=== PATIENT | female | born 1960 | race Caucasian/White ===

== ENCOUNTER 2017-03-14 08:46 | Emergency (ER) | payer MEDICAID ==
[2017-03-14 09:10] VITALS: BP 149/81
[2017-03-14] MEDS ORDERED: Acetaminophen/HYDROcodone 325-5 MG Tab PO ONE (09:24)
[2017-03-14] MEDS ORDERED: Acetaminophen/HYDROcodone 325-5 MG Tab ONE (09:27)
--- NOTE | 2017-03-14 09:34 | EDM.PDOC ---
ED HPI GENERAL MEDICAL PROBLEM - General Stated Complaint: Fell and hit left wrist and left knee Time Seen by Provider: 03/14/17 09:15 Source of Information: Reports: Patient History Limitations: Reports: No Limitations - History of Present Illness INITIAL COMMENTS - FREE TEXT/NARRATIVE: Patient is a 57 year old woman who tripped on one of the steps at her home last night and she hit her left wrist and left knee. Both hurt but she can walk, albeit with a limp. It hurts to walk or to use her wrist. No loss of neurological sensation or function and no other complaints. 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: Acetaminophen Left Knee Pain Score (Numeric/FACES): 12 - Related Data Allergies Allergy/AdvReac Type Severity Reaction Status Date / Time codeine Allergy Intermediate Nausea and Verified 05/30/14 18:22 Vomiting morphine Allergy Intermediate Nausea and Verified 05/30/14 18:22 Vomiting Penicillins Allergy Intermediate Nausea and Verified 05/30/14 18:22 Vomiting Home Meds: Home Meds RX: Aspirin [Ecotrin] 81 mg PO BEDTIME 04/27/13 [History] RX: Gabapentin [Neurontin] 300 mg PO BID 04/27/13 [History] RX: atorvaSTATin [Lipitor] 10 mg PO BEDTIME 04/27/13 [History] RX: Calcium Carbonate [Calcium Antacid] 500 mg PO BID 05/15/14 [History] RX: Ferrous Sulfate 325 mg PO DAILY 05/15/14 [History] RX: Magnesium Oxide 400 mg PO DAILY 05/15/14 [History] RX: Ondansetron [Ondansetron ODT] 4 mg PO ASDIRECTED PRN 05/15/14 [History] RX: Mirtazapine [Remeron] 45 mg PO BEDTIME 05/30/14 [History] RX: Lactose-Reduced Food [Ensure] 120 ml GTUBE TID #30 can 06/13/14 [Rx] Pediatric Multivit Comb No.42 [Children's Multivitamin] 1 each PO BID #90 tab.chew 06/15/14 [Rx] RX: Cyanocobalamin (Vitamin B12) [Vitamin B12] 1,000 mcg PO DAILY #90 tab [Rx] RX: Polyethylene Glycol 3350 [MiraLAX] 17 gm PO BID #90 packet 06/15/14 [Rx] RX: Vitamin B Complex 1 each PO DAILY #90 tablet 06/15/14 [Rx] Social & Family History - Tobacco Use Smoking Status *Q: Never Smoker Years of Tobacco use: 1 Used Tobacco, but Quit: Yes Month Tobacco Last Used: Sep Second Hand Smoke Exposure: Yes - Alcohol Use Days Per Week of Alcohol Use: 0 Number of Drinks Per Day: 0 Total Drinks Per Week: 0 - Recreational Drug Use Recreational Drug Use: No - Living Situation & Occupation Living situation: Reports: , with Family Occupation: Disabled Review of Systems - Review of Systems Review Of Systems: See Below Constitutional: Reports: No Symptoms Eyes: Reports: No Symptoms Ears: Reports: No Symptoms Nose: Reports: No Symptoms Mouth/Throat: Reports: No Symptoms Respiratory: Reports: No Symptoms Cardiovascular: Reports: No Symptoms GI/Abdominal: Reports: No Symptoms Genitourinary: Reports: No Symptoms Musculoskeletal: Reports: Other (As per HPI) Skin: Reports: No Symptoms Neurological: Reports: No Symptoms Psychiatric: Reports: No Symptoms ED EXAM, GENERAL - Physical Exam Exam: See Below General Appearance: Alert, WD/WN, No Apparent Distress Eye Exam: Bilateral Eye: Normal Fundi, Normal Inspection Ears: Normal External Exam, Normal Canal, Hearing Grossly Normal, Normal TMs Ear Exam: Bilateral Ear: Auricle Normal, Canal Normal, TM normal Nose: Normal Inspection, Normal Mucosa, No Blood Throat/Mouth: Normal Inspection, Normal Lips, Normal Teeth, Normal Gums, Normal Oropharynx, Normal Voice, No Airway Compromise Head: Atraumatic, Normocephalic Neck: Normal Inspection, Supple, Non-Tender, Full Range of Motion Respiratory/Chest: No Respiratory Distress, Lungs Clear, Normal Breath Sounds, No Accessory Muscle Use, Chest Non-Tender Cardiovascular: Normal Peripheral Pulses, Regular Rate, Rhythm, No Edema, No Gallop, No JVD, No Murmur, No Rub Peripheral Pulses: 2+: Posterior Tibial (L), Posterior Tibial (R), Dorsalis Pedis (L), Dorsalis Pedis (R) GI/Abdominal: Normal Bowel Sounds, Soft, Non-Tender, No Organomegaly, No Distention, No Abnormal Bruit, No Mass Extremities: Normal Inspection, No Pedal Edema, Limited Range of Motion (left wrist and left knee due to pain), Other (Both the left wrist and left knee grossly appear normal on inspection. They are both sore on ROM and on Palpation of each. Both are minimally tender at rest. She can walk with a limp. X-rays of the left wrist are negative for fracture on my initial reading and x-ray of the left knee is negative for fracture on my initial reading. She does have arthritis in both joints, though.) Neurological: Alert, Oriented, CN II-XII Intact, Normal Cognition, Normal Gait, Normal Reflexes, No Motor/Sensory Deficits Psychiatric: Normal Affect, Normal Mood Skin Exam: Warm, Dry, Intact, Normal Color, No Rash Course - Vital Signs Text/Narrative:: Patient had an uneventful ED course. She felt better after taking a 10/325 mg Hydrocodone/APAP and we put on a wrist splint and a knee brace and let her go home. She will follow up with her PCP next week. She will take the Vicodin she has at home one pill aq 4 hours prn for pain, she will rest the joints, ice them , elevate them and follow up next week as noted above. Last Recorded V/S: Last Vital Signs Temp 36.9 C 03/14/17 09:09 Pulse 80 03/14/17 09:09 Resp 16 03/14/17 09:09 BP 149/81 H 03/14/17 09:09 Pulse Ox 99 03/14/17 09:09 - Orders/Labs/Meds Orders: Active Orders 24 hr Category Date Time Status Knee 1V or 2V Lt [CR] Stat Exams 03/14/17 09:08 Ordered Wrist 2V Lt [CR] Stat Exams 03/14/17 09:07 Ordered Meds: Medications Discontinued Medications Generic Name Dose Route Start Last Admin Trade Name Freq PRN Reason Stop Dose Admin Hydrocodone Bitart/Acetaminophen 1 tab 03/14/17 09:24 [place] 325-5 Mg PO 03/14/17 09:25 ONETIME ONE Departure - Departure Time of Disposition: 09:49 Disposition: Home, Self-Care 01 Condition: Good Clinical Impression: Contusion of wrist, left, Contusion of knee, left - Discharge Information - My Orders Last 24 Hours: My Active Orders 03/14/17 09:07 Wrist 2V Lt [CR] Stat 03/14/17 09:08 Knee 1V or 2V Lt [CR] Stat - Assessment/Plan Last 24 Hours: My Active Orders 03/14/17 09:07 Wrist 2V Lt [CR] Stat 03/14/17 09:08 Knee 1V or 2V Lt [CR] Stat
--- NOTE | 2017-03-15 13:50 | CR ---
DATE OF SERVICE: 03/14/17 CLINICAL DATA: pain after falling LEFT KNEE There is diffuse osteopenia. There are osteoarthritic changes of the knee joint with narrowing of the lateral compartment joint space. No acute fracture or dislocation. No lytic or blastic bone lesions. No joint effusion. There are vascular calcifications in the soft tissues. [id number] MTDD
--- NOTE | 2017-03-15 14:00 | CR ---
DATE OF SERVICE: 03/14/17 CLINICAL DATA: pain and swelling LEFT WRIST There is diffuse osteopenia. There are mild osteoarthritic changes involving multiple joints. There is a faint lucency through the distal radius on the frontal view suspicious for a fracture. I do not see it on the lateral view. Clinical correlation and followup imaging may be helpful. There are vascular calcifications in the soft tissues. [id number] [facility]
== END 2017-03-14 10:12 | disposition home or self-care (01) ==
LOC: LB.ED 08:46
DX: S80.02XA Contusion of left knee, initial encounter (principal); S60.212A Contusion of left wrist, initial encounter; Z88.5 Allergy status to narcotic agent; Z88.0 Allergy status to penicillin; Z79.82 Long term (current) use of aspirin; Z79.899 Other long term (current) drug therapy; W10.9XXA Fall (on) (from) unspecified stairs and steps, initial encounter; Y93.89 Activity, other specified; Y92.009 Unspecified place in unspecified non-institutional (private) residence as the place of occurrence of the external cause
CPT/HCPCS: 29125; 73100-LT; 73560-LT; 99283-25

== ENCOUNTER 2019-05-23 10:47 | Emergency (ER) | payer MEDICAID ==
--- NOTE | 2019-05-23 11:18 | EDM.PDOC ---
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 Pt is in no acute distress. EKG with NSR noted. Labs ordered for CMP, troponin, U/A, TSH, T3, T4. Pt states she isn't taking the savella for fibromyalgia and this made her feel bad. Reports eating 1/2 sandwich for lunch yesterday and couple bites of breakfast today and yesterday. States she lives alone with her dog, is in a LTCF and brothers need assist with oversight of their diabetes and dialysis and she tries to help them as much as possible. States no increase in her depression and declines any change in antidepressant. States she is lactose intolerant and can't tolerate ensure or mild based products. Middle Chest Pain Score (Numeric/FACES): 10 - Related Data Allergies Allergy/AdvReac Type Severity Reaction Status Date / Time codeine Allergy Intermediate Nausea and Verified 05/23/19 11:45 Vomiting morphine Allergy Intermediate Nausea and Verified 05/23/19 11:45 Vomiting Penicillins Allergy Intermediate Nausea and Verified 05/23/19 11:45 Vomiting Home Meds: Home Meds Aspirin [Ecotrin] 81 mg PO BEDTIME 04/27/13 [History] Gabapentin [Neurontin] 600 mg PO BID 04/27/13 [History] atorvaSTATin [Lipitor] 10 mg PO BEDTIME 04/27/13 [History] Calcium Carbonate [Calcium Antacid] 500 mg PO BID 05/15/14 [History] Ferrous Sulfate 325 mg PO DAILY 05/15/14 [History] Ondansetron [Ondansetron ODT] 4 mg PO ASDIRECTED PRN 05/15/14 [History] Mirtazapine [Remeron] 45 mg PO BEDTIME 05/30/14 [History] Cyanocobalamin (Vitamin B12) [Vitamin B12] 1,000 mcg PO DAILY #90 tab 06/15/14 [ Rx] Pediatric Multivit Comb No.42 [Children's Multivitamin] 1 each PO BID #90 tab.chew 06/15/14 [Rx] Vitamin B Complex 1 each PO DAILY #90 tablet 06/15/14 [Rx] Metoprolol Tartrate 5 mg PO BID 05/23/19 [History] Nitroglycerin 0.4 mg SL ASDIRECTED PRN 05/23/19 [History] diphenhydrAMINE HCl [Benadryl] 50 mg PO ASDIRECTED PRN 05/23/19 [History] Social & Family History - Living Situation & Occupation Living situation: Reports: , with Family Occupation: Disabled ED ROS GENERAL - Review of Systems Review Of Systems: See Below Constitutional: Denies: Fever, Chills HEENT: Reports: Glasses. Denies: Throat Pain Respiratory: Reports: Pleuritic Chest Pain. Denies: Shortness of Breath, Wheezing, Cough Cardiovascular: Reports: Chest Pain. Denies: Edema Endocrine: Reports: Fatigue GI/Abdominal: Reports: Decreased Appetite, Nausea. Denies: Abdominal Pain, Difficulty Swallowing, Hematochezia, Melena, Vomiting : Reports: No Symptoms Musculoskeletal: Reports: Other (arthritis all over, states back pain) Skin: Reports: No Symptoms Psychiatric: Reports: Other (trouble sleeping) ED EXAM, GENERAL - Physical Exam Exam: See Below Exam Limited By: No Limitations General Appearance: Alert, No Apparent Distress Ears: Hearing Grossly Normal Nose: Normal Inspection, Normal Mucosa Throat/Mouth: Normal Voice, No Airway Compromise, Other (oral mucousa is dry) Head: Atraumatic, Normocephalic Neck: Supple, Non-Tender Respiratory/Chest: No Respiratory Distress, Lungs Clear, Normal Breath Sounds. No: Crackles, Rhonchi, Wheezing Cardiovascular: Normal Peripheral Pulses, Regular Rate, Rhythm, No Edema GI/Abdominal: Normal Bowel Sounds, Soft, Non-Tender Back Exam: Normal Inspection Extremities: Non-Tender, No Pedal Edema, Normal Capillary Refill Neurological: Alert, Oriented, Normal Cognition Psychiatric: Normal Affect, Normal Mood Skin Exam: Warm, Dry, Normal Color Lymphatic: No Adenopathy Course - Vital Signs Last Recorded V/S: Last Vital Signs Temp 97.1 F 05/23/19 11:03 Pulse 73 05/23/19 13:25 Resp BP 107/64 05/23/19 13:25 Pulse Ox 96 05/23/19 13:25 - Orders/Labs/Meds Orders: Active Orders 24 hr Category Date Time Status EKG Documentation Completion [RC] ASDIRECTED Care 05/23/19 10:50 Active T3 UPTAKE Routine Lab 05/23/19 11:20 Received THYROID PEROXIDASE (TPO) AB Routine Lab 05/23/19 11:20 Received THYROXINE (T4) FREE, DIRECT, S Routine Lab 05/23/19 11:20 Received Labs: Laboratory Tests 05/23/19 05/23/19 05/23/19 Range/Units 11:10 11:12 13:00 WBC 9.1 (4.0-11.0) K/uL RBC 4.28 (3.80-5.80) M/uL Hgb 13.6 (11.5-16.5) g/dL Hct 40.9 (37.0-47.0) % MCV 96 (76-96) fL MCH 31.8 (27.0-32.0) pg MCHC 33.3 (31.0-35.0) g/dL RDW 15.0 (11.0-16.0) % Plt Count 434 D (150-500) K/uL MPV 9.2 (6.0-10.0) fL Neut % (Auto) 47.7 (45.0-70.0) % Lymph % (Auto) 46.6 H (20.0-40.0) % [place] % (Auto) 5.3 (3.0-10.0) % Eos % (Auto) 0.1 L (1.0-5.0) % Baso % (Auto) 0.3 (0.0-0.5) % Neut # (Auto) 4.36 (2.00-7.50) K/uL Lymph # (Auto) 4.26 H (1.50-4.00) K/uL [place] # (Auto) 0.48 (0.20-0.80) K/uL Eos # (Auto) 0.01 L (0.04-0.40) K/uL Baso # (Auto) 0.03 (0.02-0.10) K/uL Sodium 140 (136-145) mmol/L Potassium 5.3 H (3.5-5.1) mmol/L Chloride 104 (98-107) mmol/L Carbon Dioxide 26.0 (21.0-32.0) mmol/L Anion Gap 15.3 H (5.0-15.0) mmol/L BUN 14 D (8-26) mg/dL Creatinine 1.28 H D (0.55-1.02) mg/dL Est Cr Clr Drug Dosing TNP Estimated GFR (MDRD) 42 L (>60) MLS/MIN BUN/Creatinine Ratio 10.9 (6-25) Glucose 100 D (74-100) mg/dL Calcium 8.3 L (8.5-10.1) mg/dL Total Bilirubin 0.3 D (0.0-1.0) mg/dL AST 39 H (15-37) U/L ALT 26 (12-78) U/L Alkaline Phosphatase 134 H (46-116) U/L Troponin I < 0.017 D (0.000-0.060) ng/mL Total Protein 5.5 L (6.4-8.2) g/dL Albumin 2.0 L (3.4-5.0) g/dL Globulin 3.5 (2.2-4.2) g/dL Albumin/Globulin Ratio 0.6 L (0.8-2.0) TSH, Ultra Sensitive 4.113 H D (0.358-3.740) uIU/mL Urine Color Yellow Urine Appearance Cloudy (CLEAR) Urine pH 5.5 (5.0-8.0) Ur Specific [place] 1.010 (1.003-1.030) Urine Protein Negative (NEGATIVE) mg/dL Urine Glucose (UA) Negative (NEGATIVE) mg/dL Urine Ketones Negative (NEGATIVE) mg/dL Urine Occult Blood Negative (NEGATIVE) Urine Nitrite Negative (NEGATIVE) Urine Bilirubin Negative (NEGATIVE) Urine Urobilinogen 0.2 (0.2-1.0) E.U./dL Ur Leukocyte Esterase Small H (NEGATIVE) Urine RBC 0-5 H /HPF Urine WBC 10-20 H /HPF Ur Squamous Epith Cells Many /HPF Urine Bacteria Moderate H /HPF Meds: Medications Discontinued Medications Generic Name Dose Route Start Last Admin Trade Name Freq PRN Reason Stop Dose Admin Ondansetron HCl 4 mg 05/23/19 13:15 05/23/19 13:17 Zofran Odt PO 05/23/19 13:16 4 mg ONETIME ONE Administration Ondansetron HCl Confirm 05/23/19 13:24 05/23/19 15:55 Zofran Odt Administered 05/23/19 13:25 Not Given Dose 4 mg .ROUTE .STK-MED ONE Tramadol HCl 50 mg 05/23/19 12:09 05/23/19 12:11 Ultram PO 05/23/19 12:10 50 mg ONETIME ONE Administration Tramadol HCl Confirm 05/23/19 12:17 05/23/19 13:17 Ultram Administered 05/23/19 12:18 Not Given Dose 50 mg .ROUTE .STK-MED ONE - Re-Assessments/Exams Free Text/Narrative Re-Assessment/Exam: 05/24/19 08:18 LE Counseled on lab results and EKG, NSR noted and troponins negative. TSH slightly elevated, T3, T4 ordered. Albumin and protein is low, recommend increase in nutrition, possibly lactose free milk, almond milk, eggs, lactose free ensure or boost. Recommend to monitor BS, states she has no glucometer. Consult with Dr Patel and recommends nutritional support as needed with lactose free products and f/u w PCP for depression and TSH follow-up. UTI noted and Cipro started. Pt states understanding. K+ is slightly elevated, recommend to recheck next week and F/U with PCP next week Tramadol 50 mg X1 given for back pain with some relief. Departure - Departure Time of Disposition: 15:20 Disposition: Home, Self-Care 01 Condition: Good Clinical Impression: UTI (urinary tract infection), Failure to thrive - Discharge Information *PRESCRIPTION DRUG MONITORING PROGRAM REVIEWED*: Not Applicable *COPY OF PRESCRIPTION DRUG MONITORING REPORT IN PATIENT NESSA: Not Applicable Instructions: Clear Liquid Diet, Adult, [id number], Ciprofloxacin tablets, [place] Diet Referrals: PCP,None [Primary Care Provider] - Forms: ED Department Discharge Additional Instructions: Please read the requested information about liquid and bland diets. Keep trying small amounts of different foods as tolerated every hr or two. Full sugar boost or dietary supplement is allowed if that is all you can tolerate for the day. Check your blood sugars as directed. Please follow up with your PCP in clinic in a week. You have been given Ciprofloxacin 500mg, to be taken 1 tab twice a day. Try to take with food if you can. - My Orders Last 24 Hours: My Active Orders 05/23/19 10:50 EKG Documentation Completion [RC] ASDIRECTED 05/23/19 11:20 T3 UPTAKE Routine THYROID PEROXIDASE (TPO) AB Routine THYROXINE (T4) FREE, DIRECT, S Routine - Assessment/Plan Last 24 Hours: My Active Orders 05/23/19 10:50 EKG Documentation Completion [RC] ASDIRECTED 05/23/19 11:20 T3 UPTAKE Routine THYROID PEROXIDASE (TPO) AB Routine THYROXINE (T4) FREE, DIRECT, S Routine Plan: Counseled on UTI, slightly elevated TSH, potassium and decrease in protein and albumin levels, recommend increase in nutrition, recheck labs next week, start Cipro. F/U w PCP next week. Monitor BS daily and bring results to next appointment.
[2019-05-23] MEDS ORDERED: Ciprofloxacin 500 MG Tab ONE (12:00)
[2019-05-23] MEDS ORDERED: traMADol 50 MG Tab PO ONE (12:09)
[2019-05-23] MEDS ORDERED: traMADol 50 MG Tab ONE (12:17)
[2019-05-23] MEDS ORDERED: Ondansetron 4 MG Tab.DIS PO ONE (13:15)
[2019-05-23] MEDS ORDERED: Ondansetron 4 MG Tab.DIS ONE (13:24)
[2019-05-23 15:55] VITALS: BP 107/64; PULSE 73
[2019-05-26 06:08] LABS: T3 UPTAKE 32 % (24-39)
== END 2019-05-23 15:20 | disposition home or self-care (01) ==
LOC: LB.ED 10:47
DX: N39.0 Urinary tract infection, site not specified (principal); R62.7 Adult failure to thrive; E11.9 Type 2 diabetes mellitus without complications; I10 Essential (primary) hypertension; K21.9 Gastro-esophageal reflux disease without esophagitis; F32.9 Major depressive disorder, single episode, unspecified; Z88.5 Allergy status to narcotic agent; Z88.0 Allergy status to penicillin; Z79.82 Long term (current) use of aspirin; Z79.899 Other long term (current) drug therapy
CPT/HCPCS: 36415; 80053; 81001; 84439; 84443; 84479; 84484; 85025; 86376; 93005; 99285-25; A9270-GY

== ENCOUNTER 2019-06-02 10:41 | Inpatient (IN) | payer MEDICAID ==
--- NOTE | 2019-06-02 11:23 | EDM.PDOC ---
ED HPI GENERAL MEDICAL PROBLEM - General Chief Complaint: General Stated Complaint: wekaness, unable to eat Time Seen by Provider: 06/02/19 11:20 Source of Information: Reports: Patient, RN - History of Present Illness INITIAL COMMENTS - FREE TEXT/NARRATIVE: 59 yr female presents with weakness and not feeling well. States she doesn't think she can go home she is feeling so bad. Pt states she has no appetite and hasn't been eating very well. States she did take the antibiotic from the previous ER visit and is noticing some symptoms of UTI today. States in the past she had to have a feeding tube in place to help her maintain her nutrition. She states she doesn't know if she has any medications at home and her new refills were coming today, but the weather has caused a delay in delivery until tomorrow. Her brother is with her today and did drive her hear today. Pt states he is a good cook, but does have some other difficulties and she reports assisting him with review of his diabetes and medical needs. Pt states her is in poor health and is in a LTCF in [place]. Lower Back Pain Score (Numeric/FACES): 0 - Related Data Allergies Allergy/AdvReac Type Severity Reaction Status Date / Time codeine Allergy Intermediate Nausea and Verified 06/02/19 11:27 Vomiting morphine Allergy Intermediate Nausea and Verified 06/02/19 11:27 Vomiting Penicillins Allergy Intermediate Nausea and Verified 06/02/19 11:27 Vomiting Home Meds: Home Meds Aspirin [Ecotrin] 81 mg PO BEDTIME 04/27/13 [History] Gabapentin [Neurontin] 600 mg PO BID 04/27/13 [History] atorvaSTATin [Lipitor] 10 mg PO BEDTIME 04/27/13 [History] Calcium Carbonate [Calcium Antacid] 500 mg PO BID 05/15/14 [History] Ferrous Sulfate 325 mg PO DAILY 05/15/14 [History] Ondansetron [Ondansetron ODT] 4 mg PO ASDIRECTED PRN 05/15/14 [History] Mirtazapine [Remeron] 45 mg PO BEDTIME 05/30/14 [History] Cyanocobalamin (Vitamin B12) [Vitamin B12] 1,000 mcg PO DAILY #90 tab 06/15/14 [ Rx] Pediatric Multivit Comb No.42 [Children's Multivitamin] 1 each PO BID #90 tab.chew 06/15/14 [Rx] Vitamin B Complex 1 each PO DAILY #90 tablet 06/15/14 [Rx] Metoprolol Tartrate 5 mg PO BID 05/23/19 [History] Nitroglycerin 0.4 mg SL ASDIRECTED PRN 05/23/19 [History] diphenhydrAMINE HCl [Benadryl] 50 mg PO ASDIRECTED PRN 05/23/19 [History] Past Medical History HEENT History: Reports: Allergic Rhinitis, Impaired Vision, Sinusitis Cardiovascular History: Reports: High Cholesterol, Stents Respiratory History: Reports: SOB, Other (See Below) Other Respiratory History: SOBOE; collapsed lung when in [facility] [place] 2006 Gastrointestinal History: Reports: GERD, Other (See Below) Other Gastrointestinal History: lactose intolerant Genitourinary History: Reports: Other (See Below) Other Genitourinary History: malignant tumor taken off left kidney [employer]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 MOLDER History: Reports: , Spontaneous Musculoskeletal History: Reports: Back Pain, Chronic, Osteoarthritis, Osteoporosis Neurological History: Reports: Migraines, Neuropathy, Diabetic, Other (See Below ) Other Neuro History: [facility] 2006 Psychiatric History: Reports: Eating Disorders Endocrine/Metabolic History: Reports: Diabetes, Type II, Obesity/BMI 30+ Hematologic History: Reports: Anemia, Blood Transfusion(s) Oncologic (Cancer) History: Reports: Renal - Infectious Disease History Infectious Disease History: Reports: Chicken Pox - Past Surgical History HEENT Surgical History: Reports: Tonsillectomy Cardiovascular Surgical History: Reports: Coronary Artery Stent GI Surgical History: Reports: Bariatric Procedure, Colonoscopy Female Surgical History: Reports: Other (See Below) Other Female Surgeries/Procedures: "Misshapen uterus, couldn't find my right ovary". Musculoskeletal Surgical History: Reports: Other (See Below) Other Musculoskeletal Surgeries/Procedures:: plate in right clavicle Oncologic Surgical History: Reports: Lumpectomy Social & Family History - Caffeine Use Caffeine Use: Reports: Soda, Tea Other Caffeine Use: pop 1/day, tea rare - Living Situation & Occupation Living situation: Reports: , with Family Occupation: Disabled ED ROS GENERAL - Review of Systems Review Of Systems: See Below Constitutional: Reports: Weakness, Decreased Appetite, Weight Loss. Denies: Fever HEENT: Reports: Glasses Respiratory: Reports: No Symptoms Cardiovascular: Reports: Edema (Mild ankle edema), Lightheadedness (reported pt patient). Denies: Chest Pain Endocrine: Reports: Other (diabetic) GI/Abdominal: Reports: Decreased Appetite, Nausea. Denies: Abdominal Pain, Vomiting : Reports: Dysuria Musculoskeletal: Reports: Back Pain. Denies: Neck Pain, Arm Pain Skin: Reports: Pallor, Rash (erythema under abdominal fold and under left breast ), Other (haven't had energy to bathe.) Neurological: Reports: Difficulty Walking, Weakness. Denies: Confusion, Headache, Trouble Speaking Psychiatric: Reports: Anxiety (shaking) Hematologic/Lymphatic: Reports: No Symptoms ED EXAM, GENERAL - Physical Exam Exam: See Below Exam Limited By: No Limitations General Appearance: Alert, No Apparent Distress, Anxious Eye Exam: Bilateral Eye: PERRL Ears: Normal External Exam, Hearing Grossly Normal Nose: Normal Inspection. No: Nasal Swelling, Nasal Drainage Throat/Mouth: Normal Lips, Normal Voice, No Airway Compromise, Other (dry mouth , poor dentition) Head: Atraumatic, Normocephalic Neck: Supple, Non-Tender, Full Range of Motion Respiratory/Chest: No Respiratory Distress, Lungs Clear, Normal Breath Sounds Cardiovascular: No Edema, No Murmur, Tachycardia Peripheral Pulses: 2+: Radial (L), Radial (R) GI/Abdominal: Normal Bowel Sounds, Soft, Non-Tender. No: Guarding, Rebound (Female) Exam: Other (erythema to labia) Rectal (Female) Exam: Deferred Back Exam: Other (chronic low back pain) Extremities: No Pedal Edema, Other (mild ankle edema) Neurological: Alert, Oriented, Normal Cognition Psychiatric: Normal Mood, Flat Affect Skin Exam: Cool, Pallor, Other (erythema to left abdominal fold and under left breast. Scabbed area to right great toe and erythema about 1 cm.). No: Jaundice Lymphatic: No Adenopathy Course - Vital Signs Last Recorded V/S: Last Vital Signs Temp 97.8 F 06/02/19 21:00 Pulse 70 06/03/19 05:00 Resp 16 06/03/19 05:00 BP 94/46 L 06/02/19 21:00 Pulse Ox 95 06/02/19 21:00 - Orders/Labs/Meds Orders: Active Orders 24 hr Category Date Time Status Cardiac Monitoring [RC] .As Directed Care 06/02/19 11:57 Active EKG Documentation Completion [RC] ASDIRECTED Care 06/02/19 12:11 Active Mello Catheter Insertion [Insert Urinary Catheter] [OM. Care 06/02/19 12:00 Ordered PC] Q24H Urinary Catheter Assessment [RC] DAILY Care 06/02/19 11:58 Active CULTURE BLOOD [BC] Stat Lab 06/02/19 13:20 Received CULTURE URINE [RM] Stat Lab 06/02/19 12:30 Received Acetaminophen/HYDROcodone [[place] 325-5 MG] Med 06/02/19 13:00 Active 1 tab PO Q6H PRN Dextrose 5%-0.9% NaCl [Dextrose 5%-Normal Saline] 1,000 Med 06/02/19 13:15 Active ml IV ASDIRECTED Sodium Chloride 0.9% [Normal Saline] 1,000 ml Med 06/02/19 11:30 Active IV ASDIRECTED Sodium Chloride 0.9% [Saline Flush] Med 06/02/19 11:29 Active 10 ml FLUSH ASDIRECTED PRN Sodium Chloride 0.9% [Saline Flush] Med 06/02/19 12:32 Active 10 ml FLUSH ASDIRECTED PRN Saline Lock Insert [OM.PC] Routine Oth 06/02/19 11:29 Ordered Saline Lock Insert [OM.PC] Stat Oth 06/02/19 12:33 Ordered Severe Sepsis Onset Time [OM.PC] Stat Oth 06/02/19 12:33 Ordered Medication Orders Hydrocodone Bitart/Acetaminophen ([place] 325-5 Mg) 1 tab PO Q6H PRN PRN Reason: Pain (moderate 4-6) Aspirin (Ecotrin) 81 mg PO BEDTIME [facility] Last Admin: 06/02/19 20:50 Dose: 81 mg Atorvastatin Calcium (Lipitor) 10 mg PO BEDTIME [facility] Last Admin: 06/02/19 20:50 Dose: 10 mg Calcium Carbonate/Glycine (Tums) 500 mg PO BID [facility] Last Admin: 06/02/19 20:51 Dose: 500 mg Cyanocobalamin (Vitamin B12) 1,000 mcg PO DAILY [facility] Last Admin: 06/02/19 17:53 Dose: Diphenhydramine HCl (Benadryl) 50 mg PO ASDIRECTED PRN PRN Reason: Allergies Ferrous Sulfate (Ferrous Sulfate) 325 mg PO DAILY [facility] Gabapentin (Neurontin) 600 mg PO TID [facility] Last Admin: 06/02/19 20:57 Dose: 600 mg Admin: 06/02/19 16:34 Dose: Sodium Chloride (Normal Saline) 1,000 mls @ 999 mls/hr IV ASDIRECTED IRENE Last Admin: 06/02/19 12:05 Dose: 999 mls/hr Dextrose/Sodium Chloride (Dextrose 5%-Normal Saline) 1,000 mls @ 125 mls/hr IV ASDIRECTED [facility] Last Infusion: 06/03/19 00:59 Dose: 75 mls/hr Admin: 06/03/19 00:48 Dose: 125 mls/hr Infusion: 06/02/19 23:07 Dose: 125 mls/hr Admin: 06/02/19 15:07 Dose: 125 mls/hr Ciprofloxacin/Dextrose 400 mg/ (Premix) 200 mls @ 200 mls/hr IV Q12HR [facility] Last Infusion: 06/02/19 23:07 Dose: 200 mls/hr Admin: 06/02/19 20:48 Dose: 200 mls/hr Metoprolol Tartrate (Lopressor) 5 mg PO BID [facility] Last Admin: 06/02/19 20:51 Dose: 5 mg Nitroglycerin (Nitrostat) 0.4 mg SL ASDIRECTED PRN PRN Reason: Chest Pain Non-Formulary Medication (Mirtazapine [Remeron]) 45 mg PO BEDTIME [facility] Last Admin: 06/02/19 20:58 Dose: 45 mg Non-Formulary Medication (Pediatric Multivit Comb No.42 [Children's Multivitamin ]) 1 each PO BID [facility] Last Admin: 06/02/19 20:58 Dose: 1 each Non-Formulary Medication (Vitamin B Complex [Vitamin B Complex]) 1 each PO DAILY [facility] Nystatin (Nystatin Crm) 0 gm TOP BID [facility] Last Admin: 06/02/19 20:58 Dose: 1 applic Sodium Chloride (Saline Flush) 10 ml FLUSH ASDIRECTED PRN PRN Reason: Keep Vein Open Sodium Chloride (Saline Flush) 10 ml FLUSH ASDIRECTED PRN PRN Reason: Keep Vein Open Labs: Laboratory Tests 06/02/19 06/02/19 06/02/19 Range/Units 10:42 12:00 12:00 WBC 10.4 (4.0-11.0) K/uL RBC 4.08 (3.80-5.80) M/uL Hgb 13.0 (11.5-16.5) g/dL Hct 38.2 (37.0-47.0) % MCV 94 (76-96) fL MCH 31.9 (27.0-32.0) pg MCHC 34.0 (31.0-35.0) g/dL RDW 14.9 (11.0-16.0) % Plt Count 331 D (150-500) K/uL MPV 9.8 (6.0-10.0) fL Neut % (Auto) 76.8 H (45.0-70.0) % Lymph % (Auto) 17.2 L (20.0-40.0) % Logan % (Auto) 5.8 (3.0-10.0) % Eos % (Auto) 0.1 L (1.0-5.0) % Baso % (Auto) 0.1 (0.0-0.5) % Neut # (Auto) 7.98 H (2.00-7.50) K/uL Lymph # (Auto) 1.79 (1.50-4.00) K/uL Logan # (Auto) 0.60 (0.20-0.80) K/uL Eos # (Auto) 0.01 L (0.04-0.40) K/uL Baso # (Auto) 0.01 L (0.02-0.10) K/uL VBG pH (7.31-7.41) Sodium 137 (136-145) mmol/L Potassium 4.0 D (3.5-5.1) mmol/L Chloride 103 (98-107) mmol/L Carbon Dioxide 22.0 (21.0-32.0) mmol/L Anion Gap 16.0 H (5.0-15.0) mmol/L BUN 15 (8-26) mg/dL Creatinine 1.18 H (0.55-1.02) mg/dL Est Cr Clr Drug Dosing TNP Estimated GFR (MDRD) 47 L (>60) MLS/MIN BUN/Creatinine Ratio 12.7 (6-25) Glucose 137 H D (74-100) mg/dL POC Glucose 146 H (74-110) mg/dL Lactic Acid (0.90-1.70) mmol/L Calcium 8.1 L (8.5-10.1) mg/dL Total Bilirubin (0.0-1.0) mg/dL Direct Bilirubin (0.0-0.3) mg/dL Indirect Bilirubin (<= 0.7) mg/dL AST (15-37) U/L ALT (12-78) U/L Alkaline Phosphatase (46-116) U/L Troponin I (0.000-0.060) ng/mL Total Protein (6.4-8.2) g/dL Albumin (3.4-5.0) g/dL Globulin (2.2-4.2) g/dL Albumin/Globulin Ratio (0.8-2.0) Urine Color Urine Appearance (CLEAR) Urine pH (5.0-8.0) Ur Specific [place] (1.003-1.030) Urine Protein (NEGATIVE) mg/dL Urine Glucose (UA) (NEGATIVE) mg/dL Urine Ketones (NEGATIVE) mg/dL Urine Occult Blood (NEGATIVE) Urine Nitrite (NEGATIVE) Urine Bilirubin (NEGATIVE) Urine Urobilinogen (0.2-1.0) E.U./dL Ur Leukocyte Esterase (NEGATIVE) Urine RBC /HPF Urine WBC /HPF Ur Squamous Epith Cells /HPF Urine Bacteria /HPF 06/02/19 06/02/19 06/02/19 Range/Units 12:00 12:00 12:15 WBC (4.0-11.0) K/uL RBC (3.80-5.80) M/uL Hgb (11.5-16.5) g/dL Hct (37.0-47.0) % MCV (76-96) fL MCH (27.0-32.0) pg MCHC (31.0-35.0) g/dL RDW (11.0-16.0) % Plt Count (150-500) K/uL MPV (6.0-10.0) fL Neut % (Auto) (45.0-70.0) % Lymph % (Auto) (20.0-40.0) % Logan % (Auto) (3.0-10.0) % Eos % (Auto) (1.0-5.0) % Baso % (Auto) (0.0-0.5) % Neut # (Auto) (2.00-7.50) K/uL Lymph # (Auto) (1.50-4.00) K/uL Logan # (Auto) (0.20-0.80) K/uL Eos # (Auto) (0.04-0.40) K/uL Baso # (Auto) (0.02-0.10) K/uL VBG pH 7.41 (7.31-7.41) Sodium (136-145) mmol/L Potassium (3.5-5.1) mmol/L Chloride (98-107) mmol/L Carbon Dioxide (21.0-32.0) mmol/L Anion Gap (5.0-15.0) mmol/L BUN (8-26) mg/dL Creatinine (0.55-1.02) mg/dL Est Cr Clr Drug Dosing Estimated GFR (MDRD) (>60) MLS/MIN BUN/Creatinine Ratio (6-25) Glucose (74-100) mg/dL POC Glucose (74-110) mg/dL Lactic Acid 2.26 H (0.90-1.70) mmol/L Calcium (8.5-10.1) mg/dL Total Bilirubin (0.0-1.0) mg/dL Direct Bilirubin (0.0-0.3) mg/dL Indirect Bilirubin (<= 0.7) mg/dL AST (15-37) U/L ALT (12-78) U/L Alkaline Phosphatase (46-116) U/L Troponin I 0.032 D (0.000-0.060) ng/mL Total Protein (6.4-8.2) g/dL Albumin (3.4-5.0) g/dL Globulin (2.2-4.2) g/dL Albumin/Globulin Ratio (0.8-2.0) Urine Color Urine Appearance (CLEAR) Urine pH (5.0-8.0) Ur Specific [place] (1.003-1.030) Urine Protein (NEGATIVE) mg/dL Urine Glucose (UA) (NEGATIVE) mg/dL Urine Ketones (NEGATIVE) mg/dL Urine Occult Blood (NEGATIVE) Urine Nitrite (NEGATIVE) Urine Bilirubin (NEGATIVE) Urine Urobilinogen (0.2-1.0) E.U./dL Ur Leukocyte Esterase (NEGATIVE) Urine RBC /HPF Urine WBC /HPF Ur Squamous Epith Cells /HPF Urine Bacteria /HPF 06/02/19 06/02/19 Range/Units 12:30 12:33 WBC (4.0-11.0) K/uL RBC (3.80-5.80) M/uL Hgb (11.5-16.5) g/dL Hct (37.0-47.0) % MCV (76-96) fL MCH (27.0-32.0) pg MCHC (31.0-35.0) g/dL RDW (11.0-16.0) % Plt Count (150-500) K/uL MPV (6.0-10.0) fL Neut % (Auto) (45.0-70.0) % Lymph % (Auto) (20.0-40.0) % Logan % (Auto) (3.0-10.0) % Eos % (Auto) (1.0-5.0) % Baso % (Auto) (0.0-0.5) % Neut # (Auto) (2.00-7.50) K/uL Lymph # (Auto) (1.50-4.00) K/uL Logan # (Auto) (0.20-0.80) K/uL Eos # (Auto) (0.04-0.40) K/uL Baso # (Auto) (0.02-0.10) K/uL VBG pH (7.31-7.41) Sodium (136-145) mmol/L Potassium (3.5-5.1) mmol/L Chloride (98-107) mmol/L Carbon Dioxide (21.0-32.0) mmol/L Anion Gap (5.0-15.0) mmol/L BUN (8-26) mg/dL Creatinine (0.55-1.02) mg/dL Est Cr Clr Drug Dosing Estimated GFR (MDRD) (>60) MLS/MIN BUN/Creatinine Ratio (6-25) Glucose (74-100) mg/dL POC Glucose (74-110) mg/dL Lactic Acid (0.90-1.70) mmol/L Calcium (8.5-10.1) mg/dL Total Bilirubin 0.8 D (0.0-1.0) mg/dL Direct Bilirubin 0.4 H (0.0-0.3) mg/dL Indirect Bilirubin 0.4 (<= 0.7) mg/dL AST 83 H (15-37) U/L ALT 41 (12-78) U/L Alkaline Phosphatase 168 H (46-116) U/L Troponin I (0.000-0.060) ng/mL Total Protein 5.3 L (6.4-8.2) g/dL Albumin 1.6 L (3.4-5.0) g/dL Globulin 3.7 (2.2-4.2) g/dL Albumin/Globulin Ratio 0.4 L (0.8-2.0) Urine Color Yellow Urine Appearance Slightly cloudy (CLEAR) Urine pH 5.5 (5.0-8.0) Ur Specific [place] 1.015 (1.003-1.030) Urine Protein Negative (NEGATIVE) mg/dL Urine Glucose (UA) Negative (NEGATIVE) mg/dL Urine Ketones Trace H (NEGATIVE) mg/dL Urine Occult Blood Negative (NEGATIVE) Urine Nitrite Positive H (NEGATIVE) Urine Bilirubin Negative (NEGATIVE) Urine Urobilinogen 0.2 (0.2-1.0) E.U./dL Ur Leukocyte Esterase Negative (NEGATIVE) Urine RBC Not seen /HPF Urine WBC 0-5 H /HPF Ur Squamous Epith Cells Rare /HPF Urine Bacteria Few /HPF Meds: Medications Generic Name Dose Route Start Last Admin Trade Name Freq PRN Reason Stop Dose Admin Hydrocodone Bitart/Acetaminophen 1 tab 06/02/19 13:00 [place] 325-5 Mg PO Q6H PRN Pain (moderate 4-6) Aspirin 81 mg 06/02/19 20:00 06/02/19 20:50 Ecotrin PO 81 mg BEDTIME IRENE Administration Atorvastatin Calcium 10 mg 06/02/19 20:00 06/02/19 20:50 Lipitor PO 10 mg BEDTIME IRENE Administration Calcium Carbonate/Glycine 500 mg 06/02/19 20:00 06/02/19 20:51 Tums PO 500 mg BID IRENE Administration Cyanocobalamin 1,000 mcg 06/02/19 16:00 06/02/19 17:53 Vitamin B12 PO Not Given DAILY IRENE Diphenhydramine HCl 50 mg 06/02/19 13:56 Benadryl PO ASDIRECTED PRN Allergies Ferrous Sulfate 325 mg 06/03/19 08:00 Ferrous Sulfate PO DAILY IRENE Gabapentin 600 mg 06/02/19 14:00 06/02/19 20:57 Neurontin PO 600 mg TID IRENE Administration Sodium Chloride 1,000 mls @ 999 mls/hr 06/02/19 11:30 06/02/19 12:05 Normal Saline IV 999 mls/hr ASDIRECTED IRENE Administration Dextrose/Sodium Chloride 1,000 mls @ 125 mls/hr 06/02/19 13:15 06/03/19 00:59 Dextrose 5%-Normal Saline IV 75 mls/hr ASDIRECTED IRENE Infusion Ciprofloxacin/Dextrose 400 mg/ 200 mls @ 200 mls/hr 06/02/19 20:00 06/02/19 23:07 Premix IV Infused Q12HR IRENE Infusion Metoprolol Tartrate 5 mg 06/02/19 20:00 06/02/19 20:51 Lopressor PO 5 mg BID IRENE Administration Nitroglycerin 0.4 mg 06/02/19 13:56 Nitrostat SL ASDIRECTED PRN Chest Pain Non-Formulary Medication 45 mg 06/02/19 20:00 06/02/19 20:58 Mirtazapine [Remeron] PO 45 mg BEDTIME IRENE Administration Non-Formulary Medication 1 each 06/02/19 20:00 06/02/19 20:58 Pediatric Multivit Comb No.42 [Children's Multivitamin] PO 1 each BID IRENE Administration Non-Formulary Medication 1 each 06/03/19 08:00 Vitamin B Complex [Vitamin B Complex] PO DAILY IRENE Nystatin 0 gm 06/02/19 20:00 06/02/19 20:58 Nystatin Crm TOP 1 applic BID IRENE Administration Sodium Chloride 10 ml 06/02/19 11:29 Saline Flush FLUSH ASDIRECTED PRN Keep Vein Open Sodium Chloride 10 ml 06/02/19 12:32 Saline Flush FLUSH ASDIRECTED PRN Keep Vein Open Discontinued Medications Generic Name Dose Route Start Last Admin Trade Name Freq PRN Reason Stop Dose Admin Hydrocodone Bitart/Acetaminophen Confirm 06/02/19 13:09 06/02/19 13:14 [place] 325-5 Mg Administered 06/02/19 13:10 Not Given Dose 1 tab .ROUTE .STK-MED ONE Ciprofloxacin/Dextrose 400 mg/ 200 mls @ 200 mls/hr 06/02/19 12:32 06/02/19 13:36 Premix IV 06/02/19 13:31 200 mls/hr STAT ONE Administration Sodium Chloride 1,000 mls @ 999 mls/hr 06/02/19 12:32 06/02/19 13:40 Normal Saline IV 06/02/19 13:32 Not Given BOLUS ONE Ciprofloxacin/Dextrose Confirm 06/02/19 12:51 06/02/19 13:16 Cipro In D5w 400 Mg/200 Ml Administered 06/02/19 12:52 Not Given Dose 200 mls @ as directed .ROUTE .STK-MED ONE Ciprofloxacin/Dextrose Confirm 06/02/19 20:33 06/02/19 20:59 Cipro In D5w 400 Mg/200 Ml Administered 06/02/19 20:34 Not Given Dose 200 mls @ as directed .ROUTE .STK-MED ONE Mirtazapine Confirm 06/02/19 20:37 06/03/19 00:51 Remeron Administered 06/02/19 20:38 Not Given Dose 45 mg .ROUTE .STK-MED ONE Multivitamins/Minerals/Vitamin C Confirm 06/02/19 20:38 06/02/19 21:00 Childrens Chewable Vitamin Administered 06/02/19 20:39 Not Given Dose 1 tab .ROUTE .STK-MED ONE Nystatin Confirm 06/02/19 17:56 06/02/19 18:01 Nystatin Crm Administered 06/02/19 17:57 1 applic Dose Administration 30 gm .ROUTE .STK-MED ONE - Re-Assessments/Exams Free Text/Narrative Re-Assessment/Exam: 06/02/19 13:03 Current BP 132/84, HR 119. Pt is alert and talkative. Pt states she doesn't have her medications at home. Difficulty on admit for IV access and difficulty obtaining labs, r/t dehydration. IV Nacl one liter bolus given. Labs obtained as ordered. Blood cultures and urine culture is pending. Tachycardia and hypotension noted on admit and pt shivering, pale, and cool. Pt hadn't been eating or drinking well at home. Cipro 400 mg IV started. VS improved. Reviewed pt status with Dr Patel and decision to admit to observation for dehydration, will monitor for increase in symptoms of possible sepsis. public housing interviewer continues. Pt is alert, oriented and no problems with cognition. States she lives alone and hasn't energy to bathe. 06/02/19 13:52 Will admit to observation for dehydration and UTI. Blood culture and urine culture is pending. Cipro 400 mg IV started after blood cultures. Continue IV fluids for hydration. Continue mello catheter for accurate I/O. Nystatin ordered for intertrigo. Diabetic diet and VS q 4 hour and prn. Monitor BS ac and hs. Departure - Departure Time of Disposition: 14:05 Disposition: Refer to Observation Condition: Good Clinical Impression: Dehydration, UTI (urinary tract infection), Intertrigo, Diabetes mellitus type 2 - Discharge Information - Problem List & Annotations (1) Dehydration SNOMED Code(s): 99241989 Code(s): E86.0 - DEHYDRATION Status: Acute Current Visit: Yes Onset Date: 06/02/19 (2) UTI (urinary tract infection) SNOMED Code(s): 07717029 Code(s): N39.0 - URINARY TRACT INFECTION, SITE NOT SPECIFIED Status: Acute Current Visit: Yes (3) Diabetes mellitus type 2 SNOMED Code(s): 59776290 Code(s): E11.9 - TYPE 2 DIABETES MELLITUS WITHOUT COMPLICATIONS Status: Chronic Current Visit: Yes Annotation/Comment:: (4) Intertrigo SNOMED Code(s): 63965297 Code(s): L30.4 - ERYTHEMA INTERTRIGO Status: Acute Current Visit: Yes - Problem List Review Problem List Initiated/Reviewed/Updated: Yes - My Orders Last 24 Hours: My Active Orders 06/02/19 11:29 Sodium Chloride 0.9% [Saline Flush] 10 ml FLUSH ASDIRECTED PRN Saline Lock Insert [OM.PC] Routine 06/02/19 11:30 Sodium Chloride 0.9% [Normal Saline] 1,000 ml IV ASDIRECTED 06/02/19 11:57 Cardiac Monitoring [RC] .As Directed 06/02/19 11:58 Urinary Catheter Assessment [RC] DAILY 06/02/19 12:00 Mello Catheter Insertion [Insert Urinary Catheter] [OM.PC] Q24H 06/02/19 12:11 EKG Documentation Completion [RC] ASDIRECTED 06/02/19 12:30 CULTURE URINE [RM] Stat 06/02/19 12:32 Sodium Chloride 0.9% [Saline Flush] 10 ml FLUSH ASDIRECTED PRN 06/02/19 12:33 Saline Lock Insert [OM.PC] Stat Severe Sepsis Onset Time [OM.PC] Stat 06/02/19 13:00 Acetaminophen/HYDROcodone [[place] 325-5 MG] 1 tab PO Q6H PRN 06/02/19 13:15 Dextrose 5%-0.9% NaCl [Dextrose 5%-Normal Saline] 1,000 ml IV ASDIRECTED 06/02/19 13:20 CULTURE BLOOD [BC] Stat - Assessment/Plan Last 24 Hours: My Active Orders 06/02/19 11:29 Sodium Chloride 0.9% [Saline Flush] 10 ml FLUSH ASDIRECTED PRN Saline Lock Insert [OM.PC] Routine 06/02/19 11:30 Sodium Chloride 0.9% [Normal Saline] 1,000 ml IV ASDIRECTED 06/02/19 11:57 Cardiac Monitoring [RC] .As Directed 06/02/19 11:58 Urinary Catheter Assessment [RC] DAILY 06/02/19 12:00 Mello Catheter Insertion [Insert Urinary Catheter] [OM.PC] Q24H 06/02/19 12:11 EKG Documentation Completion [RC] ASDIRECTED 06/02/19 12:30 CULTURE URINE [RM] Stat 06/02/19 12:32 Sodium Chloride 0.9% [Saline Flush] 10 ml FLUSH ASDIRECTED PRN 06/02/19 12:33 Saline Lock Insert [OM.PC] Stat Severe Sepsis Onset Time [OM.PC] Stat 06/02/19 13:00 Acetaminophen/HYDROcodone [[place] 325-5 MG] 1 tab PO Q6H PRN 06/02/19 13:15 Dextrose 5%-0.9% NaCl [Dextrose 5%-Normal Saline] 1,000 ml IV ASDIRECTED 06/02/19 13:20 CULTURE BLOOD [BC] Stat Plan: Admit to observation for dehydration, UTI, diabetes Type 2, and intertrigo: IV fluid hydration, Cipro IV, monitor BS, diabetic diet, monitor VS closely for any signs of sepsis, nystatin to abdominal fold and rash. Medications as at home. CBC and BMP tomorrow.
[2019-06-02] MEDS ORDERED: Sodium Chloride 0.9% 10 ML Syringe FLUSH PRN (11:29)
[2019-06-02] MEDS ORDERED: Sodium Chloride 0.9% 1,000 ML IV SCH (11:30)
[2019-06-02] MEDS ORDERED: Sodium Chloride 0.9% 1,000 ML IV ONE (12:32)
[2019-06-02] MEDS ORDERED: Ciprofloxacin in D5W 400 MG in Premix Bag 1 BAG IV ONE ×2 (12:32)
[2019-06-02] MEDS ORDERED: Ciprofloxacin in D5W 200 ML ONE ×2 (12:51→20:33)
[2019-06-02] MEDS ORDERED: Acetaminophen/HYDROcodone 325-5 MG Tab ONE ×2 (13:04→13:09)
[2019-06-02] MEDS ORDERED: Nitroglycerin 0.4 MG Tab.SL SL PRN (13:56)
[2019-06-02] MEDS ORDERED: diphenhydrAMINE 25 MG Cap PO PRN (13:56)
[2019-06-02] MEDS: Dextrose 5%-0.9% NaCl 1,000 ML IV SCH (15:07)
--- NOTE | 2019-06-02 15:22 | CR ---
DATE OF SERVICE: 06/02/19 CLINICAL DATA: weakness, nausea, unable to eat, back pain AP PORTABLE CHEST: Comparison is made to a prior exam dated 05/08/2015. The heart size is normal. There is calcification of the aortic arch. There are mild atelectatic changes of the left lung base. The lungs are other clear. No pneumothorax. No pleural effusions. The patient is status post internal fixation of the right clavicle. [id number] [facility]
[2019-06-02] MEDS: Gabapentin 300 MG Cap PO SCH ×2 (16:34→20:57)
[2019-06-02] MEDS: Cyanocobalamin (Vitamin B12) 1,000 MCG Tab PO SCH (17:53)
[2019-06-02] MEDS ORDERED: Nystatin Crm 30 GM Tube ONE (17:56)
[2019-06-02] MEDS: Ciprofloxacin in D5W 400 MG in Premix Bag 1 BAG IV SCH ×2 (20:48)
[2019-06-02] MEDS: Multivitamin, Childrens Tab.Chew ONE ×2 (20:49→21:00)
[2019-06-02] MEDS: atorvaSTATin 10 MG Tab PO SCH (20:50)
[2019-06-02] MEDS: Mirtazapine 15 MG Tab ONE (20:50)
[2019-06-02] MEDS: Aspirin 325 MG Tab.EC PO SCH (20:50)
[2019-06-02] MEDS: Calcium Carbonate 500 MG Tab.Chew PO SCH (20:51)
[2019-06-02] MEDS: Metoprolol Tartrate 25 MG Tab PO SCH (20:51)
[2019-06-02] MEDS: MIRTAZAPINE 45 MG PO SCH (20:58)
[2019-06-02] MEDS: [UNRECOGNIZED DRUG - OTHER] PO SCH (20:58)
[2019-06-02] MEDS: Nystatin Crm 30 GM Tube TOP SCH (20:58)
[2019-06-03] MEDS: Dextrose 5%-0.9% NaCl 1,000 ML IV SCH ×2 (00:48→14:57)
[2019-06-03] MEDS: Mirtazapine 15 MG Tab ONE (00:51)
[2019-06-03] MEDS ORDERED: Ciprofloxacin in D5W 200 ML ONE ×2 (07:28→20:07)
[2019-06-03] MEDS ORDERED: Multivitamin, Childrens Tab.Chew ONE ×2 (07:30→20:03)
[2019-06-03] MEDS: Ferrous Sulfate 325 MG Tab PO SCH (08:27)
[2019-06-03] MEDS: Gabapentin 300 MG Cap PO SCH ×3 (08:28→20:13)
[2019-06-03] MEDS: Nystatin Crm 30 GM Tube TOP SCH ×2 (08:28→20:49)
[2019-06-03] MEDS: Calcium Carbonate 500 MG Tab.Chew PO SCH ×2 (08:29→20:13)
[2019-06-03] MEDS: [UNRECOGNIZED DRUG - OTHER] PO SCH ×2 (08:29→20:13)
[2019-06-03] MEDS: Cyanocobalamin (Vitamin B12) 1,000 MCG Tab PO SCH (08:29)
[2019-06-03] MEDS: Non-Formulary Medication 1 Each (Vitamin B Complex [Vitamin B Complex] 1 EACH) PO SCH (08:30)
[2019-06-03] MEDS: Metoprolol Tartrate 25 MG Tab PO SCH ×4 (08:30→20:54)
--- NOTE | 2019-06-03 08:30 | PCM.PN ---
- General Info Date of Service: 06/03/19 Admission Dx/Problem (Free Text): dehydration, UTI, weakness Subjective Update: Pt states she is tired today. States her pain to her back is improved with the [place]. States she is doing well with the mello catheter. Functional Status: Reports: Pain Controlled, Incentive Spirometry - Review of Systems General: Reports: Weakness, Fatigue HEENT: Reports: Glasses. Denies: Visual Changes Pulmonary: Denies: Shortness of Breath, Cough, Wheezing Cardiovascular: Reports: Lightheadedness. Denies: Chest Pain Gastrointestinal: Reports: Constipation, Decreased Appetite. Denies: Nausea, Vomiting Genitourinary: Reports: Other (improved pain while voiding) Musculoskeletal: Reports: Back Pain Skin: Reports: Pallor, Dryness Neurological: Reports: Dizziness. Denies: Headache, Paresthesia, Trouble Speaking - Patient Data Vitals - Most Recent: Last Vital Signs Temp 97.8 F 06/03/19 05:00 Pulse 70 06/03/19 05:00 Resp 16 06/03/19 05:00 BP 99/44 L 06/03/19 05:00 Pulse Ox 98 06/03/19 05:00 Weight - Most Recent: 146 lb I&O - Last 24 Hours: Intake & Output 06/02/19 06/03/19 06/03/19 22:59 06:59 14:59 Intake Total 300 Output Total 300 1600 Balance -300 -1300 Lab Results Last 24 Hours: Laboratory Results - last 24 hr 06/02/19 06/02/19 06/02/19 Range/Units 10:42 12:00 12:00 WBC 10.4 (4.0-11.0) K/uL RBC 4.08 (3.80-5.80) M/uL Hgb 13.0 (11.5-16.5) g/dL Hct 38.2 (37.0-47.0) % MCV 94 (76-96) fL MCH 31.9 (27.0-32.0) pg MCHC 34.0 (31.0-35.0) g/dL RDW 14.9 (11.0-16.0) % Plt Count 331 D (150-500) K/uL MPV 9.8 (6.0-10.0) fL Neut % (Auto) 76.8 H (45.0-70.0) % Lymph % (Auto) 17.2 L (20.0-40.0) % [place] % (Auto) 5.8 (3.0-10.0) % Eos % (Auto) 0.1 L (1.0-5.0) % Baso % (Auto) 0.1 (0.0-0.5) % Neut # (Auto) 7.98 H (2.00-7.50) K/uL Lymph # (Auto) 1.79 (1.50-4.00) K/uL [place] # (Auto) 0.60 (0.20-0.80) K/uL Eos # (Auto) 0.01 L (0.04-0.40) K/uL Baso # (Auto) 0.01 L (0.02-0.10) K/uL VBG pH (7.31-7.41) Sodium 137 (136-145) mmol/L Potassium 4.0 D (3.5-5.1) mmol/L Chloride 103 (98-107) mmol/L Carbon Dioxide 22.0 (21.0-32.0) mmol/L Anion Gap 16.0 H (5.0-15.0) mmol/L BUN 15 (8-26) mg/dL Creatinine 1.18 H (0.55-1.02) mg/dL Est Cr Clr Drug Dosing TNP Estimated GFR (MDRD) 47 L (>60) MLS/MIN BUN/Creatinine Ratio 12.7 (6-25) Glucose 137 H D (74-100) mg/dL POC Glucose 146 H (74-110) mg/dL Lactic Acid (0.90-1.70) mmol/L Calcium 8.1 L (8.5-10.1) mg/dL Total Bilirubin (0.0-1.0) mg/dL Direct Bilirubin (0.0-0.3) mg/dL Indirect Bilirubin (<= 0.7) mg/dL AST (15-37) U/L ALT (12-78) U/L Alkaline Phosphatase (46-116) U/L Troponin I (0.000-0.060) ng/mL Total Protein (6.4-8.2) g/dL Albumin (3.4-5.0) g/dL Globulin (2.2-4.2) g/dL Albumin/Globulin Ratio (0.8-2.0) Urine Color Urine Appearance (CLEAR) Urine pH (5.0-8.0) Ur Specific [place] (1.003-1.030) Urine Protein (NEGATIVE) mg/dL Urine Glucose (UA) (NEGATIVE) mg/dL Urine Ketones (NEGATIVE) mg/dL Urine Occult Blood (NEGATIVE) Urine Nitrite (NEGATIVE) Urine Bilirubin (NEGATIVE) Urine Urobilinogen (0.2-1.0) E.U./dL Ur Leukocyte Esterase (NEGATIVE) Urine RBC /HPF Urine WBC /HPF Ur Squamous Epith Cells /HPF Urine Bacteria /HPF 06/02/19 06/02/19 06/02/19 Range/Units 12:00 12:00 12:15 WBC (4.0-11.0) K/uL RBC (3.80-5.80) M/uL Hgb (11.5-16.5) g/dL Hct (37.0-47.0) % MCV (76-96) fL MCH (27.0-32.0) pg MCHC (31.0-35.0) g/dL RDW (11.0-16.0) % Plt Count (150-500) K/uL MPV (6.0-10.0) fL Neut % (Auto) (45.0-70.0) % Lymph % (Auto) (20.0-40.0) % [place] % (Auto) (3.0-10.0) % Eos % (Auto) (1.0-5.0) % Baso % (Auto) (0.0-0.5) % Neut # (Auto) (2.00-7.50) K/uL Lymph # (Auto) (1.50-4.00) K/uL [place] # (Auto) (0.20-0.80) K/uL Eos # (Auto) (0.04-0.40) K/uL Baso # (Auto) (0.02-0.10) K/uL VBG pH 7.41 (7.31-7.41) Sodium (136-145) mmol/L Potassium (3.5-5.1) mmol/L Chloride (98-107) mmol/L Carbon Dioxide (21.0-32.0) mmol/L Anion Gap (5.0-15.0) mmol/L BUN (8-26) mg/dL Creatinine (0.55-1.02) mg/dL Est Cr Clr Drug Dosing Estimated GFR (MDRD) (>60) MLS/MIN BUN/Creatinine Ratio (6-25) Glucose (74-100) mg/dL POC Glucose (74-110) mg/dL Lactic Acid 2.26 H (0.90-1.70) mmol/L Calcium (8.5-10.1) mg/dL Total Bilirubin (0.0-1.0) mg/dL Direct Bilirubin (0.0-0.3) mg/dL Indirect Bilirubin (<= 0.7) mg/dL AST (15-37) U/L ALT (12-78) U/L Alkaline Phosphatase (46-116) U/L Troponin I 0.032 D (0.000-0.060) ng/mL Total Protein (6.4-8.2) g/dL Albumin (3.4-5.0) g/dL Globulin (2.2-4.2) g/dL Albumin/Globulin Ratio (0.8-2.0) Urine Color Urine Appearance (CLEAR) Urine pH (5.0-8.0) Ur Specific [place] (1.003-1.030) Urine Protein (NEGATIVE) mg/dL Urine Glucose (UA) (NEGATIVE) mg/dL Urine Ketones (NEGATIVE) mg/dL Urine Occult Blood (NEGATIVE) Urine Nitrite (NEGATIVE) Urine Bilirubin (NEGATIVE) Urine Urobilinogen (0.2-1.0) E.U./dL Ur Leukocyte Esterase (NEGATIVE) Urine RBC /HPF Urine WBC /HPF Ur Squamous Epith Cells /HPF Urine Bacteria /HPF 06/02/19 06/02/19 06/02/19 Range/Units 12:30 12:33 16:20 WBC (4.0-11.0) K/uL RBC (3.80-5.80) M/uL Hgb (11.5-16.5) g/dL Hct (37.0-47.0) % MCV (76-96) fL MCH (27.0-32.0) pg MCHC (31.0-35.0) g/dL RDW (11.0-16.0) % Plt Count (150-500) K/uL MPV (6.0-10.0) fL Neut % (Auto) (45.0-70.0) % Lymph % (Auto) (20.0-40.0) % [place] % (Auto) (3.0-10.0) % Eos % (Auto) (1.0-5.0) % Baso % (Auto) (0.0-0.5) % Neut # (Auto) (2.00-7.50) K/uL Lymph # (Auto) (1.50-4.00) K/uL [place] # (Auto) (0.20-0.80) K/uL Eos # (Auto) (0.04-0.40) K/uL Baso # (Auto) (0.02-0.10) K/uL VBG pH (7.31-7.41) Sodium (136-145) mmol/L Potassium (3.5-5.1) mmol/L Chloride (98-107) mmol/L Carbon Dioxide (21.0-32.0) mmol/L Anion Gap (5.0-15.0) mmol/L BUN (8-26) mg/dL Creatinine (0.55-1.02) mg/dL Est Cr Clr Drug Dosing Estimated GFR (MDRD) (>60) MLS/MIN BUN/Creatinine Ratio (6-25) Glucose (74-100) mg/dL POC Glucose 197 H (74-110) mg/dL Lactic Acid (0.90-1.70) mmol/L Calcium (8.5-10.1) mg/dL Total Bilirubin 0.8 D (0.0-1.0) mg/dL Direct Bilirubin 0.4 H (0.0-0.3) mg/dL Indirect Bilirubin 0.4 (<= 0.7) mg/dL AST 83 H (15-37) U/L ALT 41 (12-78) U/L Alkaline Phosphatase 168 H (46-116) U/L Troponin I (0.000-0.060) ng/mL Total Protein 5.3 L (6.4-8.2) g/dL Albumin 1.6 L (3.4-5.0) g/dL Globulin 3.7 (2.2-4.2) g/dL Albumin/Globulin Ratio 0.4 L (0.8-2.0) Urine Color Yellow Urine Appearance Slightly cloudy (CLEAR) Urine pH 5.5 (5.0-8.0) Ur Specific [place] 1.015 (1.003-1.030) Urine Protein Negative (NEGATIVE) mg/dL Urine Glucose (UA) Negative (NEGATIVE) mg/dL Urine Ketones Trace H (NEGATIVE) mg/dL Urine Occult Blood Negative (NEGATIVE) Urine Nitrite Positive H (NEGATIVE) Urine Bilirubin Negative (NEGATIVE) Urine Urobilinogen 0.2 (0.2-1.0) E.U./dL Ur Leukocyte Esterase Negative (NEGATIVE) Urine RBC Not seen /HPF Urine WBC 0-5 H /HPF Ur Squamous Epith Cells Rare /HPF Urine Bacteria Few /HPF Med Orders - Current: Current Medications Hydrocodone Bitart/Acetaminophen ([place] 325-5 Mg) 1 tab PO Q6H PRN PRN Reason: Pain (moderate 4-6) Aspirin (Ecotrin) 81 mg PO BEDTIME [facility] Last Admin: 06/02/19 20:50 Dose: 81 mg Atorvastatin Calcium (Lipitor) 10 mg PO BEDTIME [facility] Last Admin: 06/02/19 20:50 Dose: 10 mg Calcium Carbonate/Glycine (Tums) 500 mg PO BID [facility] Last Admin: 06/02/19 20:51 Dose: 500 mg Cyanocobalamin (Vitamin B12) 1,000 mcg PO DAILY [facility] Last Admin: 06/02/19 17:53 Dose: Not Given Diphenhydramine HCl (Benadryl) 50 mg PO ASDIRECTED PRN PRN Reason: Allergies Ferrous Sulfate (Ferrous Sulfate) 325 mg PO DAILY [facility] Gabapentin (Neurontin) 600 mg PO TID [facility] Last Admin: 06/02/19 20:57 Dose: 600 mg Sodium Chloride (Normal Saline) 1,000 mls @ 999 mls/hr IV ASDIRECTED [facility] Last Admin: 06/02/19 12:05 Dose: 999 mls/hr Dextrose/Sodium Chloride (Dextrose 5%-Normal Saline) 1,000 mls @ 125 mls/hr IV ASDIRECTED [facility] Last Infusion: 06/03/19 00:59 Dose: 75 mls/hr Ciprofloxacin/Dextrose 400 mg/ (Premix) 200 mls @ 200 mls/hr IV Q12HR [facility] Last Infusion: 06/02/19 23:07 Dose: Infused Metformin HCl (Glucophage Xr) 1,000 mg PO BIDMEALS [facility] Metoprolol Tartrate (Lopressor) 5 mg PO BID [facility] Last Admin: 06/02/19 20:51 Dose: 5 mg Nitroglycerin (Nitrostat) 0.4 mg SL ASDIRECTED PRN PRN Reason: Chest Pain Non-Formulary Medication (Mirtazapine [Remeron]) 45 mg PO BEDTIME [facility] Last Admin: 06/02/19 20:58 Dose: 45 mg Non-Formulary Medication (Pediatric Multivit Comb No.42 [Children's Multivitamin ]) 1 each PO BID [facility] Last Admin: 06/02/19 20:58 Dose: 1 each Non-Formulary Medication (Vitamin B Complex [Vitamin B Complex]) 1 each PO DAILY [facility] Nystatin (Nystatin Crm) 0 gm TOP BID [facility] Last Admin: 06/02/19 20:58 Dose: 1 applic Sodium Chloride (Saline Flush) 10 ml FLUSH ASDIRECTED PRN PRN Reason: Keep Vein Open Sodium Chloride (Saline Flush) 10 ml FLUSH ASDIRECTED PRN PRN Reason: Keep Vein Open Discontinued Medications Hydrocodone Bitart/Acetaminophen ([place] 325-5 Mg) Confirm Administered Dose 1 tab .ROUTE .STK-MED ONE Stop: 06/02/19 13:10 Last Admin: 06/02/19 13:14 Dose: Not Given Ciprofloxacin/Dextrose 400 mg/ (Premix) 200 mls @ 200 mls/hr IV STAT ONE Stop: 06/02/19 13:31 Last Admin: 06/02/19 13:36 Dose: 200 mls/hr Sodium Chloride (Normal Saline) 1,000 mls @ 999 mls/hr IV BOLUS ONE Stop: 06/02/19 13:32 Last Admin: 06/02/19 13:40 Dose: Not Given Ciprofloxacin/Dextrose (Cipro In D5w 400 Mg/200 Ml) Confirm Administered Dose 200 mls @ as directed .ROUTE .STK-MED ONE Stop: 06/02/19 12:52 Last Admin: 06/02/19 13:16 Dose: Not Given Ciprofloxacin/Dextrose (Cipro In D5w 400 Mg/200 Ml) Confirm Administered Dose 200 mls @ as directed .ROUTE .STK-MED ONE Stop: 06/02/19 20:34 Last Admin: 06/02/19 20:59 Dose: Not Given Ciprofloxacin/Dextrose (Cipro In D5w 400 Mg/200 Ml) Confirm Administered Dose 200 mls @ as directed .ROUTE .STK-MED ONE Stop: 06/03/19 07:29 Mirtazapine (Remeron) Confirm Administered Dose 45 mg .ROUTE .STK-MED ONE Stop: 06/02/19 20:38 Last Admin: 06/03/19 00:51 Dose: Not Given Multivitamins/Minerals/Vitamin C (Childrens Chewable Vitamin) Confirm Administered Dose 1 tab .ROUTE .STK-MED ONE Stop: 06/02/19 20:39 Last Admin: 06/02/19 21:00 Dose: Not Given Multivitamins/Minerals/Vitamin C (Childrens Chewable Vitamin) Confirm Administered Dose 1 tab .ROUTE .STK-MED ONE Stop: 06/03/19 07:31 Nystatin (Nystatin Crm) Confirm Administered Dose 30 gm .ROUTE .STK-MED ONE Stop: 06/02/19 17:57 Last Admin: 06/02/19 18:01 Dose: 1 applic - Exam Quality Assessment: Skin Breakdown General: Alert, Oriented, Cooperative, No Acute Distress HEENT: Pupils Equal, Mucous Membr. Moist/[place] Neck: Supple, Trachea Midline Lungs: Normal Respiratory Effort, Decreased Breath Sounds (to bases) Cardiovascular: Regular Rate, Regular Rhythm GI/Abdominal Exam: Normal Bowel Sounds, Soft, Tender (lower abdomen). No: Guarding, Rebound Extremities: Normal Range of Motion, Non-Tender, Other (mild ankle edema noted) Peripheral Pulses: 2+: Radial (L), Radial (R), Dorsalis Pedis (L), Dorsalis Pedis (R) Skin: Warm, Dry, Other (Rash to groin is improved and less erythema noted.) Wound/Incisions: Other (ulcer to buttocks, Stage 2) Neurological: No New Focal Deficit Psy/Mental Status: Alert, Depressed, Other (flat affect) - Problem List & Annotations (1) Dehydration SNOMED Code(s): 29864837 Code(s): E86.0 - DEHYDRATION Status: Acute Current Visit: Yes Onset Date: 06/02/19 (2) UTI (urinary tract infection) SNOMED Code(s): 79610293 Code(s): N39.0 - URINARY TRACT INFECTION, SITE NOT SPECIFIED Status: Acute Current Visit: Yes (3) Diabetes mellitus type 2 SNOMED Code(s): 45084672 Code(s): E11.9 - TYPE 2 DIABETES MELLITUS WITHOUT COMPLICATIONS Status: Chronic Current Visit: Yes Annotation/Comment:: (4) Intertrigo SNOMED Code(s): 29803908 Code(s): L30.4 - ERYTHEMA INTERTRIGO Status: Acute Current Visit: Yes (5) GERD (gastroesophageal reflux disease) SNOMED Code(s): 279049419 Code(s): K21.9 - GASTRO-ESOPHAGEAL REFLUX DISEASE WITHOUT ESOPHAGITIS Status: Acute Current Visit: Yes (6) CAD (coronary artery disease) SNOMED Code(s): 41201928 Code(s): I25.10 - ATHSCL HEART DISEASE OF [place] CORONARY ARTERY W/O ANG PCTRS Status: Acute Current Visit: Yes (7) Chronic pain SNOMED Code(s): 64946831 Code(s): G89.29 - OTHER CHRONIC PAIN Status: Acute Current Visit: Yes (8) Decubitus skin ulcer SNOMED Code(s): 882355434 Code(s): L89.90 - PRESSURE ULCER OF UNSPECIFIED SITE, UNSPECIFIED STAGE Status: Acute Current Visit: Yes - Problem List Review Problem List Initiated/Reviewed/Updated: Yes - My Orders Last 24 Hours: My Active Orders 06/02/19 11:29 Sodium Chloride 0.9% [Saline Flush] 10 ml FLUSH ASDIRECTED PRN Saline Lock Insert [OM.PC] Routine 06/02/19 11:30 Sodium Chloride 0.9% [Normal Saline] 1,000 ml IV ASDIRECTED 06/02/19 11:57 Cardiac Monitoring [RC] .As Directed 06/02/19 11:58 Urinary Catheter Assessment [RC] DAILY 06/02/19 12:00 Mello Catheter Insertion [Insert Urinary Catheter] [OM.PC] Q24H 06/02/19 12:11 EKG Documentation Completion [RC] ASDIRECTED 06/02/19 12:30 CULTURE URINE [RM] Stat 06/02/19 12:32 Sodium Chloride 0.9% [Saline Flush] 10 ml FLUSH ASDIRECTED PRN 06/02/19 12:33 Saline Lock Insert [OM.PC] Stat Severe Sepsis Onset Time [OM.PC] Stat 06/02/19 13:00 Acetaminophen/HYDROcodone [[place] 325-5 MG] 1 tab PO Q6H PRN 06/02/19 13:15 Dextrose 5%-0.9% NaCl [Dextrose 5%-Normal Saline] 1,000 ml IV ASDIRECTED 06/02/19 13:20 CULTURE BLOOD [BC] Stat 06/02/19 13:47 Patient Status [ADT] Routine 06/02/19 13:49 Vital Signs [RC] Q4H 06/02/19 13:56 Nitroglycerin [Nitrostat] 0.4 mg SL ASDIRECTED PRN diphenhydrAMINE [Benadryl] 50 mg PO ASDIRECTED PRN Code Status [Resuscitation Status] Stat 06/02/19 14:00 Gabapentin [Neurontin] 600 mg PO TID 06/02/19 15:43 CULTURE MRSA SURVEY [RM] Routine 06/02/19 16:00 Cyanocobalamin (Vitamin B12) [Vitamin B12] 1,000 mcg PO DAILY 06/02/19 20:00 Aspirin [Ecotrin] 81 mg PO BEDTIME Calcium Carbonate [Tums] 500 mg PO BID Ciprofloxacin in D5W [Cipro in D5W 400 MG/200 ML] 400 mg Premix Bag 1 bag IV Q12HR Metoprolol Tartrate [Lopressor] 5 mg PO BID Mirtazapine [Remeron] 45 mg PO BEDTIME Nystatin [Nystatin Crm] See Dose Instructions TOP BID Pediatric Multivit Comb No.42 [Children's Multivitamin] 1 each PO BID atorvaSTATin [Lipitor] 10 mg PO BEDTIME 06/02/19 Dinner Carbohydrate Counting [Consistent Carbohydrate Diet] [DIET] 06/03/19 08:00 Ferrous Sulfate 325 mg PO DAILY Vitamin B Complex [Vitamin B Complex] 1 each PO DAILY 06/03/19 12:00 BASIC METABOLIC PANEL,BMP [CHEM] Routine CBC WITH AUTO DIFF [HEME] Routine 06/03/19 17:00 metFORMIN [Glucophage XR] 1,000 mg PO BIDMEALS - Plan Plan:: Dehydration and UTI and weakness: Continue with IV fluids, pt isn't eating or drinking very well yet. Cirpo 400 mg IV bid. Ensure, lactose free as needed. Incentive spirometry q 2 hour while awake. CBC and BMP in am Diabetes: Monitor BS ac and hs Metformin 500 mg PO daily. Chronic pain: Assess pain and medicate as needed. Recommend position change q 2hour. GERD stable with current Rx. Decubitus: Daily wound care and position change q 2 hour and prn.
[2019-06-03] MEDS: Ciprofloxacin in D5W 400 MG in Premix Bag 1 BAG IV SCH ×4 (08:38→20:19)
[2019-06-03] MEDS: Acetaminophen/HYDROcodone 325-5 MG Tab PO PRN ×2 (12:03→20:31)
[2019-06-03] MEDS ORDERED: metFORMIN 500 MG Tab.ER PO SCH (17:00)
[2019-06-03] MEDS ORDERED: metFORMIN 500 MG Tab PO SCH (18:00)
[2019-06-03] MEDS ORDERED: Mirtazapine 15 MG Tab ONE (20:02)
[2019-06-03] MEDS ORDERED: Aspirin 81 MG Tab.EC ONE (20:06)
[2019-06-03] MEDS: MIRTAZAPINE 45 MG PO SCH (20:14)
[2019-06-03] MEDS: atorvaSTATin 10 MG Tab PO SCH (20:14)
[2019-06-03] MEDS: Aspirin 325 MG Tab.EC PO SCH (20:19)
[2019-06-04] MEDS: Dextrose 5%-0.9% NaCl 1,000 ML IV SCH (05:17)
[2019-06-04] MEDS ORDERED: Ciprofloxacin in D5W 200 ML ONE ×2 (07:09→19:43)
[2019-06-04] MEDS ORDERED: Bacitracin Oint 1 GM U/D Packet ONE (07:38)
[2019-06-04] MEDS: Non-Formulary Medication 1 Each (Vitamin B Complex [Vitamin B Complex] 1 EACH) PO SCH (07:47)
[2019-06-04] MEDS: Cyanocobalamin (Vitamin B12) 1,000 MCG Tab PO SCH (07:47)
[2019-06-04] MEDS: [UNRECOGNIZED DRUG - OTHER] PO SCH ×2 (07:48→20:11)
[2019-06-04] MEDS: Calcium Carbonate 500 MG Tab.Chew PO SCH ×2 (07:48→20:11)
[2019-06-04] MEDS: Nystatin Crm 30 GM Tube TOP SCH ×2 (07:49→20:26)
[2019-06-04] MEDS: Gabapentin 300 MG Cap PO SCH ×3 (07:49→20:10)
[2019-06-04] MEDS: Ferrous Sulfate 325 MG Tab PO SCH (07:50)
[2019-06-04] MEDS: Ciprofloxacin in D5W 400 MG in Premix Bag 1 BAG IV SCH ×4 (07:56→20:17)
[2019-06-04] MEDS: Metoprolol Tartrate 25 MG Tab PO SCH ×2 (08:40→20:14)
[2019-06-04] MEDS: Acetaminophen/HYDROcodone 325-5 MG Tab PO PRN ×3 (09:15→21:22)
--- NOTE | 2019-06-04 12:27 | PCM.DCSUM1 ---
Discharge Summary - Hospital Course Brief History: This 59yr female presented to ER with weakness, dehydration, and UTI. Hx CAD, GERD, HTN, Diabetes type 2, and yeast infection and excoriated skin to tailbone area. Cipro 400 mg IV given and symptoms improved. The blood culture is negative for initial reading. No culture results for the urine at this time. Weakness continues and excoriated skin integrity to tailbone area. She is unable to tolerate standing or sitting in chair for any length of time without feeling weak. Will discharge today and admit to acute care with Weakness, UTI, and Skin breakdown to tailbone. Diagnosis: Stroke: No - Discharge Data Discharge Date: 06/04/19 Discharge Disposition: DC/Tfer to Acute Hospital 02 Condition: Good - Referral to Home Health Primary Care Physician: PCP None - Discharge Diagnosis/Problem(s) (1) Dehydration SNOMED Code(s): 59726545 ICD Code: E86.0 - DEHYDRATION Status: Acute Current Visit: Yes Onset Date: 06/02/19 (2) UTI (urinary tract infection) SNOMED Code(s): 95840108 ICD Code: N39.0 - URINARY TRACT INFECTION, SITE NOT SPECIFIED Status: Acute Current Visit: Yes (3) Diabetes mellitus type 2 SNOMED Code(s): 12625370 ICD Code: E11.9 - TYPE 2 DIABETES MELLITUS WITHOUT COMPLICATIONS Status: Chronic Current Visit: Yes Problem Details: (4) Intertrigo SNOMED Code(s): 41533437 ICD Code: L30.4 - ERYTHEMA INTERTRIGO Status: Acute Current Visit: Yes (5) GERD (gastroesophageal reflux disease) SNOMED Code(s): 002855989 ICD Code: K21.9 - GASTRO-ESOPHAGEAL REFLUX DISEASE WITHOUT ESOPHAGITIS Status: Acute Current Visit: Yes (6) CAD (coronary artery disease) SNOMED Code(s): 07428202 ICD Code: I25.10 - ATHSCL HEART DISEASE OF [place] CORONARY ARTERY W/O ANG PCTRS Status: Acute Current Visit: Yes (7) Chronic pain SNOMED Code(s): 99716831 ICD Code: G89.29 - OTHER CHRONIC PAIN Status: Acute Current Visit: Yes (8) Decubitus skin ulcer SNOMED Code(s): 197274872 ICD Code: L89.90 - PRESSURE ULCER OF UNSPECIFIED SITE, UNSPECIFIED STAGE Status: Acute Current Visit: Yes - Patient Summary/Data Consults: Consultations 06/03/19 09:44 PT Evaluation and Treatment [CONS] Routine Please Evaluate and Treat. PT Reason for Consult: Wound Care Special Instructions: coccyx and left groin wounds This query below is only for informational purposes and is not editable. Admission Diagnosis/Problem: Dehydration - Patient Instructions Diet: Diabetic Diet Activity, Other: Up with assist Wound/Incision, Other: Change dressing to coccyx every 3 day and prn. Notify Provider of: Fever, Increased Pain, Nausea and/or Vomiting - Discharge Plan Home Medications: Home Meds Aspirin [Ecotrin] 81 mg PO BEDTIME 04/27/13 [History] Gabapentin [Neurontin] 600 mg PO BID 04/27/13 [History] atorvaSTATin [Lipitor] 10 mg PO BEDTIME 04/27/13 [History] Calcium Carbonate [Calcium Antacid] 500 mg PO BID 05/15/14 [History] Ferrous Sulfate 325 mg PO DAILY 05/15/14 [History] Ondansetron [Ondansetron ODT] 4 mg PO ASDIRECTED PRN 05/15/14 [History] Mirtazapine [Remeron] 45 mg PO BEDTIME 05/30/14 [History] Cyanocobalamin (Vitamin B12) [Vitamin B12] 1,000 mcg PO DAILY #90 tab 06/15/14 [ Rx] Pediatric Multivit Comb No.42 [Children's Multivitamin] 1 each PO BID #90 tab.chew 06/15/14 [Rx] Vitamin B Complex 1 each PO DAILY #90 tablet 06/15/14 [Rx] Metoprolol Tartrate 5 mg PO BID 05/23/19 [History] Nitroglycerin 0.4 mg SL ASDIRECTED PRN 05/23/19 [History] diphenhydrAMINE HCl [Benadryl] 50 mg PO ASDIRECTED PRN 05/23/19 [History] Forms: ED Department Discharge Referrals: PCP,None [Primary Care Provider] - - Discharge Summary/Plan Comment DC Time >30 min.: Yes (Discussion on discharge from observation and admit to acute hospital) Discharge Summary/Plan Comment: Admit to Acute hospital stay with weakness, UTI, Stage 2 ulcer to coccyx, complicated with history of Diabetes type 2, GERD, CAD, HTN. Pt in agreement with this plan. Pepe catheter is d'cd, Continue Cipro 400 mg IV. Will saline lock IV as pt is taking oral fluids well and have good output. Continue medications as at home. Will increase daily calcium. PT/OT consult for strengthening. - Patient Data Vitals - Most Recent: Last Vital Signs Temp 97.5 F 06/04/19 08:00 Pulse 89 06/04/19 08:00 Resp 16 06/04/19 08:00 BP 96/36 L 06/04/19 08:00 Pulse Ox 97 06/04/19 08:00 Weight - Most Recent: 146 lb I&O - Last 24 hours: Intake & Output 06/03/19 06/04/19 06/04/19 22:59 06:59 14:59 Intake Total 3347 1355 Output Total 1100 1275 Balance 2247 80 Lab Results - Last 24 hrs: Laboratory Results - last 24 hr 06/03/19 06/03/19 06/03/19 Range/Units 11:55 16:14 19:38 WBC (4.0-11.0) K/uL RBC (3.80-5.80) M/uL Hgb (11.5-16.5) g/dL Hct (37.0-47.0) % MCV (76-96) fL MCH (27.0-32.0) pg MCHC (31.0-35.0) g/dL RDW (11.0-16.0) % Plt Count (150-500) K/uL MPV (6.0-10.0) fL Neut % (Auto) (45.0-70.0) % Lymph % (Auto) (20.0-40.0) % [place] % (Auto) (3.0-10.0) % Eos % (Auto) (1.0-5.0) % Baso % (Auto) (0.0-0.5) % Neut # (Auto) (2.00-7.50) K/uL Lymph # (Auto) (1.50-4.00) K/uL [place] # (Auto) (0.20-0.80) K/uL Eos # (Auto) (0.04-0.40) K/uL Baso # (Auto) (0.02-0.10) K/uL Sodium 143 (136-145) mmol/L Potassium 3.7 (3.5-5.1) mmol/L Chloride 109 H (98-107) mmol/L Carbon Dioxide 25.2 (21.0-32.0) mmol/L Anion Gap 12.5 (5.0-15.0) mmol/L BUN 9 D (8-26) mg/dL Creatinine 0.97 (0.55-1.02) mg/dL Est Cr Clr Drug Dosing 45.96 mL/min Estimated GFR (MDRD) 58 L (>60) MLS/MIN BUN/Creatinine Ratio 9.3 (6-25) Glucose 162 H (74-100) mg/dL POC Glucose 185 H 181 H (74-110) mg/dL Calcium 7.5 L (8.5-10.1) mg/dL 06/04/19 06/04/19 06/04/19 Range/Units 08:01 08:55 08:55 WBC 9.0 (4.0-11.0) K/uL RBC 4.23 (3.80-5.80) M/uL Hgb 13.5 (11.5-16.5) g/dL Hct 41.1 (37.0-47.0) % MCV 97 H (76-96) fL MCH 31.9 (27.0-32.0) pg MCHC 32.8 (31.0-35.0) g/dL RDW 14.9 (11.0-16.0) % Plt Count 174 D (150-500) K/uL MPV 11.2 H (6.0-10.0) fL Neut % (Auto) 40.3 L (45.0-70.0) % Lymph % (Auto) 50.9 H (20.0-40.0) % [place] % (Auto) 4.4 (3.0-10.0) % Eos % (Auto) 4.0 (1.0-5.0) % Baso % (Auto) 0.4 (0.0-0.5) % Neut # (Auto) 3.60 (2.00-7.50) K/uL Lymph # (Auto) 4.56 H (1.50-4.00) K/uL [place] # (Auto) 0.39 (0.20-0.80) K/uL Eos # (Auto) 0.36 (0.04-0.40) K/uL Baso # (Auto) 0.04 (0.02-0.10) K/uL Sodium 142 (136-145) mmol/L Potassium 3.5 (3.5-5.1) mmol/L Chloride 108 H (98-107) mmol/L Carbon Dioxide 25.0 (21.0-32.0) mmol/L Anion Gap 12.5 (5.0-15.0) mmol/L BUN 8 (8-26) mg/dL Creatinine 0.86 (0.55-1.02) mg/dL Est Cr Clr Drug Dosing 51.84 mL/min Estimated GFR (MDRD) > 60 (>60) MLS/MIN BUN/Creatinine Ratio 9.3 (6-25) Glucose 152 H (74-100) mg/dL POC Glucose 137 H (74-110) mg/dL Calcium 7.3 L (8.5-10.1) mg/dL 06/04/19 Range/Units 11:14 WBC (4.0-11.0) K/uL RBC (3.80-5.80) M/uL Hgb (11.5-16.5) g/dL Hct (37.0-47.0) % MCV (76-96) fL MCH (27.0-32.0) pg MCHC (31.0-35.0) g/dL RDW (11.0-16.0) % Plt Count (150-500) K/uL MPV (6.0-10.0) fL Neut % (Auto) (45.0-70.0) % Lymph % (Auto) (20.0-40.0) % [place] % (Auto) (3.0-10.0) % Eos % (Auto) (1.0-5.0) % Baso % (Auto) (0.0-0.5) % Neut # (Auto) (2.00-7.50) K/uL Lymph # (Auto) (1.50-4.00) K/uL [place] # (Auto) (0.20-0.80) K/uL Eos # (Auto) (0.04-0.40) K/uL Baso # (Auto) (0.02-0.10) K/uL Sodium (136-145) mmol/L Potassium (3.5-5.1) mmol/L Chloride (98-107) mmol/L Carbon Dioxide (21.0-32.0) mmol/L Anion Gap (5.0-15.0) mmol/L BUN (8-26) mg/dL Creatinine (0.55-1.02) mg/dL Est Cr Clr Drug Dosing mL/min Estimated GFR (MDRD) (>60) MLS/MIN BUN/Creatinine Ratio (6-25) Glucose (74-100) mg/dL POC Glucose 182 H (74-110) mg/dL Calcium (8.5-10.1) mg/dL ARI Results - Last 24 hrs: Microbiology 06/02/19 13:20 Aerobic Blood Culture - Preliminary Blood NO GROWTH AFTER 1 DAY Anaerobic Blood Culture - Preliminary NO GROWTH AFTER 1 DAY 06/02/19 15:43 MRSA Surveillance Culture - Final Nares, Unspecified NO MRSA ISOLATED Med Orders - Current: Current Medications Hydrocodone Bitart/Acetaminophen ([place] 325-5 Mg) 1 tab PO Q6H PRN PRN Reason: Pain (moderate 4-6) Last Admin: 06/04/19 09:15 Dose: 1 tab Aspirin (Ecotrin) 81 mg PO BEDTIME [facility] Last Admin: 06/03/19 20:19 Dose: 81 mg Atorvastatin Calcium (Lipitor) 10 mg PO BEDTIME [facility] Last Admin: 06/03/19 20:14 Dose: 10 mg Calcium Carbonate/Glycine (Tums) 500 mg PO BID [facility] Last Admin: 06/04/19 07:48 Dose: 500 mg Cyanocobalamin (Vitamin B12) 1,000 mcg PO DAILY [facility] Last Admin: 06/04/19 07:47 Dose: 1,000 mcg Diphenhydramine HCl (Benadryl) 50 mg PO ASDIRECTED PRN PRN Reason: Allergies Ferrous Sulfate (Ferrous Sulfate) 325 mg PO DAILY [facility] Last Admin: 06/04/19 07:50 Dose: 325 mg Gabapentin (Neurontin) 600 mg PO TID [facility] Last Admin: 06/04/19 07:49 Dose: 600 mg Sodium Chloride (Normal Saline) 1,000 mls @ 999 mls/hr IV ASDIRECTED [facility] Last Admin: 06/02/19 12:05 Dose: 999 mls/hr Dextrose/Sodium Chloride (Dextrose 5%-Normal Saline) 1,000 mls @ 125 mls/hr IV ASDIRECTED [facility] Last Admin: 06/04/19 05:17 Dose: 75 mls/hr Ciprofloxacin/Dextrose 400 mg/ (Premix) 200 mls @ 200 mls/hr IV Q12HR [facility] Last Admin: 06/04/19 07:56 Dose: 200 mls/hr Metformin HCl (Glucophage) 500 mg PO WITHDINNER [facility] Last Admin: 06/03/19 17:36 Dose: 500 mg Metoprolol Tartrate (Lopressor) 6.25 mg PO BID [facility] Last Admin: 06/04/19 08:40 Dose: 6.25 mg Nitroglycerin (Nitrostat) 0.4 mg SL ASDIRECTED PRN PRN Reason: Chest Pain Non-Formulary Medication (Mirtazapine [Remeron]) 45 mg PO BEDTIME [facility] Last Admin: 06/03/19 20:14 Dose: 45 mg Non-Formulary Medication (Pediatric Multivit Comb No.42 [Children's Multivitamin ]) 1 each PO BID [facility] Last Admin: 06/04/19 07:48 Dose: Not Given Non-Formulary Medication (Vitamin B Complex [Vitamin B Complex]) 1 each PO DAILY [facility] Last Admin: 06/04/19 07:47 Dose: Not Given Nystatin (Nystatin Crm) 0 gm TOP BID [facility] Last Admin: 06/04/19 07:49 Dose: 1 applic Senna/Docusate Sodium (Senna Plus) 1 tab PO DAILY PRN PRN Reason: Constipation Last Admin: 06/03/19 09:05 Dose: 1 tab Sodium Chloride (Saline Flush) 10 ml FLUSH ASDIRECTED PRN PRN Reason: Keep Vein Open Last Admin: 06/03/19 20:41 Dose: 10 ml Sodium Chloride (Saline Flush) 10 ml FLUSH ASDIRECTED PRN PRN Reason: Keep Vein Open Discontinued Medications Hydrocodone Bitart/Acetaminophen ([place] 325-5 Mg) Confirm Administered Dose 1 tab .ROUTE .STK-MED ONE Stop: 06/02/19 13:10 Last Admin: 06/02/19 13:14 Dose: Not Given Aspirin (Halfprin) Confirm Administered Dose 81 mg .ROUTE .STK-MED ONE Stop: 06/03/19 20:07 Last Admin: 06/03/19 20:53 Dose: Not Given Bacitracin (Bacitracin Oint 1 Gm) Confirm Administered Dose 1 dose .ROUTE .[facility] ONE Stop: 06/04/19 07:39 Last Admin: 06/04/19 09:30 Dose: 1 dose Ciprofloxacin/Dextrose 400 mg/ (Premix) 200 mls @ 200 mls/hr IV STAT ONE Stop: 06/02/19 13:31 Last Admin: 06/02/19 13:36 Dose: 200 mls/hr Sodium Chloride (Normal Saline) 1,000 mls @ 999 mls/hr IV BOLUS ONE Stop: 06/02/19 13:32 Last Admin: 06/02/19 13:40 Dose: Not Given Ciprofloxacin/Dextrose (Cipro In D5w 400 Mg/200 Ml) Confirm Administered Dose 200 mls @ as directed .ROUTE .[facility] ONE Stop: 06/02/19 12:52 Last Admin: 06/02/19 13:16 Dose: Not Given Ciprofloxacin/Dextrose (Cipro In D5w 400 Mg/200 Ml) Confirm Administered Dose 200 mls @ as directed .ROUTE .[facility] ONE Stop: 06/02/19 20:34 Last Admin: 06/02/19 20:59 Dose: Not Given Ciprofloxacin/Dextrose (Cipro In D5w 400 Mg/200 Ml) Confirm Administered Dose 200 mls @ as directed .ROUTE .[facility] ONE Stop: 06/03/19 07:29 Last Admin: 06/03/19 08:27 Dose: Not Given Ciprofloxacin/Dextrose (Cipro In D5w 400 Mg/200 Ml) Confirm Administered Dose 200 mls @ as directed .ROUTE .[facility] ONE Stop: 06/03/19 20:08 Last Admin: 06/03/19 20:53 Dose: Not Given Ciprofloxacin/Dextrose (Cipro In D5w 400 Mg/200 Ml) Confirm Administered Dose 200 mls @ as directed .ROUTE .[facility] ONE Stop: 06/04/19 07:10 Last Admin: 06/04/19 07:56 Dose: Not Given Metformin HCl (Glucophage Xr) 1,000 mg PO BIDMEALS [facility] Metoprolol Tartrate (Lopressor) 5 mg PO BID [facility] Last Admin: 06/03/19 13:48 Dose: 5 mg Mirtazapine (Remeron) Confirm Administered Dose 45 mg .ROUTE .STK-MED ONE Stop: 06/02/19 20:38 Last Admin: 06/03/19 00:51 Dose: Not Given Mirtazapine (Remeron) Confirm Administered Dose 45 mg .ROUTE .STK-MED ONE Stop: 06/03/19 20:03 Last Admin: 06/03/19 20:13 Dose: Not Given Multivitamins/Minerals/Vitamin C (Childrens Chewable Vitamin) Confirm Administered Dose 1 tab .ROUTE .STK-MED ONE Stop: 06/02/19 20:39 Last Admin: 06/02/19 21:00 Dose: Not Given Multivitamins/Minerals/Vitamin C (Childrens Chewable Vitamin) Confirm Administered Dose 1 tab .ROUTE .STK-MED ONE Stop: 06/03/19 07:31 Last Admin: 06/03/19 08:27 Dose: Not Given Multivitamins/Minerals/Vitamin C (Childrens Chewable Vitamin) Confirm Administered Dose 1 tab .ROUTE .STK-MED ONE Stop: 06/03/19 20:04 Last Admin: 06/03/19 20:13 Dose: Not Given Nystatin (Nystatin Crm) Confirm Administered Dose 30 gm .ROUTE .STK-MED ONE Stop: 06/02/19 17:57 Last Admin: 06/02/19 18:01 Dose: 1 applic
[2019-06-04] MEDS ORDERED: Magnesium Hydroxide 400 MG/5 ML Susp 30 ML Cup PO PRN (14:10)
[2019-06-04] MEDS ORDERED: Ondansetron 4 MG Tab.DIS PO PRN (14:20)
--- NOTE | 2019-06-04 15:33 | PCM.HP.2 ---
H&P History of Present Illness - General Date of Service: 06/04/19 Admit Problem/Dx: UTI, weakness, Stage 2 ulcer and excoriation to sacral area, diabetes Type 2, Fungal infection to abdominal fold Source of Information: Patient, RN History Limitations: Reports: No Limitations - History of Present Illness Initial Comments - Free Text/Narative: 59 yr female is admitted to inpatient and discharged from observation with UTI, weakness, Stage 2 ulcer and excoriation to sacral area, diabetes Type 2, depression and history of Htn, CAD, cardiac stent, dehydration, low serum protein, low serum albumin, tachycardia, poor hygiene r/t weakness, weight loss , hx of gastric bypass, and lactose intolerant. She states she has lost both parents this year and it has been very difficult. She has been eating and drinking poorly at home and lives by herself. She does have siblings that assist with errands for her. She has been in bed at home with little activity and is weak to stand, sit or ambulate and becomes light headed with activity. She was using an antibiotic ointment on the fungal infection, she recently had a UTI and was treated outpatient with oral antibiotic and symptoms worsened with dysuria, chills, tachycardia and hypotension and was admitted to observation. Her appetite has been poor, but is drinking fluids better. She is constipated and is smearing BM and is wearing a depends. Lower Back Pain Score (Numeric/FACES): 0 - Related Data Allergies/Adverse Reactions: Allergies Allergy/AdvReac Type Severity Reaction Status Date / Time codeine Allergy Intermediate Nausea and Verified 06/02/19 11:27 Vomiting morphine Allergy Intermediate Nausea and Verified 06/02/19 11:27 Vomiting Penicillins Allergy Intermediate Nausea and Verified 06/02/19 11:27 Vomiting Home Medications: Home Meds Aspirin [Ecotrin] 81 mg PO BEDTIME 04/27/13 [History] Gabapentin [Neurontin] 600 mg PO BID 04/27/13 [History] atorvaSTATin [Lipitor] 10 mg PO BEDTIME 04/27/13 [History] Calcium Carbonate [Calcium Antacid] 500 mg PO BID 05/15/14 [History] Ferrous Sulfate 325 mg PO DAILY 05/15/14 [History] Ondansetron [Ondansetron ODT] 4 mg PO ASDIRECTED PRN 05/15/14 [History] Mirtazapine [Remeron] 45 mg PO BEDTIME 05/30/14 [History] Cyanocobalamin (Vitamin B12) [Vitamin B12] 1,000 mcg PO DAILY #90 tab 06/15/14 [ Rx] Pediatric Multivit Comb No.42 [Children's Multivitamin] 1 each PO BID #90 tab.chew 06/15/14 [Rx] Vitamin B Complex 1 each PO DAILY #90 tablet 06/15/14 [Rx] Metoprolol Tartrate 5 mg PO BID 05/23/19 [History] Nitroglycerin 0.4 mg SL ASDIRECTED PRN 05/23/19 [History] diphenhydrAMINE HCl [Benadryl] 50 mg PO ASDIRECTED PRN 05/23/19 [History] Past Medical History HEENT History: Reports: Allergic Rhinitis, Impaired Vision, Sinusitis Cardiovascular History: Reports: High Cholesterol, Stents Respiratory History: Reports: SOB, Other (See Below) Other Respiratory History: SOBOE; collapsed lung when in [facility] [place] 2006 Gastrointestinal History: Reports: GERD, Other (See Below) Other Gastrointestinal History: lactose intolerant Genitourinary History: Reports: Other (See Below) Other Genitourinary History: malignant tumor taken off left kidney [employer] History: Reports: , Spontaneous Musculoskeletal History: Reports: Back Pain, Chronic, Osteoarthritis, Osteoporosis Neurological History: Reports: Migraines, Neuropathy, Diabetic, Other (See Below ) Other Neuro History: [facility] [place] 2006 Psychiatric History: Reports: Eating Disorders Endocrine/Metabolic History: Reports: Diabetes, Type II, Obesity/BMI 30+ Hematologic History: Reports: Anemia, Blood Transfusion(s) Oncologic (Cancer) History: Reports: Renal - Infectious Disease History Infectious Disease History: Reports: Chicken Pox - Past Surgical History HEENT Surgical History: Reports: Tonsillectomy Cardiovascular Surgical History: Reports: Coronary Artery Stent GI Surgical History: Reports: Bariatric Procedure, Colonoscopy Female Surgical History: Reports: Other (See Below) Other Female Surgeries/Procedures: "Misshapen uterus, couldn't find my right ovary". Musculoskeletal Surgical History: Reports: Other (See Below) Other Musculoskeletal Surgeries/Procedures:: plate in right clavicle Oncologic Surgical History: Reports: Lumpectomy Social & Family History - Family History Family Medical History: Noncontributory - Tobacco Use Smoking Status *Q: Never Smoker - Caffeine Use Caffeine Use: Reports: Soda, Tea Other Caffeine Use: pop 1/day, tea rare - Recreational Drug Use Recreational Drug Use: No - Living Situation & Occupation Living situation: Reports: , with Family Occupation: Disabled H&P Review of Systems - Review of Systems: Review Of Systems: See Below General: Reports: Weakness, Decreased Appetite, Weight Loss HEENT: Reports: Glasses. Denies: Sinus Congestion, Sore Throat Pulmonary: Denies: Wheezing, Pleuritic Chest Pain, Cough Cardiovascular: Reports: Lightheadedness. Denies: Chest Pain, Palpitations Gastrointestinal: Reports: Constipation, Decreased Appetite. Denies: Hematochezia, Melena, Nausea, Vomiting Genitourinary: Reports: Dysuria Musculoskeletal: Reports: Other (chronic low back pain) Skin: Reports: Pallor, Rash Psychiatric: Reports: Depression. Denies: Anxiety, Suicidal Ideation Neurological: Reports: Difficulty Walking, Weakness. Denies: Confusion, Headache, Trouble Speaking Hematologic/Lymphatic: Denies: Anemia Exam - Exam Exam: See Below - Vital Signs Vital Signs: Last Vital Signs Temp 98.5 F 06/04/19 12:00 Pulse 91 06/04/19 12:00 Resp 18 06/04/19 12:00 BP 115/55 L 06/04/19 12:00 Pulse Ox 100 06/04/19 12:00 Weight: 146 lb - Exam Quality Assessment: Skin Breakdown General: Alert, Oriented, Cooperative HEENT: PERRLA, Conjunctiva Clear, Glasses Neck: Supple, Trachea Midline, Full Range of Motion Lungs: Normal Respiratory Effort, Decreased Breath Sounds. No: Crackles, Rhonchi Cardiovascular: Regular Rate, Regular Rhythm, Other (No murmur auscultated) GI/Abdominal Exam: Normal Bowel Sounds, Soft, Tender, Other (excessive skin to abdomen with the weight loss). No: Guarding, Rigid Rectal (Female) Exam: Tenderness, Other (excoriated skin and erythema to skin around anus) Back Exam: Other (chronic low back pain, intermittently) Extremities: Normal Range of Motion, Normal Capillary Refill, Other (dry skin) Peripheral Pulses: 2+: Radial (L), Radial (R), Dorsalis Pedis (L), Dorsalis Pedis (R) Skin: Warm, Dry, Wound (Stage 2 skin breakdown to sacral area, excoriation and erythema), Other (Rash to left abdominal fold, erythema and excoriated, improving with nystatin, also reddened areas to heels and side of heels.) Neuro Extensive - Mental Status: Alert, Oriented x3, Other (flat affect) Neuro Extensive - Motor, Sensory, Reflexes: CN II-XII Intact Psychiatric: Alert, Depressed - Patient Data Lab Results Last 24 hrs: Laboratory Results - last 24 hr 06/03/19 06/03/19 06/04/19 Range/Units 16:14 19:38 08:01 WBC (4.0-11.0) K/uL RBC (3.80-5.80) M/uL Hgb (11.5-16.5) g/dL Hct (37.0-47.0) % MCV (76-96) fL MCH (27.0-32.0) pg MCHC (31.0-35.0) g/dL RDW (11.0-16.0) % Plt Count (150-500) K/uL MPV (6.0-10.0) fL Neut % (Auto) (45.0-70.0) % Lymph % (Auto) (20.0-40.0) % [place] % (Auto) (3.0-10.0) % Eos % (Auto) (1.0-5.0) % Baso % (Auto) (0.0-0.5) % Neut # (Auto) (2.00-7.50) K/uL Lymph # (Auto) (1.50-4.00) K/uL [place] # (Auto) (0.20-0.80) K/uL Eos # (Auto) (0.04-0.40) K/uL Baso # (Auto) (0.02-0.10) K/uL Sodium (136-145) mmol/L Potassium (3.5-5.1) mmol/L Chloride (98-107) mmol/L Carbon Dioxide (21.0-32.0) mmol/L Anion Gap (5.0-15.0) mmol/L BUN (8-26) mg/dL Creatinine (0.55-1.02) mg/dL Est Cr Clr Drug Dosing mL/min Estimated GFR (MDRD) (>60) MLS/MIN BUN/Creatinine Ratio (6-25) Glucose (74-100) mg/dL POC Glucose 185 H 181 H 137 H (74-110) mg/dL Calcium (8.5-10.1) mg/dL 06/04/19 06/04/19 06/04/19 Range/Units 08:55 08:55 11:14 WBC 9.0 (4.0-11.0) K/uL RBC 4.23 (3.80-5.80) M/uL Hgb 13.5 (11.5-16.5) g/dL Hct 41.1 (37.0-47.0) % MCV 97 H (76-96) fL MCH 31.9 (27.0-32.0) pg MCHC 32.8 (31.0-35.0) g/dL RDW 14.9 (11.0-16.0) % Plt Count 174 D (150-500) K/uL MPV 11.2 H (6.0-10.0) fL Neut % (Auto) 40.3 L (45.0-70.0) % Lymph % (Auto) 50.9 H (20.0-40.0) % [place] % (Auto) 4.4 (3.0-10.0) % Eos % (Auto) 4.0 (1.0-5.0) % Baso % (Auto) 0.4 (0.0-0.5) % Neut # (Auto) 3.60 (2.00-7.50) K/uL Lymph # (Auto) 4.56 H (1.50-4.00) K/uL [place] # (Auto) 0.39 (0.20-0.80) K/uL Eos # (Auto) 0.36 (0.04-0.40) K/uL Baso # (Auto) 0.04 (0.02-0.10) K/uL Sodium 142 (136-145) mmol/L Potassium 3.5 (3.5-5.1) mmol/L Chloride 108 H (98-107) mmol/L Carbon Dioxide 25.0 (21.0-32.0) mmol/L Anion Gap 12.5 (5.0-15.0) mmol/L BUN 8 (8-26) mg/dL Creatinine 0.86 (0.55-1.02) mg/dL Est Cr Clr Drug Dosing 51.84 mL/min Estimated GFR (MDRD) > 60 (>60) MLS/MIN BUN/Creatinine Ratio 9.3 (6-25) Glucose 152 H (74-100) mg/dL POC Glucose 182 H (74-110) mg/dL Calcium 7.3 L (8.5-10.1) mg/dL Result Diagrams: 06/04/19 08:55 06/04/19 08:55 [place] Results Last 24 hrs: Microbiology 06/02/19 13:20 Aerobic Blood Culture - Preliminary Blood NO GROWTH AFTER 2 DAYS Anaerobic Blood Culture - Preliminary NO GROWTH AFTER 2 DAYS 06/02/19 15:43 MRSA Surveillance Culture - Final Nares, Unspecified NO MRSA ISOLATED - Problem List (1) UTI (urinary tract infection) SNOMED Code(s): 61387414 ICD Code: N39.0 - URINARY TRACT INFECTION, SITE NOT SPECIFIED Status: Acute Current Visit: Yes (2) Diabetes mellitus type 2 SNOMED Code(s): 19660517 ICD Code: E11.9 - TYPE 2 DIABETES MELLITUS WITHOUT COMPLICATIONS Status: Chronic Current Visit: Yes Problem Details: (3) Intertrigo SNOMED Code(s): 83657732 ICD Code: L30.4 - ERYTHEMA INTERTRIGO Status: Acute Current Visit: Yes (4) GERD (gastroesophageal reflux disease) SNOMED Code(s): 719455543 ICD Code: K21.9 - GASTRO-ESOPHAGEAL REFLUX DISEASE WITHOUT ESOPHAGITIS Status: Chronic Current Visit: Yes (5) CAD (coronary artery disease) SNOMED Code(s): 66656751 ICD Code: I25.10 - ATHSCL HEART DISEASE OF [place] CORONARY ARTERY W/O ANG PCTRS Status: Chronic Current Visit: Yes (6) Chronic pain SNOMED Code(s): 79563068 ICD Code: G89.29 - OTHER CHRONIC PAIN Status: Chronic Current Visit: Yes (7) Decubitus skin ulcer SNOMED Code(s): 837881884 ICD Code: L89.90 - PRESSURE ULCER OF UNSPECIFIED SITE, UNSPECIFIED STAGE Status: Acute Current Visit: Yes Qualifiers: Pressure injury location: sacral region Pressure injury stage: stage 2 Qualified Code(s): L89.152 - Pressure ulcer of sacral region, stage 2 (8) Dehydration SNOMED Code(s): 93851675 ICD Code: E86.0 - DEHYDRATION Status: Resolved Current Visit: Yes Onset Date: 06/02/19 Problem List Initiated/Reviewed/Updated: Yes Orders Last 24hrs: Active Orders 24 hr Category Date Time Status Patient Status [ADT] Routine ADT 06/04/19 14:10 Active Incentive Spirometry [RT Incentive Spirometry] [RC] Care 06/03/19 17:03 Active Q2HWA Intake and Output [RC] QSHIFT Care 06/04/19 14:18 Active Ready for Discharge [RC] PER UNIT ROUTINE Care 06/04/19 12:36 Active Up With Assistance [RC] ASDIRECTED Care 06/04/19 14:10 Active Vital Signs [RC] Q4H Care 06/04/19 14:10 Active Consult to Dietary [Consult to Normalizer] [CONS] Cons 06/04/19 14:28 Active Routine Consult to Physical Therapy [PT Evaluation and Cons 06/04/19 14:27 Active Treatment] [CONS] Routine OT Evaluation and Treatment [CONS] Routine Cons 06/04/19 14:27 Active Heart Healthy Diet [DIET] Diet 06/04/19 Dinner Ordered BASIC METABOLIC PANEL,BMP [CHEM] Routine Lab 06/05/19 10:00 Ordered LACTIC ACID [CHEM] Routine Lab 06/05/19 10:00 Ordered Calcium Carbonate [Tums] Med 06/04/19 20:00 Active 500 mg PO TID Magnesium Hydroxide [Milk of Magnesia] Med 06/04/19 14:10 Active 30 ml PO BID PRN Metoprolol Tartrate [Lopressor] Med 06/03/19 16:45 Active 6.25 mg PO BID Ondansetron [Zofran ODT] Med 06/04/19 14:20 Active 4 mg PO ASDIRECTED PRN metFORMIN [Glucophage] Med 06/04/19 18:00 Active 500 mg PO TIDMEALS Medication Orders Hydrocodone Bitart/Acetaminophen (Hemet 325-5 Mg) 1 tab PO Q6H PRN PRN Reason: Pain (moderate 4-6) Last Admin: 06/04/19 15:17 Dose: 1 tab Admin: 06/04/19 09:15 Dose: 1 tab Admin: 06/03/19 20:31 Dose: 1 tab Admin: 06/03/19 12:03 Dose: 1 tab Aspirin (Ecotrin) 81 mg PO BEDTIME [facility]ENE Last Admin: 06/03/19 20:19 Dose: 81 mg Admin: 06/02/19 20:50 Dose: 81 mg Atorvastatin Calcium (Lipitor) 10 mg PO BEDTIME [facility] Last Admin: 06/03/19 20:14 Dose: 10 mg Admin: 06/02/19 20:50 Dose: 10 mg Calcium Carbonate/Glycine (Tums) 500 mg PO TID [facility] Cyanocobalamin (Vitamin B12) 1,000 mcg PO DAILY [facility] Last Admin: 06/04/19 07:47 Dose: 1,000 mcg Admin: 06/03/19 08:29 Dose: 1,000 mcg Admin: 06/02/19 17:53 Dose: Diphenhydramine HCl (Benadryl) 50 mg PO ASDIRECTED PRN PRN Reason: Allergies Ferrous Sulfate (Ferrous Sulfate) 325 mg PO DAILY [facility] Last Admin: 06/04/19 07:50 Dose: 325 mg Admin: 06/03/19 08:27 Dose: 325 mg Gabapentin (Neurontin) 600 mg PO TID [facility] Last Admin: 06/04/19 14:47 Dose: 600 mg Admin: 06/04/19 07:49 Dose: 600 mg Admin: 06/03/19 20:13 Dose: 600 mg Admin: 06/03/19 13:47 Dose: 600 mg Admin: 06/03/19 08:28 Dose: 600 mg Admin: 06/02/19 20:57 Dose: 600 mg Admin: 06/02/19 16:34 Dose: Ciprofloxacin/Dextrose 400 mg/ (Premix) 200 mls @ 200 mls/hr IV Q12HR [facility] Last Admin: 06/04/19 07:56 Dose: 200 mls/hr Infusion: 06/03/19 21:19 Dose: 200 mls/hr Admin: 06/03/19 20:19 Dose: 200 mls/hr Infusion: 06/03/19 09:38 Dose: 200 mls/hr Admin: 06/03/19 08:38 Dose: 200 mls/hr Infusion: 06/02/19 23:07 Dose: 200 mls/hr Admin: 06/02/19 20:48 Dose: 200 mls/hr Magnesium Hydroxide (Milk Of Magnesia) 30 ml PO BID PRN PRN Reason: Constipation Metformin HCl (Glucophage) 500 mg PO TIDMEALS [facility] Metoprolol Tartrate (Lopressor) 6.25 mg PO BID [facility] Last Admin: 06/04/19 08:40 Dose: 6.25 mg Admin: 06/03/19 20:54 Dose: Not Given Nitroglycerin (Nitrostat) 0.4 mg SL ASDIRECTED PRN PRN Reason: Chest Pain Non-Formulary Medication (Mirtazapine [Remeron]) 45 mg PO BEDTIME [facility] Last Admin: 06/03/19 20:14 Dose: 45 mg Admin: 06/02/19 20:58 Dose: 45 mg Non-Formulary Medication (Pediatric Multivit Comb No.42 [Children's Multivitamin ]) 1 each PO BID [facility] Last Admin: 06/04/19 07:48 Dose: Admin: 06/03/19 20:13 Dose: 1 each Admin: 06/03/19 08:29 Dose: 1 each Admin: 06/02/19 20:58 Dose: 1 each Non-Formulary Medication (Vitamin B Complex [Vitamin B Complex]) 1 each PO DAILY [facility] Last Admin: 06/04/19 07:47 Dose: Admin: 06/03/19 08:30 Dose: Nystatin (Nystatin Crm) 0 gm TOP BID [facility] Last Admin: 06/04/19 07:49 Dose: 1 applic Admin: 06/03/19 20:49 Dose: 1 applic Admin: 06/03/19 08:28 Dose: 1 applic Admin: 06/02/19 20:58 Dose: 1 applic Ondansetron HCl (Zofran Odt) 4 mg PO ASDIRECTED PRN PRN Reason: Nausea Senna/Docusate Sodium (Senna Plus) 1 tab PO DAILY PRN PRN Reason: Constipation Last Admin: 06/03/19 09:05 Dose: 1 tab Sodium Chloride (Saline Flush) 10 ml FLUSH ASDIRECTED PRN PRN Reason: Keep Vein Open Assessment/Plan Comment:: 06/04/2019 Dehydration and UTI and weakness: Continue with IV fluids, pt isn't eating or drinking very well yet. Cirpo 400 mg IV bid. Ensure, lactose free as needed. Incentive spirometry q 2 hour while awake. CBC and BMP in am Diabetes: Monitor BS ac and hs Metformin 500 mg PO daily. Chronic pain: Assess pain and medicate as needed. Recommend position change q 2hour, while awake. GERD stable with current Rx. Decubitus: Daily wound care and position change q 2 hour while awake and prn. Increase activity as tolerated and up in the chair for meals as tolerated. 06-04-2019 update for inpatient admission: Will d/c IV fluids today and continue Cipro IV. Urine culture is pending, 48 hour blood culture is negative. Continue with I/O to monitor output and monitor for dehydration. VS q 4 hour. Ensure, lactose free as needed. Incentive spirometry q 2 hour while awake. Lactic acid and BMP in am Diabetes: Will increase Metformin to 500 mg tid. Monitor BS ac and hs With her cardiac history and stent will order cardiac diet with diabetic diet. Normalizer consult. Chronic pain: Assess pain and medicate as needed. Recommend position change q 2hour, while awake. GERD stable with current Rx. Decubitus: Daily wound care and position change q 2 hour while awake and prn. Increase activity as tolerated and up in the chair for meals as tolerated. Fungal infection/ intertrigo: Nystatin cream to skin bid and keep area clean and dry. Weakness: PT and OT consult to evaluate and treat for strengthening. - Mortality Measure Prognosis:: Good (Fair prognosis r/t weakness and co-morbidities and living conditions)
[2019-06-04] MEDS: metFORMIN 500 MG Tab PO SCH (17:24)
[2019-06-04] MEDS ORDERED: Aspirin 81 MG Tab.EC ONE (19:42)
[2019-06-04] MEDS ORDERED: Multivitamin, Childrens Tab.Chew ONE (19:43)
[2019-06-04] MEDS ORDERED: Mirtazapine 15 MG Tab ONE (19:57)
[2019-06-04] MEDS: MIRTAZAPINE 45 MG PO SCH (20:08)
[2019-06-04] MEDS: atorvaSTATin 10 MG Tab PO SCH (20:09)
[2019-06-04] MEDS: Aspirin 325 MG Tab.EC PO SCH (20:12)
[2019-06-04] MEDS: Sodium Chloride 0.9% 10 ML Syringe FLUSH PRN ×2 (20:20→21:27)
[2019-06-05] MEDS ORDERED: Ciprofloxacin in D5W 200 ML ONE (07:25)
[2019-06-05] MEDS ORDERED: Multivitamin, Childrens Tab.Chew ONE ×2 (07:37→19:17)
[2019-06-05] MEDS: Ferrous Sulfate 325 MG Tab PO SCH (07:54)
[2019-06-05] MEDS: Metoprolol Tartrate 25 MG Tab PO SCH ×2 (07:55→19:37)
[2019-06-05] MEDS: metFORMIN 500 MG Tab PO SCH ×3 (07:55→17:59)
[2019-06-05] MEDS: Gabapentin 300 MG Cap PO SCH ×3 (07:56→19:38)
[2019-06-05] MEDS: Nystatin Crm 30 GM Tube TOP SCH ×2 (07:57→19:38)
[2019-06-05] MEDS: Calcium Carbonate 500 MG Tab.Chew PO SCH ×3 (07:57→19:37)
[2019-06-05] MEDS: [UNRECOGNIZED DRUG - OTHER] PO SCH ×2 (07:57→19:39)
[2019-06-05] MEDS: Cyanocobalamin (Vitamin B12) 1,000 MCG Tab PO SCH (07:58)
[2019-06-05] MEDS: Non-Formulary Medication 1 Each (Vitamin B Complex [Vitamin B Complex] 1 EACH) PO SCH (07:58)
[2019-06-05] MEDS: Ciprofloxacin in D5W 400 MG in Premix Bag 1 BAG IV SCH ×2 (08:15)
[2019-06-05] MEDS: Acetaminophen/HYDROcodone 325-5 MG Tab PO PRN ×2 (09:20→17:08)
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
[2019-06-05] MEDS ORDERED: Bacitracin Oint 1 GM U/D Packet ONE (14:31)
[2019-06-05] MEDS: Ciprofloxacin 500 MG Tab PO SCH (17:59)
[2019-06-05] MEDS ORDERED: Mirtazapine 15 MG Tab ONE (19:17)
[2019-06-05] MEDS ORDERED: Aspirin 81 MG Tab.EC ONE (19:17)
[2019-06-05] MEDS: Sodium Chloride 0.9% 10 ML Syringe FLUSH PRN (19:33)
[2019-06-05] MEDS: atorvaSTATin 10 MG Tab PO SCH (19:37)
[2019-06-05] MEDS: Aspirin 325 MG Tab.EC PO SCH (19:38)
[2019-06-05] MEDS: MIRTAZAPINE 45 MG PO SCH (19:38)
[2019-06-06] MEDS: Ciprofloxacin 500 MG Tab PO SCH ×2 (05:57→17:49)
[2019-06-06] MEDS: Ferrous Sulfate 325 MG Tab PO SCH (07:38)
[2019-06-06] MEDS: Lactobacillus Acidophilus/Lactobacillus Sporogenes (Probiotic) Tab PO SCH (07:38)
[2019-06-06] MEDS: Cyanocobalamin (Vitamin B12) 1,000 MCG Tab PO SCH (07:38)
[2019-06-06] MEDS: Calcium Carbonate 500 MG Tab.Chew PO SCH ×3 (07:38→20:59)
[2019-06-06] MEDS: metFORMIN 500 MG Tab PO SCH ×3 (07:39→17:49)
[2019-06-06] MEDS: Acetaminophen/HYDROcodone 325-5 MG Tab PO PRN ×3 (07:43→21:05)
[2019-06-06] MEDS: Sodium Chloride 0.9% 10 ML Syringe FLUSH PRN (08:00)
[2019-06-06] MEDS: Nystatin Crm 30 GM Tube TOP SCH ×2 (08:30→21:00)
--- NOTE | 2019-06-06 08:37 | PCM.PN ---
- General Info Date of Service: 06/06/19 Subjective Update: This is a 59yo F here for UTI, weakness, deconditioning, depression, decubitus ulceration and failed outpatient oral antibiotics with developing sepsis symptoms. She continues to feel very weak and depressed. She hardly gets out of bed even with assistance. She denies any fever or chills, no chest pain or shortness of breath but continues with nausea on and off. She feels very weak all the time and doesn't want to get up or out of bed at all. She is currently under bladder training with a mello present. Functional Status: Reports: Tolerating Diet - Review of Systems General: Reports: Weakness, Fatigue HEENT: Reports: No Symptoms Pulmonary: Reports: No Symptoms Cardiovascular: Reports: No Symptoms Gastrointestinal: Reports: Decreased Appetite, Nausea Genitourinary: Reports: Incontinence Musculoskeletal: Reports: No Symptoms Skin: Reports: Other (decubitus ulceration) Neurological: Reports: Weakness Psychiatric: Reports: Depression - Patient Data Vitals - Most Recent: Last Vital Signs Temp 36.9 C 06/06/19 07:53 Pulse 92 06/06/19 07:53 Resp 16 06/06/19 07:53 BP 108/53 L 06/06/19 07:53 Pulse Ox 98 06/06/19 07:53 Weight - Most Recent: 68.492 kg I&O - Last 24 Hours: Intake & Output 06/05/19 06/06/19 06/06/19 22:59 06:59 14:59 Intake Total 1690 360 Output Total 2450 1150 Balance -760 -790 Lab Results Last 24 Hours: Laboratory Results - last 24 hr 06/05/19 06/05/19 06/05/19 Range/Units 10:50 16:06 19:31 Sodium (136-145) mmol/L Potassium (3.5-5.1) mmol/L Chloride (98-107) mmol/L Carbon Dioxide (21.0-32.0) mmol/L Anion Gap (5.0-15.0) mmol/L BUN (8-26) mg/dL Creatinine (0.55-1.02) mg/dL Est Cr Clr Drug Dosing mL/min Estimated GFR (MDRD) (>60) MLS/MIN BUN/Creatinine Ratio (6-25) Glucose (74-100) mg/dL POC Glucose 143 H 163 H 194 H (74-110) mg/dL Calcium (8.5-10.1) mg/dL 06/06/19 Range/Units 07:15 Sodium 143 (136-145) mmol/L Potassium 4.1 D (3.5-5.1) mmol/L Chloride 111 H (98-107) mmol/L Carbon Dioxide 28.9 (21.0-32.0) mmol/L Anion Gap 7.2 (5.0-15.0) mmol/L BUN 9 (8-26) mg/dL Creatinine 0.89 D (0.55-1.02) mg/dL Est Cr Clr Drug Dosing 50.09 mL/min Estimated GFR (MDRD) > 60 (>60) MLS/MIN BUN/Creatinine Ratio 10.1 (6-25) Glucose 96 (74-100) mg/dL POC Glucose (74-110) mg/dL Calcium 7.3 L (8.5-10.1) mg/dL [place] Results Last 24 Hours: Microbiology 06/02/19 13:20 Aerobic Blood Culture - Preliminary Blood NO GROWTH AFTER 3 DAYS Anaerobic Blood Culture - Preliminary NO GROWTH AFTER 3 DAYS 06/02/19 12:30 Urine Culture - Preliminary Urine, Catheterized Escherichia Coli Med Orders - Current: Current Medications Hydrocodone Bitart/Acetaminophen ([place] 325-5 Mg) 1 tab PO Q6H PRN PRN Reason: Pain (moderate 4-6) Last Admin: 06/06/19 07:43 Dose: 1 tab Aspirin (Ecotrin) 81 mg PO BEDTIME [facility] Last Admin: 06/05/19 19:38 Dose: 81 mg Atorvastatin Calcium (Lipitor) 10 mg PO BEDTIME [facility] Last Admin: 06/05/19 19:37 Dose: 10 mg Calcium Carbonate/Glycine (Tums) 500 mg PO TID [facility] Last Admin: 06/06/19 07:38 Dose: 500 mg Ciprofloxacin (Ciprofloxacin Hcl) 500 mg PO BID@0600,1800 [facility] Last Admin: 06/06/19 05:57 Dose: 500 mg Cyanocobalamin (Vitamin B12) 1,000 mcg PO DAILY [facility] Last Admin: 06/06/19 07:38 Dose: 1,000 mcg Diphenhydramine HCl (Benadryl) 50 mg PO ASDIRECTED PRN PRN Reason: Allergies Ferrous Sulfate (Ferrous Sulfate) 325 mg PO DAILY [facility] Last Admin: 06/06/19 07:38 Dose: 325 mg Gabapentin (Neurontin) 600 mg PO TID [facility] Last Admin: 06/05/19 19:38 Dose: 600 mg Lactobacillus Acidophilus (Acidolphilus Extra Strength) 1 tab PO DAILY [facility] Last Admin: 06/06/19 07:38 Dose: 1 tab Magnesium Hydroxide (Milk Of Magnesia) 30 ml PO BID PRN PRN Reason: Constipation Metformin HCl (Glucophage) 500 mg PO TIDMEALS [facility] Last Admin: 06/06/19 07:39 Dose: 500 mg Metoprolol Tartrate (Lopressor) 6.25 mg PO BID [facility] Last Admin: 06/05/19 19:37 Dose: 6.25 mg Nitroglycerin (Nitrostat) 0.4 mg SL ASDIRECTED PRN PRN Reason: Chest Pain Non-Formulary Medication (Mirtazapine [Remeron]) 45 mg PO BEDTIME [facility] Last Admin: 06/05/19 19:38 Dose: 45 mg Non-Formulary Medication (Pediatric Multivit Comb No.42 [Children's Multivitamin ]) 1 each PO BID [facility] Last Admin: 06/05/19 19:39 Dose: 1 each Non-Formulary Medication (Vitamin B Complex [Vitamin B Complex]) 1 each PO DAILY [facility] Last Admin: 06/05/19 07:58 Dose: Not Given Nystatin (Nystatin Crm) 0 gm TOP BID [facility] Last Admin: 06/05/19 19:38 Dose: 1 applic Ondansetron HCl (Zofran Odt) 4 mg PO ASDIRECTED PRN PRN Reason: Nausea Last Admin: 06/05/19 14:11 Dose: 4 mg Senna/Docusate Sodium (Senna Plus) 1 tab PO DAILY PRN PRN Reason: Constipation Last Admin: 06/03/19 09:05 Dose: 1 tab Sodium Chloride (Saline Flush) 10 ml FLUSH ASDIRECTED PRN PRN Reason: Keep Vein Open Last Admin: 06/05/19 19:33 Dose: 10 ml Discontinued Medications Hydrocodone Bitart/Acetaminophen ([place] 325-5 Mg) Confirm Administered Dose 1 tab .ROUTE .STK-MED ONE Stop: 06/02/19 13:10 Last Admin: 06/02/19 13:14 Dose: Not Given Aspirin (Halfprin) Confirm Administered Dose 81 mg .ROUTE .STK-MED ONE Stop: 06/03/19 20:07 Last Admin: 06/03/19 20:53 Dose: Not Given Aspirin (Halfprin) Confirm Administered Dose 81 mg .ROUTE .STK-MED ONE Stop: 06/04/19 19:43 Last Admin: 06/04/19 20:26 Dose: Not Given Aspirin (Halfprin) Confirm Administered Dose 81 mg .ROUTE .STK-MED ONE Stop: 06/05/19 19:18 Last Admin: 06/05/19 20:56 Dose: Not Given Bacitracin (Bacitracin Oint 1 Gm) Confirm Administered Dose 1 dose .ROUTE .STK- MED ONE Stop: 06/04/19 07:39 Last Admin: 06/04/19 09:30 Dose: 1 dose Bacitracin (Bacitracin Oint 1 Gm) Confirm Administered Dose 1 dose .ROUTE .STK- MED ONE Stop: 06/05/19 14:32 Last Admin: 06/05/19 18:00 Dose: Not Given Calcium Carbonate/Glycine (Tums) 500 mg PO BID [facility] Last Admin: 06/04/19 07:48 Dose: 500 mg Sodium Chloride (Normal Saline) 1,000 mls @ 999 mls/hr IV ASDIRECTED [facility] Last Admin: 06/02/19 12:05 Dose: 999 mls/hr Ciprofloxacin/Dextrose 400 mg/ (Premix) 200 mls @ 200 mls/hr IV STAT ONE Stop: 06/02/19 13:31 Last Admin: 06/02/19 13:36 Dose: 200 mls/hr Sodium Chloride (Normal Saline) 1,000 mls @ 999 mls/hr IV BOLUS ONE Stop: 06/02/19 13:32 Last Admin: 06/02/19 13:40 Dose: Not Given Ciprofloxacin/Dextrose (Cipro In D5w 400 Mg/200 Ml) Confirm Administered Dose 200 mls @ as directed .ROUTE .STK-MED ONE Stop: 06/02/19 12:52 Last Admin: 06/02/19 13:16 Dose: Not Given Dextrose/Sodium Chloride (Dextrose 5%-Normal Saline) 1,000 mls @ 125 mls/hr IV ASDIRECTED [facility] Last Admin: 06/04/19 05:17 Dose: 75 mls/hr Ciprofloxacin/Dextrose 400 mg/ (Premix) 200 mls @ 200 mls/hr IV Q12HR [facility] Last Admin: 06/05/19 08:15 Dose: 200 mls/hr Ciprofloxacin/Dextrose (Cipro In D5w 400 Mg/200 Ml) Confirm Administered Dose 200 mls @ as directed .ROUTE .[facility] ONE Stop: 06/02/19 20:34 Last Admin: 06/02/19 20:59 Dose: Not Given Ciprofloxacin/Dextrose (Cipro In D5w 400 Mg/200 Ml) Confirm Administered Dose 200 mls @ as directed .ROUTE .[facility] ONE Stop: 06/03/19 07:29 Last Admin: 06/03/19 08:27 Dose: Not Given Ciprofloxacin/Dextrose (Cipro In D5w 400 Mg/200 Ml) Confirm Administered Dose 200 mls @ as directed .ROUTE .[facility] ONE Stop: 06/03/19 20:08 Last Admin: 06/03/19 20:53 Dose: Not Given Ciprofloxacin/Dextrose (Cipro In D5w 400 Mg/200 Ml) Confirm Administered Dose 200 mls @ as directed .ROUTE .[facility] ONE Stop: 06/04/19 07:10 Last Admin: 06/04/19 07:56 Dose: Not Given Ciprofloxacin/Dextrose (Cipro In D5w 400 Mg/200 Ml) Confirm Administered Dose 200 mls @ as directed .ROUTE .[facility] ONE Stop: 06/04/19 19:44 Last Admin: 06/04/19 20:26 Dose: Not Given Ciprofloxacin/Dextrose (Cipro In D5w 400 Mg/200 Ml) Confirm Administered Dose 200 mls @ as directed .ROUTE .[facility] ONE Stop: 06/05/19 07:26 Last Admin: 06/05/19 08:01 Dose: Not Given Metformin HCl (Glucophage Xr) 1,000 mg PO BIDMEALS [facility] Metformin HCl (Glucophage) 500 mg PO WITHDINNER [facility] Last Admin: 06/03/19 17:36 Dose: 500 mg Metoprolol Tartrate (Lopressor) 5 mg PO BID [facility] Last Admin: 06/03/19 13:48 Dose: 5 mg Mirtazapine (Remeron) Confirm Administered Dose 45 mg .ROUTE .[facility] ONE Stop: 06/02/19 20:38 Last Admin: 06/03/19 00:51 Dose: Not Given Mirtazapine (Remeron) Confirm Administered Dose 45 mg .ROUTE .ST-MED ONE Stop: 06/03/19 20:03 Last Admin: 06/03/19 20:13 Dose: Not Given Mirtazapine (Remeron) Confirm Administered Dose 45 mg .ROUTE .STK-MED ONE Stop: 06/04/19 19:58 Last Admin: 06/04/19 20:08 Dose: Not Given Mirtazapine (Remeron) Confirm Administered Dose 45 mg .ROUTE .STK-MED ONE Stop: 06/05/19 19:18 Last Admin: 06/05/19 20:56 Dose: Not Given Multivitamins/Minerals/Vitamin C (Childrens Chewable Vitamin) Confirm Administered Dose 1 tab .ROUTE .STK-MED ONE Stop: 06/02/19 20:39 Last Admin: 06/02/19 21:00 Dose: Not Given Multivitamins/Minerals/Vitamin C (Childrens Chewable Vitamin) Confirm Administered Dose 1 tab .ROUTE .STK-MED ONE Stop: 06/03/19 07:31 Last Admin: 06/03/19 08:27 Dose: Not Given Multivitamins/Minerals/Vitamin C (Childrens Chewable Vitamin) Confirm Administered Dose 1 tab .ROUTE .STK-MED ONE Stop: 06/03/19 20:04 Last Admin: 06/03/19 20:13 Dose: Not Given Multivitamins/Minerals/Vitamin C (Childrens Chewable Vitamin) Confirm Administered Dose 1 tab .ROUTE .STK-MED ONE Stop: 06/04/19 19:44 Last Admin: 06/04/19 20:26 Dose: Not Given Multivitamins/Minerals/Vitamin C (Childrens Chewable Vitamin) Confirm Administered Dose 1 tab .ROUTE .STK-MED ONE Stop: 06/05/19 07:38 Last Admin: 06/05/19 08:01 Dose: Not Given Multivitamins/Minerals/Vitamin C (Childrens Chewable Vitamin) Confirm Administered Dose 1 tab .ROUTE .STK-MED ONE Stop: 06/05/19 19:18 Last Admin: 06/05/19 20:56 Dose: Not Given Nystatin (Nystatin Crm) Confirm Administered Dose 30 gm .ROUTE .STK-MED ONE Stop: 06/02/19 17:57 Last Admin: 06/02/19 18:01 Dose: 1 applic Sodium Chloride (Saline Flush) 10 ml FLUSH ASDIRECTED PRN PRN Reason: Keep Vein Open Last Admin: 06/03/19 20:41 Dose: 10 ml - Exam General: Alert, Oriented, Cooperative HEENT: Pupils Equal, Pupils Reactive, EOMI Neck: Supple Lungs: Clear to Auscultation, Normal Respiratory Effort Cardiovascular: Regular Rate, Regular Rhythm GI/Abdominal Exam: Normal Bowel Sounds, Soft, Non-Tender Back Exam: Normal Inspection Extremities: Normal Inspection Peripheral Pulses: 2+: Dorsalis Pedis (L), Dorsalis Pedis (R) Skin: Warm, Dry, Intact, Other (decubitus ulceration stage 2 ) Wound/Incisions: No Drainage Neurological: No New Focal Deficit Psy/Mental Status: Depressed - Problem List & Annotations (1) Decubitus skin ulcer SNOMED Code(s): 532471666 Code(s): L89.90 - PRESSURE ULCER OF UNSPECIFIED SITE, UNSPECIFIED STAGE Status: Acute Priority: High Current Visit: Yes Qualifiers: Pressure injury location: sacral region Pressure injury stage: stage 2 Qualified Code(s): L89.152 - Pressure ulcer of sacral region, stage 2 (2) Dehydration SNOMED Code(s): 81436647 Code(s): E86.0 - DEHYDRATION Status: Resolved Priority: High Current Visit: Yes (3) Intertrigo SNOMED Code(s): 51666729 Code(s): L30.4 - ERYTHEMA INTERTRIGO Status: Acute Current Visit: Yes (4) UTI (urinary tract infection) SNOMED Code(s): 25016677 Code(s): N39.0 - URINARY TRACT INFECTION, SITE NOT SPECIFIED Status: Acute Priority: High Current Visit: Yes Qualifiers: Urinary tract infection type: acute cystitis Hematuria presence: without hematuria Qualified Code(s): N30.00 - Acute cystitis without hematuria (5) CAD (coronary artery disease) SNOMED Code(s): 52758956 Code(s): I25.10 - ATHSCL HEART DISEASE OF [place] CORONARY ARTERY W/O ANG PCTRS Status: Chronic Priority: High Current Visit: Yes Qualifiers: Coronary Disease-Associated Artery/Lesion type: unspecified vessel or lesion type [place] vs. transplanted heart: unspecified whether [place] or transplanted heart Associated angina: without angina Qualified Code(s): I25.10 - Atherosclerotic heart disease of [place] coronary artery without angina pectoris (6) Chronic pain SNOMED Code(s): 78805269 Code(s): G89.29 - OTHER CHRONIC PAIN Status: Chronic Priority: Low Current Visit: Yes Qualifiers: Chronic pain type: other chronic pain Qualified Code(s): G89.29 - Other chronic pain (7) Diabetes mellitus type 2 SNOMED Code(s): 78448642 Code(s): E11.9 - TYPE 2 DIABETES MELLITUS WITHOUT COMPLICATIONS Status: Chronic Priority: High Current Visit: Yes Annotation/Comment:: (8) GERD (gastroesophageal reflux disease) SNOMED Code(s): 751876469 Code(s): K21.9 - GASTRO-ESOPHAGEAL REFLUX DISEASE WITHOUT ESOPHAGITIS Status: Chronic Priority: Medium Current Visit: Yes Qualifiers: Esophagitis presence: esophagitis presence not specified Qualified Code(s) : K21.9 - Gastro-esophageal reflux disease without esophagitis (9) Dehydration SNOMED Code(s): 08610349 Code(s): E86.0 - DEHYDRATION Status: Resolved Priority: High Current Visit: Yes Onset Date: 06/02/19 (10) Failure to thrive SNOMED Code(s): 82777372 Code(s): IFS1434 - Status: Suspected Priority: High Current Visit: Yes Onset Date: 05/15/14 Annotation/Comment:: 06/05/2014 Running bolus feedings and doing well. Chief Radiologic Technologist to adjust. (11) UTI, Urinary tract infectious disease SNOMED Code(s): 92906619 Code(s): N39.0 - URINARY TRACT INFECTION, SITE NOT SPECIFIED Status: Acute Priority: High Current Visit: Yes Annotation/Comment:: 05/24/2014 Culture is adequate for Cipro (12) Nutritional deficiency SNOMED Code(s): 28686655 Code(s): E63.9 - NUTRITIONAL DEFICIENCY, UNSPECIFIED Status: Chronic Priority: High Current Visit: Yes Annotation/Comment:: 03/27/2014 Tolerating feeding tube better. Did discuss a G tube but patient feels she will eat better. She has been eating better. She did inform me she had a caspule endoscopy in [place] and it showed she had a tear in her small intestine leaking blood and she was supposed to go to the [facility] last month but she was in the hospital. We will look into this later. (13) Hypotension, Low blood pressure SNOMED Code(s): 56830219 Code(s): I95.9 - HYPOTENSION, UNSPECIFIED Status: Suspected Priority: High Current Visit: Yes Annotation/Comment:: Patient had colonoscopy today. Was given a bolus of IV fluids with little response of her blood pressure. Will hold her BP meds and diabetic meds. Lab work shows elevated liver functions. Did have a Abd CT in [place] recently and the renal mass was noted. Dr. Young the urologist noted to follow this. Patient continues to fail. Will obtain a MRI of her back next week. Does have off and on diarrhea. Would like to check a C diff. Was tested before and negative. If continues to have diarrhea would order other stool samples. Will hydrate at this time and hold most of her meds at this time. Would consider gastro consult in the future for elevation of liver functions and general inablity to eat and maintain weight. - Problem List Review Problem List Initiated/Reviewed/Updated: Yes - Plan Plan:: 06/04/2019 Dehydration and UTI and weakness: Continue with IV fluids, pt isn't eating or drinking very well yet. Cirpo 400 mg IV bid. Ensure, lactose free as needed. Incentive spirometry q 2 hour while awake. CBC and BMP in am Diabetes: Monitor BS ac and hs Metformin 500 mg PO daily. Chronic pain: Assess pain and medicate as needed. Recommend position change q 2hour, while awake. GERD stable with current Rx. Decubitus: Daily wound care and position change q 2 hour while awake and prn. Increase activity as tolerated and up in the chair for meals as tolerated. 06-04-2019 update for inpatient admission: Will d/c IV fluids today and continue Cipro IV. Urine culture is pending, 48 hour blood culture is negative. Continue with I/O to monitor output and monitor for dehydration. VS q 4 hour. Ensure, lactose free as needed. Incentive spirometry q 2 hour while awake. Lactic acid and BMP in am Diabetes: Will increase Metformin to 500 mg tid. Monitor BS ac and hs With her cardiac history and stent will order cardiac diet with diabetic diet. Chief Radiologic Technologist consult. Chronic pain: Assess pain and medicate as needed. Recommend position change q 2hour, while awake. GERD stable with current Rx. Decubitus: Daily wound care and position change q 2 hour while awake and prn. Increase activity as tolerated and up in the chair for meals as tolerated. Fungal infection/ intertrigo: Nystatin cream to skin bid and keep area clean and dry. Weakness: PT and OT consult to evaluate and treat for strengthening. 06/05/2019 Pt is feeling some better and is increasing activity slowly with assist. She is fearful of falling. VSS: PUlse 71, resp 16 and BP 106/54 and SpO2=98% on room air. Blood sugar is 116 and 143 today. Continue with Metformin tid. Afternoon and evening blood sugar yesterday was elevated. UTI: Pt is improving with intake. IV fluids stopped and will change to Cipro PO this evening. Lactic acid is improved. Continue to monitor I/O. Weakness and edema: Increase in weight from 147 to 150 in one day. Slight Peripheral edema noted to feet and ankles. Recommend to limit the diet pop and broth. Lab for BNP in am. PT/OT consult tomorrow. Recommend pt to sit in chair for meals and prn to increase her strength with ambulation to bathroom to void. Encourage pt to complete personal cares. Potassium is slightly increase from yesterday. Recommend to limit the diet pop and limit potassium rich foods. Lab in am for BMP Skin wound and fungal infection are improving: Recommend to stay off of back and sit in chair or pillow alternating under hip to offset weight on sacral area. Recommend pillow under feet/ankle to prevent skin breakdown. Improvement noted today with no areas of redness noted to heels. Scab area is intact to right great toe. Dressing to sacral area is intact. Continue to change as needed and wound cares. 06/06/19 K returned to normal. Patient will continue on current antibiotics regiment. We will monitor vitals as scheduled. F/u PT/OT recommendations and management. Encouraged working with PT/OT and increased activity. Discussed skin breakdown and management. Continue bladder training and D/C mello tristin. Continue wound care. F/u labs in AM.
[2019-06-06] MEDS: Gabapentin 300 MG Cap PO SCH ×3 (09:31→20:59)
[2019-06-06] MEDS: Metoprolol Tartrate 25 MG Tab PO SCH ×2 (09:32→21:00)
[2019-06-06] MEDS: [UNRECOGNIZED DRUG - OTHER] PO SCH (09:50)
[2019-06-06] MEDS: Non-Formulary Medication 1 Each (Vitamin B Complex [Vitamin B Complex] 1 EACH) PO SCH (11:43)
[2019-06-06] MEDS: Mirtazapine 15 MG Tab PO SCH (20:56)
[2019-06-06] MEDS: Aspirin 325 MG Tab.EC PO SCH (20:57)
[2019-06-06] MEDS: atorvaSTATin 10 MG Tab PO SCH (20:58)
[2019-06-07] MEDS: Ciprofloxacin 500 MG Tab PO SCH ×2 (06:05→17:38)
[2019-06-07] MEDS: metFORMIN 500 MG Tab PO SCH ×3 (07:40→17:38)
[2019-06-07] MEDS: Nystatin Crm 30 GM Tube TOP SCH ×2 (07:41→20:30)
[2019-06-07] MEDS: Metoprolol Tartrate 25 MG Tab PO SCH ×2 (07:43→20:32)
[2019-06-07] MEDS: Gabapentin 300 MG Cap PO SCH ×3 (07:44→20:35)
[2019-06-07] MEDS: Cyanocobalamin (Vitamin B12) 1,000 MCG Tab PO SCH (07:44)
[2019-06-07] MEDS: Ferrous Sulfate 325 MG Tab PO SCH (07:45)
[2019-06-07] MEDS: Lactobacillus Acidophilus/Lactobacillus Sporogenes (Probiotic) Tab PO SCH (07:45)
[2019-06-07] MEDS: Calcium Carbonate 500 MG Tab.Chew PO SCH ×3 (07:46→20:29)
[2019-06-07] MEDS: Multivitamins with Iron/Calcium/Folic Acid/Minerals Tab PO SCH (07:48)
[2019-06-07] MEDS: Acetaminophen/HYDROcodone 325-5 MG Tab PO PRN ×3 (07:51→20:53)
[2019-06-07] MEDS ORDERED: Furosemide 20 MG Tab PO ONE (08:38)
[2019-06-07] MEDS: Sodium Chloride 0.9% 10 ML Syringe FLUSH PRN (10:27)
--- NOTE | 2019-06-07 13:11 | PCM.DCSUM1 ---
Discharge Summary - Hospital Course HPI Initial Comments: This 59yr female presented to ER with weakness, dehydration, and UTI. Hx CAD, GERD, HTN, Diabetes type 2, and yeast infection and excoriated skin to tailbone area. Cipro 400 mg IV given and symptoms improved. The blood culture is negative for initial reading. No culture results for the urine at this time. Weakness continues and excoriated skin integrity to tailbone area. She is unable to tolerate standing or sitting in chair for any length of time without feeling weak. Will discharge today and admit to Swing Bed with Weakness, UTI , and Skin breakdown; Stage 2 to tailbone, diabetes Type 2, hypertension, chronic back pain, Hx failure to thrive, cardiac stent and CAD, anemia, hx of gastric bypass, GERD and poor nutrition worsening for 3 months, reported per patient interview. Diagnosis: Stroke: No - Discharge Data Discharge Date: 06/07/19 Discharge Disposition: DC/Tfer W/I Hosp To Swing 61 Condition: Good - Referral to Home Health Primary Care Physician: PCP None - Discharge Diagnosis/Problem(s) (1) Generalized weakness SNOMED Code(s): 31014262 ICD Code: R53.1 - WEAKNESS Status: Acute Current Visit: Yes (2) UTI (urinary tract infection) SNOMED Code(s): 90001094 ICD Code: N39.0 - URINARY TRACT INFECTION, SITE NOT SPECIFIED Status: Acute Priority: High Current Visit: Yes Qualifiers: Urinary tract infection type: acute cystitis Hematuria presence: without hematuria Qualified Code(s): N30.00 - Acute cystitis without hematuria (3) Diabetes mellitus type 2 SNOMED Code(s): 85226402 ICD Code: E11.9 - TYPE 2 DIABETES MELLITUS WITHOUT COMPLICATIONS Status: Chronic Priority: High Current Visit: Yes Problem Details: (4) Intertrigo SNOMED Code(s): 90818405 ICD Code: L30.4 - ERYTHEMA INTERTRIGO Status: Acute Current Visit: Yes (5) GERD (gastroesophageal reflux disease) SNOMED Code(s): 948325951 ICD Code: K21.9 - GASTRO-ESOPHAGEAL REFLUX DISEASE WITHOUT ESOPHAGITIS Status: Chronic Priority: Medium Current Visit: Yes Qualifiers: Esophagitis presence: esophagitis presence not specified Qualified Code(s) : K21.9 - Gastro-esophageal reflux disease without esophagitis (6) CAD (coronary artery disease) SNOMED Code(s): 01081668 ICD Code: I25.10 - ATHSCL HEART DISEASE OF [place] CORONARY ARTERY W/O ANG PCTRS Status: Chronic Priority: High Current Visit: Yes Qualifiers: Coronary Disease-Associated Artery/Lesion type: unspecified vessel or lesion type [place] vs. transplanted heart: unspecified whether [place] or transplanted heart Associated angina: without angina Qualified Code(s): I25.10 - Atherosclerotic heart disease of [place] coronary artery without angina pectoris (7) Chronic pain SNOMED Code(s): 94739920 ICD Code: G89.29 - OTHER CHRONIC PAIN Status: Chronic Priority: Low Current Visit: Yes Qualifiers: Chronic pain type: other chronic pain Qualified Code(s): G89.29 - Other chronic pain (8) Decubitus skin ulcer SNOMED Code(s): 303494447 ICD Code: L89.90 - PRESSURE ULCER OF UNSPECIFIED SITE, UNSPECIFIED STAGE Status: Acute Priority: High Current Visit: Yes Qualifiers: Pressure injury location: sacral region Pressure injury stage: stage 2 Qualified Code(s): L89.152 - Pressure ulcer of sacral region, stage 2 (9) Dehydration SNOMED Code(s): 33712094 ICD Code: E86.0 - DEHYDRATION Status: Resolved Priority: High Current Visit: Yes Onset Date: 06/02/19 - Patient Summary/Data Consults: Consultations 06/03/19 09:44 PT Evaluation and Treatment [CONS] Routine Please Evaluate and Treat. PT Reason for Consult: Wound Care Special Instructions: coccyx and left groin wounds This query below is only for informational purposes and is not editable. Admission Diagnosis/Problem: Dehydration 06/04/19 14:27 Consult to Physical Therapy [PT Evaluation and Treatment] [CONS] Routine Please Evaluate and Treat. PT Reason for Consult: Strengthening This query below is only for informational purposes and is not editable. Admission Diagnosis/Problem: Dehydration OT Evaluation and Treatment [CONS] Routine Please Evaluate and Treat. OT Reason for Consult: Strengthening This query below is only for informational purposes and is not editable. Admission Diagnosis/Problem: Dehydration 06/04/19 14:28 Consult to Dietary [Consult to Senior Clinical Data Analyst] [CONS] Routine Comment: Physician Instructions: Quantity: Reason for Consult: diabetes Type 2, low protein, low albumin - Patient Instructions Diet: Diabetic Diet Activity: Cough & Deep Breathe, Full Weight Bearing Activity, Other: Up with assist Wound/Incision, Other: Change dressing to coccyx every 3 day and prn. Notify Provider of: Fever, Increased Pain, Nausea and/or Vomiting - Discharge Plan *PRESCRIPTION DRUG MONITORING PROGRAM REVIEWED*: Not Applicable *COPY OF PRESCRIPTION DRUG MONITORING REPORT IN PATIENT NESSA: Not Applicable Home Medications: Home Meds Aspirin [Ecotrin] 81 mg PO BEDTIME 04/27/13 [History] Gabapentin [Neurontin] 600 mg PO BID 04/27/13 [History] atorvaSTATin [Lipitor] 10 mg PO BEDTIME 04/27/13 [History] Calcium Carbonate [Calcium Antacid] 500 mg PO TID 05/15/14 [History] Ferrous Sulfate 325 mg PO DAILY 05/15/14 [History] Ondansetron [Ondansetron ODT] 4 mg PO ASDIRECTED PRN 05/15/14 [History] Mirtazapine [Remeron] 45 mg PO BEDTIME 05/30/14 [History] Cyanocobalamin (Vitamin B12) [Vitamin B12] 1,000 mcg PO DAILY #90 tab 06/15/14 [ Rx] Pediatric Multivit Comb No.42 [Children's Multivitamin] 1 each PO BID #90 tab.chew 06/15/14 [Rx] Vitamin B Complex 1 each PO DAILY #90 tablet 06/15/14 [Rx] Metoprolol Tartrate 6.25 mg PO BID 05/23/19 [History] Nitroglycerin 0.4 mg SL ASDIRECTED PRN 05/23/19 [History] diphenhydrAMINE HCl [Benadryl] 50 mg PO ASDIRECTED PRN 05/23/19 [History] Forms: ED Department Discharge Referrals: PCP,None [Primary Care Provider] - - Discharge Summary/Plan Comment DC Time >30 min.: No Discharge Summary/Plan Comment: Transfer to SWING bed with weakness, UTI, poor nutrition, poor appetite, Diabetes Type 2, GERD, depression. PT/OT for strengthening. Continue Cipro PO bid X 10 days. Urine culture returned with E-coli and sensitive to Cipro. - General Info Date of Service: 06/07/19 Admission Dx/Problem (Free Text: UTI, weakness, Stage 2 ulcer and excoriation to sacral area, diabetes Type 2, Fungal infection to abdominal fold Subjective Update: States she is still extremely weak and hasn't really been up for about 3 months. States she wants to get stronger and is agreeable to SWING bed program for strengthening. - Review of Systems General: Reports: Weakness, Malaise HEENT: Reports: Glasses. Denies: Headaches, Sinus Congestion, Sore Throat Pulmonary: Denies: Shortness of Breath, Pleuritic Chest Pain, Cough Cardiovascular: Reports: Edema, Lightheadedness Gastrointestinal: Reports: Decreased Appetite. Denies: Constipation, Nausea, Vomiting Genitourinary: Reports: Incontinence, Retention Musculoskeletal: Reports: Back Pain Skin: Reports: Rash Neurological: Reports: Dizziness, Difficulty Walking. Denies: Trouble Speaking Psychiatric: Reports: Depression - Patient Data Vitals - Most Recent: Last Vital Signs Temp 97.0 F 06/07/19 11:39 Pulse 133 H 06/07/19 11:39 Resp 18 06/07/19 11:39 BP 106/78 06/07/19 11:39 Pulse Ox 100 06/07/19 11:39 Weight - Most Recent: 151 lb 9.6 oz I&O - Last 24 hours: Intake & Output 06/06/19 06/07/19 06/07/19 22:59 06:59 14:59 Intake Total 500 650 Output Total 200 150 425 Balance 300 500 -425 Lab Results - Last 24 hrs: Laboratory Results - last 24 hr 06/06/19 06/06/19 06/06/19 Range/Units 06:27 10:35 20:34 POC Glucose 88 129 H 129 H (74-110) mg/dL B-Natriuretic Peptide (0-125) pg/mL 06/07/19 06/07/19 06/07/19 Range/Units 07:15 07:38 10:36 POC Glucose 91 119 H (74-110) mg/dL B-Natriuretic Peptide 552 H D (0-125) pg/mL ARI Results - Last 24 hrs: Microbiology 06/02/19 12:30 Urine Culture - Final Urine, Catheterized Escherichia Coli 06/02/19 13:20 Aerobic Blood Culture - Preliminary Blood NO GROWTH AFTER 4 DAYS Anaerobic Blood Culture - Preliminary NO GROWTH AFTER 4 DAYS Med Orders - Current: Current Medications Hydrocodone Bitart/Acetaminophen ([place] 325-5 Mg) 1 tab PO Q6H PRN PRN Reason: Pain (moderate 4-6) Last Admin: 06/07/19 07:51 Dose: 1 tab Aspirin (Halfprin) 81 mg PO BEDTIME [facility] Atorvastatin Calcium (Lipitor) 10 mg PO BEDTIME [facility] Last Admin: 06/06/19 20:58 Dose: 10 mg Calcium Carbonate/Glycine (Tums) 500 mg PO TID [facility] Last Admin: 06/07/19 07:46 Dose: 500 mg Ciprofloxacin (Ciprofloxacin Hcl) 500 mg PO BID@0600,1800 [facility] Last Admin: 06/07/19 06:05 Dose: 500 mg Cyanocobalamin (Vitamin B12) 1,000 mcg PO DAILY [facility] Last Admin: 06/07/19 07:44 Dose: 1,000 mcg Diphenhydramine HCl (Benadryl) 50 mg PO ASDIRECTED PRN PRN Reason: Allergies Ferrous Sulfate (Ferrous Sulfate) 325 mg PO DAILY [facility] Last Admin: 06/07/19 07:45 Dose: 325 mg Gabapentin (Neurontin) 600 mg PO TID [facility] Last Admin: 06/07/19 07:44 Dose: 600 mg Lactobacillus Acidophilus (Acidolphilus Extra Strength) 1 tab PO DAILY [facility] Last Admin: 06/07/19 07:45 Dose: 1 tab Magnesium Hydroxide (Milk Of Magnesia) 30 ml PO BID PRN PRN Reason: Constipation Metformin HCl (Glucophage) 500 mg PO TIDMEALS [facility] Last Admin: 06/07/19 11:53 Dose: 500 mg Metoprolol Tartrate (Lopressor) 6.25 mg PO BID [facility] Last Admin: 06/07/19 07:43 Dose: 6.25 mg Mirtazapine (Remeron) 45 mg PO BEDTIME [facility] Last Admin: 06/06/19 20:56 Dose: 45 mg Multivitamins/Minerals (Thera M Plus) 1 tab PO DAILY [facility] Last Admin: 06/07/19 07:48 Dose: 1 tab Nitroglycerin (Nitrostat) 0.4 mg SL ASDIRECTED PRN PRN Reason: Chest Pain Nystatin (Nystatin Crm) 0 gm TOP BID [facility] Last Admin: 06/07/19 07:41 Dose: 1 applic Ondansetron HCl (Zofran Odt) 4 mg PO ASDIRECTED PRN PRN Reason: Nausea Last Admin: 06/05/19 14:11 Dose: 4 mg Senna/Docusate Sodium (Senna Plus) 1 tab PO DAILY PRN PRN Reason: Constipation Last Admin: 06/03/19 09:05 Dose: 1 tab Sodium Chloride (Saline Flush) 10 ml FLUSH ASDIRECTED PRN PRN Reason: Keep Vein Open Last Admin: 06/07/19 10:27 Dose: 10 ml Discontinued Medications Hydrocodone Bitart/Acetaminophen ([place] 325-5 Mg) Confirm Administered Dose 1 tab .ROUTE .STK-MED ONE Stop: 06/02/19 13:10 Last Admin: 06/02/19 13:14 Dose: Not Given Hydrocodone Bitart/Acetaminophen ([place] 325-5 Mg) 1 tab .ROUTE .STK-MED ONE Stop: 06/02/19 13:05 Aspirin (Ecotrin) 81 mg PO BEDTIME [facility] Last Admin: 06/06/19 20:57 Dose: 81 mg Aspirin (Halfprin) Confirm Administered Dose 81 mg .ROUTE .STK-MED ONE Stop: 06/03/19 20:07 Last Admin: 06/03/19 20:53 Dose: Not Given Aspirin (Halfprin) Confirm Administered Dose 81 mg .ROUTE .STK-MED ONE Stop: 06/04/19 19:43 Last Admin: 06/04/19 20:26 Dose: Not Given Aspirin (Halfprin) Confirm Administered Dose 81 mg .ROUTE .STK-MED ONE Stop: 06/05/19 19:18 Last Admin: 06/05/19 20:56 Dose: Not Given Bacitracin (Bacitracin Oint 1 Gm) Confirm Administered Dose 1 dose .ROUTE .STK- MED ONE Stop: 06/04/19 07:39 Last Admin: 06/04/19 09:30 Dose: 1 dose Bacitracin (Bacitracin Oint 1 Gm) Confirm Administered Dose 1 dose .ROUTE .STK- MED ONE Stop: 06/05/19 14:32 Last Admin: 06/05/19 18:00 Dose: Not Given Calcium Carbonate/Glycine (Tums) 500 mg PO BID [facility] Last Admin: 06/04/19 07:48 Dose: 500 mg Furosemide (Lasix) 20 mg PO ONETIME ONE Stop: 06/07/19 08:39 Last Admin: 06/07/19 10:25 Dose: 20 mg Sodium Chloride (Normal Saline) 1,000 mls @ 999 mls/hr IV ASDIRECTED IRENE Last Admin: 06/02/19 12:05 Dose: 999 mls/hr Ciprofloxacin/Dextrose 400 mg/ (Premix) 200 mls @ 200 mls/hr IV STAT ONE Stop: 06/02/19 13:31 Last Admin: 06/02/19 13:36 Dose: 200 mls/hr Sodium Chloride (Normal Saline) 1,000 mls @ 999 mls/hr IV BOLUS ONE Stop: 06/02/19 13:32 Last Admin: 06/02/19 13:40 Dose: Not Given Ciprofloxacin/Dextrose (Cipro In D5w 400 Mg/200 Ml) Confirm Administered Dose 200 mls @ as directed .ROUTE .[facility]-MED ONE Stop: 06/02/19 12:52 Last Admin: 06/02/19 13:16 Dose: Not Given Dextrose/Sodium Chloride (Dextrose 5%-Normal Saline) 1,000 mls @ 125 mls/hr IV ASDIRECTED [facility] Last Admin: 06/04/19 05:17 Dose: 75 mls/hr Ciprofloxacin/Dextrose 400 mg/ (Premix) 200 mls @ 200 mls/hr IV Q12HR [facility] Last Admin: 06/05/19 08:15 Dose: 200 mls/hr Ciprofloxacin/Dextrose (Cipro In D5w 400 Mg/200 Ml) Confirm Administered Dose 200 mls @ as directed .ROUTE .[facility] ONE Stop: 06/02/19 20:34 Last Admin: 06/02/19 20:59 Dose: Not Given Ciprofloxacin/Dextrose (Cipro In D5w 400 Mg/200 Ml) Confirm Administered Dose 200 mls @ as directed .ROUTE .[facility] ONE Stop: 06/03/19 07:29 Last Admin: 06/03/19 08:27 Dose: Not Given Ciprofloxacin/Dextrose (Cipro In D5w 400 Mg/200 Ml) Confirm Administered Dose 200 mls @ as directed .ROUTE .[facility] ONE Stop: 06/03/19 20:08 Last Admin: 06/03/19 20:53 Dose: Not Given Ciprofloxacin/Dextrose (Cipro In D5w 400 Mg/200 Ml) Confirm Administered Dose 200 mls @ as directed .ROUTE .[facility] ONE Stop: 06/04/19 07:10 Last Admin: 06/04/19 07:56 Dose: Not Given Ciprofloxacin/Dextrose (Cipro In D5w 400 Mg/200 Ml) Confirm Administered Dose 200 mls @ as directed .ROUTE .[facility] ONE Stop: 06/04/19 19:44 Last Admin: 06/04/19 20:26 Dose: Not Given Ciprofloxacin/Dextrose (Cipro In D5w 400 Mg/200 Ml) Confirm Administered Dose 200 mls @ as directed .ROUTE .STK-MED ONE Stop: 06/05/19 07:26 Last Admin: 06/05/19 08:01 Dose: Not Given Metformin HCl (Glucophage Xr) 1,000 mg PO BIDMEALS [facility] Metformin HCl (Glucophage) 500 mg PO WITHDINNER [facility] Last Admin: 06/03/19 17:36 Dose: 500 mg Metoprolol Tartrate (Lopressor) 5 mg PO BID [facility] Last Admin: 06/03/19 13:48 Dose: 5 mg Mirtazapine (Remeron) Confirm Administered Dose 45 mg .ROUTE .STK-MED ONE Stop: 06/02/19 20:38 Last Admin: 06/03/19 00:51 Dose: Not Given Mirtazapine (Remeron) Confirm Administered Dose 45 mg .ROUTE .STK-MED ONE Stop: 06/03/19 20:03 Last Admin: 06/03/19 20:13 Dose: Not Given Mirtazapine (Remeron) Confirm Administered Dose 45 mg .ROUTE .STK-MED ONE Stop: 06/04/19 19:58 Last Admin: 06/04/19 20:08 Dose: Not Given Mirtazapine (Remeron) Confirm Administered Dose 45 mg .ROUTE .STK-MED ONE Stop: 06/05/19 19:18 Last Admin: 06/05/19 20:56 Dose: Not Given Multivitamins/Minerals/Vitamin C (Childrens Chewable Vitamin) Confirm Administered Dose 1 tab .ROUTE .STK-MED ONE Stop: 06/02/19 20:39 Last Admin: 06/02/19 21:00 Dose: Not Given Multivitamins/Minerals/Vitamin C (Childrens Chewable Vitamin) Confirm Administered Dose 1 tab .ROUTE .STK-MED ONE Stop: 06/03/19 07:31 Last Admin: 06/03/19 08:27 Dose: Not Given Multivitamins/Minerals/Vitamin C (Childrens Chewable Vitamin) Confirm Administered Dose 1 tab .ROUTE .STK-MED ONE Stop: 06/03/19 20:04 Last Admin: 06/03/19 20:13 Dose: Not Given Multivitamins/Minerals/Vitamin C (Childrens Chewable Vitamin) Confirm Administered Dose 1 tab .ROUTE .STK-MED ONE Stop: 06/04/19 19:44 Last Admin: 06/04/19 20:26 Dose: Not Given Multivitamins/Minerals/Vitamin C (Childrens Chewable Vitamin) Confirm Administered Dose 1 tab .ROUTE .STK-MED ONE Stop: 06/05/19 07:38 Last Admin: 06/05/19 08:01 Dose: Not Given Multivitamins/Minerals/Vitamin C (Childrens Chewable Vitamin) Confirm Administered Dose 1 tab .ROUTE .STK-MED ONE Stop: 06/05/19 19:18 Last Admin: 06/05/19 20:56 Dose: Not Given Non-Formulary Medication (Mirtazapine [Remeron]) 45 mg PO BEDTIME [facility] Last Admin: 06/05/19 19:38 Dose: 45 mg Non-Formulary Medication (Pediatric Multivit Comb No.42 [Children's Multivitamin ]) 1 each PO BID [facility] Last Admin: 06/06/19 09:50 Dose: Not Given Non-Formulary Medication (Vitamin B Complex [Vitamin B Complex]) 1 each PO DAILY [facility] Last Admin: 06/06/19 11:43 Dose: Not Given Nystatin (Nystatin Crm) Confirm Administered Dose 30 gm .ROUTE .STK-MED ONE Stop: 06/02/19 17:57 Last Admin: 06/02/19 18:01 Dose: 1 applic Sodium Chloride (Saline Flush) 10 ml FLUSH ASDIRECTED PRN PRN Reason: Keep Vein Open Last Admin: 06/03/19 20:41 Dose: 10 ml - Exam Quality Assessment: Reports: Urine Catheter, Skin Breakdown General: Reports: Alert, Oriented, Cooperative, No Acute Distress HEENT: Reports: Pupils Equal, Pupils Reactive, Mucous Membr. Moist/[place] Neck: Reports: Supple, Trachea Midline Lungs: Reports: Clear to Auscultation, Normal Respiratory Effort Cardiovascular: Reports: Regular Rate, Regular Rhythm, No Murmurs GI/Abdominal Exam: Normal Bowel Sounds, Soft, Non-Tender Back Exam: Reports: Normal Inspection Extremities: Pedal Edema, Other (tender with palpation) Skin: Reports: Warm, Dry Wound/Incisions: Reports: Dressing Dry and Intact Neurological: Reports: Normal Speech Psy/Mental Status: Reports: Alert, Normal Affect
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
--- NOTE | 2019-06-07 15:52 | PCM.PN ---
- General Info Date of Service: 06/07/19 Admission Dx/Problem (Free Text): UTI, dehydration, weakness, diabetes Type 2, incontinence and stage 2 wound to sacral area. Functional Status: Reports: Pain Controlled, Incentive Spirometry - Review of Systems General: Reports: Weakness, Malaise HEENT: Reports: Glasses Pulmonary: Denies: Cough, Sputum, Wheezing Cardiovascular: Reports: Edema. Denies: Chest Pain, Palpitations Gastrointestinal: Reports: Decreased Appetite. Denies: Diarrhea, Nausea Genitourinary: Reports: Incontinence, Retention, Other (mello catheter) Musculoskeletal: Reports: Back Pain. Denies: Neck Pain, Leg Pain Skin: Reports: Rash Neurological: Reports: Weakness Psychiatric: Reports: Depression - Patient Data Vitals - Most Recent: Last Vital Signs Temp 97.0 F 06/07/19 11:39 Pulse 133 H 06/07/19 11:39 Resp 18 06/07/19 11:39 BP 106/78 06/07/19 11:39 Pulse Ox 100 06/07/19 11:39 Weight - Most Recent: 151 lb 9.6 oz I&O - Last 24 Hours: Intake & Output 06/07/19 06/07/19 06/07/19 06:59 14:59 22:59 Intake Total 650 1100 Output Total 150 425 Balance 500 675 Lab Results Last 24 Hours: Laboratory Results - last 24 hr 06/06/19 06/06/19 06/06/19 Range/Units 06:27 10:35 20:34 POC Glucose 88 129 H 129 H (74-110) mg/dL B-Natriuretic Peptide (0-125) pg/mL 06/07/19 06/07/19 06/07/19 Range/Units 07:15 07:38 10:36 POC Glucose 91 119 H (74-110) mg/dL B-Natriuretic Peptide 552 H D (0-125) pg/mL [place] Results Last 24 Hours: Microbiology 06/02/19 13:20 Aerobic Blood Culture - Final Blood NO GROWTH AFTER 5 DAYS Anaerobic Blood Culture - Final NO GROWTH AFTER 5 DAYS 06/02/19 12:30 Urine Culture - Final Urine, Catheterized Escherichia Coli Med Orders - Current: Current Medications Hydrocodone Bitart/Acetaminophen ([place] 325-5 Mg) 1 tab PO Q6H PRN PRN Reason: Pain (moderate 4-6) Last Admin: 06/07/19 13:28 Dose: 1 tab Aspirin (Halfprin) 81 mg PO BEDTIME [facility] Atorvastatin Calcium (Lipitor) 10 mg PO BEDTIME [facility] Last Admin: 06/06/19 20:58 Dose: 10 mg Calcium Carbonate/Glycine (Tums) 500 mg PO TID [facility] Last Admin: 06/07/19 13:28 Dose: 500 mg Ciprofloxacin (Ciprofloxacin Hcl) 500 mg PO BID@0600,1800 [facility] Last Admin: 06/07/19 06:05 Dose: 500 mg Cyanocobalamin (Vitamin B12) 1,000 mcg PO DAILY [facility] Last Admin: 06/07/19 07:44 Dose: 1,000 mcg Diphenhydramine HCl (Benadryl) 50 mg PO ASDIRECTED PRN PRN Reason: Allergies Ferrous Sulfate (Ferrous Sulfate) 325 mg PO DAILY [facility] Last Admin: 06/07/19 07:45 Dose: 325 mg Gabapentin (Neurontin) 600 mg PO TID [facility] Last Admin: 06/07/19 13:28 Dose: 600 mg Lactobacillus Acidophilus (Acidolphilus Extra Strength) 1 tab PO DAILY [facility] Last Admin: 06/07/19 07:45 Dose: 1 tab Magnesium Hydroxide (Milk Of Magnesia) 30 ml PO BID PRN PRN Reason: Constipation Metformin HCl (Glucophage) 500 mg PO TIDMEALS [facility] Last Admin: 06/07/19 11:53 Dose: 500 mg Metoprolol Tartrate (Lopressor) 6.25 mg PO BID [facility] Last Admin: 06/07/19 07:43 Dose: 6.25 mg Mirtazapine (Remeron) 45 mg PO BEDTIME [facility] Last Admin: 06/06/19 20:56 Dose: 45 mg Multivitamins/Minerals (Thera M Plus) 1 tab PO DAILY [facility] Last Admin: 06/07/19 07:48 Dose: 1 tab Nitroglycerin (Nitrostat) 0.4 mg SL ASDIRECTED PRN PRN Reason: Chest Pain Nystatin (Nystatin Crm) 0 gm TOP BID [facility] Last Admin: 06/07/19 07:41 Dose: 1 applic Ondansetron HCl (Zofran Odt) 4 mg PO ASDIRECTED PRN PRN Reason: Nausea Last Admin: 06/05/19 14:11 Dose: 4 mg Senna/Docusate Sodium (Senna Plus) 1 tab PO DAILY PRN PRN Reason: Constipation Last Admin: 06/03/19 09:05 Dose: 1 tab Sodium Chloride (Saline Flush) 10 ml FLUSH ASDIRECTED PRN PRN Reason: Keep Vein Open Last Admin: 06/07/19 10:27 Dose: 10 ml Discontinued Medications Hydrocodone Bitart/Acetaminophen ([place] 325-5 Mg) Confirm Administered Dose 1 tab .ROUTE .STK-MED ONE Stop: 06/02/19 13:10 Last Admin: 06/02/19 13:14 Dose: Not Given Hydrocodone Bitart/Acetaminophen ([place] 325-5 Mg) 1 tab .ROUTE .STK-MED ONE Stop: 06/02/19 13:05 Aspirin (Ecotrin) 81 mg PO BEDTIME [facility] Last Admin: 06/06/19 20:57 Dose: 81 mg Aspirin (Halfprin) Confirm Administered Dose 81 mg .ROUTE .STK-MED ONE Stop: 06/03/19 20:07 Last Admin: 06/03/19 20:53 Dose: Not Given Aspirin (Halfprin) Confirm Administered Dose 81 mg .ROUTE .STK-MED ONE Stop: 06/04/19 19:43 Last Admin: 06/04/19 20:26 Dose: Not Given Aspirin (Halfprin) Confirm Administered Dose 81 mg .ROUTE .STK-MED ONE Stop: 06/05/19 19:18 Last Admin: 06/05/19 20:56 Dose: Not Given Bacitracin (Bacitracin Oint 1 Gm) Confirm Administered Dose 1 dose .ROUTE .STK- MED ONE Stop: 06/04/19 07:39 Last Admin: 06/04/19 09:30 Dose: 1 dose Bacitracin (Bacitracin Oint 1 Gm) Confirm Administered Dose 1 dose .ROUTE .STK- MED ONE Stop: 06/05/19 14:32 Last Admin: 06/05/19 18:00 Dose: Not Given Calcium Carbonate/Glycine (Tums) 500 mg PO BID [facility] Last Admin: 06/04/19 07:48 Dose: 500 mg Furosemide (Lasix) 20 mg PO ONETIME ONE Stop: 06/07/19 08:39 Last Admin: 06/07/19 10:25 Dose: 20 mg Sodium Chloride (Normal Saline) 1,000 mls @ 999 mls/hr IV ASDIRECTED [facility] Last Admin: 06/02/19 12:05 Dose: 999 mls/hr Ciprofloxacin/Dextrose 400 mg/ (Premix) 200 mls @ 200 mls/hr IV STAT ONE Stop: 06/02/19 13:31 Last Admin: 06/02/19 13:36 Dose: 200 mls/hr Sodium Chloride (Normal Saline) 1,000 mls @ 999 mls/hr IV BOLUS ONE Stop: 06/02/19 13:32 Last Admin: 06/02/19 13:40 Dose: Not Given Ciprofloxacin/Dextrose (Cipro In D5w 400 Mg/200 Ml) Confirm Administered Dose 200 mls @ as directed .ROUTE .[facility] ONE Stop: 06/02/19 12:52 Last Admin: 06/02/19 13:16 Dose: Not Given Dextrose/Sodium Chloride (Dextrose 5%-Normal Saline) 1,000 mls @ 125 mls/hr IV ASDIRECTED [facility] Last Admin: 06/04/19 05:17 Dose: 75 mls/hr Ciprofloxacin/Dextrose 400 mg/ (Premix) 200 mls @ 200 mls/hr IV Q12HR [facility] Last Admin: 06/05/19 08:15 Dose: 200 mls/hr Ciprofloxacin/Dextrose (Cipro In D5w 400 Mg/200 Ml) Confirm Administered Dose 200 mls @ as directed .ROUTE .[facility] ONE Stop: 06/02/19 20:34 Last Admin: 06/02/19 20:59 Dose: Not Given Ciprofloxacin/Dextrose (Cipro In D5w 400 Mg/200 Ml) Confirm Administered Dose 200 mls @ as directed .ROUTE .[facility] ONE Stop: 06/03/19 07:29 Last Admin: 06/03/19 08:27 Dose: Not Given Ciprofloxacin/Dextrose (Cipro In D5w 400 Mg/200 Ml) Confirm Administered Dose 200 mls @ as directed .ROUTE .[facility] ONE Stop: 06/03/19 20:08 Last Admin: 06/03/19 20:53 Dose: Not Given Ciprofloxacin/Dextrose (Cipro In D5w 400 Mg/200 Ml) Confirm Administered Dose 200 mls @ as directed .ROUTE .[facility] ONE Stop: 06/04/19 07:10 Last Admin: 06/04/19 07:56 Dose: Not Given Ciprofloxacin/Dextrose (Cipro In D5w 400 Mg/200 Ml) Confirm Administered Dose 200 mls @ as directed .ROUTE .[facility] ONE Stop: 06/04/19 19:44 Last Admin: 06/04/19 20:26 Dose: Not Given Ciprofloxacin/Dextrose (Cipro In D5w 400 Mg/200 Ml) Confirm Administered Dose 200 mls @ as directed .ROUTE .STK-MED ONE Stop: 06/05/19 07:26 Last Admin: 06/05/19 08:01 Dose: Not Given Metformin HCl (Glucophage Xr) [facility] Metformin HCl (Glucophage) 500 mg PO WITHDINNER [facility] Last Admin: 06/03/19 17:36 Dose: 500 mg Metoprolol Tartrate (Lopressor) 5 mg PO BID [facility] Last Admin: 06/03/19 13:48 Dose: 5 mg Mirtazapine (Remeron) Confirm Administered Dose 45 mg .ROUTE .STK-MED ONE Stop: 06/02/19 20:38 Last Admin: 06/03/19 00:51 Dose: Not Given Mirtazapine (Remeron) Confirm Administered Dose 45 mg .ROUTE .STK-MED ONE Stop: 06/03/19 20:03 Last Admin: 06/03/19 20:13 Dose: Not Given Mirtazapine (Remeron) Confirm Administered Dose 45 mg .ROUTE .STK-MED ONE Stop: 06/04/19 19:58 Last Admin: 06/04/19 20:08 Dose: Not Given Mirtazapine (Remeron) Confirm Administered Dose 45 mg .ROUTE .STK-MED ONE Stop: 06/05/19 19:18 Last Admin: 06/05/19 20:56 Dose: Not Given Multivitamins/Minerals/Vitamin C (Childrens Chewable Vitamin) Confirm Administered Dose 1 tab .ROUTE .STK-MED ONE Stop: 06/02/19 20:39 Last Admin: 06/02/19 21:00 Dose: Not Given Multivitamins/Minerals/Vitamin C (Childrens Chewable Vitamin) Confirm Administered Dose 1 tab .ROUTE .STK-MED ONE Stop: 06/03/19 07:31 Last Admin: 06/03/19 08:27 Dose: Not Given Multivitamins/Minerals/Vitamin C (Childrens Chewable Vitamin) Confirm Administered Dose 1 tab .ROUTE .STK-MED ONE Stop: 06/03/19 20:04 Last Admin: 10/11/19 20:13 Dose: Not Given Multivitamins/Minerals/Vitamin C (Childrens Chewable Vitamin) Confirm Administered Dose 1 tab .ROUTE .STK-MED ONE Stop: 06/04/19 19:44 Last Admin: 06/04/19 20:26 Dose: Not Given Multivitamins/Minerals/Vitamin C (Childrens Chewable Vitamin) Confirm Administered Dose 1 tab .ROUTE .STK-MED ONE Stop: 06/05/19 07:38 Last Admin: 06/05/19 08:01 Dose: Not Given Multivitamins/Minerals/Vitamin C (Childrens Chewable Vitamin) Confirm Administered Dose 1 tab .ROUTE .STK-MED ONE Stop: 06/05/19 19:18 Last Admin: 06/05/19 20:56 Dose: Not Given Non-Formulary Medication (Mirtazapine [Remeron]) 45 mg PO BEDTIME [facility] Last Admin: 06/05/19 19:38 Dose: 45 mg Non-Formulary Medication (Pediatric Multivit Comb No.42 [Children's Multivitamin ]) 1 each PO BID [facility] Last Admin: 06/06/19 09:50 Dose: Not Given Non-Formulary Medication (Vitamin B Complex [Vitamin B Complex]) 1 each PO DAILY [facility] Last Admin: 06/06/19 11:43 Dose: Not Given Nystatin (Nystatin Crm) Confirm Administered Dose 30 gm .ROUTE .STK-MED ONE Stop: 06/02/19 17:57 Last Admin: 06/02/19 18:01 Dose: 1 applic Sodium Chloride (Saline Flush) 10 ml FLUSH ASDIRECTED PRN PRN Reason: Keep Vein Open Last Admin: 06/03/19 20:41 Dose: 10 ml - Exam Quality Assessment: Urine Catheter, Skin Breakdown General: Alert, Oriented, No Acute Distress HEENT: Pupils Equal, Mucous Membr. Moist/[place] Neck: Supple, Trachea Midline. No: Lymphadenopathy Lungs: Clear to Auscultation, Normal Respiratory Effort Cardiovascular: Regular Rate, Regular Rhythm, No Murmurs GI/Abdominal Exam: Normal Bowel Sounds, Soft, Non-Tender (Female) Exam: Deferred Extremities: Non-Tender, Normal Capillary Refill, Pedal Edema Peripheral Pulses: 2+: Dorsalis Pedis (L), Dorsalis Pedis (R) Skin: Warm, Dry Wound/Incisions: Dressing Dry and Intact Neurological: Normal Speech Psy/Mental Status: Alert, Normal Affect, Normal Mood - Problem List & Annotations (1) UTI (urinary tract infection) SNOMED Code(s): 64196510 Code(s): N39.0 - URINARY TRACT INFECTION, SITE NOT SPECIFIED Status: Acute Priority: High Current Visit: Yes Qualifiers: Urinary tract infection type: acute cystitis Hematuria presence: without hematuria Qualified Code(s): N30.00 - Acute cystitis without hematuria (2) Generalized weakness SNOMED Code(s): 23660080 Code(s): R53.1 - WEAKNESS Status: Acute Current Visit: Yes (3) Diabetes mellitus type 2 SNOMED Code(s): 82517589 Code(s): E11.9 - TYPE 2 DIABETES MELLITUS WITHOUT COMPLICATIONS Status: Chronic Priority: High Current Visit: Yes Annotation/Comment:: (4) Intertrigo SNOMED Code(s): 29200528 Code(s): L30.4 - ERYTHEMA INTERTRIGO Status: Acute Current Visit: Yes (5) GERD (gastroesophageal reflux disease) SNOMED Code(s): 079590778 Code(s): K21.9 - GASTRO-ESOPHAGEAL REFLUX DISEASE WITHOUT ESOPHAGITIS Status: Chronic Priority: Medium Current Visit: Yes Qualifiers: Esophagitis presence: esophagitis presence not specified Qualified Code(s) : K21.9 - Gastro-esophageal reflux disease without esophagitis (6) CAD (coronary artery disease) SNOMED Code(s): 13803360 Code(s): I25.10 - ATHSCL HEART DISEASE OF [place] CORONARY ARTERY W/O ANG PCTRS Status: Chronic Priority: High Current Visit: Yes Qualifiers: Coronary Disease-Associated Artery/Lesion type: unspecified vessel or lesion type [place] vs. transplanted heart: unspecified whether [place] or transplanted heart Associated angina: without angina Qualified Code(s): I25.10 - Atherosclerotic heart disease of [place] coronary artery without angina pectoris (7) Chronic pain SNOMED Code(s): 11433104 Code(s): G89.29 - OTHER CHRONIC PAIN Status: Chronic Priority: Low Current Visit: Yes Qualifiers: Chronic pain type: other chronic pain Qualified Code(s): G89.29 - Other chronic pain (8) Decubitus skin ulcer SNOMED Code(s): 169873743 Code(s): L89.90 - PRESSURE ULCER OF UNSPECIFIED SITE, UNSPECIFIED STAGE Status: Acute Priority: High Current Visit: Yes Qualifiers: Pressure injury location: sacral region Pressure injury stage: stage 2 Qualified Code(s): L89.152 - Pressure ulcer of sacral region, stage 2 (9) Dehydration SNOMED Code(s): 28854958 Code(s): E86.0 - DEHYDRATION Status: Resolved Priority: High Current Visit: Yes Onset Date: 06/02/19 - Problem List Review Problem List Initiated/Reviewed/Updated: Yes - My Orders Last 24 Hours: My Active Orders 06/06/19 20:00 Mirtazapine [Remeron] 45 mg PO BEDTIME 06/07/19 08:00 Multivitamins w-Iron/Ca/FA/Min [Thera M Plus] 1 tab PO DAILY 06/07/19 20:00 Aspirin [Halfprin] 81 mg PO BEDTIME - Plan Plan:: with UTI, e-coli to urine and sensitive to Cipro. Continue Cipro for 10 days. Pt has had urinary retention and incontinence and indwelling mello catheter was reinserted last night. BNP is elevated. Edema to lower extremities. Will start Furosemide 20 mg PO today and monitor VS with this. Continue with metoprolol for hypertension and rate control. Pt is sitting in the recliner chair and eating her breakfast. PT/OT have started and she is happy with this. Discussed options of Swing bed admission or LTCF or home with outpatient PT/OT. Pt agreeable to Swing bed admission or home with PT/OT, but is refusing LTCF placement. Authorization in progress for possible Swing admission, continue with acute inpatient stay
[2019-06-07] MEDS ORDERED: Aspirin 81 MG Tab.EC PO SCH (20:00)
[2019-06-07] MEDS: atorvaSTATin 10 MG Tab PO SCH (20:29)
[2019-06-07] MEDS: Mirtazapine 15 MG Tab PO SCH (20:32)
[2019-06-08] MEDS: Non-Formulary Medication 1 Each (Vitamin B Complex [Vitamin B Complex] 1 EACH) PO SCH (02:39)
[2019-06-08] MEDS: Ciprofloxacin 500 MG Tab PO SCH (05:46)
[2019-06-08] MEDS: Acetaminophen/HYDROcodone 325-5 MG Tab PO PRN ×2 (06:12→11:56)
[2019-06-08] MEDS: Metoprolol Tartrate 25 MG Tab PO SCH (07:36)
[2019-06-08] MEDS: Lactobacillus Acidophilus/Lactobacillus Sporogenes (Probiotic) Tab PO SCH (07:37)
[2019-06-08] MEDS: Calcium Carbonate 500 MG Tab.Chew PO SCH (07:37)
[2019-06-08] MEDS: Ferrous Sulfate 325 MG Tab PO SCH (07:37)
[2019-06-08] MEDS: Multivitamins with Iron/Calcium/Folic Acid/Minerals Tab PO SCH (07:37)
[2019-06-08] MEDS: Gabapentin 300 MG Cap PO SCH (07:37)
[2019-06-08] MEDS: metFORMIN 500 MG Tab PO SCH ×2 (07:38→11:55)
[2019-06-08] MEDS: Cyanocobalamin (Vitamin B12) 1,000 MCG Tab PO SCH (07:38)
[2019-06-08] MEDS: Nystatin Crm 30 GM Tube TOP SCH (07:39)
[2019-06-08 07:40] VITALS: BP 105/55; PULSE 92
[2019-06-08] MEDS ORDERED: Furosemide 20 MG Tab PO ONE (09:08)
[2019-06-08] MEDS ORDERED: Cholecalciferol (Vitamin D3) 2,000 Unit Cap PO SCH (10:00)
== END 2019-06-08 12:20 | disposition swing bed (61) | DRG 690 ==
LOC: LB.ED 10:41 → LB.MS 13:47 → UNDOADMOB 13:47 → LB.MS 06-04 07:32 → INTOOBSV 06-04 13:13 → OBSVTOIN 06-04 13:13 → LB.MS 06-04 14:10
PROVIDERS: ADMIT Nurse Practitioner Family; ATTEND Nurse Practitioner Family
DX: N30.00 Acute cystitis without hematuria (principal); B48.8 Other specified mycoses; F32.9 Major depressive disorder, single episode, unspecified; I10 Essential (primary) hypertension; I25.10 Atherosclerotic heart disease of native coronary artery without angina pectoris; E86.0 Dehydration; E78.00 Pure hypercholesterolemia, unspecified; M19.91 Primary osteoarthritis, unspecified site; M81.0 Age-related osteoporosis without current pathological fracture; E11.40 Type 2 diabetes mellitus with diabetic neuropathy, unspecified; E66.9 Obesity, unspecified; K21.9 Gastro-esophageal reflux disease without esophagitis; L30.4 Erythema intertrigo; L89.152 Pressure ulcer of sacral region, stage 2; B96.20 Unspecified Escherichia coli [E. coli] as the cause of diseases classified elsewhere; R33.9 Retention of urine, unspecified; Z95.5 Presence of coronary angioplasty implant and graft; Z88.5 Allergy status to narcotic agent; Z98.84 Bariatric surgery status; Z79.82 Long term (current) use of aspirin; Z79.899 Other long term (current) drug therapy
CPT/HCPCS: 36415; 51701; 51702; 71045; 80048; 80076; 81001; 82800; 82962; 83605; 83880; 84484; 85025; 87040; 87086; 87088; 87186; 93005; 96361; 96365; 96366; 97110-GP; 97161-GP; 97165-GO; 97530-GO; 97530-GP; 97535-GO; 99285-25; A9270-GY; G0378; J0744; J7030

== ENCOUNTER 2019-06-08 08:48 | Inpatient (IN) | payer MEDICAID ==
[2019-06-08] MEDS ORDERED: Tuberculin, PPD 5 Units/0.1 ML 1 ML MDV IDERM ONE (11:55)
[2019-06-08] MEDS ORDERED: diphenhydrAMINE 25 MG Cap PO PRN (12:00)
[2019-06-08] MEDS ORDERED: Nitroglycerin 0.4 MG Tab.SL SL PRN (12:00)
[2019-06-08] MEDS ORDERED: diphenhydrAMINE 50 MG Cap PO PRN (13:12)
[2019-06-08] MEDS: Calcium Carbonate 500 MG Tab.Chew PO SCH ×2 (15:18→20:53)
[2019-06-08] MEDS: Gabapentin 300 MG Cap PO SCH ×2 (15:18→20:52)
[2019-06-08] MEDS ORDERED: FLU Vacc QS2019-20(6MOS+)/PF 60 MCG/0.5 ML SYRINGE IM ONE (16:00)
[2019-06-08] MEDS: Acetaminophen/HYDROcodone 325-5 MG Tab PO PRN ×2 (17:59→21:03)
[2019-06-08] MEDS: metFORMIN 500 MG Tab PO SCH (18:00)
[2019-06-08] MEDS ORDERED: Aspirin 325 MG Tab.EC PO SCH (20:00)
[2019-06-08] MEDS ORDERED: [UNRECOGNIZED DRUG - OTHER] PO SCH (20:00)
[2019-06-08] MEDS ORDERED: Gabapentin 300 MG Cap PO SCH (20:00)
[2019-06-08] MEDS ORDERED: MIRTAZAPINE 45 MG PO SCH (20:00)
[2019-06-08] MEDS: Mirtazapine 15 MG Tab PO SCH (20:51)
[2019-06-08] MEDS: atorvaSTATin 10 MG Tab PO SCH (20:52)
[2019-06-08] MEDS: Ciprofloxacin 500 MG Tab PO SCH (20:52)
[2019-06-08] MEDS: Metoprolol Tartrate 25 MG Tab PO SCH (20:53)
[2019-06-08] MEDS: Nystatin Crm 30 GM Tube TOP SCH (21:02)
[2019-06-09] MEDS: Nystatin Crm 30 GM Tube TOP SCH ×2 (08:00→19:43)
[2019-06-09] MEDS ORDERED: Non-Formulary Medication 1 Each (Vitamin B Complex [Vitamin B Complex] 1 EACH) PO SCH (08:00)
[2019-06-09] MEDS: Calcium Carbonate 500 MG Tab.Chew PO SCH ×3 (08:30→19:33)
[2019-06-09] MEDS: metFORMIN 500 MG Tab PO SCH ×3 (08:30→18:59)
[2019-06-09] MEDS: Ciprofloxacin 500 MG Tab PO SCH ×2 (08:30→19:31)
[2019-06-09] MEDS: Aspirin 81 MG Tab.EC PO SCH (08:30)
[2019-06-09] MEDS: Ferrous Sulfate 325 MG Tab PO SCH (08:31)
[2019-06-09] MEDS: Gabapentin 300 MG Cap PO SCH ×3 (08:31→19:32)
[2019-06-09] MEDS: Metoprolol Tartrate 25 MG Tab PO SCH ×2 (08:31→19:33)
[2019-06-09] MEDS: Multivitamins with Iron/Calcium/Folic Acid/Minerals Tab PO SCH (08:31)
[2019-06-09] MEDS: Cholecalciferol (Vitamin D3) 2,000 Unit Cap PO SCH (08:31)
[2019-06-09] MEDS: Cyanocobalamin (Vitamin B12) 1,000 MCG Tab PO SCH (08:31)
[2019-06-09] MEDS: Lactobacillus Acidophilus/Lactobacillus Sporogenes (Probiotic) Tab PO SCH (08:31)
[2019-06-09] MEDS: Acetaminophen/HYDROcodone 325-5 MG Tab PO PRN ×3 (08:32→19:35)
--- NOTE | 2019-06-09 08:54 | PCM.HP.2 ---
H&P History of Present Illness - General Date of Service: 06/08/19 Admit Problem/Dx: Admission Diagnosis/Problem Admission Diagnosis/Problem Weakness Source of Information: Patient, RN History Limitations: Reports: No Limitations - History of Present Illness Initial Comments - Free Text/Narative: This 59 yr female presented to ER with weakness, dehydration, and UTI, yeast infection and excoriated skin, Stage 2 to coccyx area, Hx of CAD, GERD, HTN, Diabetes Type 2, chronic back pain, failure to thrive, cardiac stent and CAD, anemia, hx of gastric bypass. Cipro 400 mg IV given and symptoms improved, continue with Cipro PO. Blood cultures negative, urine culture with E-coli and sensitive to Cipro. She is unable to tolerate standing or sitting in the chair for any length of time without feeling weak and feeling like she is going to pass out. She states gradual loss of appetite and weakness for 3 months. She does receive county assistance for financial concerns, but declines any assist for homemaking, meals or nurse visits. Declines LTCF. She is agreeable to Swing bed program and PT/OT visits for strengthening. Prior auth established and forms signed for Swing Bed program. Will admit to Swing bed for weakness and continue with PT/OT for stregthening. Lower Back Pain Score (Numeric/FACES): 0 - Related Data Allergies/Adverse Reactions: Allergies Allergy/AdvReac Type Severity Reaction Status Date / Time codeine Allergy Intermediate Nausea and Verified 06/02/19 11:27 Vomiting morphine Allergy Intermediate Nausea and Verified 06/02/19 11:27 Vomiting Penicillins Allergy Intermediate Nausea and Verified 06/02/19 11:27 Vomiting Home Medications: Home Meds Aspirin [Ecotrin] 81 mg PO BEDTIME 04/27/13 [History] Gabapentin [Neurontin] 600 mg PO TID 04/27/13 [History] Calcium Carbonate [Calcium Antacid] 500 mg PO TID 05/15/14 [History] Ferrous Sulfate 325 mg PO DAILY 05/15/14 [History] Mirtazapine [Remeron] 45 mg PO BEDTIME 05/30/14 [History] Cyanocobalamin (Vitamin B12) [Vitamin B12] 1,000 mcg PO DAILY #90 tab 06/15/14 [ Rx] Metoprolol Tartrate 6.25 mg PO BID 05/23/19 [History] diphenhydrAMINE HCl [Benadryl] 50 mg PO ASDIRECTED PRN 05/23/19 [History] Acetaminophen/HYDROcodone [[place] 325-5 MG] 1 tab PO Q6H PRN 06/08/19 [History] Cholecalciferol (Vitamin D3) [Vitamin D3] 2,000 unit PO DAILY 06/08/19 [History] Ciprofloxacin HCl [Cipro] 500 mg PO BID 06/08/19 [History] Lactobacillus Acidophilus [Acidophilus] 1 each PO DAILY 06/08/19 [History] Multivits,Ca,Minerals/Iron/FA [Thera-M] 1 each PO DAILY 06/08/19 [History] Nystatin [Nystatin Crm] 15 gm TOP BID 06/08/19 [History] atorvaSTATin [Lipitor] 10 mg PO DAILY 06/08/19 [History] metFORMIN [Glucophage] 500 mg PO TIDMEALS 06/08/19 [History] Past Medical History HEENT History: Reports: Allergic Rhinitis, Impaired Vision, Sinusitis Cardiovascular History: Reports: High Cholesterol, Stents Respiratory History: Reports: SOB, Other (See Below) Other Respiratory History: SOBOE; collapsed lung when in [facility] 2006 Gastrointestinal History: Reports: GERD, Other (See Below) Other Gastrointestinal History: lactose intolerant Genitourinary History: Reports: Other (See Below) Other Genitourinary History: malignant tumor taken off left kidney [employer]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: , 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 Musculoskeletal History: Reports: Back Pain, Chronic, Osteoarthritis, Osteoporosis Neurological History: Reports: Migraines, Neuropathy, Diabetic, Other (See Below ) Other Neuro History: [facility] 2006 Psychiatric History: Reports: Eating Disorders Endocrine/Metabolic History: Reports: Diabetes, Type II, Obesity/BMI 30+ Hematologic History: Reports: Anemia, Blood Transfusion(s) Oncologic (Cancer) History: Reports: Renal - Infectious Disease History Infectious Disease History: Reports: Chicken Pox - Past Surgical History HEENT Surgical History: Reports: Tonsillectomy Cardiovascular Surgical History: Reports: Coronary Artery Stent GI Surgical History: Reports: Bariatric Procedure, Colonoscopy Female Surgical History: Reports: Other (See Below) Other Female Surgeries/Procedures: "Misshapen uterus, couldn't find my right ovary". Musculoskeletal Surgical History: Reports: Other (See Below) Other Musculoskeletal Surgeries/Procedures:: plate in right clavicle Oncologic Surgical History: Reports: Lumpectomy Social & Family History - Family History Family Medical History: Noncontributory - Tobacco Use Smoking Status *Q: Never Smoker Second Hand Smoke Exposure: No - Caffeine Use Caffeine Use: Reports: Soda Other Caffeine Use: pop 1/day, tea rare Caffeine Use Comment: 1 soda daily - Recreational Drug Use Recreational Drug Use: No - Living Situation & Occupation Living situation: Reports: , with Family Occupation: Disabled H&P Review of Systems - Review of Systems: Review Of Systems: See Below General: Reports: Malaise, Weakness, Decreased Appetite HEENT: Reports: Glasses. Denies: Headaches, Sinus Congestion, Sore Throat Pulmonary: Denies: Wheezing, Pleuritic Chest Pain, Cough Cardiovascular: Reports: Edema, Lightheadedness Gastrointestinal: Reports: Decreased Appetite. Denies: Abdominal Pain, Constipation, Diarrhea, Nausea, Vomiting Genitourinary: Reports: Incontinence, Retention Musculoskeletal: Reports: Back Pain Skin: Reports: Rash Psychiatric: Reports: Depression Neurological: Reports: Dizziness, Difficulty Walking. Denies: Trouble Speaking Exam - Exam Exam: See Below - Vital Signs Vital Signs: Last Vital Signs Temp 98 F 06/08/19 20:00 Pulse 99 06/09/19 08:31 Resp 16 06/08/19 20:00 BP 103/54 L 06/09/19 08:31 Pulse Ox 100 06/08/19 20:00 Weight: 151 lb - Exam Quality Assessment: Skin Breakdown. No: Urinary Catheter General: Alert, Oriented, Other (declines activities at times, but improving) HEENT: PERRLA, Mucosa Moist & [place] Neck: Supple, Trachea Midline Lungs: Clear to Auscultation, Normal Respiratory Effort, Other (using incentive spirometer) Cardiovascular: Regular Rate, Regular Rhythm GI/Abdominal Exam: Normal Bowel Sounds, Soft, Non-Tender Back Exam: Normal Inspection Extremities: Pedal Edema, Other (some tender with palpation) Peripheral Pulses: 2+: Dorsalis Pedis (L), Dorsalis Pedis (R) Skin: Warm, Dry, Rash, Ecchymosis, Wound Neurological: Strength Equal Bilateral, Normal Speech Neuro Extensive - Mental Status: Alert, Oriented x3, Other (flat affect) Neuro Extensive - Motor, Sensory, Reflexes: CN II-XII Intact Psychiatric: Alert, Depressed - Patient Data Lab Results Last 24 hrs: Laboratory Results - last 24 hr 06/08/19 06/09/19 Range/Units 16:55 07:14 POC Glucose 196 H 93 (74-110) mg/dL - Problem List (1) Generalized weakness SNOMED Code(s): 89511967 ICD Code: R53.1 - WEAKNESS Status: Acute Current Visit: No (2) Intertrigo SNOMED Code(s): 96406201 ICD Code: L30.4 - ERYTHEMA INTERTRIGO Status: Acute Current Visit: No (3) UTI (urinary tract infection) SNOMED Code(s): 12172711 ICD Code: N39.0 - URINARY TRACT INFECTION, SITE NOT SPECIFIED Status: Acute Priority: High Current Visit: No Qualifiers: Urinary tract infection type: acute cystitis Hematuria presence: without hematuria Qualified Code(s): N30.00 - Acute cystitis without hematuria (4) Chronic pain SNOMED Code(s): 82101354 ICD Code: G89.29 - OTHER CHRONIC PAIN Status: Chronic Priority: Low Current Visit: No Qualifiers: Chronic pain type: other chronic pain Qualified Code(s): G89.29 - Other chronic pain (5) Diabetes mellitus type 2 SNOMED Code(s): 66910641 ICD Code: E11.9 - TYPE 2 DIABETES MELLITUS WITHOUT COMPLICATIONS Status: Chronic Priority: High Current Visit: No Problem Details: (6) GERD (gastroesophageal reflux disease) SNOMED Code(s): 700626043 ICD Code: K21.9 - GASTRO-ESOPHAGEAL REFLUX DISEASE WITHOUT ESOPHAGITIS Status: Chronic Priority: Medium Current Visit: No Qualifiers: Esophagitis presence: esophagitis presence not specified Qualified Code(s) : K21.9 - Gastro-esophageal reflux disease without esophagitis Problem List Initiated/Reviewed/Updated: Yes Orders Last 24hrs: Active Orders 24 hr Category Date Time Status Patient Status [ADT] Routine ADT 06/08/19 11:55 Active Blood Glucose Check, Bedside [RC] BIDMEALS Care 06/08/19 11:55 Active Fecal Occult Blood Collection [RC] ASDIRECTED Care 06/08/19 14:51 Active Influenza Vaccine Charge [RC] .DISCHARGE Care 06/08/19 15:25 Active Up With Assistance [RC] ASDIRECTED Care 06/08/19 11:55 Active VTE/DVT Education [RC] Per Unit Routine Care 06/08/19 11:55 Active Vital Signs [RC] 08,20 Care 06/08/19 11:55 Active Consistent Carbohydrate Diet [DIET] Diet 06/08/19 Dinner Ordered CLOSTRIDIUM DIFFICILE BY PCR [RM] Routine Lab 06/08/19 14:51 Ordered Acetaminophen/HYDROcodone [[place] 325-5 MG] Med 06/08/19 15:06 Active 1 tab PO Q6H PRN Acidophilus/Lactobac Spor [Acidolphilus Extra Strength] Med 06/09/19 08:00 Active 1 tab PO DAILY Aspirin [Halfprin] Med 06/09/19 08:00 Active 81 mg PO DAILY Calcium Carbonate [Tums] Med 06/08/19 14:00 Active 500 mg PO TID Cholecalciferol (Vitamin D3) [Vitamin D3] Med 06/09/19 08:00 Active 2,000 unit PO DAILY Ciprofloxacin [Ciprofloxacin HCl] Med 06/08/19 20:00 Active 500 mg PO BID Cyanocobalamin (Vitamin B12) [Vitamin B12] Med 06/09/19 08:00 Active 1,000 mcg PO DAILY Ferrous Sulfate Med 06/09/19 08:00 Active 325 mg PO DAILY Gabapentin [Neurontin] Med 06/08/19 15:00 Active 600 mg PO TID Metoprolol Tartrate [Lopressor] Med 06/08/19 20:00 Active 6.25 mg PO BID Mirtazapine [Remeron] Med 06/08/19 20:00 Active 45 mg PO BEDTIME Multivitamins w-Iron/Ca/FA/Min [Thera M Plus] Med 06/09/19 08:00 Active 1 tab PO DAILY Nitroglycerin [Nitrostat] Med 06/08/19 12:00 Active 0.4 mg SL ASDIRECTED PRN Nystatin [Nystatin Crm] Med 06/08/19 20:00 Active 1 gm TOP BID Vitamin B Complex [Vitamin B Complex] Med 06/09/19 08:00 Pending 1 each PO DAILY atorvaSTATin [Lipitor] Med 06/08/19 20:00 Active 10 mg PO BEDTIME diphenhydrAMINE [Benadryl] Med 06/08/19 14:00 Active 50 mg PO ASDIRECTED PRN metFORMIN [Glucophage] Med 06/08/19 18:00 Active 500 mg PO TIDMEALS Isolation [COMM] Stat Oth 06/08/19 14:55 Ordered Resuscitation Status Routine Resus Stat 06/08/19 11:55 Ordered Medication Orders Hydrocodone Bitart/Acetaminophen ([place] 325-5 Mg) 1 tab PO Q6H PRN PRN Reason: Pain Last Admin: 06/09/19 08:32 Dose: 1 tab Admin: 06/08/19 21:03 Dose: 1 tab Admin: 06/08/19 17:59 Dose: 1 tab Aspirin (Halfprin) 81 mg PO DAILY [facility] Last Admin: 06/09/19 08:30 Dose: 81 mg Atorvastatin Calcium (Lipitor) 10 mg PO BEDTIME [facility] Last Admin: 06/08/19 20:52 Dose: 10 mg Calcium Carbonate/Glycine (Tums) 500 mg PO TID [facility] Last Admin: 06/09/19 08:30 Dose: 500 mg Admin: 06/08/19 20:53 Dose: 500 mg Admin: 06/08/19 15:18 Dose: 500 mg Cholecalciferol (Vitamin D3) 2,000 unit PO DAILY [facility] Last Admin: 06/09/19 08:31 Dose: 2,000 unit Ciprofloxacin (Ciprofloxacin Hcl) 500 mg PO BID [facility] Stop: 06/15/19 11:00 Last Admin: 06/09/19 08:30 Dose: 500 mg Admin: 06/08/19 20:52 Dose: 500 mg Cyanocobalamin (Vitamin B12) 1,000 mcg PO DAILY [facility] Last Admin: 06/09/19 08:31 Dose: 1,000 mcg Diphenhydramine HCl (Benadryl) 50 mg PO ASDIRECTED PRN PRN Reason: ALLERGIES Ferrous Sulfate (Ferrous Sulfate) 325 mg PO DAILY [facility] Last Admin: 06/09/19 08:31 Dose: 325 mg Gabapentin (Neurontin) 600 mg PO TID [facility] Last Admin: 06/09/19 08:31 Dose: 600 mg Admin: 06/08/19 20:52 Dose: 600 mg Admin: 06/08/19 15:18 Dose: 600 mg Lactobacillus Acidophilus (Acidolphilus Extra Strength) 1 tab PO DAILY [facility] Last Admin: 06/09/19 08:31 Dose: 1 tab Metformin HCl (Glucophage) 500 mg PO TIDMEALS [facility] Last Admin: 06/09/19 08:30 Dose: 500 mg Admin: 06/08/19 18:00 Dose: 500 mg Metoprolol Tartrate (Lopressor) 6.25 mg PO BID [facility] Last Admin: 06/09/19 08:31 Dose: 6.25 mg Admin: 06/08/19 20:53 Dose: 6.25 mg Mirtazapine (Remeron) 45 mg PO BEDTIME [facility] Last Admin: 06/08/19 20:51 Dose: 45 mg Multivitamins/Minerals (Thera M Plus) 1 tab PO DAILY [facility] Last Admin: 06/09/19 08:31 Dose: 1 tab Nitroglycerin (Nitrostat) 0.4 mg SL ASDIRECTED PRN PRN Reason: Chest Pain Non-Formulary Medication (Vitamin B Complex [Vitamin B Complex]) 1 each PO DAILY [facility] Nystatin (Nystatin Crm) 1 gm TOP BID [facility] Last Admin: 06/08/19 21:02 Dose: 1 applic Assessment/Plan Comment:: PT/OT for strengthening, continue with Cipro PO for UTI, Lasix today with elevated BNP and 1+ pedal and ankle edema, Monitor BS, wound care, supportive care. - Mortality Measure Prognosis:: Good (Fair to good with PT/OT)
[2019-06-09] MEDS: Acetaminophen 325 MG Tab PO PRN (10:00)
[2019-06-09] MEDS: Mirtazapine 15 MG Tab PO SCH (19:31)
[2019-06-09] MEDS: atorvaSTATin 10 MG Tab PO SCH (19:37)
[2019-06-10] MEDS: Acetaminophen/HYDROcodone 325-5 MG Tab PO PRN ×4 (04:16→20:34)
[2019-06-10] MEDS: Lactobacillus Acidophilus/Lactobacillus Sporogenes (Probiotic) Tab PO SCH (07:44)
[2019-06-10] MEDS: Ferrous Sulfate 325 MG Tab PO SCH (07:45)
[2019-06-10] MEDS: Cholecalciferol (Vitamin D3) 2,000 Unit Cap PO SCH (07:45)
[2019-06-10] MEDS: Gabapentin 300 MG Cap PO SCH ×3 (07:45→20:34)
[2019-06-10] MEDS: Ciprofloxacin 500 MG Tab PO SCH ×2 (07:45→20:34)
[2019-06-10] MEDS: Multivitamins with Iron/Calcium/Folic Acid/Minerals Tab PO SCH (07:45)
[2019-06-10] MEDS: Aspirin 81 MG Tab.EC PO SCH (07:45)
[2019-06-10] MEDS: metFORMIN 500 MG Tab PO SCH ×3 (07:45→17:08)
[2019-06-10] MEDS: Calcium Carbonate 500 MG Tab.Chew PO SCH ×3 (07:45→20:33)
[2019-06-10] MEDS: Cyanocobalamin (Vitamin B12) 1,000 MCG Tab PO SCH (07:46)
[2019-06-10] MEDS: Metoprolol Tartrate 25 MG Tab PO SCH ×2 (07:46→20:32)
[2019-06-10] MEDS: Acetaminophen 325 MG Tab PO PRN ×2 (08:48→14:11)
[2019-06-10] MEDS: Nystatin Crm 30 GM Tube TOP SCH ×2 (10:22→20:36)
[2019-06-10] MEDS ORDERED: GI Cocktail Oral Solution 30 ML PO ONE (14:19)
[2019-06-10] MEDS ORDERED: Lidocaine 2% Viscous Solution 15 ML Cup ONE (14:23)
[2019-06-10] MEDS: Pantoprazole 40 MG Tab.CR PO SCH (20:34)
[2019-06-10] MEDS: atorvaSTATin 10 MG Tab PO SCH (20:34)
[2019-06-10] MEDS: Mirtazapine 15 MG Tab PO SCH (20:34)
[2019-06-11] MEDS: Cholecalciferol (Vitamin D3) 2,000 Unit Cap PO SCH (07:56)
[2019-06-11] MEDS: Lactobacillus Acidophilus/Lactobacillus Sporogenes (Probiotic) Tab PO SCH (07:56)
[2019-06-11] MEDS: Polyethylene Glycol 3350 Powder 17 GM Packet PO SCH (07:56)
[2019-06-11] MEDS: Acetaminophen/HYDROcodone 325-5 MG Tab PO PRN ×3 (07:56→20:01)
[2019-06-11] MEDS: Cyanocobalamin (Vitamin B12) 1,000 MCG Tab PO SCH (07:56)
[2019-06-11] MEDS: Ferrous Sulfate 325 MG Tab PO SCH (07:56)
[2019-06-11] MEDS: metFORMIN 500 MG Tab PO SCH ×3 (07:57→20:05)
[2019-06-11] MEDS: Ciprofloxacin 500 MG Tab PO SCH ×2 (07:57→20:04)
[2019-06-11] MEDS: Gabapentin 300 MG Cap PO SCH ×3 (07:57→20:04)
[2019-06-11] MEDS: Multivitamins with Iron/Calcium/Folic Acid/Minerals Tab PO SCH (07:57)
[2019-06-11] MEDS: Aspirin 81 MG Tab.EC PO SCH (07:57)
[2019-06-11] MEDS: Calcium Carbonate 500 MG Tab.Chew PO SCH ×3 (07:57→20:04)
[2019-06-11] MEDS: Metoprolol Tartrate 25 MG Tab PO SCH ×2 (07:58→20:05)
[2019-06-11] MEDS: Nystatin Crm 30 GM Tube TOP SCH ×2 (10:32→20:00)
[2019-06-11] MEDS: atorvaSTATin 10 MG Tab PO SCH (20:02)
[2019-06-11] MEDS: Pantoprazole 40 MG Tab.CR PO SCH (20:02)
[2019-06-11] MEDS: Mirtazapine 15 MG Tab PO SCH (20:05)
[2019-06-12] MEDS: Gabapentin 300 MG Cap PO SCH ×3 (07:49→20:25)
[2019-06-12] MEDS: Lactobacillus Acidophilus/Lactobacillus Sporogenes (Probiotic) Tab PO SCH (07:49)
[2019-06-12] MEDS: Ciprofloxacin 500 MG Tab PO SCH ×2 (07:49→20:26)
[2019-06-12] MEDS: Cholecalciferol (Vitamin D3) 2,000 Unit Cap PO SCH (07:49)
[2019-06-12] MEDS: Calcium Carbonate 500 MG Tab.Chew PO SCH ×3 (07:49→20:26)
[2019-06-12] MEDS: Cyanocobalamin (Vitamin B12) 1,000 MCG Tab PO SCH (07:49)
[2019-06-12] MEDS: metFORMIN 500 MG Tab PO SCH ×3 (07:50→20:33)
[2019-06-12] MEDS: Aspirin 81 MG Tab.EC PO SCH (07:50)
[2019-06-12] MEDS: Multivitamins with Iron/Calcium/Folic Acid/Minerals Tab PO SCH (07:50)
[2019-06-12] MEDS: Ferrous Sulfate 325 MG Tab PO SCH (07:50)
[2019-06-12] MEDS: Polyethylene Glycol 3350 Powder 17 GM Packet PO SCH (07:50)
[2019-06-12] MEDS: Acetaminophen/HYDROcodone 325-5 MG Tab PO PRN ×3 (07:59→20:27)
[2019-06-12] MEDS: Nystatin Crm 30 GM Tube TOP SCH ×2 (08:00→20:28)
[2019-06-12] MEDS: Metoprolol Tartrate 25 MG Tab PO SCH ×2 (08:00→20:27)
[2019-06-12] MEDS: atorvaSTATin 10 MG Tab PO SCH (20:26)
[2019-06-12] MEDS: Pantoprazole 40 MG Tab.CR PO SCH (20:26)
[2019-06-12] MEDS: Mirtazapine 15 MG Tab PO SCH (20:27)
[2019-06-13] MEDS: Acetaminophen/HYDROcodone 325-5 MG Tab PO PRN ×3 (07:53→20:33)
[2019-06-13] MEDS: Lactobacillus Acidophilus/Lactobacillus Sporogenes (Probiotic) Tab PO SCH (07:53)
[2019-06-13] MEDS: Cholecalciferol (Vitamin D3) 2,000 Unit Cap PO SCH (07:53)
[2019-06-13] MEDS: Ciprofloxacin 500 MG Tab PO SCH ×2 (07:53→20:32)
[2019-06-13] MEDS: Cyanocobalamin (Vitamin B12) 1,000 MCG Tab PO SCH (07:53)
[2019-06-13] MEDS: metFORMIN 500 MG Tab PO SCH ×2 (07:53→17:48)
[2019-06-13] MEDS: Ferrous Sulfate 325 MG Tab PO SCH (07:54)
[2019-06-13] MEDS: Aspirin 81 MG Tab.EC PO SCH (07:54)
[2019-06-13] MEDS: Calcium Carbonate 500 MG Tab.Chew PO SCH ×3 (07:54→20:32)
[2019-06-13] MEDS: Multivitamins with Iron/Calcium/Folic Acid/Minerals Tab PO SCH (07:54)
[2019-06-13] MEDS: Gabapentin 300 MG Cap PO SCH ×3 (07:54→20:32)
[2019-06-13] MEDS: Metoprolol Tartrate 25 MG Tab PO SCH ×2 (07:55→20:33)
[2019-06-13] MEDS: Nystatin Crm 30 GM Tube TOP SCH ×2 (07:55→20:34)
[2019-06-13] MEDS: Polyethylene Glycol 3350 Powder 17 GM Packet PO SCH (07:55)
--- NOTE | 2019-06-13 08:29 | PCM.PN ---
- General Info Date of Service: 06/13/19 Admission Dx/Problem (Free Text): Admission Diagnosis/Problem Admission Diagnosis/Problem Weakness Functional Status: Reports: Tolerating Diet, Ambulating, Urinating, Incentive Spirometry - Review of Systems General: Reports: Weakness HEENT: Reports: Glasses Pulmonary: Reports: No Symptoms Cardiovascular: Reports: Edema, Lightheadedness Gastrointestinal: Reports: No Symptoms Genitourinary: Reports: No Symptoms Musculoskeletal: Reports: Back Pain Skin: Reports: Other (itchy skin) Psychiatric: Reports: No Symptoms - Patient Data Vitals - Most Recent: Last Vital Signs Temp 97.9 F 06/12/19 20:00 Pulse 105 H 06/13/19 07:55 Resp 18 06/12/19 20:00 BP 103/55 L 06/13/19 07:55 Pulse Ox 97 06/12/19 20:00 Weight - Most Recent: 152 lb Lab Results Last 24 Hours: Laboratory Results - last 24 hr 06/12/19 06/13/19 Range/Units 15:52 06:36 POC Glucose 149 H 90 (74-110) mg/dL Med Orders - Current: Current Medications Acetaminophen (Tylenol) 650 mg PO Q4H PRN PRN Reason: Pain/Fever Last Admin: 06/10/19 14:11 Dose: 650 mg Hydrocodone Bitart/Acetaminophen ([place] 325-5 Mg) 1 tab PO Q6H PRN PRN Reason: Pain Last Admin: 06/13/19 07:53 Dose: 1 tab Aspirin (Halfprin) 81 mg PO DAILY [facility] Last Admin: 06/13/19 07:54 Dose: 81 mg Atorvastatin Calcium (Lipitor) 10 mg PO BEDTIME [facility] Last Admin: 06/12/19 20:26 Dose: 10 mg Calcium Carbonate/Glycine (Tums) 500 mg PO TID [facility] Last Admin: 06/13/19 07:54 Dose: 500 mg Cholecalciferol (Vitamin D3) 2,000 unit PO DAILY [facility] Last Admin: 06/13/19 07:53 Dose: 2,000 unit Ciprofloxacin (Ciprofloxacin Hcl) 500 mg PO BID [facility] Stop: 06/15/19 11:00 Last Admin: 06/13/19 07:53 Dose: 500 mg Cyanocobalamin (Vitamin B12) 1,000 mcg PO DAILY [facility] Last Admin: 06/13/19 07:53 Dose: 1,000 mcg Diphenhydramine HCl (Benadryl) 50 mg PO ASDIRECTED PRN PRN Reason: ALLERGIES Ferrous Sulfate (Ferrous Sulfate) 325 mg PO DAILY [facility] Last Admin: 06/13/19 07:54 Dose: 325 mg Gabapentin (Neurontin) 600 mg PO TID [facility] Last Admin: 06/13/19 07:54 Dose: 600 mg Lactobacillus Acidophilus (Acidolphilus Extra Strength) 1 tab PO DAILY [facility] Last Admin: 06/13/19 07:53 Dose: 1 tab Metformin HCl (Glucophage) 500 mg PO TIDMEALS [facility] Last Admin: 06/13/19 07:53 Dose: 500 mg Metoprolol Tartrate (Lopressor) 6.25 mg PO BID [facility] Last Admin: 06/13/19 07:55 Dose: 6.25 mg Mirtazapine (Remeron) 45 mg PO BEDTIME [facility] Last Admin: 06/12/19 20:27 Dose: 45 mg Multivitamins/Minerals (Thera M Plus) 1 tab PO DAILY [facility] Last Admin: 06/13/19 07:54 Dose: 1 tab Nitroglycerin (Nitrostat) 0.4 mg SL ASDIRECTED PRN PRN Reason: Chest Pain Non-Formulary Medication (Vitamin B Complex [Vitamin B Complex]) 1 each PO DAILY [facility] Nystatin (Nystatin Crm) 1 gm TOP BID [facility] Last Admin: 06/13/19 07:55 Dose: Not Given Pantoprazole Sodium (Protonix) 40 mg PO BEDTIME [facility] Last Admin: 06/12/19 20:26 Dose: 40 mg Polyethylene Glycol (Miralax) 17 gm PO DAILY [facility] Last Admin: 06/13/19 07:55 Dose: 17 gm Discontinued Medications Al Hydroxide/Mg Hydroxide (Gi Cocktail) 30 ml PO ONETIME ONE Stop: 06/10/19 14:20 Last Admin: 06/10/19 14:30 Dose: 30 ml Diphenhydramine HCl (Benadryl) 50 mg PO BEDTIME PRN PRN Reason: SLEEP Gabapentin (Neurontin) 600 mg PO BID [facility] Influenza Virus Vaccine (Fluzone Quad Syringe) 60 mcg IM .ONCE ONE Stop: 06/08/19 16:01 Last Admin: 06/08/19 16:05 Dose: 60 mcg Lidocaine HCl (Xylocaine 2% Viscous) Confirm Administered Dose 15 ml .ROUTE .STK -MED ONE Stop: 06/10/19 14:24 Last Admin: 06/10/19 14:30 Dose: Not Given Tuberculin PPD (Aplisol) 5 unit IDERM ONETIME ONE Stop: 06/08/19 11:56 Last Admin: 06/08/19 20:50 Dose: 5 unit - Exam General: Alert, Oriented, Cooperative HEENT: Pupils Reactive, Mucous Membr. Moist/[place] Neck: Supple, Trachea Midline Lungs: Normal Respiratory Effort Cardiovascular: Regular Rate, Regular Rhythm GI/Abdominal Exam: Normal Bowel Sounds, Soft, No Distention Extremities: Pedal Edema Skin: Warm, Dry, Other (scratch/rub smallwood to lower legs) Wound/Incisions: Dressing Dry and Intact Neurological: No New Focal Deficit Psy/Mental Status: Alert, Normal Affect, Normal Mood - Problem List & Annotations (1) Generalized weakness SNOMED Code(s): 70673406 Code(s): R53.1 - WEAKNESS Status: Acute Current Visit: No (2) Intertrigo SNOMED Code(s): 98897068 Code(s): L30.4 - ERYTHEMA INTERTRIGO Status: Resolved Current Visit: No (3) UTI (urinary tract infection) SNOMED Code(s): 05916219 Code(s): N39.0 - URINARY TRACT INFECTION, SITE NOT SPECIFIED Status: Acute Priority: High Current Visit: No Qualifiers: Urinary tract infection type: acute cystitis Hematuria presence: without hematuria Qualified Code(s): N30.00 - Acute cystitis without hematuria (4) Chronic pain SNOMED Code(s): 56620192 Code(s): G89.29 - OTHER CHRONIC PAIN Status: Chronic Priority: Low Current Visit: No Qualifiers: Chronic pain type: other chronic pain Qualified Code(s): G89.29 - Other chronic pain (5) Diabetes mellitus type 2 SNOMED Code(s): 95188145 Code(s): E11.9 - TYPE 2 DIABETES MELLITUS WITHOUT COMPLICATIONS Status: Chronic Priority: High Current Visit: No Annotation/Comment:: (6) GERD (gastroesophageal reflux disease) SNOMED Code(s): 479185689 Code(s): K21.9 - GASTRO-ESOPHAGEAL REFLUX DISEASE WITHOUT ESOPHAGITIS Status: Chronic Priority: Medium Current Visit: No Qualifiers: Esophagitis presence: esophagitis presence not specified Qualified Code(s) : K21.9 - Gastro-esophageal reflux disease without esophagitis - Problem List Review Problem List Initiated/Reviewed/Updated: Yes - Plan Plan:: PT/OT for strengthening, continue with Cipro PO for UTI, Lasix today with elevated BNP and 1+ pedal and ankle edema, Monitor BS, wound care, supportive care. 06-13-19 Weakness, improving and starting to ambulate in the halls. Weakness and lightheaded continues. She is in bed eating her breakfast. Recommend up in chair for meals. Continue with PT/OT Dry skin: Recommend no itching or rubbing of skin, making breaks in skin. Apply lotion as needed and may use Benadryl for itchiness if needed. Edema: Slight crackle to right base of lung. Increase in pedal and ankle edema. Should improve with activity and BHUPENDRA hose during am hours. Will add Lasix 20 mg PO daily for 3 days and monitor vital signs. Continue with incentive spirometry.
[2019-06-13] MEDS: Furosemide 20 MG Tab PO SCH (08:57)
[2019-06-13] MEDS: atorvaSTATin 10 MG Tab PO SCH (20:32)
[2019-06-13] MEDS: Pantoprazole 40 MG Tab.CR PO SCH (20:32)
[2019-06-13] MEDS: Mirtazapine 15 MG Tab PO SCH (20:33)
[2019-06-13] MEDS: diphenhydrAMINE 50 MG Cap PO PRN (20:51)
[2019-06-14] MEDS: Acetaminophen/HYDROcodone 325-5 MG Tab PO PRN ×4 (02:30→20:09)
[2019-06-14] MEDS: Nystatin Crm 30 GM Tube TOP SCH ×2 (08:00→22:17)
[2019-06-14] MEDS: Metoprolol Tartrate 25 MG Tab PO SCH ×2 (08:00→20:10)
[2019-06-14] MEDS: Ferrous Sulfate 325 MG Tab PO SCH (08:02)
[2019-06-14] MEDS: Gabapentin 300 MG Cap PO SCH ×3 (08:02→20:10)
[2019-06-14] MEDS: metFORMIN 500 MG Tab PO SCH ×3 (08:03→17:20)
[2019-06-14] MEDS: Cholecalciferol (Vitamin D3) 2,000 Unit Cap PO SCH (08:03)
[2019-06-14] MEDS: Calcium Carbonate 500 MG Tab.Chew PO SCH ×3 (08:03→20:09)
[2019-06-14] MEDS: Polyethylene Glycol 3350 Powder 17 GM Packet PO SCH (08:03)
[2019-06-14] MEDS: Lactobacillus Acidophilus/Lactobacillus Sporogenes (Probiotic) Tab PO SCH (08:03)
[2019-06-14] MEDS: Cyanocobalamin (Vitamin B12) 1,000 MCG Tab PO SCH (08:03)
[2019-06-14] MEDS: Aspirin 81 MG Tab.EC PO SCH (08:03)
[2019-06-14] MEDS: Multivitamins with Iron/Calcium/Folic Acid/Minerals Tab PO SCH (08:04)
[2019-06-14] MEDS: Ciprofloxacin 500 MG Tab PO SCH ×2 (08:04→20:08)
[2019-06-14] MEDS: Furosemide 20 MG Tab PO SCH (08:04)
[2019-06-14] MEDS: diphenhydrAMINE 50 MG Cap PO PRN ×2 (08:26→17:20)
[2019-06-14] MEDS: Pantoprazole 40 MG Tab.CR PO SCH (20:09)
[2019-06-14] MEDS: Mirtazapine 15 MG Tab PO SCH (20:10)
[2019-06-14] MEDS: atorvaSTATin 10 MG Tab PO SCH (20:10)
[2019-06-15] MEDS: metFORMIN 500 MG Tab PO SCH ×4 (08:29→17:10)
[2019-06-15] MEDS: Lactobacillus Acidophilus/Lactobacillus Sporogenes (Probiotic) Tab PO SCH (08:30)
[2019-06-15] MEDS: Ciprofloxacin 500 MG Tab PO SCH (08:30)
[2019-06-15] MEDS: Ferrous Sulfate 325 MG Tab PO SCH (08:31)
[2019-06-15] MEDS: Aspirin 81 MG Tab.EC PO SCH (08:31)
[2019-06-15] MEDS: Furosemide 20 MG Tab PO SCH (08:32)
[2019-06-15] MEDS: Metoprolol Tartrate 25 MG Tab PO SCH ×2 (08:33→19:31)
[2019-06-15] MEDS: Polyethylene Glycol 3350 Powder 17 GM Packet PO SCH (08:34)
[2019-06-15] MEDS: Multivitamins with Iron/Calcium/Folic Acid/Minerals Tab PO SCH (08:35)
[2019-06-15] MEDS: Gabapentin 300 MG Cap PO SCH ×3 (08:35→19:25)
[2019-06-15] MEDS: Cholecalciferol (Vitamin D3) 2,000 Unit Cap PO SCH (08:36)
[2019-06-15] MEDS: Cyanocobalamin (Vitamin B12) 1,000 MCG Tab PO SCH (08:36)
[2019-06-15] MEDS: Calcium Carbonate 500 MG Tab.Chew PO SCH ×3 (08:36→19:25)
[2019-06-15] MEDS: Acetaminophen/HYDROcodone 325-5 MG Tab PO PRN ×3 (08:37→21:37)
[2019-06-15] MEDS: Nystatin Crm 30 GM Tube TOP SCH ×2 (10:01→19:32)
[2019-06-15] MEDS: Acetaminophen 325 MG Tab PO PRN ×3 (10:53→19:26)
[2019-06-15] MEDS: Mirtazapine 15 MG Tab PO SCH (19:25)
[2019-06-15] MEDS: atorvaSTATin 10 MG Tab PO SCH (19:25)
[2019-06-15] MEDS: Pantoprazole 40 MG Tab.CR PO SCH (19:25)
[2019-06-15] MEDS: diphenhydrAMINE 50 MG Cap PO PRN (19:25)
[2019-06-15] MEDS ORDERED: Nystatin Crm 30 GM Tube TOP PRN (19:43)
[2019-06-16] MEDS: Lactobacillus Acidophilus/Lactobacillus Sporogenes (Probiotic) Tab PO SCH (07:24)
[2019-06-16] MEDS: Multivitamins with Iron/Calcium/Folic Acid/Minerals Tab PO SCH (07:24)
[2019-06-16] MEDS: Ferrous Sulfate 325 MG Tab PO SCH (07:24)
[2019-06-16] MEDS: Aspirin 81 MG Tab.EC PO SCH (07:24)
[2019-06-16] MEDS: Furosemide 20 MG Tab PO SCH (07:24)
[2019-06-16] MEDS: metFORMIN 500 MG Tab PO SCH ×3 (07:25→17:30)
[2019-06-16] MEDS: Metoprolol Tartrate 25 MG Tab PO SCH ×2 (07:25→20:26)
[2019-06-16] MEDS: Cyanocobalamin (Vitamin B12) 1,000 MCG Tab PO SCH (07:25)
[2019-06-16] MEDS: Gabapentin 300 MG Cap PO SCH ×3 (07:25→20:27)
[2019-06-16] MEDS: Cholecalciferol (Vitamin D3) 2,000 Unit Cap PO SCH (07:25)
[2019-06-16] MEDS: Polyethylene Glycol 3350 Powder 17 GM Packet PO SCH (07:25)
[2019-06-16] MEDS: Acetaminophen/HYDROcodone 325-5 MG Tab PO PRN ×3 (07:35→20:29)
[2019-06-16] MEDS: Calcium Carbonate 500 MG Tab.Chew PO SCH ×3 (08:00→20:28)
[2019-06-16] MEDS: Mirtazapine 15 MG Tab PO SCH (20:27)
[2019-06-16] MEDS: Pantoprazole 40 MG Tab.CR PO SCH (20:28)
[2019-06-16] MEDS: diphenhydrAMINE 50 MG Cap PO PRN (20:28)
[2019-06-16] MEDS: atorvaSTATin 10 MG Tab PO SCH (20:29)
[2019-06-17] MEDS: Acetaminophen/HYDROcodone 325-5 MG Tab PO PRN ×3 (04:10→16:09)
[2019-06-17] MEDS: Ferrous Sulfate 325 MG Tab PO SCH (08:41)
[2019-06-17] MEDS: Gabapentin 300 MG Cap PO SCH ×3 (08:41→19:14)
[2019-06-17] MEDS: Cholecalciferol (Vitamin D3) 2,000 Unit Cap PO SCH (08:41)
[2019-06-17] MEDS: Furosemide 20 MG Tab PO SCH (08:42)
[2019-06-17] MEDS: Cyanocobalamin (Vitamin B12) 1,000 MCG Tab PO SCH (08:42)
[2019-06-17] MEDS: Calcium Carbonate 500 MG Tab.Chew PO SCH ×3 (08:42→19:14)
[2019-06-17] MEDS: Lactobacillus Acidophilus/Lactobacillus Sporogenes (Probiotic) Tab PO SCH (08:42)
[2019-06-17] MEDS: metFORMIN 500 MG Tab PO SCH ×3 (08:42→17:21)
[2019-06-17] MEDS: Aspirin 81 MG Tab.EC PO SCH (08:42)
[2019-06-17] MEDS: Metoprolol Tartrate 25 MG Tab PO SCH ×2 (08:43→19:15)
[2019-06-17] MEDS: Multivitamins with Iron/Calcium/Folic Acid/Minerals Tab PO SCH (08:45)
[2019-06-17] MEDS: Polyethylene Glycol 3350 Powder 17 GM Packet PO SCH (08:45)
[2019-06-17] MEDS: Pantoprazole 40 MG Tab.CR PO SCH (19:14)
[2019-06-17] MEDS: atorvaSTATin 10 MG Tab PO SCH (19:14)
[2019-06-17] MEDS: Mirtazapine 15 MG Tab PO SCH (19:14)
[2019-06-18] MEDS: Acetaminophen/HYDROcodone 325-5 MG Tab PO PRN ×4 (01:20→19:51)
[2019-06-18] MEDS: Gabapentin 300 MG Cap PO SCH ×3 (07:51→19:51)
[2019-06-18] MEDS: Calcium Carbonate 500 MG Tab.Chew PO SCH ×3 (07:51→19:51)
[2019-06-18] MEDS: Ferrous Sulfate 325 MG Tab PO SCH (07:51)
[2019-06-18] MEDS: Cyanocobalamin (Vitamin B12) 1,000 MCG Tab PO SCH (07:52)
[2019-06-18] MEDS: Polyethylene Glycol 3350 Powder 17 GM Packet PO SCH (07:52)
[2019-06-18] MEDS: Lactobacillus Acidophilus/Lactobacillus Sporogenes (Probiotic) Tab PO SCH (07:52)
[2019-06-18] MEDS: Furosemide 20 MG Tab PO SCH (07:52)
[2019-06-18] MEDS: metFORMIN 500 MG Tab PO SCH ×3 (07:52→17:46)
[2019-06-18] MEDS: Cholecalciferol (Vitamin D3) 2,000 Unit Cap PO SCH (07:52)
[2019-06-18] MEDS: Multivitamins with Iron/Calcium/Folic Acid/Minerals Tab PO SCH (07:52)
[2019-06-18] MEDS: Aspirin 81 MG Tab.EC PO SCH (07:52)
[2019-06-18] MEDS: diphenhydrAMINE 50 MG Cap PO PRN ×2 (09:04→19:51)
[2019-06-18] MEDS: Metoprolol Tartrate 25 MG Tab PO SCH ×2 (09:07→19:52)
[2019-06-18] MEDS: Pantoprazole 40 MG Tab.CR PO SCH (19:51)
[2019-06-18] MEDS: Mirtazapine 15 MG Tab PO SCH (19:51)
[2019-06-18] MEDS: atorvaSTATin 10 MG Tab PO SCH (19:51)
[2019-06-19] MEDS ORDERED: Sodium Chloride 0.9% 250 ML IV SCH (03:30)
[2019-06-19] MEDS: Calcium Carbonate 500 MG Tab.Chew PO SCH ×3 (07:48→19:47)
[2019-06-19] MEDS: metFORMIN 500 MG Tab PO SCH ×3 (07:49→17:20)
[2019-06-19] MEDS: Furosemide 20 MG Tab PO SCH (07:49)
[2019-06-19] MEDS: Gabapentin 300 MG Cap PO SCH ×3 (07:49→19:48)
[2019-06-19] MEDS: Acetaminophen/HYDROcodone 325-5 MG Tab PO PRN ×3 (07:49→19:55)
[2019-06-19] MEDS: Aspirin 81 MG Tab.EC PO SCH (07:49)
[2019-06-19] MEDS: Cyanocobalamin (Vitamin B12) 1,000 MCG Tab PO SCH (07:49)
[2019-06-19] MEDS: Lactobacillus Acidophilus/Lactobacillus Sporogenes (Probiotic) Tab PO SCH (07:49)
[2019-06-19] MEDS: Cholecalciferol (Vitamin D3) 2,000 Unit Cap PO SCH (07:49)
[2019-06-19] MEDS: Multivitamins with Iron/Calcium/Folic Acid/Minerals Tab PO SCH (07:49)
[2019-06-19] MEDS: Ferrous Sulfate 325 MG Tab PO SCH (07:49)
[2019-06-19] MEDS: Polyethylene Glycol 3350 Powder 17 GM Packet PO SCH (07:52)
[2019-06-19] MEDS: Metoprolol Tartrate 25 MG Tab PO SCH ×2 (11:30→19:48)
[2019-06-19] MEDS: Mirtazapine 15 MG Tab PO SCH (19:47)
[2019-06-19] MEDS: Pantoprazole 40 MG Tab.CR PO SCH (19:47)
[2019-06-19] MEDS: atorvaSTATin 10 MG Tab PO SCH (19:48)
[2019-06-19] MEDS: diphenhydrAMINE 50 MG Cap PO PRN (19:56)
[2019-06-20] MEDS: Acetaminophen/HYDROcodone 325-5 MG Tab PO PRN ×4 (02:53→21:34)
[2019-06-20] MEDS: Ferrous Sulfate 325 MG Tab PO SCH (08:02)
[2019-06-20] MEDS: Aspirin 81 MG Tab.EC PO SCH (08:02)
[2019-06-20] MEDS: Cyanocobalamin (Vitamin B12) 1,000 MCG Tab PO SCH (08:02)
[2019-06-20] MEDS: Metoprolol Tartrate 25 MG Tab PO SCH ×2 (08:03→20:45)
[2019-06-20] MEDS: Furosemide 20 MG Tab PO SCH (08:03)
[2019-06-20] MEDS: metFORMIN 500 MG Tab PO SCH ×3 (08:03→17:36)
[2019-06-20] MEDS: Lactobacillus Acidophilus/Lactobacillus Sporogenes (Probiotic) Tab PO SCH (08:03)
[2019-06-20] MEDS: Calcium Carbonate 500 MG Tab.Chew PO SCH ×3 (08:03→21:32)
[2019-06-20] MEDS: Cholecalciferol (Vitamin D3) 2,000 Unit Cap PO SCH (08:03)
[2019-06-20] MEDS: Multivitamins with Iron/Calcium/Folic Acid/Minerals Tab PO SCH (08:03)
[2019-06-20] MEDS: Polyethylene Glycol 3350 Powder 17 GM Packet PO SCH (08:07)
[2019-06-20] MEDS ORDERED: Gabapentin 600 MG Tab ONE (08:19)
[2019-06-20] MEDS: Gabapentin 300 MG Cap PO SCH (08:20)
[2019-06-20] MEDS: Gabapentin 600 MG Tab PO SCH ×2 (14:41→20:45)
[2019-06-20] MEDS: Mirtazapine 15 MG Tab PO SCH (20:45)
[2019-06-20] MEDS: Pantoprazole 40 MG Tab.CR PO SCH (20:45)
[2019-06-20] MEDS: diphenhydrAMINE 50 MG Cap PO PRN (21:37)
[2019-06-21] MEDS: Calcium Carbonate 500 MG Tab.Chew PO SCH ×2 (07:44→12:50)
[2019-06-21] MEDS: Cyanocobalamin (Vitamin B12) 1,000 MCG Tab PO SCH (07:44)
[2019-06-21] MEDS: Ferrous Sulfate 325 MG Tab PO SCH (07:44)
[2019-06-21] MEDS: Cholecalciferol (Vitamin D3) 2,000 Unit Cap PO SCH (07:44)
[2019-06-21] MEDS: Lactobacillus Acidophilus/Lactobacillus Sporogenes (Probiotic) Tab PO SCH (07:45)
[2019-06-21] MEDS: Gabapentin 600 MG Tab PO SCH ×2 (07:45→12:50)
[2019-06-21] MEDS: Multivitamins with Iron/Calcium/Folic Acid/Minerals Tab PO SCH (07:45)
[2019-06-21] MEDS: metFORMIN 500 MG Tab PO SCH ×2 (07:45→12:50)
[2019-06-21] MEDS: Aspirin 81 MG Tab.EC PO SCH (07:45)
[2019-06-21] MEDS: Furosemide 20 MG Tab PO SCH (07:45)
[2019-06-21] MEDS: Metoprolol Tartrate 25 MG Tab PO SCH ×2 (07:46→07:47)
[2019-06-21 07:49] VITALS: BP 92/53; PULSE 80
[2019-06-21] MEDS: Polyethylene Glycol 3350 Powder 17 GM Packet PO SCH (07:49)
[2019-06-21] MEDS: atorvaSTATin 10 MG Tab PO SCH (07:52)
[2019-06-21] MEDS: Acetaminophen/HYDROcodone 325-5 MG Tab PO PRN (08:16)
--- NOTE | 2019-06-21 17:44 | PCM.DCSUM1 ---
Discharge Summary - Hospital Course HPI Initial Comments: 59 yo female admit to Swing bed program with weakness and unable to provide cares for self at home. She lives alone and her is in the [facility] in another town. Pt has been working with PT/OT and has accomplished goals and will be discharged today. Her blood sugars have been stable and her appetite has improved. She is working with [employer] for assist and may have some homemaking services or home delivered/frozen meals. She is happy to be going home. GERD and chronic pain have been stable for this admit and will have Rx for Hydrocodone/APAP on discharge. F/U in clinic in 1-2 weeks after discharge. Diagnosis: Stroke: No - Discharge Data Discharge Date: 06/21/19 Discharge Disposition: Home, Self-Care 01 Condition: Good - Referral to Home Health Primary Care Physician: PCP None - Discharge Diagnosis/Problem(s) (1) Generalized weakness SNOMED Code(s): 98031553 ICD Code: R53.1 - WEAKNESS Status: Resolved (2) Chronic pain SNOMED Code(s): 10288464 ICD Code: G89.29 - OTHER CHRONIC PAIN Status: Chronic Priority: Low Qualifiers: Chronic pain type: other chronic pain Qualified Code(s): G89.29 - Other chronic pain (3) Diabetes mellitus type 2 SNOMED Code(s): 43637137 ICD Code: E11.9 - TYPE 2 DIABETES MELLITUS WITHOUT COMPLICATIONS Status: Chronic Priority: High Problem Details: (4) GERD (gastroesophageal reflux disease) SNOMED Code(s): 552074531 ICD Code: K21.9 - GASTRO-ESOPHAGEAL REFLUX DISEASE WITHOUT ESOPHAGITIS Status: Chronic Priority: Medium Qualifiers: Esophagitis presence: esophagitis presence not specified Qualified Code(s) : K21.9 - Gastro-esophageal reflux disease without esophagitis - Patient Instructions Diet: Heart Healthy Diet, Diabetic Diet Activity: As Tolerated, Full Weight Bearing Showering/Bathing: May Shower - Discharge Plan *PRESCRIPTION DRUG MONITORING PROGRAM REVIEWED*: Not Applicable *COPY OF PRESCRIPTION DRUG MONITORING REPORT IN PATIENT NESSA: Not Applicable Prescriptions/Med Rec: Furosemide [Lasix] 20 mg PO DAILY #30 tablet Pantoprazole [ProTONIX] 40 mg PO BEDTIME #30 tab.cr Polyethylene Glycol 3350 [Powderlax] 238 gm PO DAILY #1 powder Home Medications: Home Meds Aspirin [Ecotrin] 81 mg PO BEDTIME 04/27/13 [History] Gabapentin [Neurontin] 600 mg PO TID 04/27/13 [History] Calcium Carbonate [Calcium Antacid] 500 mg PO TID 05/15/14 [History] Ferrous Sulfate 325 mg PO DAILY 05/15/14 [History] Mirtazapine [Remeron] 45 mg PO BEDTIME 05/30/14 [History] Cyanocobalamin (Vitamin B12) [Vitamin B12] 1,000 mcg PO DAILY #90 tab 06/15/14 [ Rx] Metoprolol Tartrate 6.25 mg PO BID 05/23/19 [History] diphenhydrAMINE HCl [Benadryl] 50 mg PO ASDIRECTED PRN 05/23/19 [History] Acetaminophen/HYDROcodone [Comfort 325-5 MG] 1 tab PO Q6H PRN 06/08/19 [History] Cholecalciferol (Vitamin D3) [Vitamin D3] 2,000 unit PO DAILY 06/08/19 [History] Lactobacillus Acidophilus [Acidophilus] 1 each PO DAILY 06/08/19 [History] Multivits,Ca,Minerals/Iron/FA [Thera-M] 1 each PO DAILY 06/08/19 [History] Nystatin [Nystatin Crm] 15 gm TOP BID 06/08/19 [History] atorvaSTATin [Lipitor] 10 mg PO DAILY 06/08/19 [History] metFORMIN [Glucophage] 500 mg PO TIDMEALS 06/08/19 [History] Acetaminophen [Tylenol] 650 mg PO Q4H PRN tablet 06/20/19 [Rx] Furosemide [Lasix] 20 mg PO DAILY #30 tablet 06/20/19 [Rx] Pantoprazole [ProTONIX] 40 mg PO BEDTIME #30 tab.cr 06/20/19 [Rx] Polyethylene Glycol 3350 [Powderlax] 238 gm PO DAILY #1 powder 06/20/19 [Rx] Patient Handouts: VIS, Influenza (Flu) Vaccine (Inactivated or Recombinant) - CDC (03/30/2015) - Discharge Summary/Plan Comment DC Time >30 min.: No Discharge Summary/Plan Comment: Counseled on discharge medications, services after discharge, monitor blood sugars at home and continue with exercises to improve strength. RTC in 1-2 weeks for follow-up after discharge. - General Info Date of Service: 06/21/19 Admission Dx/Problem (Free Text: Admission Diagnosis/Problem Admission Diagnosis/Problem Weakness Functional Status: Reports: Pain Controlled, Tolerating Diet, Ambulating, Urinating, Incentive Spirometry - Review of Systems General: Reports: No Symptoms HEENT: Reports: No Symptoms Pulmonary: Reports: No Symptoms, Other (using incentive spirometer) Cardiovascular: Reports: No Symptoms Gastrointestinal: Reports: No Symptoms Genitourinary: Reports: No Symptoms Musculoskeletal: Reports: Other (chronic back pain, strength improved, ambulatory in halls) Skin: Reports: No Symptoms, Other (rash healed ) Neurological: Reports: No Symptoms Psychiatric: Reports: No Symptoms - Patient Data Vitals - Most Recent: Last Vital Signs Temp 97.5 F 06/20/19 07:37 Pulse 80 06/21/19 07:47 Resp 16 06/20/19 07:37 BP 92/53 L 06/21/19 07:47 Pulse Ox 95 06/20/19 07:37 Weight - Most Recent: 151 lb 9.6 oz Lab Results - Last 24 hrs: Laboratory Results - last 24 hr 06/21/19 06/21/19 Range/Units 06:40 10:58 POC Glucose 85 116 H (74-110) mg/dL Med Orders - Current: Current Medications Discontinued Medications Acetaminophen (Tylenol) 650 mg PO Q4H PRN PRN Reason: Pain/Fever Last Admin: 06/15/19 19:25 Dose: 650 mg Hydrocodone Bitart/Acetaminophen (Comfort 325-5 Mg) 1 tab PO Q6H PRN PRN Reason: Pain Last Admin: 06/21/19 08:16 Dose: 1 tab Al Hydroxide/Mg Hydroxide (Gi Cocktail) 30 ml PO ONETIME ONE Stop: 06/10/19 14:20 Last Admin: 06/10/19 14:30 Dose: 30 ml Aspirin (Halfprin) 81 mg PO DAILY [facility] Last Admin: 06/21/19 07:45 Dose: 81 mg Atorvastatin Calcium (Lipitor) 10 mg PO BEDTIME [facility] Last Admin: 06/21/19 07:52 Dose: Not Given Calcium Carbonate/Glycine (Tums) 500 mg PO TID [facility] Last Admin: 06/21/19 12:50 Dose: 500 mg Cholecalciferol (Vitamin D3) 2,000 unit PO DAILY [facility] Last Admin: 06/21/19 07:44 Dose: 2,000 unit Ciprofloxacin (Ciprofloxacin Hcl) 500 mg PO BID [facility] Stop: 06/15/19 11:00 Last Admin: 06/15/19 08:30 Dose: 500 mg Cyanocobalamin (Vitamin B12) 1,000 mcg PO DAILY [facility] Last Admin: 06/21/19 07:44 Dose: 1,000 mcg Diphenhydramine HCl (Benadryl) 50 mg PO BEDTIME PRN PRN Reason: SLEEP Diphenhydramine HCl (Benadryl) 50 mg PO ASDIRECTED PRN PRN Reason: ALLERGIES Last Admin: 06/20/19 21:37 Dose: 50 mg Ferrous Sulfate (Ferrous Sulfate) 325 mg PO DAILY [facility] Last Admin: 06/21/19 07:44 Dose: 325 mg Furosemide (Lasix) 20 mg PO DAILY [facility] Last Admin: 06/21/19 07:45 Dose: 20 mg Gabapentin (Neurontin) 600 mg PO BID [facility] Gabapentin (Neurontin) 600 mg PO TID [facility] Last Admin: 06/20/19 08:20 Dose: 600 mg Gabapentin (Neurontin) 600 mg PO TID [facility] Last Admin: 06/21/19 12:50 Dose: 600 mg Gabapentin (Neurontin) Confirm Administered Dose 600 mg .ROUTE .STK-MED ONE Stop: 06/20/19 08:20 Last Admin: 06/20/19 08:21 Dose: Not Given Sodium Chloride (Normal Saline) 250 mls @ 10 mls/hr IV ASDIRECTED [facility] Influenza Virus Vaccine (Fluzone Quad [id number] Syringe) 60 mcg IM .ONCE ONE Stop: 06/08/19 16:01 Last Admin: 06/08/19 16:05 Dose: 60 mcg Lactobacillus Acidophilus (Acidolphilus Extra Strength) 1 tab PO DAILY [facility] Last Admin: 06/21/19 07:45 Dose: 1 tab Lidocaine HCl (Xylocaine 2% Viscous) Confirm Administered Dose 15 ml .ROUTE .STK -MED ONE Stop: 06/10/19 14:24 Last Admin: 06/10/19 14:30 Dose: Not Given Metformin HCl (Glucophage) 500 mg PO TIDMEALS [facility] Last Admin: 06/21/19 12:50 Dose: 500 mg Metoprolol Tartrate (Lopressor) 6.25 mg PO BID [facility] Last Admin: 06/21/19 07:47 Dose: 6.25 mg Mirtazapine (Remeron) 45 mg PO BEDTIME [facility] Last Admin: 06/20/19 20:45 Dose: 45 mg Multivitamins/Minerals (Thera M Plus) 1 tab PO DAILY [facility] Last Admin: 06/21/19 07:45 Dose: 1 tab Nitroglycerin (Nitrostat) 0.4 mg SL ASDIRECTED PRN PRN Reason: Chest Pain Non-Formulary Medication (Vitamin B Complex [Vitamin B Complex]) 1 each PO DAILY [facility] Nystatin (Nystatin Crm) 1 gm TOP BID [facility] Last Admin: 06/15/19 19:32 Dose: Not Given Nystatin (Nystatin Crm) 0 gm TOP BID PRN PRN Reason: Skin breakdown/excoriations Pantoprazole Sodium (Protonix) 40 mg PO BEDTIME [facility] Last Admin: 06/20/19 20:45 Dose: 40 mg Polyethylene Glycol (Miralax) 17 gm PO DAILY [facility] Last Admin: 06/21/19 07:49 Dose: Not Given Tuberculin PPD (Aplisol) 5 unit IDERM ONETIME ONE Stop: 06/08/19 11:56 Last Admin: 06/08/19 20:50 Dose: 5 unit - Exam Quality Assessment: Denies: Supplemental Oxygen, Skin Breakdown General: Reports: Alert, Oriented, Cooperative, No Acute Distress HEENT: Reports: Pupils Equal, Mucous Membr. Moist/[place] Neck: Reports: Supple, Trachea Midline, No JVD Lungs: Reports: Clear to Auscultation, Normal Respiratory Effort Cardiovascular: Reports: Regular Rate, Regular Rhythm GI/Abdominal Exam: Normal Bowel Sounds, Soft, Non-Tender Back Exam: Reports: Normal Inspection. Denies: Paraspinal Tenderness Extremities: Normal Inspection, Normal Capillary Refill. No: Pedal Edema Skin: Reports: Warm, Dry, Intact Neurological: Reports: No New Focal Deficit Psy/Mental Status: Reports: Alert, Normal Affect, Normal Mood
== END 2019-06-21 13:15 | disposition home or self-care (01) | DRG 948 ==
LOC: LB.MS 11:55
PROVIDERS: ADMIT Nurse Practitioner Family; ATTEND Nurse Practitioner Family
DX: R53.1 Weakness (principal); N30.00 Acute cystitis without hematuria; K21.9 Gastro-esophageal reflux disease without esophagitis; G89.29 Other chronic pain; E11.42 Type 2 diabetes mellitus with diabetic polyneuropathy; L30.4 Erythema intertrigo; B96.20 Unspecified Escherichia coli [E. coli] as the cause of diseases classified elsewhere; I10 Essential (primary) hypertension; M54.5 Low back pain; D64.9 Anemia, unspecified; R62.7 Adult failure to thrive; E78.00 Pure hypercholesterolemia, unspecified; M81.0 Age-related osteoporosis without current pathological fracture; M19.90 Unspecified osteoarthritis, unspecified site; I25.10 Atherosclerotic heart disease of native coronary artery without angina pectoris; E66.9 Obesity, unspecified; Z79.82 Long term (current) use of aspirin; Z23 Encounter for immunization; Z79.84 Long term (current) use of oral hypoglycemic drugs; Z79.899 Other long term (current) drug therapy; Z88.5 Allergy status to narcotic agent; Z68.28 Body mass index [BMI] 28.0-28.9, adult; Z88.0 Allergy status to penicillin; Z95.5 Presence of coronary angioplasty implant and graft; Z90.89 Acquired absence of other organs
CPT/HCPCS: 82962; 86580; 90686; 97110-GO; 97110-GP; 97116-GP; 97530-GO; 97530-GP; 97535-GO; A9270-GY; G0008

== ENCOUNTER 2019-06-30 12:56 | Emergency (ER) | payer MEDICAID ==
--- NOTE | 2019-06-30 13:14 | EDM.PDOC ---
ED HPI GENERAL MEDICAL PROBLEM - General Chief Complaint: General Stated Complaint: UNKNOWN Time Seen by Provider: 06/30/19 13:10 Source of Information: Reports: Patient, RN History Limitations: Reports: No Limitations - History of Present Illness INITIAL COMMENTS - FREE TEXT/NARRATIVE: 59 yo female presents with nausea and unable to eat very well. States she has been trying to have sips of water and small bites of food and unable to eat. States she is unable to vomit. - Related Data Allergies Allergy/AdvReac Type Severity Reaction Status Date / Time codeine Allergy Intermediate Nausea and Verified 06/02/19 11:27 Vomiting morphine Allergy Intermediate Nausea and Verified 06/02/19 11:27 Vomiting Penicillins Allergy Intermediate Nausea and Verified 06/02/19 11:27 Vomiting Home Meds: Home Meds Aspirin [Ecotrin] 81 mg PO BEDTIME 04/27/13 [History] Gabapentin [Neurontin] 600 mg PO TID 04/27/13 [History] Calcium Carbonate [Calcium Antacid] 500 mg PO TID 05/15/14 [History] Ferrous Sulfate 325 mg PO DAILY 05/15/14 [History] Mirtazapine [Remeron] 45 mg PO BEDTIME 05/30/14 [History] Cyanocobalamin (Vitamin B12) [Vitamin B12] 1,000 mcg PO DAILY #90 tab 06/15/14 [ Rx] Metoprolol Tartrate 6.25 mg PO BID 05/23/19 [History] diphenhydrAMINE HCl [Benadryl] 50 mg PO ASDIRECTED PRN 05/23/19 [History] Acetaminophen/HYDROcodone [[place] 325-5 MG] 1 tab PO Q6H PRN 06/08/19 [History] Cholecalciferol (Vitamin D3) [Vitamin D3] 2,000 unit PO DAILY 06/08/19 [History] Lactobacillus Acidophilus [Acidophilus] 1 each PO DAILY 06/08/19 [History] Multivits,Ca,Minerals/Iron/FA [Thera-M] 1 each PO DAILY 06/08/19 [History] Nystatin [Nystatin Crm] 15 gm TOP BID 06/08/19 [History] atorvaSTATin [Lipitor] 10 mg PO DAILY 06/08/19 [History] metFORMIN [Glucophage] 500 mg PO TIDMEALS 06/08/19 [History] Acetaminophen [Tylenol] 650 mg PO Q4H PRN tablet 06/20/19 [Rx] Furosemide [Lasix] 20 mg PO DAILY #30 tablet 06/20/19 [Rx] Pantoprazole [ProTONIX] 40 mg PO BEDTIME #30 tab.cr 06/20/19 [Rx] Polyethylene Glycol 3350 [Powderlax] 238 gm PO DAILY #1 powder 06/20/19 [Rx] Past Medical History HEENT History: Reports: Allergic Rhinitis, Impaired Vision, Sinusitis Cardiovascular History: Reports: High Cholesterol, Stents Respiratory History: Reports: SOB, Other (See Below) Other Respiratory History: SOBOE; collapsed lung when in [facility] [place] 2006 Gastrointestinal History: Reports: GERD, Other (See Below) Other Gastrointestinal History: lactose intolerant Genitourinary History: Reports: Other (See Below) Other Genitourinary History: malignant tumor taken off left kidney [employer] History: Reports: , Spontaneous Musculoskeletal History: Reports: Back Pain, Chronic, Osteoarthritis, Osteoporosis Neurological History: Reports: Migraines, Neuropathy, Diabetic, Other (See Below ) Other Neuro History: [facility] [place] 2006 Psychiatric History: Reports: Eating Disorders Endocrine/Metabolic History: Reports: Diabetes, Type II, Obesity/BMI 30+ Hematologic History: Reports: Anemia, Blood Transfusion(s) Oncologic (Cancer) History: Reports: Renal - Infectious Disease History Infectious Disease History: Reports: Chicken Pox - Past Surgical History HEENT Surgical History: Reports: Tonsillectomy Cardiovascular Surgical History: Reports: Coronary Artery Stent GI Surgical History: Reports: Bariatric Procedure, Colonoscopy Female Surgical History: Reports: Other (See Below) Other Female Surgeries/Procedures: "Misshapen uterus, couldn't find my right ovary". Musculoskeletal Surgical History: Reports: Other (See Below) Other Musculoskeletal Surgeries/Procedures:: plate in right clavicle Oncologic Surgical History: Reports: Lumpectomy Social & Family History - Family History Family Medical History: Noncontributory - Caffeine Use Caffeine Use: Reports: Soda, Tea Other Caffeine Use: pop 1/day, tea rare - Living Situation & Occupation Living situation: Reports: , with Family Occupation: Disabled ED ROS GENERAL - Review of Systems Review Of Systems: See Below Constitutional: Reports: No Symptoms Respiratory: Reports: No Symptoms Cardiovascular: Reports: No Symptoms GI/Abdominal: Reports: Diarrhea, Decreased Appetite, Nausea, Other (hx of gastric bypass [place]. ). Denies: Constipation : Reports: Dysuria Musculoskeletal: Reports: Other (chronic back pain) Skin: Reports: No Symptoms Neurological: Reports: No Symptoms Psychiatric: Reports: Anxiety, Depression ED EXAM, GENERAL - Physical Exam Exam: See Below Exam Limited By: No Limitations General Appearance: Alert, No Apparent Distress Ears: Hearing Grossly Normal Nose: Normal Inspection Throat/Mouth: Normal Voice, No Airway Compromise, Other (dry mucosa) Head: Atraumatic, Normocephalic Neck: Normal Inspection, Supple, Non-Tender Respiratory/Chest: No Respiratory Distress Cardiovascular: Regular Rate, Rhythm, No Edema GI/Abdominal: Normal Bowel Sounds, Soft, Non-Tender Back Exam: Normal Inspection Extremities: Non-Tender, No Pedal Edema, Normal Capillary Refill Neurological: Alert, Oriented, Normal Cognition Psychiatric: Normal Affect, Normal Mood Skin Exam: Warm, Dry, Pallor Course - Vital Signs Last Recorded V/S: Last Vital Signs Temp 99.2 F 06/30/19 16:08 Pulse 100 06/30/19 16:08 Resp 16 06/30/19 16:08 BP 112/74 06/30/19 16:08 Pulse Ox 96 06/30/19 16:08 - Orders/Labs/Meds Orders: Active Orders 24 hr Category Date Time Status Sodium Chloride 0.9% [Normal Saline] 1,000 ml Med 06/30/19 13:30 Active IV ASDIRECTED Medication Orders Sodium Chloride (Normal Saline) 1,000 mls @ 999 mls/hr IV ASDIRECTED IRENE Last Admin: 06/30/19 14:37 Dose: 999 mls/hr Labs: Laboratory Tests 06/30/19 06/30/19 06/30/19 Range/Units 12:08 13:15 13:15 WBC 7.6 (4.0-11.0) K/uL RBC 4.16 (3.80-5.80) M/uL Hgb 13.7 (11.5-16.5) g/dL Hct 40.1 (37.0-47.0) % MCV 96 (76-96) fL MCH 32.9 H (27.0-32.0) pg MCHC 34.2 (31.0-35.0) g/dL RDW 14.4 (11.0-16.0) % Plt Count 391 D (150-500) K/uL MPV 10.9 H (6.0-10.0) fL Neut % (Auto) 66.6 (45.0-70.0) % Lymph % (Auto) 28.4 (20.0-40.0) % Mills % (Auto) 4.6 (3.0-10.0) % Eos % (Auto) 0.1 L (1.0-5.0) % Baso % (Auto) 0.3 (0.0-0.5) % Neut # (Auto) 5.05 (2.00-7.50) K/uL Lymph # (Auto) 2.15 (1.50-4.00) K/uL [place] # (Auto) 0.35 (0.20-0.80) K/uL Eos # (Auto) 0.01 L (0.04-0.40) K/uL Baso # (Auto) 0.02 (0.02-0.10) K/uL Sodium 141 (136-145) mmol/L Potassium 3.9 (3.5-5.1) mmol/L Chloride 99 (98-107) mmol/L Carbon Dioxide 20.6 L D (21.0-32.0) mmol/L Anion Gap 25.3 H (5.0-15.0) mmol/L BUN 9 (8-26) mg/dL Creatinine 1.33 H D (0.55-1.02) mg/dL Est Cr Clr Drug Dosing 33.52 mL/min Estimated GFR (MDRD) 41 L (>60) MLS/MIN BUN/Creatinine Ratio 6.8 (6-25) Glucose 130 H D (74-100) mg/dL POC Glucose 115 H (74-110) mg/dL Calcium 7.8 L (8.5-10.1) mg/dL Total Bilirubin 1.1 H D (0.0-1.0) mg/dL AST 66 H (15-37) U/L ALT 41 (12-78) U/L Alkaline Phosphatase 127 H (46-116) U/L Total Protein 5.7 L (6.4-8.2) g/dL Albumin 1.8 L (3.4-5.0) g/dL Globulin 3.9 (2.2-4.2) g/dL Albumin/Globulin Ratio 0.5 L (0.8-2.0) Urine Color Urine Appearance (CLEAR) Urine pH (5.0-8.0) Ur Specific [place] (1.003-1.030) Urine Protein (NEGATIVE) mg/dL Urine Glucose (UA) (NEGATIVE) mg/dL Urine Ketones (NEGATIVE) mg/dL Urine Occult Blood (NEGATIVE) Urine Nitrite (NEGATIVE) Urine Bilirubin (NEGATIVE) Urine Urobilinogen (0.2-1.0) E.U./dL Ur Leukocyte Esterase (NEGATIVE) Urine RBC /HPF Urine WBC /HPF Ur Squamous Epith Cells /HPF Urine Bacteria /HPF 06/30/19 Range/Units 16:24 WBC (4.0-11.0) K/uL RBC (3.80-5.80) M/uL Hgb (11.5-16.5) g/dL Hct (37.0-47.0) % MCV (76-96) fL MCH (27.0-32.0) pg MCHC (31.0-35.0) g/dL RDW (11.0-16.0) % Plt Count (150-500) K/uL MPV (6.0-10.0) fL Neut % (Auto) (45.0-70.0) % Lymph % (Auto) (20.0-40.0) % Mills % (Auto) (3.0-10.0) % Eos % (Auto) (1.0-5.0) % Baso % (Auto) (0.0-0.5) % Neut # (Auto) (2.00-7.50) K/uL Lymph # (Auto) (1.50-4.00) K/uL [place] # (Auto) (0.20-0.80) K/uL Eos # (Auto) (0.04-0.40) K/uL Baso # (Auto) (0.02-0.10) K/uL Sodium (136-145) mmol/L Potassium (3.5-5.1) mmol/L Chloride (98-107) mmol/L Carbon Dioxide (21.0-32.0) mmol/L Anion Gap (5.0-15.0) mmol/L BUN (8-26) mg/dL Creatinine (0.55-1.02) mg/dL Est Cr Clr Drug Dosing mL/min Estimated GFR (MDRD) (>60) MLS/MIN BUN/Creatinine Ratio (6-25) Glucose (74-100) mg/dL POC Glucose (74-110) mg/dL Calcium (8.5-10.1) mg/dL Total Bilirubin (0.0-1.0) mg/dL AST (15-37) U/L ALT (12-78) U/L Alkaline Phosphatase (46-116) U/L Total Protein (6.4-8.2) g/dL Albumin (3.4-5.0) g/dL Globulin (2.2-4.2) g/dL Albumin/Globulin Ratio (0.8-2.0) Urine Color Yellow Urine Appearance Clear (CLEAR) Urine pH 5.5 (5.0-8.0) Ur Specific [place] 1.020 (1.003-1.030) Urine Protein Negative (NEGATIVE) mg/dL Urine Glucose (UA) Negative (NEGATIVE) mg/dL Urine Ketones >=160 H (NEGATIVE) mg/dL Urine Occult Blood Trace-intact H (NEGATIVE) Urine Nitrite Negative (NEGATIVE) Urine Bilirubin Small H (NEGATIVE) Urine Urobilinogen 0.2 (0.2-1.0) E.U./dL Ur Leukocyte Esterase Negative (NEGATIVE) Urine RBC 0-5 H /HPF Urine WBC 0-5 H /HPF Ur Squamous Epith Cells Moderate /HPF Urine Bacteria Few /HPF Meds: Medications Generic Name Dose Route Start Last Admin Trade Name Freq PRN Reason Stop Dose Admin Sodium Chloride 1,000 mls @ 999 mls/hr 06/30/19 13:30 06/30/19 14:37 Normal Saline IV 999 mls/hr ASDIRECTED IRENE Administration Discontinued Medications Generic Name Dose Route Start Last Admin Trade Name Freq PRN Reason Stop Dose Admin Ondansetron HCl 4 mg 06/30/19 13:20 06/30/19 16:07 Zofran Odt PO 06/30/19 13:21 Not Given ONETIME ONE Ondansetron HCl Confirm 06/30/19 14:33 Zofran Administered 06/30/19 14:34 Dose 4 mg .ROUTE .STK-MED ONE Ondansetron HCl 4 mg 06/30/19 16:07 06/30/19 14:30 Zofran IVPUSH 06/30/19 16:08 4 mg ONETIME ONE Administration - Re-Assessments/Exams Free Text/Narrative Re-Assessment/Exam: 06/30/19 16:42 Labs reviewed and U/A reviewed. Dehydration started and reviewed adequate intake of food and fluids. Some loose Stool, pt is taking Miralax daily. Recommend to take every other day or as needed. IV fluid 1 liter administered and pt taking ensure clear well. Rx refilled for the hydrocodone/APAP 5/325, 1 tablet q 6 hour prn pain, Disp #30 tablet. Recommend f/u in clinic next week. Pt and brother state understanding. Departure - Departure Time of Disposition: 16:45 Disposition: Home, Self-Care 01 Condition: Good Clinical Impression: Dehydration, Loss of appetite, Chronic back pain - Discharge Information *PRESCRIPTION DRUG MONITORING PROGRAM REVIEWED*: Not Applicable *COPY OF PRESCRIPTION DRUG MONITORING REPORT IN PATIENT NESSA: Not Applicable Instructions: Dehydration, Adult, [id number] Referrals: PCP,None [Primary Care Provider] - Forms: ED Department Discharge Care Plan Goals: Follow up with Jessika next week in the clinic. Drink ensure at least 1 per day. Don't take miralax if not needed. Take pain medications as needed. - My Orders Last 24 Hours: My Active Orders 06/30/19 13:30 Sodium Chloride 0.9% [Normal Saline] 1,000 ml IV ASDIRECTED - Assessment/Plan Last 24 Hours: My Active Orders 06/30/19 13:30 Sodium Chloride 0.9% [Normal Saline] 1,000 ml IV ASDIRECTED Plan: Dehydration and loss of appetite, chronic back pain, Rx refilled for the hydrocodone/APAP 5/325, 1 tablet q 6 hour prn pain, Disp #30 tablet. Recommend f/u in clinic next week. Recommend increase food and fluids and use of Ensure clear as needed. Pt and brother state understanding.
[2019-06-30] MEDS ORDERED: Ondansetron 4 MG Tab.DIS PO ONE (13:20)
[2019-06-30 13:25] VITALS: BP 112/74
[2019-06-30] MEDS ORDERED: Sodium Chloride 0.9% 1,000 ML IV SCH (13:30)
[2019-06-30] MEDS ORDERED: Ondansetron 4 MG/2 ML SDV ONE (14:33)
[2019-06-30] MEDS ORDERED: Ondansetron 4 MG/2 ML SDV IVPUSH ONE (16:07)
[2019-06-30 16:09] VITALS: PULSE 100
== END 2019-06-30 16:55 | disposition home or self-care (01) ==
LOC: LB.ED 12:56
DX: E86.0 Dehydration (principal); R63.8 Other symptoms and signs concerning food and fluid intake; G89.29 Other chronic pain; M54.9 Dorsalgia, unspecified; I10 Essential (primary) hypertension; K21.9 Gastro-esophageal reflux disease without esophagitis; E78.5 Hyperlipidemia, unspecified; E11.40 Type 2 diabetes mellitus with diabetic neuropathy, unspecified; E66.9 Obesity, unspecified; Z79.84 Long term (current) use of oral hypoglycemic drugs; Z79.899 Other long term (current) drug therapy; Z88.5 Allergy status to narcotic agent; Z88.0 Allergy status to penicillin; Z79.82 Long term (current) use of aspirin; Z68.28 Body mass index [BMI] 28.0-28.9, adult
CPT/HCPCS: 36415; 80053; 81001; 82962; 85025; 96361; 96374; 99283; J2405; J7030

== ENCOUNTER 2019-07-11 14:51 | Emergency (ER) | payer MEDICAID ==
[2019-07-11 16:10] VITALS: BP 99/69; PULSE 144
[2019-07-11] MEDS: Acetaminophen/HYDROcodone 325-5 MG Tab PO ONE (17:08)
[2019-07-11] MEDS: Acetaminophen/HYDROcodone 325-5 MG Tab ONE (17:16)
--- NOTE | 2019-07-11 17:44 | EDM.PDOC ---
ED HPI GENERAL MEDICAL PROBLEM - General Chief Complaint: General Stated Complaint: FAINTING Time Seen by Provider: 07/11/19 15:06 Source of Information: Reports: Patient, RN History Limitations: Reports: No Limitations - History of Present Illness INITIAL COMMENTS - FREE TEXT/NARRATIVE: 59 yo female presents to ER after routine clinic appointment. States she slipped with getting into the car today and hurt her ribs and back. History of chronic low back pain. Pt has been weak for about the last 3 months and struggling to eat. She had been in the hospital with the Swing bed program and her strength had improved with PT/OT. She went home and now she has been unable to eat, she is taking ensure clear and liquids, but unable to eat. She did have gastric bypass hx and hx of feeding tube in the past for failure to thrive. She does have a hx of anemia and diabetes Type 2, controlled with oral medication. States the last time she had solid food was about 1 week ago and had a poached egg and half a piece of buckner. Since then she has been drinking water and taking the ensure clear. Last BM was today. Back Pain Score (Numeric/FACES): 2 - Related Data Allergies Allergy/AdvReac Type Severity Reaction Status Date / Time codeine Allergy Intermediate Nausea and Verified 07/11/19 15:11 Vomiting morphine Allergy Intermediate Nausea and Verified 07/11/19 15:11 Vomiting Penicillins Allergy Intermediate Nausea and Verified 07/11/19 15:11 Vomiting Home Meds: Home Meds Aspirin [Ecotrin] 81 mg PO BEDTIME 04/27/13 [History] Gabapentin [Neurontin] 600 mg PO TID 04/27/13 [History] Calcium Carbonate [Calcium Antacid] 500 mg PO TID 05/15/14 [History] Ferrous Sulfate 325 mg PO DAILY 05/15/14 [History] Mirtazapine [Remeron] 45 mg PO BEDTIME 05/30/14 [History] Cyanocobalamin (Vitamin B12) [Vitamin B12] 1,000 mcg PO DAILY #90 tab 06/15/14 [ Rx] diphenhydrAMINE HCl [Benadryl] 50 mg PO ASDIRECTED PRN 05/23/19 [History] Acetaminophen/HYDROcodone [[place] 325-5 MG] 1 tab PO Q6H PRN 06/08/19 [History] Cholecalciferol (Vitamin D3) [Vitamin D3] 2,000 unit PO DAILY 06/08/19 [History] Lactobacillus Acidophilus [Acidophilus] 1 each PO DAILY 06/08/19 [History] Multivit,Calc,Mins/Iron/Folic [Thera-M] 1 each PO DAILY 06/08/19 [History] Nystatin [Nystatin Crm] 15 gm TOP BID 06/08/19 [History] atorvaSTATin [Lipitor] 10 mg PO DAILY 06/08/19 [History] metFORMIN [Glucophage] 500 mg PO TIDMEALS 06/08/19 [History] Acetaminophen [Tylenol] 650 mg PO Q4H PRN tablet 06/20/19 [Rx] Furosemide [Lasix] 20 mg PO DAILY #30 tablet 06/20/19 [Rx] Pantoprazole [ProTONIX] 40 mg PO BEDTIME #30 tab.cr 06/20/19 [Rx] Polyethylene Glycol 3350 [Powderlax] 238 gm PO DAILY #1 powder 06/20/19 [Rx] Metoprolol Succinate [Toprol XL] 12.5 mg PO BEDTIME #15 tab.er 07/11/19 [Rx] Ondansetron [Ondansetron ODT] 4 mg PO Q6H PRN #30 tab.rapdis 07/11/19 [Rx] Past Medical History HEENT History: Reports: Allergic Rhinitis, Impaired Vision, Sinusitis Cardiovascular History: Reports: High Cholesterol, Stents Respiratory History: Reports: SOB, Other (See Below) Other Respiratory History: SOBOE; [place] [facility] [place] Gastrointestinal History: Reports: GERD, Other (See Below) Other Gastrointestinal History: lactose intolerant Genitourinary History: Reports: Other (See Below) Other Genitourinary History: malignant tumor taken off left kidney [employer] WORK[employer] History: Reports: , Spontaneous Musculoskeletal History: Reports: Back Pain, Chronic, Osteoarthritis, Osteoporosis Neurological History: Reports: Migraines, Neuropathy, Diabetic, Other (See Below ) Other Neuro History: [facility] [place] Psychiatric History: Reports: Eating Disorders Endocrine/Metabolic History: Reports: Diabetes, Type II, Obesity/BMI 30+ Hematologic History: Reports: Anemia, Blood Transfusion(s) Oncologic (Cancer) History: Reports: Renal - Infectious Disease History Infectious Disease History: Reports: Chicken Pox - Past Surgical History HEENT Surgical History: Reports: Tonsillectomy Cardiovascular Surgical History: Reports: Coronary Artery Stent GI Surgical History: Reports: Bariatric Procedure, Colonoscopy Female Surgical History: Reports: Other (See Below) Other Female Surgeries/Procedures: "Misshapen uterus, couldn't find my right ovary". Musculoskeletal Surgical History: Reports: Other (See Below) Other Musculoskeletal Surgeries/Procedures:: plate in right clavicle Oncologic Surgical History: Reports: Lumpectomy Social & Family History - Family History Family Medical History: Noncontributory - Tobacco Use Smoking Status *Q: Never Smoker Second Hand Smoke Exposure: Yes - Caffeine Use Caffeine Use: Reports: Coffee, Soda Other Caffeine Use: 2 cups daily Caffeine Use Comment: 1 soda daily - Living Situation & Occupation Living situation: Reports: , with Family Occupation: Disabled ED ROS GENERAL - Review of Systems Review Of Systems: See Below Constitutional: Reports: Weakness, Decreased Appetite HEENT: Reports: No Symptoms Respiratory: Reports: No Symptoms Cardiovascular: Reports: No Symptoms GI/Abdominal: Reports: Diarrhea, Decreased Appetite, Nausea, Other (vomitting yesterday). Denies: Hematemesis, Hematochezia : Reports: No Symptoms, Other (states she is voiding about 6 times daily.) Musculoskeletal: Reports: Other (chronic low back pain) Skin: Reports: No Symptoms Neurological: Reports: No Symptoms Psychiatric: Reports: No Symptoms ED EXAM, GENERAL - Physical Exam Exam: See Below Exam Limited By: No Limitations General Appearance: Alert, No Apparent Distress Eye Exam: Bilateral Eye: Other (wears glasses) Ears: Hearing Grossly Normal Nose: Normal Inspection Throat/Mouth: Normal Inspection, Normal Voice, No Airway Compromise Head: Atraumatic, Normocephalic Neck: Supple, Non-Tender Respiratory/Chest: No Respiratory Distress, Lungs Clear, Normal Breath Sounds Cardiovascular: Regular Rate, Rhythm, No Edema, Other (tachycardia on/off) Peripheral Pulses: 2+: Radial (L), Radial (R) GI/Abdominal: Normal Bowel Sounds, Soft, Non-Tender Back Exam: Other (low back pain with palpation) Extremities: Normal Inspection, No Pedal Edema Neurological: Alert, Oriented, Normal Cognition Psychiatric: Normal Mood, Flat Affect Skin Exam: Warm, Dry, Normal Color Course - Vital Signs Last Recorded V/S: Last Vital Signs Temp 97.1 F 07/11/19 15:22 Pulse 144 H 07/11/19 16:05 Resp 18 07/11/19 16:05 BP 99/69 07/11/19 16:05 Pulse Ox 100 07/11/19 16:05 - Orders/Labs/Meds Labs: Laboratory Tests 07/11/19 Range/Units 16:57 Troponin I < 0.017 D (0.000-0.060) ng/mL Meds: Medications Discontinued Medications Generic Name Dose Route Start Last Admin Trade Name Freq PRN Reason Stop Dose Admin Hydrocodone Bitart/Acetaminophen 1 tab 07/11/19 17:02 07/11/19 17:08 [place] 325-5 Mg PO 07/11/19 17:03 1 tab ONETIME ONE Administration Hydrocodone Bitart/Acetaminophen Confirm 07/11/19 17:15 07/11/19 17:16 Clearfield 325-5 Mg Administered 07/11/19 17:16 Not Given Dose 1 tab .ROUTE .STK-MED ONE - Re-Assessments/Exams Free Text/Narrative Re-Assessment/Exam: 07/11/19 17:53 Labs today for CBC and BMP, EKG with sinus tachycardia, x-ray of lumbar spine and to chest x-ray. Reviewed results with pt, no leukocytosis noted. No anemia noted. Normal electrolytes. with history of failure to thrive and unable to eat, will refer to Gastroenterology. She will continue with fluids and ensure clear at this time. Departure - Departure Time of Disposition: 18:20 Disposition: Home, Self-Care 01 Condition: Fair Clinical Impression: Failure to thrive, Loss of appetite, Diabetes mellitus type 2, Chronic back pain, Nausea - Discharge Information Prescriptions: Metoprolol Succinate [Toprol XL] 12.5 mg PO BEDTIME #15 tab.er Ondansetron [Ondansetron ODT] 4 mg PO Q6H PRN #30 tab.rapdis PRN Reason: Nausea Instructions: Metoprolol extended-release tablets Referrals: PCP,None [Primary Care Provider] - Forms: ED Department Discharge Additional Instructions: - Continue with home medication. - Change into long acting Metoprolol Succinate 12.5 mg daily. Once the medicine is available, you can stop taking the short acting Metoprolol. - A referral for gastroenterology will be sent to [facility]. You will be called when they can accommodate you for that consult/procedure. - Assessment/Plan Plan: Counseled on rib pain and lumbar back pain. X-ray read per radiology is pending. No acute finding noted per overview of x-ray. Refill of [place] for use of pain relief prn. Labs today for BMP and CBC, no leukocytosis and no anemia. Pt is taking ensure clear and is monitoring her BS at home. States hasn't ate any solid food for about 1 week. Zofran 4mg PO q 6 hour prn. Tachycardia noted per EKG today. Will change the Metoprolol tartrate to Metoprolol succinate. Pt was cutting a tablet in half and stated difficulty with this. Metoprolol succinate is scored and will be easier for pt to break or cut. Recommend to continue to stay hydrated and use the ensure clear. History of gastric bypass and history of feeding tube for failure to thrive. Referral to gastroenterology for consult.
--- NOTE | 2019-07-11 19:57 | CR ---
DATE OF SERVICE: 07/11/19 CLINICAL DATA: fell getting into car today LUMBAR SPINE: There is diffuse osteopenia. There is minimal left convexity scoliosis mid lumbar spine. There is a partial compression fracture of the L1 vertebra with approximately 25 to 30% loss of height anteriorly, age indeterminate. There is degenerative disc disease throughout the lower thoracic and lumbar spine. There is facet joint hypertrophy throughout the lumbar spine. No focal lytic or blastic bone lesions. There is calcification of the abdominal aorta. There are vascular calcifications in the pelvis bilaterally. There are degenerative changes involving the SI joints. [id number]
--- NOTE | 2019-07-11 20:00 | CR ---
DATE OF SERVICE: 07/11/19 CLINICAL DATA: fell getting into car at home PA CHEST AND RIGHT RIBS: Comparison is made to a prior exam dated 06/02/19. The heart size is normal. The lungs are clear. No pneumothorax. No pleural effusions. There is degenerative disc disease throughout the thoracic spine. No rib abnormalities. No displaced fractures. No lytic or blastic bone lesions. The patient is status post internal fixation of the right clavicle. [id number] [facility]
== END 2019-07-11 18:20 | disposition home or self-care (01) ==
LOC: LB.ED 14:51
DX: R63.0 Anorexia (principal); R62.7 Adult failure to thrive; Z68.28 Body mass index [BMI] 28.0-28.9, adult; M54.5 Low back pain; R07.81 Pleurodynia; G89.29 Other chronic pain; R11.0 Nausea; E11.40 Type 2 diabetes mellitus with diabetic neuropathy, unspecified; Z79.82 Long term (current) use of aspirin; Z79.899 Other long term (current) drug therapy; Z79.84 Long term (current) use of oral hypoglycemic drugs; Z88.5 Allergy status to narcotic agent; Z88.0 Allergy status to penicillin
CPT/HCPCS: 71101; 72100; 84484; 93005; 99285; A9270; 36415

== ENCOUNTER → 2019-07-11 | Outpatient (CLI) | payer MEDICAID | LOC: LB.CLINIC 14:34 | PROVIDERS: ATTEND Nurse Practitioner Family | DX: I10 Essential (primary) hypertension (principal); D50.9 Iron deficiency anemia, unspecified; R53.1 Weakness | CPT/HCPCS: 36415; 80048; 85025 ==

== ENCOUNTER 2019-07-17 13:00 | Inpatient (IN) | payer MEDICAID ==
[2019-07-17] MEDS ORDERED: Sodium Chloride 0.9% 500 ML IV ONE (13:41)
[2019-07-17] MEDS ORDERED: Acetaminophen 325 MG Tab PO PRN (14:55)
[2019-07-17] MEDS ORDERED: diphenhydrAMINE 25 MG Cap PO PRN (14:55)
[2019-07-17] MEDS ORDERED: Ondansetron 4 MG Tab.DIS PO PRN (14:55)
[2019-07-17] MEDS ORDERED: Potassium Chloride 20 MEQ Tab.ER PO ONE (15:08)
[2019-07-17] MEDS: Sodium Chloride 0.9% with KCl 1,000 ML IV SCH ×2 (15:38→22:09)
[2019-07-17] MEDS: Acetaminophen/HYDROcodone 325-5 MG Tab PO PRN ×2 (15:48→22:06)
--- NOTE | 2019-07-17 16:19 | ER ---
HISTORY OF PRESENT ILLNESS: A 59-year-old female who comes in by ambulance with complaints of weakness. She states she has not been able to get up and walk lately. She thinks she is dehydrated. The patient lives alone at home and she has the help of some of her siblings with some of her daily needs. The patient has extensive medical history that includes coronary artery disease with stents, history of type 2 diabetes, nutritional deficiency, failure to thrive, history of dehydration, GERD, and decubitus ulcers as well as chronic back pain. The patient denies any pain. She denies any falls or injuries at this time. She states she is just very weak and she is wondering if she can go to [place] for further evaluation and get fixed. OBJECTIVE: GENERAL APPEARANCE: The patient is awake and alert. She appears much older than her 59 years. VITAL SIGNS: Reviewed. She is afebrile. Pulse is 123, blood pressure 114/66, O2 sats 96%, respirations 14. HEENT: Oral mucous membranes are dry. Tonsils are not enlarged or injected. NECK: Supple. LUNGS: Reveals mildly reduced air exchange. Lungs are basically clear. CARDIAC: Heart sounds distinct. S1, S2 present. No murmurs. SKIN: Warm and dry. ABDOMEN: Soft and nontender to palpation. LABORATORY DATA: Labs include a CBC showing a normal white count. Comprehensive metabolic panel shows a low potassium level of 2.7. Kidney function reveals a BUN of 5, creatinine 1.13, GFR is 49. BNP is slightly elevated at 491. DIAGNOSES: 1. Hypokalemia. 2. Weakness, secondary to #1. TREATMENT PLAN: We will admit the patient for IV fluid with potassium and monitoring. She has been seen recently on numerous occasions. She does have a specialist appointment coming up with GI in about 3 weeks. The family is concerned about the patient having further evaluation in [place], and I advised them to discuss this further with the patient's primary care provider tomorrow. CRS/MODL /[id number]
[2019-07-17] MEDS: metFORMIN 500 MG Tab PO SCH (17:22)
--- NOTE | 2019-07-17 18:49 | ADMIT ---
59-year-old lady who was admitted through the emergency room for weakness and hypokalemia. Lab results show her CBC was normal. Potassium level was 2.7. She is also mildly dehydrated. The patient had not been eating, hardly anything, for several days. She states she became so weak she could not get up or out of bed. Lab work also showed mild dehydration. The patient will be admitted. She will be put on normal saline with potassium at 150 an hour with 40 mEq of potassium and she will be also given 20 mEq p.o. of potassium. She will be on a soft diet and monitored overnight. Family members have concerns about her being seen in [place]. They would like further evaluation. I advised them that this can be done with the patient's primary care provider. There is no urgent need to transfer the patient to [place]. CRS/MODL /[id number]
--- NOTE | 2019-07-17 19:41 | CR ---
DATE OF SERVICE: 07/17/2019 CLINICAL DATA: Weakness. AP PORTABLE CHEST: Comparison is made to a prior exam dated 07/11/2019. The heart and lungs are stable. No evidence of acute intrathoracic disease. [id number] [facility]
[2019-07-17] MEDS ORDERED: Mirtazapine 15 MG Tab ONE (19:55)
[2019-07-17] MEDS: MIRTAZAPINE 45 MG PO SCH (20:00)
[2019-07-17] MEDS: Metoprolol Succinate 25 MG Tab.ER PO SCH (20:00)
[2019-07-17] MEDS: Calcium Carbonate 500 MG Tab.Chew PO SCH (20:01)
[2019-07-17] MEDS: Pantoprazole 40 MG Tab.CR PO SCH (20:01)
[2019-07-17] MEDS: Gabapentin 300 MG Cap PO SCH (20:01)
--- NOTE | 2019-07-17 23:11 | PN ---
DATE OF VISIT: SUBJECTIVE: A 59-year-old lady admitted with hypokalemia and weakness. She has been getting IV fluids since admission. The patient states when I walked into the room that she is doing okay. She does not feel that she is much stronger than yesterday. Nursing staff has had no concerns today with this patient. She has been receiving normal saline with potassium as well as she received 1 dose of oral potassium yesterday. Lab results that have returned since her admission show she has a UTI and hypomagnesemia. The patient will be started on Cipro 500 mg b.i.d. p.o. and magnesium sulfate IV every 6 hours x4 doses. OBJECTIVE: VITAL SIGNS: Today show she is afebrile, pulse is 99, blood pressure 104/62, respirations 16. LUNGS: Clear with slightly reduced air exchange. CARDIAC: Heart sounds distinct without murmurs. SKIN: Warm and dry. The patient does look more hydrated today. HEENT: Mucous membranes are slightly moist. She does not want to eat much today, but has been taking her pills. The patient will continue to be monitored overnight. CRS/MODL /[id number]
[2019-07-17] MEDS: Ciprofloxacin 500 MG Tab PO SCH (23:51)
[2019-07-17] MEDS: Magnesium Sulfate/D5W 1 GM/100 ML BAG IV SCH (23:54)
[2019-07-18] MEDS: Sodium Chloride 0.9% with KCl 1,000 ML IV SCH ×2 (05:41→14:24)
[2019-07-18] MEDS: Magnesium Sulfate/D5W 1 GM/100 ML BAG IV SCH ×3 (07:46→15:49)
[2019-07-18] MEDS: metFORMIN 500 MG Tab PO SCH ×3 (07:49→19:53)
[2019-07-18] MEDS: Calcium Carbonate 500 MG Tab.Chew PO SCH ×3 (07:49→19:54)
[2019-07-18] MEDS: atorvaSTATin 10 MG Tab PO SCH (07:49)
[2019-07-18] MEDS: Cyanocobalamin (Vitamin B12) 1,000 MCG Tab PO SCH (07:49)
[2019-07-18] MEDS: Cholecalciferol (Vitamin D3) 2,000 Unit Cap PO SCH (07:49)
[2019-07-18] MEDS: Ciprofloxacin 500 MG Tab PO SCH ×2 (07:49→19:54)
[2019-07-18] MEDS: Gabapentin 300 MG Cap PO SCH ×3 (07:50→19:55)
[2019-07-18] MEDS: Ferrous Sulfate 325 MG Tab PO SCH (07:50)
[2019-07-18] MEDS: Acetaminophen/HYDROcodone 325-5 MG Tab PO PRN ×3 (07:57→20:25)
[2019-07-18] MEDS ORDERED: Magnesium Sulfate/D5W 1 GM/100 ML Premix Bag IV SCH (08:00)
[2019-07-18] MEDS: Furosemide 20 MG Tab PO SCH (08:00)
[2019-07-18] MEDS ORDERED: Loperamide 2 MG Cap PO PRN (10:57)
[2019-07-18] MEDS: Polyethylene Glycol 3350 Powder 510 GM Bot PO SCH (11:13)
[2019-07-18] MEDS: IRON PO SCH (11:14)
[2019-07-18] MEDS: FOLIC PO SCH (11:14)
[2019-07-18] MEDS: MULTIVIT CALC MINS PO SCH (11:14)
[2019-07-18] MEDS: LACTOBACILLUS ACIDOPHILUS PO SCH (11:15)
--- NOTE | 2019-07-18 19:38 | PCM.PN ---
- General Info Date of Service: 07/18/19 Subjective Update: Patient feels weak and tired and having difficulty standing still. She appears very tired and weak. Denies any pain at this time. Has a normal appetite. Functional Status: Reports: Pain Controlled, Tolerating Diet - Review of Systems General: Reports: Weakness, Fatigue HEENT: Reports: No Symptoms Pulmonary: Reports: No Symptoms Cardiovascular: Reports: No Symptoms Gastrointestinal: Reports: No Symptoms Genitourinary: Reports: No Symptoms Musculoskeletal: Reports: No Symptoms - Patient Data Vitals - Most Recent: Last Vital Signs Temp 36.2 C 07/18/19 15:59 Pulse 77 07/18/19 15:59 Resp 18 07/18/19 15:59 BP 82/47 L 07/18/19 15:59 Pulse Ox 100 07/18/19 15:59 Weight - Most Recent: 60.509 kg I&O - Last 24 Hours: Intake & Output 07/18/19 07/18/19 07/18/19 06:59 14:59 22:59 Intake Total 2049 1954 Output Total 0 4 Balance 2049 1950 Lab Results Last 24 Hours: Laboratory Results - last 24 hr 07/17/19 07/17/19 07/17/19 Range/Units 14:00 14:50 15:17 Sodium (136-145) mmol/L Potassium (3.5-5.1) mmol/L Chloride (98-107) mmol/L Carbon Dioxide (21.0-32.0) mmol/L Anion Gap (5.0-15.0) mmol/L BUN (8-26) mg/dL Creatinine (0.55-1.02) mg/dL Est Cr Clr Drug Dosing mL/min Estimated GFR (MDRD) (>60) MLS/MIN BUN/Creatinine Ratio (6-25) Glucose (74-100) mg/dL POC Glucose (74-110) mg/dL Calcium (8.5-10.1) mg/dL Magnesium 1.3 L D (1.8-2.4) mg/dL Total Bilirubin 0.6 D (0.0-1.0) mg/dL TSH, Ultra Sensitive (0.358-3.740) uIU/mL Urine Color Yellow Urine Appearance Cloudy (CLEAR) Urine pH 5.5 (5.0-8.0) Ur Specific [place] 1.025 (1.003-1.030) Urine Protein Negative (NEGATIVE) mg/dL Urine Glucose (UA) Negative (NEGATIVE) mg/dL Urine Ketones 80 H (NEGATIVE) mg/dL Urine Occult Blood Negative (NEGATIVE) Urine Nitrite Positive H (NEGATIVE) Urine Bilirubin Negative (NEGATIVE) Urine Urobilinogen 0.2 (0.2-1.0) E.U./dL Ur Leukocyte Esterase Negative (NEGATIVE) Urine RBC 0-5 H /HPF Urine WBC 5-10 H /HPF Ur Squamous Epith Cells Few /HPF Amorphous Sediment Many /HPF Urine Bacteria Moderate H /HPF 07/18/19 07/18/19 07/18/19 Range/Units 07:15 07:20 07:34 Sodium 147 H (136-145) mmol/L Potassium 4.2 D (3.5-5.1) mmol/L Chloride 113 H (98-107) mmol/L Carbon Dioxide 15.5 L (21.0-32.0) mmol/L Anion Gap 22.7 H (5.0-15.0) mmol/L BUN 4 L (8-26) mg/dL Creatinine 0.90 D (0.55-1.02) mg/dL Est Cr Clr Drug Dosing 54.30 mL/min Estimated GFR (MDRD) > 60 (>60) MLS/MIN BUN/Creatinine Ratio 4.4 L (6-25) Glucose 48 L* D (74-100) mg/dL POC Glucose 76 (74-110) mg/dL Calcium 7.1 L (8.5-10.1) mg/dL Magnesium (1.8-2.4) mg/dL Total Bilirubin (0.0-1.0) mg/dL TSH, Ultra Sensitive 1.739 D (0.358-3.740) uIU/mL Urine Color Urine Appearance (CLEAR) Urine pH (5.0-8.0) Ur Specific [place] (1.003-1.030) Urine Protein (NEGATIVE) mg/dL Urine Glucose (UA) (NEGATIVE) mg/dL Urine Ketones (NEGATIVE) mg/dL Urine Occult Blood (NEGATIVE) Urine Nitrite (NEGATIVE) Urine Bilirubin (NEGATIVE) Urine Urobilinogen (0.2-1.0) E.U./dL Ur Leukocyte Esterase (NEGATIVE) Urine RBC /HPF Urine WBC /HPF Ur Squamous Epith Cells /HPF Amorphous Sediment /HPF Urine Bacteria /HPF 07/18/19 07/18/19 Range/Units : 16:26 Sodium (136-145) mmol/L Potassium (3.5-5.1) mmol/L Chloride (98-107) mmol/L Carbon Dioxide (21.0-32.0) mmol/L Anion Gap (5.0-15.0) mmol/L BUN (8-26) mg/dL Creatinine (0.55-1.02) mg/dL Est Cr Clr Drug Dosing mL/min Estimated GFR (MDRD) (>60) MLS/MIN BUN/Creatinine Ratio (6-25) Glucose (74-100) mg/dL POC Glucose 118 H 151 H (74-110) mg/dL Calcium (8.5-10.1) mg/dL Magnesium (1.8-2.4) mg/dL Total Bilirubin (0.0-1.0) mg/dL TSH, Ultra Sensitive (0.358-3.740) uIU/mL Urine Color Urine Appearance (CLEAR) Urine pH (5.0-8.0) Ur Specific [place] (1.003-1.030) Urine Protein (NEGATIVE) mg/dL Urine Glucose (UA) (NEGATIVE) mg/dL Urine Ketones (NEGATIVE) mg/dL Urine Occult Blood (NEGATIVE) Urine Nitrite (NEGATIVE) Urine Bilirubin (NEGATIVE) Urine Urobilinogen (0.2-1.0) E.U./dL Ur Leukocyte Esterase (NEGATIVE) Urine RBC /HPF Urine WBC /HPF Ur Squamous Epith Cells /HPF Amorphous Sediment /HPF Urine Bacteria /HPF [place] Results Last 24 Hours: Microbiology 07/17/19 Unknown Urine Culture - Preliminary Urine, Clean Catch NO GROWTH AFTER 1 DAY Med Orders - Current: Current Medications Acetaminophen (Tylenol) 650 mg PO Q4H PRN PRN Reason: Pain/Fever Last Admin: 07/17/19 20:01 Dose: 650 mg Hydrocodone Bitart/Acetaminophen ([place] 325-5 Mg) 1 tab PO Q6H PRN PRN Reason: Pain Last Admin: 07/18/19 14:45 Dose: 1 tab Atorvastatin Calcium (Lipitor) 10 mg PO DAILY [facility] Last Admin: 07/18/19 07:49 Dose: 10 mg Calcium Carbonate/Glycine (Tums) 500 mg PO TID [facility] Last Admin: 07/18/19 14:13 Dose: 500 mg Cholecalciferol (Vitamin D3) 2,000 unit PO DAILY [facility] Last Admin: 07/18/19 07:49 Dose: 2,000 unit Ciprofloxacin (Ciprofloxacin Hcl) 500 mg PO BID [facility] Last Admin: 07/18/19 07:49 Dose: 500 mg Cyanocobalamin (Vitamin B12) 1,000 mcg PO DAILY [facility] Last Admin: 07/18/19 07:49 Dose: 1,000 mcg Diphenhydramine HCl (Benadryl) 50 mg PO ASDIRECTED PRN PRN Reason: Allergies Last Admin: 07/17/19 20:00 Dose: 50 mg Ferrous Sulfate (Ferrous Sulfate) 325 mg PO DAILY [facility] Last Admin: 07/18/19 07:50 Dose: 325 mg Furosemide (Lasix) 20 mg PO DAILY [facility] Last Admin: 07/18/19 08:00 Dose: Not Given Gabapentin (Neurontin) 600 mg PO TID [facility] Last Admin: 07/18/19 14:13 Dose: 600 mg Sodium Chloride (Sodium Chloride 0.45%) 1,000 mls @ 100 mls/hr IV ASDIRECTED [facility] Loperamide HCl (Imodium) 2 mg PO ASDIRECTED PRN PRN Reason: Diarrhea Metformin HCl (Glucophage) 500 mg PO TIDMEALS [facility] Last Admin: 07/18/19 11:11 Dose: 500 mg Metoprolol Succinate (Toprol Xl) 12.5 mg PO BEDTIME [facility] Last Admin: 07/17/19 20:00 Dose: 12.5 mg Non-Formulary Medication (Lactobacillus Acidophilus [Acidophilus]) 1 each PO DAILY [facility] Last Admin: 07/18/19 11:15 Dose: Not Given Non-Formulary Medication (Mirtazapine [Remeron]) 45 mg PO BEDTIME [facility] Last Admin: 07/17/19 20:00 Dose: 45 mg Non-Formulary Medication (Multivit,Calc,Mins/Iron/Folic [Thera-M]) 1 each PO DAILY [facility] Last Admin: 07/18/19 11:14 Dose: Not Given Ondansetron HCl (Zofran Odt) 4 mg PO Q6H PRN PRN Reason: Nausea Last Admin: 07/17/19 20:01 Dose: 4 mg Pantoprazole Sodium (Protonix) 40 mg PO BEDTIME [facility] Last Admin: 07/17/19 20:01 Dose: 40 mg Polyethylene Glycol (Miralax) 238 gm PO DAILY [facility] Last Admin: 07/18/19 11:13 Dose: Not Given Discontinued Medications Sodium Chloride (Normal Saline) 500 mls @ 500 mls/hr IV .BOLUS ONE Stop: 07/17/19 14:40 Last Admin: 07/17/19 13:41 Dose: 500 mls/hr Potassium Chloride/Sodium Chloride (Normal Saline With 40 Meq Kcl) 1,000 mls @ 150 mls/hr IV ASDIRECTED [facility] Last Admin: 07/18/19 14:24 Dose: 150 mls/hr Magnesium Sulfate/Dextrose (Magnesium Sulfate In D5w 100 Premix) 1 gm in 100 mls @ 100 mls/hr IV QID [facility] Stop: 07/18/19 16:59 Last Admin: 07/18/19 15:49 Dose: 100 mls/hr Mirtazapine (Remeron) Confirm Administered Dose 45 mg .ROUTE .STK-MED ONE Stop: 07/17/19 19:56 Last Admin: 07/17/19 20:12 Dose: Not Given Potassium Chloride (Klor-Con M20) 20 meq PO ONETIME ONE Stop: 07/17/19 15:09 Last Admin: 07/17/19 15:34 Dose: 20 meq - Exam General: Alert, Oriented, Cooperative HEENT: Pupils Equal, Pupils Reactive, EOMI Neck: Supple Lungs: Clear to Auscultation, Normal Respiratory Effort Cardiovascular: Regular Rate, Regular Rhythm GI/Abdominal Exam: Normal Bowel Sounds Back Exam: Normal Inspection Extremities: Normal Inspection - Problem List & Annotations (1) Failure to thrive SNOMED Code(s): 58372396 Code(s): SBD8176 - Status: Suspected Priority: High Current Visit: Yes Onset Date: 05/15/14 Annotation/Comment:: 06/05/2014 Running bolus feedings and doing well. 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 (2) Hypotension, Low blood pressure SNOMED Code(s): 91532928 Code(s): I95.9 - HYPOTENSION, UNSPECIFIED Status: Suspected Priority: High Current Visit: Yes Annotation/Comment:: Patient had colonoscopy today. Was given a bolus of IV fluids with little response of her blood pressure. Will hold her BP meds and diabetic meds. Lab work shows elevated liver functions. Did have a Abd CT in [place] recently and the renal mass was noted. Dr. Young the urologist noted to follow this. Patient continues to fail. Will obtain a MRI of her back next week. Does have off and on diarrhea. Would like to check a C diff. Was tested before and negative. If continues to have diarrhea would order other stool samples. Will hydrate at this time and hold most of her meds at this time. Would consider gastro consult in the future for elevation of liver functions and general inablity to eat and maintain weight. (3) Dehydration SNOMED Code(s): 19036521 Code(s): E86.0 - DEHYDRATION Status: Resolved Priority: High Current Visit: Yes (4) Generalized weakness SNOMED Code(s): 40934856 Code(s): R53.1 - WEAKNESS Status: Resolved Priority: High Current Visit : Yes (5) UTI (urinary tract infection) SNOMED Code(s): 25617123 Code(s): N39.0 - URINARY TRACT INFECTION, SITE NOT SPECIFIED Status: Resolved Priority: High Current Visit: Yes Qualifiers: Urinary tract infection type: acute cystitis Hematuria presence: without hematuria Qualified Code(s): N30.00 - Acute cystitis without hematuria - Problem List Review Problem List Initiated/Reviewed/Updated: Yes - My Orders Last 24 Hours: My Active Orders 07/18/19 VITAMIN D, 25-HYDROXY Routine 07/18/19 10:00 VITAMIN B12 Routine 07/18/19 10:57 Loperamide [Imodium] 2 mg PO ASDIRECTED PRN 07/18/19 17:22 POC Glucose [Blood Glucose Check, Bedside] [RC] WITHMEALSANDBED 07/18/19 19:45 Sodium Chloride 0.45% @ 100 MLS/HR(1,000ml) Sodium Chloride 0.45% 1,000 ml IV ASDIRECTED 07/18/19 Lunch Consistent Carbohydrate Diet [DIET] - Plan Plan:: Counseled on repeat labs in the AM. Discussed weakness, fatigue and continued diet with PT/OT.
[2019-07-18] MEDS: Pantoprazole 40 MG Tab.CR PO SCH (19:54)
[2019-07-18] MEDS ORDERED: Mirtazapine 15 MG Tab ONE (20:05)
[2019-07-18] MEDS: Metoprolol Succinate 25 MG Tab.ER PO SCH (20:14)
[2019-07-18] MEDS: MIRTAZAPINE 45 MG PO SCH (20:14)
[2019-07-18] MEDS: Sodium Chloride 0.45% 1,000 ML IV SCH (20:22)
[2019-07-19] MEDS: Sodium Chloride 0.45% 1,000 ML IV SCH ×2 (06:28→15:52)
[2019-07-19] MEDS ORDERED: Lactobacillus Acidophilus/Lactobacillus Sporogenes (Probiotic) Tab ONE (07:20)
[2019-07-19] MEDS ORDERED: Multivitamins with Iron/Calcium/Folic Acid/Minerals Tab ONE (07:21)
[2019-07-19] MEDS: Calcium Carbonate 500 MG Tab.Chew PO SCH ×3 (07:31→20:21)
[2019-07-19] MEDS: atorvaSTATin 10 MG Tab PO SCH (07:31)
[2019-07-19] MEDS: Cholecalciferol (Vitamin D3) 2,000 Unit Cap PO SCH (07:31)
[2019-07-19] MEDS: Gabapentin 300 MG Cap PO SCH ×3 (07:32→20:20)
[2019-07-19] MEDS: IRON PO SCH (07:32)
[2019-07-19] MEDS: Cyanocobalamin (Vitamin B12) 1,000 MCG Tab PO SCH (07:32)
[2019-07-19] MEDS: MULTIVIT CALC MINS PO SCH (07:32)
[2019-07-19] MEDS: FOLIC PO SCH (07:32)
[2019-07-19] MEDS: metFORMIN 500 MG Tab PO SCH ×3 (07:32→17:23)
[2019-07-19] MEDS: LACTOBACILLUS ACIDOPHILUS PO SCH (07:32)
[2019-07-19] MEDS: Ciprofloxacin 500 MG Tab PO SCH ×2 (07:33→20:18)
[2019-07-19] MEDS: Ferrous Sulfate 325 MG Tab PO SCH (07:33)
[2019-07-19] MEDS: Polyethylene Glycol 3350 Powder 510 GM Bot PO SCH (07:33)
[2019-07-19] MEDS: Furosemide 20 MG Tab PO SCH (07:36)
[2019-07-19] MEDS: Acetaminophen/HYDROcodone 325-5 MG Tab PO PRN ×3 (07:43→20:31)
--- NOTE | 2019-07-19 15:22 | PCM.PN ---
- General Info Date of Service: 07/19/19 Subjective Update: This patient continues to be extremely weak. She has a history of a prior GI tube for feeding due to failure to thrive. She has no appetite and just unable to eat. She also has a history of depression and does feel depressed today. Functional Status: Denies: Tolerating Diet - Review of Systems General: Reports: Weakness, Fatigue. Denies: Appetite HEENT: Reports: No Symptoms Pulmonary: Reports: No Symptoms Cardiovascular: Reports: No Symptoms, Edema Gastrointestinal: Reports: Decreased Appetite Genitourinary: Reports: Frequency Musculoskeletal: Reports: No Symptoms Skin: Reports: Pallor Neurological: Reports: Weakness Psychiatric: Reports: Depression - Patient Data Vitals - Most Recent: Last Vital Signs Temp 36.3 C 07/19/19 12:00 Pulse 86 07/19/19 12:00 Resp 16 07/19/19 12:00 BP 86/45 L 07/19/19 12:00 Pulse Ox 100 07/19/19 12:00 Weight - Most Recent: 140.2 kg I&O - Last 24 Hours: Intake & Output 07/19/19 07/19/19 07/19/19 06:59 14:59 22:59 Intake Total 1326 Balance 1326 Lab Results Last 24 Hours: Laboratory Results - last 24 hr 07/17/19 07/18/19 07/18/19 Range/Units 14:00 16:26 19:52 Sodium (136-145) mmol/L Potassium (3.5-5.1) mmol/L Chloride (98-107) mmol/L Carbon Dioxide (21.0-32.0) mmol/L Anion Gap (5.0-15.0) mmol/L BUN (8-26) mg/dL Creatinine (0.55-1.02) mg/dL Est Cr Clr Drug Dosing mL/min Estimated GFR (MDRD) (>60) MLS/MIN BUN/Creatinine Ratio (6-25) Glucose (74-100) mg/dL POC Glucose 151 H 150 H (74-110) mg/dL Calcium (8.5-10.1) mg/dL Total Bilirubin 0.6 D (0.0-1.0) mg/dL 07/19/19 07/19/19 Range/Units 07:30 10:45 Sodium 140 (136-145) mmol/L Potassium 5.5 H D (3.5-5.1) mmol/L Chloride 111 H (98-107) mmol/L Carbon Dioxide 21.0 D (21.0-32.0) mmol/L Anion Gap 13.5 (5.0-15.0) mmol/L BUN 2 L D (8-26) mg/dL Creatinine 0.85 (0.55-1.02) mg/dL Est Cr Clr Drug Dosing 57.49 mL/min Estimated GFR (MDRD) > 60 (>60) MLS/MIN BUN/Creatinine Ratio 2.4 L (6-25) Glucose 83 D (74-100) mg/dL POC Glucose 109 (74-110) mg/dL Calcium 7.3 L (8.5-10.1) mg/dL Total Bilirubin (0.0-1.0) mg/dL [place] Results Last 24 Hours: Microbiology 07/17/19 Unknown Urine Culture - Preliminary Urine, Clean Catch NO GROWTH AFTER 1 DAY Med Orders - Current: Current Medications Acetaminophen (Tylenol) 650 mg PO Q4H PRN PRN Reason: Pain/Fever Last Admin: 07/17/19 20:01 Dose: 650 mg Hydrocodone Bitart/Acetaminophen ([place] 325-5 Mg) 1 tab PO Q6H PRN PRN Reason: Pain Last Admin: 07/19/19 13:35 Dose: 1 tab Atorvastatin Calcium (Lipitor) 10 mg PO DAILY [facility] Last Admin: 07/19/19 07:31 Dose: 10 mg Calcium Carbonate/Glycine (Tums) 500 mg PO TID [facility] Last Admin: 07/19/19 13:21 Dose: 500 mg Cholecalciferol (Vitamin D3) 2,000 unit PO DAILY [facility] Last Admin: 07/19/19 07:31 Dose: 2,000 unit Ciprofloxacin (Ciprofloxacin Hcl) 500 mg PO BID [facility] Last Admin: 07/19/19 07:33 Dose: 500 mg Cyanocobalamin (Vitamin B12) 1,000 mcg PO DAILY [facility] Last Admin: 07/19/19 07:32 Dose: 1,000 mcg Diphenhydramine HCl (Benadryl) 50 mg PO ASDIRECTED PRN PRN Reason: Allergies Last Admin: 07/17/19 20:00 Dose: 50 mg Ferrous Sulfate (Ferrous Sulfate) 325 mg PO DAILY [facility] Last Admin: 07/19/19 07:33 Dose: 325 mg Furosemide (Lasix) 20 mg PO DAILY [facility] Last Admin: 07/19/19 07:36 Dose: 20 mg Gabapentin (Neurontin) 600 mg PO TID [facility] Last Admin: 07/19/19 13:21 Dose: 600 mg Sodium Chloride (Sodium Chloride 0.45%) 1,000 mls @ 100 mls/hr IV ASDIRECTED [facility] Last Admin: 07/19/19 06:28 Dose: 100 mls/hr Loperamide HCl (Imodium) 2 mg PO ASDIRECTED PRN PRN Reason: Diarrhea Metformin HCl (Glucophage) 500 mg PO TIDMEALS [facility] Last Admin: 07/19/19 12:04 Dose: 500 mg Metoprolol Succinate (Toprol Xl) 12.5 mg PO BEDTIME [facility] Last Admin: 07/18/19 20:14 Dose: Not Given Non-Formulary Medication (Lactobacillus Acidophilus [Acidophilus]) 1 each PO DAILY [facility] Last Admin: 07/19/19 07:32 Dose: 1 each Non-Formulary Medication (Mirtazapine [Remeron]) 45 mg PO BEDTIME [facility] Last Admin: 07/18/19 20:14 Dose: 45 mg Non-Formulary Medication (Multivit,Calc,Mins/Iron/Folic [Thera-M]) 1 each PO DAILY [facility] Last Admin: 07/19/19 07:32 Dose: 1 each Ondansetron HCl (Zofran Odt) 4 mg PO Q6H PRN PRN Reason: Nausea Last Admin: 07/17/19 20:01 Dose: 4 mg Pantoprazole Sodium (Protonix) 40 mg PO BEDTIME [facility] Last Admin: 07/18/19 19:54 Dose: 40 mg Polyethylene Glycol (Miralax) 238 gm PO DAILY [facility] Last Admin: 07/19/19 07:33 Dose: Not Given Discontinued Medications Sodium Chloride (Normal Saline) 500 mls @ 500 mls/hr IV .BOLUS ONE Stop: 07/17/19 14:40 Last Admin: 07/17/19 13:41 Dose: 500 mls/hr Potassium Chloride/Sodium Chloride (Normal Saline With 40 Meq Kcl) 1,000 mls @ 150 mls/hr IV ASDIRECTED [facility] Last Admin: 07/18/19 14:24 Dose: 150 mls/hr Magnesium Sulfate/Dextrose (Magnesium Sulfate In D5w 100 Premix) 1 gm in 100 mls @ 100 mls/hr IV QID [facility] Stop: 07/18/19 16:59 Last Admin: 07/18/19 15:49 Dose: 100 mls/hr Lactobacillus Acidophilus (Acidolphilus Extra Strength) Confirm Administered Dose 1 tab .ROUTE .STK-MED ONE Stop: 07/19/19 07:21 Last Admin: 07/19/19 10:56 Dose: Not Given Mirtazapine (Remeron) Confirm Administered Dose 45 mg .ROUTE .STK-MED ONE Stop: 07/17/19 19:56 Last Admin: 07/17/19 20:12 Dose: Not Given Mirtazapine (Remeron) Confirm Administered Dose 45 mg .ROUTE .STK-MED ONE Stop: 07/18/19 20:06 Last Admin: 07/18/19 20:13 Dose: Not Given Multivitamins/Minerals (Thera M Plus) Confirm Administered Dose 1 tab .ROUTE .STK-MED ONE Stop: 07/19/19 07:22 Last Admin: 07/19/19 10:56 Dose: Not Given Potassium Chloride (Klor-Con M20) 20 meq PO ONETIME ONE Stop: 07/17/19 15:09 Last Admin: 07/17/19 15:34 Dose: 20 meq - Exam General: Alert, Oriented, Cooperative HEENT: Pupils Equal, Pupils Reactive Neck: Supple Lungs: Clear to Auscultation, Normal Respiratory Effort Cardiovascular: Regular Rate, Regular Rhythm GI/Abdominal Exam: Abnormal Bowel Sounds (decreased bowel sounds) Extremities: Normal Inspection Peripheral Pulses: 2+: Dorsalis Pedis (L), Dorsalis Pedis (R) Skin: Warm, Dry, Intact Neurological: No New Focal Deficit Psy/Mental Status: Alert, Depressed - Problem List & Annotations (1) Failure to thrive SNOMED Code(s): 27844539 Code(s): BHK1348 - Status: Suspected Priority: High Current Visit: Yes Onset Date: 05/15/14 Annotation/Comment:: 06/05/2014 Running bolus feedings and doing well. 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 (2) Hypotension, Low blood pressure SNOMED Code(s): 10735552 Code(s): I95.9 - HYPOTENSION, UNSPECIFIED Status: Suspected Priority: High Current Visit: Yes Annotation/Comment:: Patient had colonoscopy today. Was given a bolus of IV fluids with little response of her blood pressure. Will hold her BP meds and diabetic meds. Lab work shows elevated liver functions. Did have a Abd CT in [place] recently and the renal mass was noted. Dr. Young the urologist noted to follow this. Patient continues to fail. Will obtain a MRI of her back next week. Does have off and on diarrhea. Would like to check a C diff. Was tested before and negative. If continues to have diarrhea would order other stool samples. Will hydrate at this time and hold most of her meds at this time. Would consider gastro consult in the future for elevation of liver functions and general inablity to eat and maintain weight. (3) Dehydration SNOMED Code(s): 86531966 Code(s): E86.0 - DEHYDRATION Status: Resolved Priority: High Current Visit: Yes (4) Generalized weakness SNOMED Code(s): 48423937 Code(s): R53.1 - WEAKNESS Status: Resolved Priority: High Current Visit : Yes (5) UTI (urinary tract infection) SNOMED Code(s): 28747019 Code(s): N39.0 - URINARY TRACT INFECTION, SITE NOT SPECIFIED Status: Resolved Priority: High Current Visit: Yes Qualifiers: Urinary tract infection type: acute cystitis Hematuria presence: without hematuria Qualified Code(s): N30.00 - Acute cystitis without hematuria (6) Major depressive disorder SNOMED Code(s): 652946639 Code(s): F32.9 - MAJOR DEPRESSIVE DISORDER, SINGLE EPISODE, UNSPECIFIED Status: Acute Current Visit: Yes Qualifiers: Major depression recurrence: unspecified whether recurrent Active/ Remission status: currently active Major depression episode severity: moderate Qualified Code(s): F32.1 - Major depressive disorder, single episode , moderate (7) CHF (congestive heart failure) SNOMED Code(s): 42286766 Code(s): I50.9 - HEART FAILURE, UNSPECIFIED Status: Acute Current Visit: Yes Qualifiers: Heart failure type: unspecified Heart failure chronicity: acute Qualified Code(s): I50.9 - Heart failure, unspecified (8) Hypocalcemia SNOMED Code(s): 7282775 Code(s): E83.51 - HYPOCALCEMIA Status: Acute Priority: Medium Current Visit: Yes (9) Vitamin D deficiency SNOMED Code(s): 56038162 Code(s): E55.9 - VITAMIN D DEFICIENCY, UNSPECIFIED Status: Acute Priority : Medium Current Visit: Yes (10) Hypomagnesemia SNOMED Code(s): 954079137 Code(s): E83.42 - HYPOMAGNESEMIA Status: Acute Priority: Medium Current Visit: Yes (11) CAD (coronary artery disease) SNOMED Code(s): 44341827 Code(s): I25.10 - ATHSCL HEART DISEASE OF [place] CORONARY ARTERY W/O ANG PCTRS Status: Chronic Priority: High Current Visit: Yes Qualifiers: Coronary Disease-Associated Artery/Lesion type: unspecified vessel or lesion type [place] vs. transplanted heart: unspecified whether platinum or transplanted heart Associated angina: without angina Qualified Code(s): I25.10 - Atherosclerotic heart disease of [place] coronary artery without angina pectoris - Problem List Review Problem List Initiated/Reviewed/Updated: Yes - My Orders Last 24 Hours: My Active Orders 07/18/19 17:22 POC Glucose [Blood Glucose Check, Bedside] [RC] WITHMEALSANDBED 07/18/19 19:45 Sodium Chloride 0.45% 1,000 ml IV ASDIRECTED 07/19/19 09:26 Discontinue Telemetry Monitoring [Cardiac Monitoring Discontinue] [RC] Click to Edit - Plan Plan:: Counseled on repeat labs in the AM. Discussed weakness, fatigue and continued diet with PT/OT. 07/19/19 Discussed changes in electrolytes and further fluids as discussed and f/u labs in am. Discussed PT/OT and the need for continued rehabilitation for weakness. Discussed low magnesium and supplementation. Discussed deficiency in vitamin D, Calcium and supplementation. Discussed CHF and need for f/u with Cardiology and Echo and management. We will adjust medications and f/u CHF. Discussed Major depressive disorder and medication management - likely that mirtazapine is not working as well or enough at this time. Discussed possibility for need of feeding tube for her failure to thrive. She has been on a feeding tube in the past which did work well. Patient requires further management and treatment and follow up labs in am.
[2019-07-19] MEDS ORDERED: Mirtazapine 15 MG Tab ONE (19:12)
[2019-07-19] MEDS: Metoprolol Succinate 25 MG Tab.ER PO SCH (20:19)
[2019-07-19] MEDS: Pantoprazole 40 MG Tab.CR PO SCH (20:20)
[2019-07-19] MEDS: MIRTAZAPINE 45 MG PO SCH (20:23)
[2019-07-20] MEDS: Sodium Chloride 0.45% 1,000 ML IV SCH ×3 (02:57→23:14)
[2019-07-20] MEDS: Acetaminophen/HYDROcodone 325-5 MG Tab PO PRN ×4 (03:59→23:13)
[2019-07-20] MEDS: Ciprofloxacin 500 MG Tab PO SCH ×2 (08:12→20:49)
[2019-07-20] MEDS: Furosemide 20 MG Tab PO SCH (08:12)
[2019-07-20] MEDS: Cyanocobalamin (Vitamin B12) 1,000 MCG Tab PO SCH (08:13)
[2019-07-20] MEDS: Calcium Carbonate 500 MG Tab.Chew PO SCH ×3 (08:13→20:48)
[2019-07-20] MEDS: metFORMIN 500 MG Tab PO SCH ×3 (08:13→17:17)
[2019-07-20] MEDS: Gabapentin 300 MG Cap PO SCH ×3 (08:13→20:48)
[2019-07-20] MEDS: Ferrous Sulfate 325 MG Tab PO SCH (08:13)
[2019-07-20] MEDS: Cholecalciferol (Vitamin D3) 2,000 Unit Cap PO SCH (08:13)
[2019-07-20] MEDS: atorvaSTATin 10 MG Tab PO SCH (08:14)
[2019-07-20] MEDS ORDERED: Lactobacillus Acidophilus/Lactobacillus Sporogenes (Probiotic) Tab ONE (08:16)
[2019-07-20] MEDS ORDERED: Multivitamins with Iron/Calcium/Folic Acid/Minerals Tab ONE (08:16)
[2019-07-20] MEDS ORDERED: Polyethylene Glycol 3350 Powder 17 GM Packet ONE (08:17)
[2019-07-20] MEDS: Polyethylene Glycol 3350 Powder 510 GM Bot PO SCH (08:17)
[2019-07-20] MEDS: LACTOBACILLUS ACIDOPHILUS PO SCH (08:18)
[2019-07-20] MEDS: FOLIC PO SCH (08:18)
[2019-07-20] MEDS: MULTIVIT CALC MINS PO SCH (08:18)
[2019-07-20] MEDS: IRON PO SCH (08:18)
[2019-07-20] MEDS: Magnesium Oxide 400 MG Tab PO SCH (09:07)
--- NOTE | 2019-07-20 17:09 | PCM.PN ---
- General Info Date of Service: 07/20/19 Subjective Update: This is a 59yo F with a recent acute CHF exacerbation. She has concurrent failure to thrive with hypokalemia, hypomagnesemia, vitamin D deficiency, and hypocalcemia. She was diagnosed with a UTI and dehydration. She has a history of DM and prior gastric bypass with a feeding tube due to the failure to thrive. She has improved to date but remains very frail and weak with difficulty standing up and is a fall risk. She may also require another feeding tube placement due to malnourishment. - Review of Systems General: Reports: Weakness, Fatigue, Malaise HEENT: Reports: No Symptoms Pulmonary: Reports: No Symptoms Cardiovascular: Reports: Dyspnea on Exertion Gastrointestinal: Reports: Decreased Appetite Genitourinary: Reports: Frequency Musculoskeletal: Reports: No Symptoms Skin: Reports: Pallor Neurological: Reports: Difficulty Walking, Weakness Psychiatric: Reports: Depression - Patient Data Vitals - Most Recent: Last Vital Signs Temp 36.9 C 07/20/19 12:00 Pulse 86 07/20/19 12:00 Resp 16 07/20/19 12:00 BP 82/51 L 07/20/19 12:00 Pulse Ox 100 07/20/19 12:00 Weight - Most Recent: 67.404 kg I&O - Last 24 Hours: Intake & Output 07/20/19 07/20/19 07/20/19 06:59 14:59 22:59 Intake Total 1380 Output Total 340 Balance 1040 Lab Results Last 24 Hours: Laboratory Results - last 24 hr 07/18/19 07/18/19 07/19/19 Range/Units 10:00 Unknown 16:19 WBC (4.0-11.0) K/uL RBC (3.80-5.80) M/uL Hgb (11.5-16.5) g/dL Hct (37.0-47.0) % MCV (76-96) fL MCH (27.0-32.0) pg MCHC (31.0-35.0) g/dL RDW (11.0-16.0) % Plt Count (150-500) K/uL MPV (6.0-10.0) fL Neut % (Auto) (45.0-70.0) % Lymph % (Auto) (20.0-40.0) % [place] % (Auto) (3.0-10.0) % Eos % (Auto) (1.0-5.0) % Baso % (Auto) (0.0-0.5) % Neut # (Auto) (2.00-7.50) K/uL Lymph # (Auto) (1.50-4.00) K/uL [place] # (Auto) (0.20-0.80) K/uL Eos # (Auto) (0.04-0.40) K/uL Baso # (Auto) (0.02-0.10) K/uL Sodium (136-145) mmol/L Potassium (3.5-5.1) mmol/L Chloride (98-107) mmol/L Carbon Dioxide (21.0-32.0) mmol/L Anion Gap (5.0-15.0) mmol/L BUN (8-26) mg/dL Creatinine (0.55-1.02) mg/dL Est Cr Clr Drug Dosing mL/min Estimated GFR (MDRD) (>60) MLS/MIN BUN/Creatinine Ratio (6-25) Glucose (74-100) mg/dL POC Glucose 123 H (74-110) mg/dL Calcium (8.5-10.1) mg/dL Magnesium (1.8-2.4) mg/dL Total Bilirubin (0.0-1.0) mg/dL AST (15-37) U/L ALT (12-78) U/L Alkaline Phosphatase (46-116) U/L Total Protein (6.4-8.2) g/dL Albumin (3.4-5.0) g/dL Globulin (2.2-4.2) g/dL Albumin/Globulin Ratio (0.8-2.0) Vitamin B12 1731 H (232-1245) pg/mL Vitamin D 25-Hydroxy 7.6 L (30.0-100.0) ng/mL 07/19/19 07/20/19 07/20/19 Range/Units 20:51 07:09 09:33 WBC 8.5 D (4.0-11.0) K/uL RBC 4.07 (3.80-5.80) M/uL Hgb 13.5 (11.5-16.5) g/dL Hct 40.0 (37.0-47.0) % MCV 98 H (76-96) fL MCH 33.2 H (27.0-32.0) pg MCHC 33.8 (31.0-35.0) g/dL RDW 15.5 (11.0-16.0) % Plt Count 277 D (150-500) K/uL MPV 11.0 H (6.0-10.0) fL Neut % (Auto) 47.9 (45.0-70.0) % Lymph % (Auto) 46.2 H (20.0-40.0) % [place] % (Auto) 4.7 (3.0-10.0) % Eos % (Auto) 0.7 L (1.0-5.0) % Baso % (Auto) 0.5 (0.0-0.5) % Neut # (Auto) 4.08 (2.00-7.50) K/uL Lymph # (Auto) 3.94 (1.50-4.00) K/uL [place] # (Auto) 0.40 (0.20-0.80) K/uL Eos # (Auto) 0.06 (0.04-0.40) K/uL Baso # (Auto) 0.04 (0.02-0.10) K/uL Sodium (136-145) mmol/L Potassium (3.5-5.1) mmol/L Chloride (98-107) mmol/L Carbon Dioxide (21.0-32.0) mmol/L Anion Gap (5.0-15.0) mmol/L BUN (8-26) mg/dL Creatinine (0.55-1.02) mg/dL Est Cr Clr Drug Dosing mL/min Estimated GFR (MDRD) (>60) MLS/MIN BUN/Creatinine Ratio (6-25) Glucose (74-100) mg/dL POC Glucose 183 H 104 (74-110) mg/dL Calcium (8.5-10.1) mg/dL Magnesium (1.8-2.4) mg/dL Total Bilirubin (0.0-1.0) mg/dL AST (15-37) U/L ALT (12-78) U/L Alkaline Phosphatase (46-116) U/L Total Protein (6.4-8.2) g/dL Albumin (3.4-5.0) g/dL Globulin (2.2-4.2) g/dL Albumin/Globulin Ratio (0.8-2.0) Vitamin B12 (232-1245) pg/mL Vitamin D 25-Hydroxy (30.0-100.0) ng/mL 07/20/19 07/20/19 07/20/19 Range/Units 09:33 09:33 11:06 WBC (4.0-11.0) K/uL RBC (3.80-5.80) M/uL Hgb (11.5-16.5) g/dL Hct (37.0-47.0) % MCV (76-96) fL MCH (27.0-32.0) pg MCHC (31.0-35.0) g/dL RDW (11.0-16.0) % Plt Count (150-500) K/uL MPV (6.0-10.0) fL Neut % (Auto) (45.0-70.0) % Lymph % (Auto) (20.0-40.0) % [place] % (Auto) (3.0-10.0) % Eos % (Auto) (1.0-5.0) % Baso % (Auto) (0.0-0.5) % Neut # (Auto) (2.00-7.50) K/uL Lymph # (Auto) (1.50-4.00) K/uL [place] # (Auto) (0.20-0.80) K/uL Eos # (Auto) (0.04-0.40) K/uL Baso # (Auto) (0.02-0.10) K/uL Sodium 141 (136-145) mmol/L Potassium 5.1 (3.5-5.1) mmol/L Chloride 108 H (98-107) mmol/L Carbon Dioxide 21.6 (21.0-32.0) mmol/L Anion Gap 16.5 H (5.0-15.0) mmol/L BUN 2 L (8-26) mg/dL Creatinine 0.77 (0.55-1.02) mg/dL Est Cr Clr Drug Dosing 63.47 mL/min Estimated GFR (MDRD) > 60 (>60) MLS/MIN BUN/Creatinine Ratio 2.6 L (6-25) Glucose 138 H D (74-100) mg/dL POC Glucose 140 H (74-110) mg/dL Calcium 7.6 L (8.5-10.1) mg/dL Magnesium 1.6 L (1.8-2.4) mg/dL Total Bilirubin 0.4 D (0.0-1.0) mg/dL AST 36 (15-37) U/L ALT 19 (12-78) U/L Alkaline Phosphatase 138 H (46-116) U/L Total Protein 5.3 L (6.4-8.2) g/dL Albumin 1.5 L (3.4-5.0) g/dL Globulin 3.8 (2.2-4.2) g/dL Albumin/Globulin Ratio 0.4 L (0.8-2.0) Vitamin B12 (232-1245) pg/mL Vitamin D 25-Hydroxy (30.0-100.0) ng/mL 07/20/19 Range/Units 15:49 WBC (4.0-11.0) K/uL RBC (3.80-5.80) M/uL Hgb (11.5-16.5) g/dL Hct (37.0-47.0) % MCV (76-96) fL MCH (27.0-32.0) pg MCHC (31.0-35.0) g/dL RDW (11.0-16.0) % Plt Count (150-500) K/uL MPV (6.0-10.0) fL Neut % (Auto) (45.0-70.0) % Lymph % (Auto) (20.0-40.0) % [place] % (Auto) (3.0-10.0) % Eos % (Auto) (1.0-5.0) % Baso % (Auto) (0.0-0.5) % Neut # (Auto) (2.00-7.50) K/uL Lymph # (Auto) (1.50-4.00) K/uL [place] # (Auto) (0.20-0.80) K/uL Eos # (Auto) (0.04-0.40) K/uL Baso # (Auto) (0.02-0.10) K/uL Sodium (136-145) mmol/L Potassium (3.5-5.1) mmol/L Chloride (98-107) mmol/L Carbon Dioxide (21.0-32.0) mmol/L Anion Gap (5.0-15.0) mmol/L BUN (8-26) mg/dL Creatinine (0.55-1.02) mg/dL Est Cr Clr Drug Dosing mL/min Estimated GFR (MDRD) (>60) MLS/MIN BUN/Creatinine Ratio (6-25) Glucose (74-100) mg/dL POC Glucose 185 H (74-110) mg/dL Calcium (8.5-10.1) mg/dL Magnesium (1.8-2.4) mg/dL Total Bilirubin (0.0-1.0) mg/dL AST (15-37) U/L ALT (12-78) U/L Alkaline Phosphatase (46-116) U/L Total Protein (6.4-8.2) g/dL Albumin (3.4-5.0) g/dL Globulin (2.2-4.2) g/dL Albumin/Globulin Ratio (0.8-2.0) Vitamin B12 (232-1245) pg/mL Vitamin D 25-Hydroxy (30.0-100.0) ng/mL [place] Results Last 24 Hours: Microbiology 07/17/19 Unknown Urine Culture - Final Urine, Clean Catch NO GROWTH AFTER 2 DAYS 07/18/19 13:30 MRSA Surveillance Culture - Final Nares, Unspecified NO MRSA ISOLATED Med Orders - Current: Current Medications Acetaminophen (Tylenol) 650 mg PO Q4H PRN PRN Reason: Pain/Fever Last Admin: 07/17/19 20:01 Dose: 650 mg Hydrocodone Bitart/Acetaminophen ([place] 325-5 Mg) 1 tab PO Q6H PRN PRN Reason: Pain Last Admin: 07/20/19 16:44 Dose: 1 tab Atorvastatin Calcium (Lipitor) 10 mg PO DAILY [facility], [facility] Last Admin: 07/20/19 08:14 Dose: 10 mg Calcium Carbonate/Glycine (Tums) 500 mg PO TID [facility], [facility]1983 Last Admin: 07/20/19 14:56 Dose: 500 mg Cholecalciferol (Vitamin D3) 2,000 unit PO DAILY [facility], [facility] Last Admin: 07/20/19 08:13 Dose: 2,000 unit Ciprofloxacin (Ciprofloxacin Hcl) 500 mg PO BID [facility], [facility]1983 Stop: 07/22/19 21:00 Last Admin: 07/20/19 08:12 Dose: 500 mg Cyanocobalamin (Vitamin B12) 1,000 mcg PO DAILY [facility], [facility] Last Admin: 07/20/19 08:13 Dose: 1,000 mcg Diphenhydramine HCl (Benadryl) 50 mg PO ASDIRECTED PRN PRN Reason: Allergies Last Admin: 07/17/19 20:00 Dose: 50 mg Ferrous Sulfate (Ferrous Sulfate) 325 mg PO DAILY [facility] Last Admin: 07/20/19 08:13 Dose: 325 mg Furosemide (Lasix) 20 mg PO DAILY [facility] Last Admin: 07/20/19 08:12 Dose: 20 mg Gabapentin (Neurontin) 600 mg PO TID [facility] Last Admin: 07/20/19 14:56 Dose: 600 mg Sodium Chloride (Sodium Chloride 0.45%) 1,000 mls @ 100 mls/hr IV ASDIRECTED [facility], [facility] Last Admin: 07/20/19 12:43 Dose: 100 mls/hr Lactobacillus Acidophilus (Acidolphilus Extra Strength) 1 tab PO DAILY [facility] Loperamide HCl (Imodium) 2 mg PO ASDIRECTED PRN PRN Reason: Diarrhea Last Admin: 07/20/19 02:56 Dose: 2 mg Magnesium Oxide (Magnesium Oxide) 400 mg PO DAILY [facility] Last Admin: 07/20/19 09:07 Dose: 400 mg Metformin HCl (Glucophage) 500 mg PO TIDMEALS [facility] Last Admin: 07/20/19 12:08 Dose: 500 mg Metoprolol Succinate (Toprol Xl) 12.5 mg PO BEDTIME [facility] Last Admin: 07/19/19 20:19 Dose: 12.5 mg Multivitamins/Minerals (Thera M Plus) 1 tab PO DAILY [facility] Non-Formulary Medication (Mirtazapine [Remeron]) 45 mg PO BEDTIME [facility] Last Admin: 07/19/19 20:23 Dose: 45 mg Ondansetron HCl (Zofran Odt) 4 mg PO Q6H PRN PRN Reason: Nausea Last Admin: 07/17/19 20:01 Dose: 4 mg Pantoprazole Sodium (Protonix) 40 mg PO BEDTIME [facility] Last Admin: 07/19/19 20:20 Dose: 40 mg Polyethylene Glycol (Miralax) 238 gm PO DAILY [facility] Last Admin: 07/20/19 08:17 Dose: Not Given Discontinued Medications Sodium Chloride (Normal Saline) 500 mls @ 500 mls/hr IV .BOLUS ONE Stop: 07/17/19 14:40 Last Admin: 07/17/19 13:41 Dose: 500 mls/hr Potassium Chloride/Sodium Chloride (Normal Saline With 40 Meq Kcl) 1,000 mls @ 150 mls/hr IV ASDIRECTED [facility], [facility] Last Admin: 07/18/19 14:24 Dose: 150 mls/hr Magnesium Sulfate/Dextrose (Magnesium Sulfate In D5w 100 Premix) 1 gm in 100 mls @ 100 mls/hr IV QID [facility]1983 Stop: 07/18/19 16:59 Last Admin: 07/18/19 15:49 Dose: 100 mls/hr Lactobacillus Acidophilus (Acidolphilus Extra Strength) Confirm Administered Dose 1 tab .ROUTE .STK-MED ONE Stop: 07/19/19 07:21 Last Admin: 07/19/19 10:56 Dose: Not Given Lactobacillus Acidophilus (Acidolphilus Extra Strength) Confirm Administered Dose 1 tab .ROUTE .STK-MED ONE Stop: 07/20/19 08:17 Last Admin: 07/20/19 09:05 Dose: Not Given Mirtazapine (Remeron) Confirm Administered Dose 45 mg .ROUTE .STK-MED ONE Stop: 07/17/19 19:56 Last Admin: 07/17/19 20:12 Dose: Not Given Mirtazapine (Remeron) Confirm Administered Dose 45 mg .ROUTE .STK-MED ONE Stop: 07/18/19 20:06 Last Admin: 07/18/19 20:13 Dose: Not Given Mirtazapine (Remeron) Confirm Administered Dose 45 mg .ROUTE .STK-MED ONE Stop: 07/19/19 19:13 Last Admin: 07/19/19 20:18 Dose: Not Given Multivitamins/Minerals (Thera M Plus) Confirm Administered Dose 1 tab .ROUTE .STK-MED ONE Stop: 07/19/19 07:22 Last Admin: 07/19/19 10:56 Dose: Not Given Multivitamins/Minerals (Thera M Plus) Confirm Administered Dose 1 tab .ROUTE .STK-MED ONE Stop: 07/20/19 08:17 Last Admin: 07/20/19 09:05 Dose: Not Given Non-Formulary Medication (Lactobacillus Acidophilus [Acidophilus]) 1 each PO DAILY [facility] Last Admin: 07/20/19 08:18 Dose: 1 each Non-Formulary Medication (Multivit,Calc,Mins/Iron/Folic [Thera-M]) 1 each PO DAILY IRENE Last Admin: 07/20/19 08:18 Dose: 1 each Polyethylene Glycol (Miralax) Confirm Administered Dose 17 gm .ROUTE .STK-MED ONE Stop: 07/20/19 08:18 Last Admin: 07/20/19 09:06 Dose: Not Given Potassium Chloride (Klor-Con M20) 20 meq PO ONETIME ONE Stop: 07/17/19 15:09 Last Admin: 07/17/19 15:34 Dose: 20 meq - Exam General: Alert, Oriented, Cooperative HEENT: Pupils Equal, Pupils Reactive, EOMI Neck: Supple Lungs: Normal Respiratory Effort, Decreased Breath Sounds Cardiovascular: Regular Rate, Regular Rhythm GI/Abdominal Exam: Normal Bowel Sounds, Soft, Non-Tender Back Exam: Normal Inspection Extremities: Pedal Edema Peripheral Pulses: 2+: Dorsalis Pedis (L), Dorsalis Pedis (R) Skin: Warm, Dry, Intact Neurological: No New Focal Deficit Psy/Mental Status: Alert, Depressed - Problem List & Annotations (1) Failure to thrive SNOMED Code(s): 86183729 Code(s): CKC1379 - Status: Suspected Priority: High Current Visit: Yes Onset Date: 05/15/14 Annotation/Comment:: 06/05/2014 Running bolus feedings and doing well. Activities Assistant to adjust. (2) Hypotension, Low blood pressure SNOMED Code(s): 02641667 Code(s): I95.9 - HYPOTENSION, UNSPECIFIED Status: Suspected Priority: High Current Visit: Yes Annotation/Comment:: Patient had colonoscopy today. Was given a bolus of IV fluids with little response of her blood pressure. Will hold her BP meds and diabetic meds. Lab work shows elevated liver functions. Did have a Abd CT in [place] recently and the renal mass was noted. Dr. Young the urologist noted to follow this. Patient continues to fail. Will obtain a MRI of her back next week. Does have off and on diarrhea. Would like to check a C diff. Was tested before and negative. If continues to have diarrhea would order other stool samples. Will hydrate at this time and hold most of her meds at this time. Would consider gastro consult in the future for elevation of liver functions and general inablity to eat and maintain weight. (3) Dehydration SNOMED Code(s): 62307921 Code(s): E86.0 - DEHYDRATION Status: Resolved Priority: High Current Visit: Yes (4) Generalized weakness SNOMED Code(s): 69207172 Code(s): R53.1 - WEAKNESS Status: Resolved Priority: High Current Visit : Yes (5) UTI (urinary tract infection) SNOMED Code(s): 96320024 Code(s): N39.0 - URINARY TRACT INFECTION, SITE NOT SPECIFIED Status: Resolved Priority: High Current Visit: Yes Qualifiers: Urinary tract infection type: acute cystitis Hematuria presence: without hematuria Qualified Code(s): N30.00 - Acute cystitis without hematuria (6) Major depressive disorder SNOMED Code(s): 063398253 Code(s): F32.9 - MAJOR DEPRESSIVE DISORDER, SINGLE EPISODE, UNSPECIFIED Status: Acute Current Visit: Yes Qualifiers: Major depression recurrence: unspecified whether recurrent Active/ Remission status: currently active Major depression episode severity: moderate Qualified Code(s): F32.1 - Major depressive disorder, single episode , moderate (7) CHF (congestive heart failure) SNOMED Code(s): 54412619 Code(s): I50.9 - HEART FAILURE, UNSPECIFIED Status: Acute Priority: High Current Visit: Yes Qualifiers: Heart failure type: unspecified Heart failure chronicity: acute Qualified Code(s): I50.9 - Heart failure, unspecified (8) Hypocalcemia SNOMED Code(s): 8144800 Code(s): E83.51 - HYPOCALCEMIA Status: Acute Priority: Medium Current Visit: Yes (9) Vitamin D deficiency SNOMED Code(s): 04205171 Code(s): E55.9 - VITAMIN D DEFICIENCY, UNSPECIFIED Status: Acute Priority : Medium Current Visit: Yes (10) Hypomagnesemia SNOMED Code(s): 156756911 Code(s): E83.42 - HYPOMAGNESEMIA Status: Acute Priority: Medium Current Visit: Yes (11) CAD (coronary artery disease) SNOMED Code(s): 02506906 Code(s): I25.10 - ATHSCL HEART DISEASE OF [place] CORONARY ARTERY W/O ANG PCTRS Status: Chronic Priority: High Current Visit: Yes Qualifiers: Coronary Disease-Associated Artery/Lesion type: unspecified vessel or lesion type [place] vs. transplanted heart: unspecified whether [place] or transplanted heart Associated angina: without angina Qualified Code(s): I25.10 - Atherosclerotic heart disease of [place] coronary artery without angina pectoris - Problem List Review Problem List Initiated/Reviewed/Updated: Yes - My Orders Last 24 Hours: My Active Orders 07/20/19 08:45 Magnesium Oxide 400 mg PO DAILY 07/20/19 09:33 PTH, INTACT Routine - Plan Plan:: Counseled on repeat labs in the AM. Discussed weakness, fatigue and continued diet with PT/OT. 07/19/19 Discussed changes in electrolytes and further fluids as discussed and f/u labs in am. Discussed PT/OT and the need for continued rehabilitation for weakness. Discussed low magnesium and supplementation. Discussed deficiency in vitamin D, Calcium and supplementation. Discussed CHF and need for f/u with Cardiology and Echo and management. We will adjust medications and f/u CHF. Discussed Major depressive disorder and medication management - likely that mirtazapine is not working as well or enough at this time. Discussed possibility for need of feeding tube for her failure to thrive. She has been on a feeding tube in the past which did work well. Patient requires further management and treatment and follow up labs in am. 07/20/19 Patient will require physical therapy and occupational therapy rehabilitation. Her symptoms of dyspnea and CHF do appear improved. Her electrolytes have stabilized. UTI has been treated and patient to finish course of antibiotics. Patient willing to start further medications for depression. Will start trial of fluoxetine. Patient counseled on low Vit D, Ca and magnesium. Counseled on failure to thrive and feeding and possibility of starting a feeding tube.
[2019-07-20] MEDS ORDERED: Mirtazapine 15 MG Tab ONE (19:21)
[2019-07-20] MEDS: MIRTAZAPINE 45 MG PO SCH (20:48)
[2019-07-20] MEDS: Pantoprazole 40 MG Tab.CR PO SCH (20:49)
[2019-07-20] MEDS: Metoprolol Succinate 25 MG Tab.ER PO SCH (20:49)
[2019-07-21] MEDS: atorvaSTATin 10 MG Tab PO SCH (08:15)
[2019-07-21] MEDS: Cyanocobalamin (Vitamin B12) 1,000 MCG Tab PO SCH (08:15)
[2019-07-21] MEDS: Ferrous Sulfate 325 MG Tab PO SCH (08:15)
[2019-07-21] MEDS: Ciprofloxacin 500 MG Tab PO SCH ×2 (08:15→19:36)
[2019-07-21] MEDS: Calcium Carbonate 500 MG Tab.Chew PO SCH ×3 (08:15→19:36)
[2019-07-21] MEDS: metFORMIN 500 MG Tab PO SCH ×3 (08:15→17:21)
[2019-07-21] MEDS: Cholecalciferol (Vitamin D3) 2,000 Unit Cap PO SCH (08:15)
[2019-07-21] MEDS: Gabapentin 300 MG Cap PO SCH ×3 (08:15→19:33)
[2019-07-21] MEDS: Lactobacillus Acidophilus/Lactobacillus Sporogenes (Probiotic) Tab PO SCH (08:16)
[2019-07-21] MEDS: Polyethylene Glycol 3350 Powder 510 GM Bot PO SCH (08:16)
[2019-07-21] MEDS: Multivitamins with Iron/Calcium/Folic Acid/Minerals Tab PO SCH (08:16)
[2019-07-21] MEDS: Acetaminophen/HYDROcodone 325-5 MG Tab PO PRN ×3 (08:16→19:42)
[2019-07-21] MEDS: Magnesium Oxide 400 MG Tab PO SCH (08:16)
[2019-07-21] MEDS: Furosemide 20 MG Tab PO SCH (08:16)
--- NOTE | 2019-07-21 12:33 | PCM.PN ---
- General Info Date of Service: 07/21/19 Admission Dx/Problem (Free Text): Patient continues to complain of back pain but states that it is not different than it usually is. Weight gain of 14# in past 4 days. IV fluids stopped and patient encouraged to increase oral fluid intake. Subjective Update: This is a 59yo F with a recent acute CHF exacerbation. She has concurrent failure to thrive with hypokalemia, hypomagnesemia, vitamin D deficiency, and hypocalcemia. She was diagnosed with a UTI and dehydration. She has a history of DM and prior gastric bypass with a feeding tube due to the failure to thrive. She has improved to date but remains very frail and weak with difficulty standing up and is a fall risk. She may also require another feeding tube placement due to malnourishment. Functional Status: Reports: Pain Controlled - Review of Systems General: Reports: Appetite, Other (appetite improved). Denies: Fever HEENT: Reports: No Symptoms Pulmonary: Denies: Shortness of Breath, Cough, Wheezing Cardiovascular: Denies: Chest Pain Gastrointestinal: Reports: Nausea, Other (some mild nausea). Denies: Abdominal Pain Genitourinary: Reports: No Symptoms Musculoskeletal: Reports: Back Pain, Other (states back pain is like normal.) Skin: Reports: No Symptoms Neurological: Reports: No Symptoms - Patient Data Vitals - Most Recent: Last Vital Signs Temp 36.8 C 07/21/19 08:00 Pulse 94 07/21/19 08:00 Resp 18 07/21/19 08:00 BP 101/65 07/21/19 08:00 Pulse Ox 96 07/21/19 08:00 Weight - Most Recent: 68.209 kg I&O - Last 24 Hours: Intake & Output 07/20/19 07/21/19 07/21/19 22:59 06:59 14:59 Intake Total 1999 1439 Output Total 1800 1500 Balance 200 -61 Lab Results Last 24 Hours: Laboratory Results - last 24 hr 07/20/19 07/20/19 07/21/19 Range/Units 15:49 19:29 07:12 POC Glucose 185 H 185 H 105 (74-110) mg/dL 07/21/19 Range/Units 10:59 POC Glucose 199 H (74-110) mg/dL Med Orders - Current: Current Medications Acetaminophen (Tylenol) 650 mg PO Q4H PRN PRN Reason: Pain/Fever Last Admin: 07/17/19 20:01 Dose: 650 mg Hydrocodone Bitart/Acetaminophen ([place] 325-5 Mg) 1 tab PO Q6H PRN PRN Reason: Pain Last Admin: 07/21/19 08:16 Dose: 1 tab Atorvastatin Calcium (Lipitor) 10 mg PO DAILY [facility] Last Admin: 07/21/19 08:15 Dose: 10 mg Calcium Carbonate/Glycine (Tums) 500 mg PO TID [facility] Last Admin: 07/21/19 08:15 Dose: 500 mg Cholecalciferol (Vitamin D3) 2,000 unit PO DAILY [facility] Last Admin: 07/21/19 08:15 Dose: 2,000 unit Ciprofloxacin (Ciprofloxacin Hcl) 500 mg PO BID [facility] Stop: 07/22/19 21:00 Last Admin: 07/21/19 08:15 Dose: 500 mg Cyanocobalamin (Vitamin B12) 1,000 mcg PO DAILY [facility] Last Admin: 07/21/19 08:15 Dose: 1,000 mcg Diphenhydramine HCl (Benadryl) 50 mg PO ASDIRECTED PRN PRN Reason: Allergies Last Admin: 07/17/19 20:00 Dose: 50 mg Ferrous Sulfate (Ferrous Sulfate) 325 mg PO DAILY [facility] Last Admin: 07/21/19 08:15 Dose: 325 mg Furosemide (Lasix) 20 mg PO DAILY [facility] Last Admin: 07/21/19 08:16 Dose: 20 mg Gabapentin (Neurontin) 600 mg PO TID [facility] Last Admin: 07/21/19 08:15 Dose: 600 mg Sodium Chloride (Sodium Chloride 0.45%) 1,000 mls @ 100 mls/hr IV ASDIRECTED [facility] Last Admin: 07/20/19 23:14 Dose: 100 mls/hr Lactobacillus Acidophilus (Acidolphilus Extra Strength) 1 tab PO DAILY [facility] Last Admin: 07/21/19 08:16 Dose: 1 tab Loperamide HCl (Imodium) 2 mg PO ASDIRECTED PRN PRN Reason: Diarrhea Last Admin: 07/20/19 02:56 Dose: 2 mg Magnesium Oxide (Magnesium Oxide) 400 mg PO DAILY [facility] Last Admin: 07/21/19 08:16 Dose: 400 mg Metformin HCl (Glucophage) 500 mg PO TIDMEALS [facility] Last Admin: 07/21/19 12:03 Dose: 500 mg Metoprolol Succinate (Toprol Xl) 12.5 mg PO BEDTIME [facility] Last Admin: 07/20/19 20:49 Dose: 12.5 mg Multivitamins/Minerals (Thera M Plus) 1 tab PO DAILY [facility] Last Admin: 07/21/19 08:16 Dose: 1 tab Non-Formulary Medication (Mirtazapine [Remeron]) 45 mg PO BEDTIME [facility] Last Admin: 07/20/19 20:48 Dose: 45 mg Ondansetron HCl (Zofran Odt) 4 mg PO Q6H PRN PRN Reason: Nausea Last Admin: 07/17/19 20:01 Dose: 4 mg Pantoprazole Sodium (Protonix) 40 mg PO BEDTIME [facility] Last Admin: 07/20/19 20:49 Dose: 40 mg Polyethylene Glycol (Miralax) 238 gm PO DAILY [facility] Last Admin: 07/21/19 08:16 Dose: Not Given Discontinued Medications Sodium Chloride (Normal Saline) 500 mls @ 500 mls/hr IV .BOLUS ONE Stop: 07/17/19 14:40 Last Admin: 07/17/19 13:41 Dose: 500 mls/hr Potassium Chloride/Sodium Chloride (Normal Saline With 40 Meq Kcl) 1,000 mls @ 150 mls/hr IV ASDIRECTED [facility] Last Admin: 07/18/19 14:24 Dose: 150 mls/hr Magnesium Sulfate/Dextrose (Magnesium Sulfate In D5w 100 Premix) 1 gm in 100 mls @ 100 mls/hr IV QID [facility] Stop: 07/18/19 16:59 Last Admin: 07/18/19 15:49 Dose: 100 mls/hr Lactobacillus Acidophilus (Acidolphilus Extra Strength) Confirm Administered Dose 1 tab .ROUTE .STK-MED ONE Stop: 07/19/19 07:21 Last Admin: 07/19/19 10:56 Dose: Not Given Lactobacillus Acidophilus (Acidolphilus Extra Strength) Confirm Administered Dose 1 tab .ROUTE .STK-MED ONE Stop: 07/20/19 08:17 Last Admin: 07/20/19 09:05 Dose: Not Given Mirtazapine (Remeron) Confirm Administered Dose 45 mg .ROUTE .STK-MED ONE Stop: 07/17/19 19:56 Last Admin: 07/17/19 20:12 Dose: Not Given Mirtazapine (Remeron) Confirm Administered Dose 45 mg .ROUTE .STK-MED ONE Stop: 07/18/19 20:06 Last Admin: 07/18/19 20:13 Dose: Not Given Mirtazapine (Remeron) Confirm Administered Dose 45 mg .ROUTE .STK-MED ONE Stop: 07/19/19 19:13 Last Admin: 07/19/19 20:18 Dose: Not Given Mirtazapine (Remeron) Confirm Administered Dose 45 mg .ROUTE .STK-MED ONE Stop: 07/20/19 19:22 Last Admin: 07/20/19 20:47 Dose: Not Given Multivitamins/Minerals (Thera M Plus) Confirm Administered Dose 1 tab .ROUTE .STK-MED ONE Stop: 07/19/19 07:22 Last Admin: 07/19/19 10:56 Dose: Not Given Multivitamins/Minerals (Thera M Plus) Confirm Administered Dose 1 tab .ROUTE .STK-MED ONE Stop: 07/20/19 08:17 Last Admin: 07/20/19 09:05 Dose: Not Given Non-Formulary Medication (Lactobacillus Acidophilus [Acidophilus]) 1 each PO DAILY [facility] Last Admin: 07/20/19 08:18 Dose: 1 each Non-Formulary Medication (Multivit,Calc,Mins/Iron/Folic [Thera-M]) 1 each PO DAILY [facility] Last Admin: 07/20/19 08:18 Dose: 1 each Polyethylene Glycol (Miralax) Confirm Administered Dose 17 gm .ROUTE .STK-MED ONE Stop: 07/20/19 08:18 Last Admin: 07/20/19 09:06 Dose: Not Given Potassium Chloride (Klor-Con M20) 20 meq PO ONETIME ONE Stop: 07/17/19 15:09 Last Admin: 07/17/19 15:34 Dose: 20 meq - Exam General: Alert, Oriented, Cooperative, No Acute Distress HEENT: Pupils Equal, Pupils Reactive, Mucous Membr. Moist/[place] Neck: Supple Lungs: Clear to Auscultation, Normal Respiratory Effort. No: Crackles, Rales Cardiovascular: Regular Rate, Regular Rhythm GI/Abdominal Exam: Normal Bowel Sounds, Soft, Non-Tender Back Exam: Normal Inspection Extremities: Normal Capillary Refill, Other (2+ pitting edema bilateral ankles; mild swelling to left forearm and wrist.) Skin: Warm, Dry, Intact Neurological: No New Focal Deficit Psy/Mental Status: Alert, Normal Affect, Normal Mood - Problem List & Annotations (1) Failure to thrive SNOMED Code(s): 21642185 Code(s): NLG3285 - Status: Suspected Priority: High Current Visit: Yes Onset Date: 05/15/14 Annotation/Comment:: 06/05/2014 Running bolus feedings and doing well. [employer] to adjust. (2) CHF (congestive heart failure) SNOMED Code(s): 00835838 Code(s): I50.9 - HEART FAILURE, UNSPECIFIED Status: Acute Priority: High Current Visit: Yes Qualifiers: Heart failure type: unspecified Heart failure chronicity: acute Qualified Code(s): I50.9 - Heart failure, unspecified - Problem List Review Problem List Initiated/Reviewed/Updated: Yes - Plan Plan:: Counseled on repeat labs in the AM. Discussed weakness, fatigue and continued diet with PT/OT. 07/19/19 Discussed changes in electrolytes and further fluids as discussed and f/u labs in am. Discussed PT/OT and the need for continued rehabilitation for weakness. Discussed low magnesium and supplementation. Discussed deficiency in vitamin D, Calcium and supplementation. Discussed CHF and need for f/u with Cardiology and Echo and management. We will adjust medications and f/u CHF. Discussed Major depressive disorder and medication management - likely that mirtazapine is not working as well or enough at this time. Discussed possibility for need of feeding tube for her failure to thrive. She has been on a feeding tube in the past which did work well. Patient requires further management and treatment and follow up labs in am. 07/20/19 Patient will require physical therapy and occupational therapy rehabilitation. Her symptoms of dyspnea and CHF do appear improved. Her electrolytes have stabilized. UTI has been treated and patient to finish course of antibiotics. Patient willing to start further medications for depression. Will start trial of fluoxetine. Patient counseled on low Vit D, Ca and magnesium. Counseled on failure to thrive and feeding and possibility of starting a feeding tube. 07/21/19 Will continue with functional medicine interventions. She does not have evidence of dyspnea today and breath sounds are clear; however, has had a significant with gain with pitting edema of bilateral ankles. She is eating some today and drinking oral fluids. Will continue to observe and consider increased antidiuretic therapy as needed.
[2019-07-21] MEDS ORDERED: Mirtazapine 15 MG Tab ONE (19:30)
[2019-07-21] MEDS: MIRTAZAPINE 45 MG PO SCH (19:32)
[2019-07-21] MEDS: Metoprolol Succinate 25 MG Tab.ER PO SCH (19:33)
[2019-07-21] MEDS: Pantoprazole 40 MG Tab.CR PO SCH (19:33)
[2019-07-21] MEDS: Sodium Chloride 0.9% 10 ML Syringe FLUSH SCH (19:37)
[2019-07-22 03:48] VITALS: PULSE 95
[2019-07-22] MEDS: Sodium Chloride 0.9% 10 ML Syringe FLUSH SCH (07:31)
[2019-07-22] MEDS: Acetaminophen/HYDROcodone 325-5 MG Tab PO PRN (07:33)
[2019-07-22] MEDS: Ferrous Sulfate 325 MG Tab PO SCH (07:38)
[2019-07-22] MEDS: Cholecalciferol (Vitamin D3) 2,000 Unit Cap PO SCH (07:38)
[2019-07-22] MEDS: Calcium Carbonate 500 MG Tab.Chew PO SCH (07:38)
[2019-07-22] MEDS: Ciprofloxacin 500 MG Tab PO SCH (07:38)
[2019-07-22] MEDS: Cyanocobalamin (Vitamin B12) 1,000 MCG Tab PO SCH (07:38)
[2019-07-22] MEDS: Gabapentin 300 MG Cap PO SCH (07:38)
[2019-07-22] MEDS: Multivitamins with Iron/Calcium/Folic Acid/Minerals Tab PO SCH (07:38)
[2019-07-22] MEDS: metFORMIN 500 MG Tab PO SCH (07:38)
[2019-07-22] MEDS: Magnesium Oxide 400 MG Tab PO SCH (07:39)
[2019-07-22] MEDS: Lactobacillus Acidophilus/Lactobacillus Sporogenes (Probiotic) Tab PO SCH (07:39)
[2019-07-22] MEDS: atorvaSTATin 10 MG Tab PO SCH (07:39)
[2019-07-22] MEDS: Polyethylene Glycol 3350 Powder 510 GM Bot PO SCH (07:40)
[2019-07-22] MEDS: Furosemide 20 MG Tab PO SCH (07:40)
[2019-07-22 07:51] VITALS: BP 99/61
--- NOTE | 2019-07-22 10:05 | PCM.PN ---
- General Info Date of Service: 07/22/19 Admission Dx/Problem (Free Text): Patient continues to complain of back pain but states that it is not different than it usually is. Weight gain of 14# in past 4 days. IV fluids stopped and patient encouraged to increase oral fluid intake. Functional Status: Reports: Pain Controlled - Review of Systems General: Reports: Weakness. Denies: Fever HEENT: Reports: No Symptoms Pulmonary: Denies: Shortness of Breath, Cough, Wheezing Cardiovascular: Reports: No Symptoms Gastrointestinal: Denies: Abdominal Pain, Diarrhea, Nausea, Vomiting Musculoskeletal: Reports: No Symptoms Skin: Reports: No Symptoms Neurological: Reports: No Symptoms - Patient Data Vitals - Most Recent: Last Vital Signs Temp 36.4 C 07/22/19 07:50 Pulse 95 07/22/19 07:50 Resp 18 07/22/19 07:50 BP 99/61 07/22/19 07:50 Pulse Ox 100 07/22/19 07:50 Weight - Most Recent: 68.765 kg I&O - Last 24 Hours: Intake & Output 07/21/19 07/22/19 07/22/19 22:59 06:59 14:59 Intake Total 840 300 Output Total 900 Balance -60 300 Lab Results Last 24 Hours: Laboratory Results - last 24 hr 07/21/19 07/21/19 07/22/19 Range/Units 10:59 16:16 07:24 POC Glucose 199 H 229 H 148 H (74-110) mg/dL Magnesium (1.8-2.4) mg/dL 07/22/19 Range/Units 08:56 POC Glucose (74-110) mg/dL Magnesium 1.1 L D (1.8-2.4) mg/dL Med Orders - Current: Current Medications Acetaminophen (Tylenol) 650 mg PO Q4H PRN PRN Reason: Pain/Fever Last Admin: 07/17/19 20:01 Dose: 650 mg Hydrocodone Bitart/Acetaminophen ([place] 325-5 Mg) 1 tab PO Q6H PRN PRN Reason: Pain Last Admin: 07/22/19 07:33 Dose: 1 tab Atorvastatin Calcium (Lipitor) 10 mg PO DAILY [facility] Last Admin: 07/22/19 07:39 Dose: 10 mg Calcium Carbonate/Glycine (Tums) 500 mg PO TID [facility] Last Admin: 07/22/19 07:38 Dose: 500 mg Cholecalciferol (Vitamin D3) 2,000 unit PO DAILY [facility] Last Admin: 07/22/19 07:38 Dose: 2,000 unit Ciprofloxacin (Ciprofloxacin Hcl) 500 mg PO BID [facility] Stop: 07/22/19 21:00 Last Admin: 07/22/19 07:38 Dose: 500 mg Cyanocobalamin (Vitamin B12) 1,000 mcg PO DAILY [facility] Last Admin: 07/22/19 07:38 Dose: 1,000 mcg Diphenhydramine HCl (Benadryl) 50 mg PO ASDIRECTED PRN PRN Reason: Allergies Last Admin: 07/17/19 20:00 Dose: 50 mg Ferrous Sulfate (Ferrous Sulfate) 325 mg PO DAILY [facility] Last Admin: 07/22/19 07:38 Dose: 325 mg Furosemide (Lasix) 20 mg PO DAILY [facility] Last Admin: 07/22/19 07:40 Dose: 20 mg Gabapentin (Neurontin) 600 mg PO TID [facility] Last Admin: 07/22/19 07:38 Dose: 600 mg Lactobacillus Acidophilus (Acidolphilus Extra Strength) 1 tab PO DAILY [facility] Last Admin: 07/22/19 07:39 Dose: 1 tab Loperamide HCl (Imodium) 2 mg PO ASDIRECTED PRN PRN Reason: Diarrhea Last Admin: 07/20/19 02:56 Dose: 2 mg Magnesium Oxide (Magnesium Oxide) 400 mg PO DAILY [facility] Last Admin: 07/22/19 07:39 Dose: 400 mg Metformin HCl (Glucophage) 500 mg PO TIDMEALS [facility] Last Admin: 07/22/19 07:38 Dose: 500 mg Metoprolol Succinate (Toprol Xl) 12.5 mg PO BEDTIME [facility] Last Admin: 07/21/19 19:33 Dose: 12.5 mg Multivitamins/Minerals (Thera M Plus) 1 tab PO DAILY [facility] Last Admin: 07/22/19 07:38 Dose: 1 tab Non-Formulary Medication (Mirtazapine [Remeron]) 45 mg PO BEDTIME [facility] Last Admin: 07/21/19 19:32 Dose: 45 mg Ondansetron HCl (Zofran Odt) 4 mg PO Q6H PRN PRN Reason: Nausea Last Admin: 07/17/19 20:01 Dose: 4 mg Pantoprazole Sodium (Protonix) 40 mg PO BEDTIME [facility] Last Admin: 07/21/19 19:33 Dose: 40 mg Polyethylene Glycol (Miralax) 238 gm PO DAILY [facility] Last Admin: 07/22/19 07:40 Dose: Not Given Sodium Chloride (Saline Flush) 10 ml FLUSH BID [facility] Last Admin: 07/22/19 07:31 Dose: 10 ml Discontinued Medications Sodium Chloride (Normal Saline) 500 mls @ 500 mls/hr IV .BOLUS ONE Stop: 07/17/19 14:40 Last Admin: 07/17/19 13:41 Dose: 500 mls/hr Potassium Chloride/Sodium Chloride (Normal Saline With 40 Meq Kcl) 1,000 mls @ 150 mls/hr IV ASDIRECTED [facility] Last Admin: 07/18/19 14:24 Dose: 150 mls/hr Magnesium Sulfate/Dextrose (Magnesium Sulfate In D5w 100 Premix) 1 gm in 100 mls @ 100 mls/hr IV QID [facility] Stop: 07/18/19 16:59 Last Admin: 07/18/19 15:49 Dose: 100 mls/hr Sodium Chloride (Sodium Chloride 0.45%) 1,000 mls @ 100 mls/hr IV ASDIRECTED [facility] Last Admin: 07/20/19 23:14 Dose: 100 mls/hr Lactobacillus Acidophilus (Acidolphilus Extra Strength) Confirm Administered Dose 1 tab .ROUTE .STK-MED ONE Stop: 07/19/19 07:21 Last Admin: 07/19/19 10:56 Dose: Not Given Lactobacillus Acidophilus (Acidolphilus Extra Strength) Confirm Administered Dose 1 tab .ROUTE .STK-MED ONE Stop: 07/20/19 08:17 Last Admin: 07/20/19 09:05 Dose: Not Given Mirtazapine (Remeron) Confirm Administered Dose 45 mg .ROUTE .STK-MED ONE Stop: 07/17/19 19:56 Last Admin: 07/17/19 20:12 Dose: Not Given Mirtazapine (Remeron) Confirm Administered Dose 45 mg .ROUTE .STK-MED ONE Stop: 07/18/19 20:06 Last Admin: 07/18/19 20:13 Dose: Not Given Mirtazapine (Remeron) Confirm Administered Dose 45 mg .ROUTE .STK-MED ONE Stop: 07/19/19 19:13 Last Admin: 07/19/19 20:18 Dose: Not Given Mirtazapine (Remeron) Confirm Administered Dose 45 mg .ROUTE .STK-MED ONE Stop: 07/20/19 19:22 Last Admin: 07/20/19 20:47 Dose: Not Given Multivitamins/Minerals (Thera M Plus) Confirm Administered Dose 1 tab .ROUTE .STK-MED ONE Stop: 07/19/19 07:22 Last Admin: 07/19/19 10:56 Dose: Not Given Multivitamins/Minerals (Thera M Plus) Confirm Administered Dose 1 tab .ROUTE .STK-MED ONE Stop: 07/20/19 08:17 Last Admin: 07/20/19 09:05 Dose: Not Given Non-Formulary Medication (Lactobacillus Acidophilus [Acidophilus]) 1 each PO DAILY [facility] Last Admin: 07/20/19 08:18 Dose: 1 each Non-Formulary Medication (Multivit,Calc,Mins/Iron/Folic [Thera-M]) 1 each PO DAILY [facility] Last Admin: 07/20/19 08:18 Dose: 1 each Polyethylene Glycol (Miralax) Confirm Administered Dose 17 gm .ROUTE .STK-MED ONE Stop: 07/20/19 08:18 Last Admin: 07/20/19 09:06 Dose: Not Given Potassium Chloride (Klor-Con M20) 20 meq PO ONETIME ONE Stop: 07/17/19 15:09 Last Admin: 07/17/19 15:34 Dose: 20 meq Comments:: Continues to complain of generalized weakness and back pain. She states her back pain is unchanged. She did ambulate to and stand for a shower this morning. Weight up 1 pound this morning for a total of 15# weight increase in past 5 days. Denies any difficulty breathing or shortness of breath when out of bed. - Exam General: Alert, Oriented, Other HEENT: Pupils Equal, Pupils Reactive, EOMI Neck: Supple Lungs: Clear to Auscultation, Normal Respiratory Effort. No: Crackles, Rales, Rhonchi Cardiovascular: Regular Rate, Regular Rhythm GI/Abdominal Exam: Normal Bowel Sounds, Soft, Non-Tender, No Distention Back Exam: Normal Inspection Extremities: Normal Inspection, Other (1+ pitting edema bilateral ankles.) Skin: Warm, Dry, Intact Neurological: No New Focal Deficit Psy/Mental Status: Alert, Normal Affect, Normal Mood - Problem List & Annotations (1) Failure to thrive SNOMED Code(s): 67409575 Code(s): ICA1066 - Status: Suspected Priority: High Current Visit: Yes Onset Date: 05/15/14 Annotation/Comment:: 06/05/2014 Running bolus feedings and doing well. [employer] to adjust. (2) CHF (congestive heart failure) SNOMED Code(s): 04806163 Code(s): I50.9 - HEART FAILURE, UNSPECIFIED Status: Acute Priority: High Current Visit: Yes Qualifiers: Heart failure type: unspecified Heart failure chronicity: acute Qualified Code(s): I50.9 - Heart failure, unspecified - Problem List Review Problem List Initiated/Reviewed/Updated: Yes - My Orders Last 24 Hours: My Active Orders 07/21/19 20:00 Sodium Chloride 0.9% [Saline Flush] 10 ml FLUSH BID - Plan Plan:: Counseled on repeat labs in the AM. Discussed weakness, fatigue and continued diet with PT/OT. 07/19/19 Discussed changes in electrolytes and further fluids as discussed and f/u labs in am. Discussed PT/OT and the need for continued rehabilitation for weakness. Discussed low magnesium and supplementation. Discussed deficiency in vitamin D, Calcium and supplementation. Discussed CHF and need for f/u with Cardiology and Echo and management. We will adjust medications and f/u CHF. Discussed Major depressive disorder and medication management - likely that mirtazapine is not working as well or enough at this time. Discussed possibility for need of feeding tube for her failure to thrive. She has been on a feeding tube in the past which did work well. Patient requires further management and treatment and follow up labs in am. 07/20/19 Patient will require physical therapy and occupational therapy rehabilitation. Her symptoms of dyspnea and CHF do appear improved. Her electrolytes have stabilized. UTI has been treated and patient to finish course of antibiotics. Patient willing to start further medications for depression. Will start trial of fluoxetine. Patient counseled on low Vit D, Ca and magnesium. Counseled on failure to thrive and feeding and possibility of starting a feeding tube. 07/21/19 Will continue with functional medicine interventions. She does not have evidence of dyspnea today and breath sounds are clear; however, has had a significant with gain with pitting edema of bilateral ankles. She is eating some today and drinking oral fluids. Will continue to observe and consider increased antidiuretic therapy as needed. 07/22/19 Continues functional medicine interventions. Was out of bed for a longer period of time this morning. Edema is decreased today and there is no evidence of respiratory distress. Awaiting [employer] confirmation of fci plan for placement.
--- NOTE | 2019-07-22 11:52 | PCM.DCSUM1 ---
Discharge Summary - Discharge Data Discharge Date: 07/22/19 Discharge Disposition: DC/Tfer W/I Hosp To Swing 61 Condition: Good - Referral to Home Health Primary Care Physician: PCP None - Discharge Diagnosis/Problem(s) (1) Failure to thrive SNOMED Code(s): 02855781 ICD Code: [id number] - Status: Suspected Priority: High Onset Date: 05/15 Problem Details: 06/05/2014 Running bolus feedings and doing well. Information Receptionist to adjust. (2) Hypotension, Low blood pressure SNOMED Code(s): 09629428 ICD Code: I95.9 - HYPOTENSION, UNSPECIFIED Status: Suspected Priority: High Problem Details: Patient had colonoscopy today. Was given a bolus of IV fluids with little response of her blood pressure. Will hold her BP meds and diabetic meds. Lab work shows elevated liver functions. Did have a Abd CT in [place] recently and the renal mass was noted. Dr. Young the urologist noted to follow this. Patient continues to fail. Will obtain a MRI of her back next week. Does have off and on diarrhea. Would like to check a C diff. Was tested before and negative. If continues to have diarrhea would order other stool samples. Will hydrate at this time and hold most of her meds at this time. Would consider gastro consult in the future for elevation of liver functions and general inablity to eat and maintain weight. (3) Dehydration SNOMED Code(s): 85204505 ICD Code: E86.0 - DEHYDRATION Status: Resolved Priority: High (4) Generalized weakness SNOMED Code(s): 97601731 ICD Code: R53.1 - WEAKNESS Status: Resolved Priority: High (5) UTI (urinary tract infection) SNOMED Code(s): 63598304 ICD Code: N39.0 - URINARY TRACT INFECTION, SITE NOT SPECIFIED Status: Resolved Priority: High Qualifiers: Urinary tract infection type: acute cystitis Hematuria presence: without hematuria Qualified Code(s): N30.00 - Acute cystitis without hematuria (6) Major depressive disorder SNOMED Code(s): 783983552 ICD Code: F32.9 - MAJOR DEPRESSIVE DISORDER, SINGLE EPISODE, UNSPECIFIED Status: Acute Qualifiers: Major depression recurrence: unspecified whether recurrent Active/ Remission status: currently active Major depression episode severity: moderate Qualified Code(s): F32.1 - Major depressive disorder, single episode , moderate (7) CHF (congestive heart failure) SNOMED Code(s): 05520680 ICD Code: I50.9 - HEART FAILURE, UNSPECIFIED Status: Acute Priority: High Qualifiers: Heart failure type: unspecified Heart failure chronicity: acute Qualified Code(s): I50.9 - Heart failure, unspecified (8) Hypocalcemia SNOMED Code(s): 8480647 ICD Code: E83.51 - HYPOCALCEMIA Status: Acute Priority: Medium (9) Vitamin D deficiency SNOMED Code(s): 34841920 ICD Code: E55.9 - VITAMIN D DEFICIENCY, UNSPECIFIED Status: Acute Priority: Medium (10) Hypomagnesemia SNOMED Code(s): 353926426 ICD Code: E83.42 - HYPOMAGNESEMIA Status: Acute Priority: Medium (11) CAD (coronary artery disease) SNOMED Code(s): 86259972 ICD Code: I25.10 - ATHSCL HEART DISEASE OF [place] CORONARY ARTERY W/O ANG PCTRS Status: Chronic Priority: High Qualifiers: Coronary Disease-Associated Artery/Lesion type: unspecified vessel or lesion type [place] vs. transplanted heart: unspecified whether [place] or transplanted heart Associated angina: without angina Qualified Code(s): I25.10 - Atherosclerotic heart disease of [place] coronary artery without angina pectoris - Patient Summary/Data Consults: Consultations 07/18/19 09:39 PT Evaluation and Treatment [CONS] Routine Please Evaluate and Treat. PT Reason for Consult: Strengthening This query below is only for informational purposes and is not editable. Admission Diagnosis/Problem: Hypokalemia 07/18/19 09:40 OT Evaluation and Treatment [CONS] Routine Please Evaluate and Treat. OT Reason for Consult: Discharge Planning This query below is only for informational purposes and is not editable. Admission Diagnosis/Problem: Hypokalemia - Patient Instructions Diet: Usual Diet as Tolerated Activity: As Tolerated Driving: Do Not Drive - Discharge Plan Home Medications: Home Meds Aspirin [Ecotrin] 81 mg PO BEDTIME 04/27/13 [History] Gabapentin [Neurontin] 600 mg PO TID 04/27/13 [History] Calcium Carbonate [Calcium Antacid] 500 mg PO TID 05/15/14 [History] Ferrous Sulfate 325 mg PO DAILY 05/15/14 [History] Mirtazapine [Remeron] 45 mg PO BEDTIME 05/30/14 [History] Cyanocobalamin (Vitamin B12) [Vitamin B12] 1,000 mcg PO DAILY #90 tab 06/15/14 [ Rx] diphenhydrAMINE HCl [Benadryl] 50 mg PO ASDIRECTED PRN 05/23/19 [History] Acetaminophen/HYDROcodone [[place] 325-5 MG] 1 tab PO Q6H PRN 06/08/19 [History] Cholecalciferol (Vitamin D3) [Vitamin D3] 2,000 unit PO DAILY 06/08/19 [History] Lactobacillus Acidophilus [Acidophilus] 1 each PO DAILY 06/08/19 [History] Multivit,Calc,Mins/Iron/Folic [Thera-M] 1 each PO DAILY 06/08/19 [History] Nystatin [Nystatin Crm] 15 gm TOP BID PRN 06/08/19 [History] atorvaSTATin [Lipitor] 10 mg PO DAILY 06/08/19 [History] metFORMIN [Glucophage] 500 mg PO TIDMEALS 06/08/19 [History] Acetaminophen [Tylenol] 650 mg PO Q4H PRN tablet 06/20/19 [Rx] Furosemide [Lasix] 20 mg PO DAILY #30 tablet 06/20/19 [Rx] Pantoprazole [ProTONIX] 40 mg PO BEDTIME #30 tab.cr 06/20/19 [Rx] Polyethylene Glycol 3350 [Powderlax] 238 gm PO DAILY #1 powder 06/20/19 [Rx] Metoprolol Succinate [Toprol XL] 12.5 mg PO BEDTIME #15 tab.er 07/11/19 [Rx] Ondansetron [Ondansetron ODT] 4 mg PO Q6H PRN #30 tab.rapdis 07/11/19 [Rx] Loperamide [Imodium] 2 mg PO ASDIRECTED PRN 07/22/19 [History] Magnesium Oxide 400 mg PO BID 07/22/19 [History] - Discharge Summary/Plan Comment DC Time >30 min.: Yes Discharge Summary/Plan Comment: Patient to be discharged to swing bed for rehabilitation and fluid hydration as needed. We will continue to monitor the recent CHF exacerbation and follow up workup and management. Dehydration resolved. Continued hypomagnesemia and supplementation for vitamin D deficiency and hypocalcemia. F/u PTH. Patient requires rehabilitation for ambulation and ADL's. - Patient Data Vitals - Most Recent: Last Vital Signs Temp 36.4 C 07/22/19 07:50 Pulse 95 07/22/19 07:50 Resp 18 07/22/19 07:50 BP 99/61 07/22/19 07:50 Pulse Ox 100 07/22/19 07:50 Weight - Most Recent: 68.765 kg I&O - Last 24 hours: Intake & Output 07/21/19 07/22/19 07/22/19 22:59 06:59 14:59 Intake Total 840 300 Output Total 900 Balance -60 300 Lab Results - Last 24 hrs: Laboratory Results - last 24 hr 07/21/19 07/21/19 07/22/19 Range/Units 10:59 16:16 07:24 Sodium (136-145) mmol/L Potassium (3.5-5.1) mmol/L Chloride (98-107) mmol/L Carbon Dioxide (21.0-32.0) mmol/L Anion Gap (5.0-15.0) mmol/L BUN (8-26) mg/dL Creatinine (0.55-1.02) mg/dL Est Cr Clr Drug Dosing mL/min Estimated GFR (MDRD) (>60) MLS/MIN BUN/Creatinine Ratio (6-25) Glucose (74-100) mg/dL POC Glucose 199 H 229 H 148 H (74-110) mg/dL Calcium (8.5-10.1) mg/dL Magnesium (1.8-2.4) mg/dL 07/22/19 07/22/19 Range/Units 08:55 08:56 Sodium 144 (136-145) mmol/L Potassium 3.7 D (3.5-5.1) mmol/L Chloride 110 H (98-107) mmol/L Carbon Dioxide 21.3 (21.0-32.0) mmol/L Anion Gap 16.4 H (5.0-15.0) mmol/L BUN 6 L D (8-26) mg/dL Creatinine 0.89 (0.55-1.02) mg/dL Est Cr Clr Drug Dosing 54.91 mL/min Estimated GFR (MDRD) > 60 (>60) MLS/MIN BUN/Creatinine Ratio 6.7 (6-25) Glucose 192 H D (74-100) mg/dL POC Glucose (74-110) mg/dL Calcium 7.4 L (8.5-10.1) mg/dL Magnesium 1.1 L D (1.8-2.4) mg/dL Med Orders - Current: Current Medications Discontinued Medications Acetaminophen (Tylenol) 650 mg PO Q4H PRN PRN Reason: Pain/Fever Last Admin: 07/17/19 20:01 Dose: 650 mg Hydrocodone Bitart/Acetaminophen ([place] 325-5 Mg) 1 tab PO Q6H PRN PRN Reason: Pain Last Admin: 07/22/19 07:33 Dose: 1 tab Atorvastatin Calcium (Lipitor) 10 mg PO DAILY [facility] Last Admin: 07/22/19 07:39 Dose: 10 mg Calcium Carbonate/Glycine (Tums) 500 mg PO TID [facility] Last Admin: 07/22/19 07:38 Dose: 500 mg Cholecalciferol (Vitamin D3) 2,000 unit PO DAILY [facility] Last Admin: 07/22/19 07:38 Dose: 2,000 unit Ciprofloxacin (Ciprofloxacin Hcl) 500 mg PO BID [facility] Stop: 07/22/19 21:00 Last Admin: 07/22/19 07:38 Dose: 500 mg Cyanocobalamin (Vitamin B12) 1,000 mcg PO DAILY [facility] Last Admin: 07/22/19 07:38 Dose: 1,000 mcg Diphenhydramine HCl (Benadryl) 50 mg PO ASDIRECTED PRN PRN Reason: Allergies Last Admin: 07/17/19 20:00 Dose: 50 mg Ferrous Sulfate (Ferrous Sulfate) 325 mg PO DAILY [facility] Last Admin: 07/22/19 07:38 Dose: 325 mg Furosemide (Lasix) 20 mg PO DAILY [facility] Last Admin: 07/22/19 07:40 Dose: 20 mg Gabapentin (Neurontin) 600 mg PO TID [facility] Last Admin: 07/22/19 07:38 Dose: 600 mg Sodium Chloride (Normal Saline) 500 mls @ 500 mls/hr IV .BOLUS ONE Stop: 07/17/19 14:40 Last Admin: 07/17/19 13:41 Dose: 500 mls/hr Potassium Chloride/Sodium Chloride (Normal Saline With 40 Meq Kcl) 1,000 mls @ 150 mls/hr IV ASDIRECTED [facility] Last Admin: 07/18/19 14:24 Dose: 150 mls/hr Magnesium Sulfate/Dextrose (Magnesium Sulfate In D5w 100 Premix) 1 gm in 100 mls @ 100 mls/hr IV QID [facility] Stop: 07/18/19 16:59 Last Admin: 07/18/19 15:49 Dose: 100 mls/hr Sodium Chloride (Sodium Chloride 0.45%) 1,000 mls @ 100 mls/hr IV ASDIRECTED [facility] Last Admin: 07/20/19 23:14 Dose: 100 mls/hr Lactobacillus Acidophilus (Acidolphilus Extra Strength) Confirm Administered Dose 1 tab .ROUTE .STK-MED ONE Stop: 07/19/19 07:21 Last Admin: 07/19/19 10:56 Dose: Not Given Lactobacillus Acidophilus (Acidolphilus Extra Strength) Confirm Administered Dose 1 tab .ROUTE .STK-MED ONE Stop: 07/20/19 08:17 Last Admin: 07/20/19 09:05 Dose: Not Given Lactobacillus Acidophilus (Acidolphilus Extra Strength) 1 tab PO DAILY [facility] Last Admin: 07/22/19 07:39 Dose: 1 tab Loperamide HCl (Imodium) 2 mg PO ASDIRECTED PRN PRN Reason: Diarrhea Last Admin: 07/20/19 02:56 Dose: 2 mg Magnesium Oxide (Magnesium Oxide) 400 mg PO DAILY [facility] Last Admin: 07/22/19 07:39 Dose: 400 mg Magnesium Oxide (Magnesium Oxide) 400 mg PO BID [facility] Metformin HCl (Glucophage) 500 mg PO TIDMEALS [facility] Last Admin: 07/22/19 07:38 Dose: 500 mg Metoprolol Succinate (Toprol Xl) 12.5 mg PO BEDTIME [facility] Last Admin: 07/21/19 19:33 Dose: 12.5 mg Mirtazapine (Remeron) Confirm Administered Dose 45 mg .ROUTE .STK-MED ONE Stop: 07/17/19 19:56 Last Admin: 07/17/19 20:12 Dose: Not Given Mirtazapine (Remeron) Confirm Administered Dose 45 mg .ROUTE .STK-MED ONE Stop: 07/18/19 20:06 Last Admin: 07/18/19 20:13 Dose: Not Given Mirtazapine (Remeron) Confirm Administered Dose 45 mg .ROUTE .STK-MED ONE Stop: 07/19/19 19:13 Last Admin: 07/19/19 20:18 Dose: Not Given Mirtazapine (Remeron) Confirm Administered Dose 45 mg .ROUTE .STK-MED ONE Stop: 07/20/19 19:22 Last Admin: 07/20/19 20:47 Dose: Not Given Multivitamins/Minerals (Thera M Plus) Confirm Administered Dose 1 tab .ROUTE .STK-MED ONE Stop: 07/19/19 07:22 Last Admin: 07/19/19 10:56 Dose: Not Given Multivitamins/Minerals (Thera M Plus) Confirm Administered Dose 1 tab .ROUTE .STK-MED ONE Stop: 07/20/19 08:17 Last Admin: 07/20/19 09:05 Dose: Not Given Multivitamins/Minerals (Thera M Plus) 1 tab PO DAILY [facility] Last Admin: 07/22/19 07:38 Dose: 1 tab Non-Formulary Medication (Lactobacillus Acidophilus [Acidophilus]) 1 each PO DAILY [facility] Last Admin: 07/20/19 08:18 Dose: 1 each Non-Formulary Medication (Mirtazapine [Remeron]) 45 mg PO BEDTIME [facility] Last Admin: 07/21/19 19:32 Dose: 45 mg Non-Formulary Medication (Multivit,Calc,Mins/Iron/Folic [Thera-M]) 1 each PO DAILY [facility] Last Admin: 07/20/19 08:18 Dose: 1 each Ondansetron HCl (Zofran Odt) 4 mg PO Q6H PRN PRN Reason: Nausea Last Admin: 07/17/19 20:01 Dose: 4 mg Pantoprazole Sodium (Protonix) 40 mg PO BEDTIME [facility] Last Admin: 07/21/19 19:33 Dose: 40 mg Polyethylene Glycol (Miralax) 238 gm PO DAILY [facility] Last Admin: 07/22/19 07:40 Dose: Not Given Polyethylene Glycol (Miralax) Confirm Administered Dose 17 gm .ROUTE .STK-MED ONE Stop: 07/20/19 08:18 Last Admin: 07/20/19 09:06 Dose: Not Given Potassium Chloride (Klor-Con M20) 20 meq PO ONETIME ONE Stop: 07/17/19 15:09 Last Admin: 07/17/19 15:34 Dose: 20 meq Sodium Chloride (Saline Flush) 10 ml FLUSH BID [facility] Last Admin: 07/22/19 07:31 Dose: 10 ml
[2019-07-22] MEDS ORDERED: Magnesium Oxide 400 MG Tab PO SCH (20:00)
== END 2019-07-22 11:28 | disposition swing bed (61) | DRG 641 ==
LOC: LB.ED 13:00 → LB.MS 14:52 → UNDOADMIN 15:00
PROVIDERS: ADMIT Physician Assistant; ATTEND Family Medicine
DX: E87.6 Hypokalemia (principal); N30.00 Acute cystitis without hematuria; F32.1 Major depressive disorder, single episode, moderate; E44.0 Moderate protein-calorie malnutrition; E86.0 Dehydration; I25.10 Atherosclerotic heart disease of native coronary artery without angina pectoris; R53.1 Weakness; E11.9 Type 2 diabetes mellitus without complications; E63.9 Nutritional deficiency, unspecified; K21.9 Gastro-esophageal reflux disease without esophagitis; G89.29 Other chronic pain; M54.9 Dorsalgia, unspecified; L89.109 Pressure ulcer of unspecified part of back, unspecified stage; I95.9 Hypotension, unspecified; I50.9 Heart failure, unspecified; E83.51 Hypocalcemia; E55.9 Vitamin D deficiency, unspecified; E83.42 Hypomagnesemia; Z68.26 Body mass index [BMI] 26.0-26.9, adult; Z79.82 Long term (current) use of aspirin; Z95.5 Presence of coronary angioplasty implant and graft; Z79.899 Other long term (current) drug therapy; Z79.84 Long term (current) use of oral hypoglycemic drugs; Z98.84 Bariatric surgery status
CPT/HCPCS: 36415; 71045; 80048; 80053; 81001; 82306; 82607; 82962; 83735; 83880; 83970; 84443; 85025; 87086; 96360; 97110-GO; 97110-GP; 97161-GP; 97165-GO; 97530-GO; 97530-GP; 97535-GO; 99285-25; A9270-GY; J3475; J3480; J3490; J7040

== ENCOUNTER 2019-07-22 10:33 | Inpatient (IN) | payer MEDICAID ==
[2019-07-22] MEDS ORDERED: Tuberculin, PPD 5 Units/0.1 ML 1 ML MDV IDERM ONE (11:16)
--- NOTE | 2019-07-22 11:17 | PCM.HP.2 ---
H&P History of Present Illness - General Date of Service: 07/22/19 Admit Problem/Dx: Admission Diagnosis/Problem Admission Diagnosis/Problem Weakness Source of Information: Patient, Old Records History Limitations: Reports: No Limitations - History of Present Illness Initial Comments - Free Text/Narative: This is a 59yo F admitted to swing bed post CHF exacerbation, dehydration, failure to thrive, severe muscular deconditioning and UTI for rehabilitation of ambulation, strength, appetite and possible further management with a feeding tube. Onset of Symptoms: Reports: Unknown/Unsure Duration of Symptoms: Reports: Getting Worse Location: Reports: Generalized Severity: Moderate Improves with: Reports: None Worsens with: Reports: None Associated Symptoms: Reports: Weakness Middle Back Pain Score (Numeric/FACES): 1 - Related Data Allergies/Adverse Reactions: Allergies Allergy/AdvReac Type Severity Reaction Status Date / Time codeine Allergy Intermediate Nausea and Verified 07/17/19 14:17 Vomiting morphine Allergy Intermediate Nausea and Verified 07/17/19 14:17 Vomiting Penicillins Allergy Intermediate Nausea and Verified 07/17/19 14:17 Vomiting Home Medications: Home Meds Aspirin [Ecotrin] 81 mg PO BEDTIME 04/27/13 [History] Gabapentin [Neurontin] 600 mg PO TID 04/27/13 [History] Calcium Carbonate [Calcium Antacid] 500 mg PO TID 05/15/14 [History] Ferrous Sulfate 325 mg PO DAILY 05/15/14 [History] Mirtazapine [Remeron] 45 mg PO BEDTIME 05/30/14 [History] Cyanocobalamin (Vitamin B12) [Vitamin B12] 1,000 mcg PO DAILY #90 tab 06/15/14 [ Rx] diphenhydrAMINE HCl [Benadryl] 50 mg PO ASDIRECTED PRN 05/23/19 [History] Acetaminophen/HYDROcodone [[place] 325-5 MG] 1 tab PO Q6H PRN 06/08/19 [History] Cholecalciferol (Vitamin D3) [Vitamin D3] 2,000 unit PO DAILY 06/08/19 [History] Lactobacillus Acidophilus [Acidophilus] 1 each PO DAILY 06/08/19 [History] Multivit,Calc,Mins/Iron/Folic [Thera-M] 1 each PO DAILY 06/08/19 [History] Nystatin [Nystatin Crm] 15 gm TOP BID PRN 06/08/19 [History] atorvaSTATin [Lipitor] 10 mg PO DAILY 06/08/19 [History] metFORMIN [Glucophage] 500 mg PO TIDMEALS 06/08/19 [History] Acetaminophen [Tylenol] 650 mg PO Q4H PRN tablet 06/20/19 [Rx] Furosemide [Lasix] 20 mg PO DAILY #30 tablet 06/20/19 [Rx] Pantoprazole [ProTONIX] 40 mg PO BEDTIME #30 tab.cr 06/20/19 [Rx] Polyethylene Glycol 3350 [Powderlax] 238 gm PO DAILY #1 powder 06/20/19 [Rx] Metoprolol Succinate [Toprol XL] 12.5 mg PO BEDTIME #15 tab.er 07/11/19 [Rx] Ondansetron [Ondansetron ODT] 4 mg PO Q6H PRN #30 tab.rapdis 07/11/19 [Rx] Loperamide [Imodium] 2 mg PO ASDIRECTED PRN 07/22/19 [History] Magnesium Oxide 400 mg PO BID 07/22/19 [History] Past Medical History HEENT History: Reports: Allergic Rhinitis, Impaired Vision, Sinusitis Cardiovascular History: Reports: High Cholesterol, Stents Respiratory History: Reports: SOB, Other (See Below) Other Respiratory History: SOBOE; collapsed lung when in [facility] [place] 2006 Gastrointestinal History: Reports: GERD, Other (See Below) Other Gastrointestinal History: lactose intolerant Genitourinary History: Reports: Other (See Below) Other Genitourinary History: malignant tumor taken off left kidney OUTREACH LIAISON History: Reports: , Spontaneous Musculoskeletal History: Reports: Back Pain, Chronic, Osteoarthritis, Osteoporosis Other Musculoskeletal History: Weakness Neurological History: Reports: Migraines, Neuropathy, Diabetic, Other (See Below ) Other Neuro History: [facility] [place] 2006 Psychiatric History: Reports: Eating Disorders Endocrine/Metabolic History: Reports: Diabetes, Type II, Obesity/BMI 30+ Hematologic History: Reports: Anemia, Blood Transfusion(s) Oncologic (Cancer) History: Reports: Renal Dermatologic History: Reports: Other (See Below) Other Dermatologic History: Redness to bottom but not broken down - Infectious Disease History Infectious Disease History: Reports: Chicken Pox - Past Surgical History HEENT Surgical History: Reports: Tonsillectomy Cardiovascular Surgical History: Reports: Coronary Artery Stent GI Surgical History: Reports: Bariatric Procedure, Colonoscopy Female Surgical History: Reports: Other (See Below) Other Female Surgeries/Procedures: "Misshapen uterus, couldn't find my right ovary". Musculoskeletal Surgical History: Reports: Other (See Below) Other Musculoskeletal Surgeries/Procedures:: plate in right clavicle Oncologic Surgical History: Reports: Lumpectomy Social & Family History - Family History Family Medical History: Noncontributory - Caffeine Use Caffeine Use: Reports: Coffee, Soda Other Caffeine Use: 2 cups daily Caffeine Use Comment: 1 soda daily - Living Situation & Occupation Living situation: Reports: , with Family Occupation: Disabled H&P Review of Systems - Review of Systems: Review Of Systems: Comprehensive ROS is negative, except as noted in HPI. Exam - Exam Exam: See Below - Exam General: Alert, Oriented, Cooperative HEENT: PERRLA Neck: Supple, Trachea Midline Lungs: Clear to Auscultation, Normal Respiratory Effort Cardiovascular: Regular Rate, Regular Rhythm Extremities: Pedal Edema Peripheral Pulses: 2+: Dorsalis Pedis (L), Dorsalis Pedis (R) Skin: Warm, Dry, Intact Neuro Extensive - Mental Status: Alert, Oriented x3 Psychiatric: Depressed - Problem List (1) Failure to thrive SNOMED Code(s): 64701916 ICD Code: [id number] - Status: Acute Priority: High Current Visit: Yes (2) Hypocalcemia SNOMED Code(s): 1582050 ICD Code: E83.51 - HYPOCALCEMIA Status: Acute Priority: Medium Current Visit: Yes (3) Hypomagnesemia SNOMED Code(s): 561632516 ICD Code: E83.42 - HYPOMAGNESEMIA Status: Acute Priority: Medium Current Visit: Yes (4) Loss of appetite SNOMED Code(s): 36059141 ICD Code: R63.0 - ANOREXIA Status: Acute Current Visit: Yes (5) Major depressive disorder SNOMED Code(s): 885777997 ICD Code: F32.9 - MAJOR DEPRESSIVE DISORDER, SINGLE EPISODE, UNSPECIFIED Status: Acute Current Visit: Yes Qualifiers: Major depression recurrence: unspecified whether recurrent Active/ Remission status: currently active Major depression episode severity: moderate Qualified Code(s): F32.1 - Major depressive disorder, single episode , moderate (6) Vitamin D deficiency SNOMED Code(s): 79006003 ICD Code: E55.9 - VITAMIN D DEFICIENCY, UNSPECIFIED Status: Acute Priority: Medium Current Visit: Yes (7) Diabetes mellitus SNOMED Code(s): 58410101 ICD Code: E11.9 - TYPE 2 DIABETES MELLITUS WITHOUT COMPLICATIONS Status: Chronic Current Visit: No (8) Nutritional deficiency SNOMED Code(s): 29717526 ICD Code: E63.9 - NUTRITIONAL DEFICIENCY, UNSPECIFIED Status: Chronic Priority: High Current Visit: Yes Problem Details: 03/27/2014 Tolerating feeding tube better. Did discuss a G tube but patient feels she will eat better. She has been eating better. She did inform me she had a caspule endoscopy in [place] and it showed she had a tear in her small intestine leaking blood and she was supposed to go to the [facility] last month but she was in the hospital. We will look into this later. (9) Hypotension, Low blood pressure SNOMED Code(s): 64322918 ICD Code: I95.9 - HYPOTENSION, UNSPECIFIED Status: Chronic Priority: Medium Current Visit: Yes Problem List Initiated/Reviewed/Updated: Yes Orders Last 24hrs: Active Orders 24 hr Category Date Time Status Patient Status [ADT] Routine ADT 07/22/19 11:16 Ordered Consult to Senior Reservoir Engineer [CONS] Routine Cons 07/22/19 11:16 Ordered Consult to Home Health [CONS] Routine Cons 07/22/19 11:16 Ordered OT Evaluation and Treatment [CONS] Routine Cons 07/22/19 11:16 Ordered PT Evaluation and Treatment [CONS] Routine Cons 07/22/19 11:16 Ordered Tuberculin, PPD [Aplisol] Med 07/22/19 11:16 Once 5 unit IDERM ONETIME ONE Assessment/Plan Comment:: Patient to be admitted to swing bed for rehabilitation of ambulation, ADLs and strength. PT/OT referral ordered. Patient to be monitored for diet and intake. Continue daily weights for CHF. ECHO to be ordered. F/u vitamin deficiencies.
[2019-07-22] MEDS ORDERED: diphenhydrAMINE 25 MG Cap PO PRN (11:42)
[2019-07-22] MEDS ORDERED: Nystatin Crm 30 GM Tube TOP PRN (11:42)
[2019-07-22] MEDS ORDERED: Loperamide 2 MG Cap PO PRN (11:42)
[2019-07-22] MEDS ORDERED: Ondansetron 4 MG Tab.DIS PO PRN (11:42)
[2019-07-22] MEDS: metFORMIN 500 MG Tab PO SCH ×2 (12:00→17:44)
[2019-07-22] MEDS: FLUoxetine 10 MG Cap PO SCH (12:13)
[2019-07-22] MEDS: Calcium Carbonate 500 MG Tab.Chew PO SCH ×2 (15:05→20:05)
[2019-07-22] MEDS: Gabapentin 300 MG Cap PO SCH ×2 (15:05→20:05)
[2019-07-22] MEDS: Acetaminophen/HYDROcodone 325-5 MG Tab PO PRN (15:08)
[2019-07-22] MEDS ORDERED: Ciprofloxacin 500 MG Tab PO ONE (20:00)
[2019-07-22] MEDS: Pantoprazole 40 MG Tab.CR PO SCH (20:05)
[2019-07-22] MEDS: Aspirin 81 MG Tab.EC PO SCH (20:05)
[2019-07-22] MEDS: Mirtazapine 15 MG Tab PO SCH (20:05)
[2019-07-22] MEDS: Metoprolol Succinate 25 MG Tab.ER PO SCH (20:06)
[2019-07-22] MEDS: Magnesium Oxide 400 MG Tab PO SCH (20:07)
[2019-07-22] MEDS: Acetaminophen 325 MG Tab PO PRN (22:09)
[2019-07-22] MEDS: diphenhydrAMINE 25 MG Cap PO PRN (22:11)
[2019-07-23] MEDS: Polyethylene Glycol 3350 Powder 17 GM Packet PO SCH (07:28)
[2019-07-23] MEDS: Acetaminophen/HYDROcodone 325-5 MG Tab PO PRN ×2 (07:37→14:09)
[2019-07-23] MEDS: metFORMIN 500 MG Tab PO SCH ×3 (07:37→17:30)
[2019-07-23] MEDS: Cholecalciferol (Vitamin D3) 2,000 Unit Cap PO SCH (07:37)
[2019-07-23] MEDS: FLUoxetine 10 MG Cap PO SCH (07:37)
[2019-07-23] MEDS: Multivitamins with Iron/Calcium/Folic Acid/Minerals Tab PO SCH (07:37)
[2019-07-23] MEDS: atorvaSTATin 10 MG Tab PO SCH (07:38)
[2019-07-23] MEDS: Lactobacillus Acidophilus/Lactobacillus Sporogenes (Probiotic) Tab PO SCH (07:38)
[2019-07-23] MEDS: Cyanocobalamin (Vitamin B12) 1,000 MCG Tab PO SCH (07:38)
[2019-07-23] MEDS: Gabapentin 300 MG Cap PO SCH ×3 (07:38→19:54)
[2019-07-23] MEDS: Magnesium Oxide 400 MG Tab PO SCH ×2 (07:38→19:53)
[2019-07-23] MEDS: Ferrous Sulfate 325 MG Tab PO SCH (07:38)
[2019-07-23] MEDS: Calcium Carbonate 500 MG Tab.Chew PO SCH ×3 (07:38→19:54)
[2019-07-23] MEDS: Furosemide 20 MG Tab PO SCH (07:39)
[2019-07-23] MEDS ORDERED: Polyethylene Glycol 3350 Powder 510 GM Bot PO SCH (08:00)
[2019-07-23] MEDS: Loperamide 2 MG Cap PO PRN (14:09)
[2019-07-23] MEDS: Pantoprazole 40 MG Tab.CR PO SCH (19:53)
[2019-07-23] MEDS: Mirtazapine 15 MG Tab PO SCH (19:53)
[2019-07-23] MEDS: Aspirin 81 MG Tab.EC PO SCH (19:54)
[2019-07-23] MEDS: diphenhydrAMINE 25 MG Cap PO PRN (19:54)
[2019-07-23] MEDS: Acetaminophen 325 MG Tab PO PRN (19:55)
[2019-07-23] MEDS: Metoprolol Succinate 25 MG Tab.ER PO SCH (19:56)
[2019-07-24] MEDS: Magnesium Oxide 400 MG Tab PO SCH ×2 (07:43→20:49)
[2019-07-24] MEDS: Lactobacillus Acidophilus/Lactobacillus Sporogenes (Probiotic) Tab PO SCH (07:43)
[2019-07-24] MEDS: FLUoxetine 10 MG Cap PO SCH (07:43)
[2019-07-24] MEDS: Acetaminophen/HYDROcodone 325-5 MG Tab PO PRN ×2 (07:43→15:00)
[2019-07-24] MEDS: Ferrous Sulfate 325 MG Tab PO SCH (07:43)
[2019-07-24] MEDS: Gabapentin 300 MG Cap PO SCH ×3 (07:43→20:49)
[2019-07-24] MEDS: Multivitamins with Iron/Calcium/Folic Acid/Minerals Tab PO SCH (07:44)
[2019-07-24] MEDS: Furosemide 20 MG Tab PO SCH (07:44)
[2019-07-24] MEDS: metFORMIN 500 MG Tab PO SCH ×3 (07:44→17:48)
[2019-07-24] MEDS: atorvaSTATin 10 MG Tab PO SCH (07:44)
[2019-07-24] MEDS: Cyanocobalamin (Vitamin B12) 1,000 MCG Tab PO SCH (07:44)
[2019-07-24] MEDS: Cholecalciferol (Vitamin D3) 2,000 Unit Cap PO SCH (07:44)
[2019-07-24] MEDS: Polyethylene Glycol 3350 Powder 17 GM Packet PO SCH (07:45)
[2019-07-24] MEDS: Calcium Carbonate 500 MG Tab.Chew PO SCH ×3 (07:47→20:49)
[2019-07-24] MEDS ORDERED: Calcium Carbonate 500 MG Tab.Chew ONE (07:47)
[2019-07-24] MEDS ORDERED: metFORMIN 500 MG Tab ONE (14:57)
[2019-07-24] MEDS: Metoprolol Succinate 25 MG Tab.ER PO SCH (20:47)
[2019-07-24] MEDS: Pantoprazole 40 MG Tab.CR PO SCH (20:48)
[2019-07-24] MEDS: Mirtazapine 15 MG Tab PO SCH (20:48)
[2019-07-24] MEDS: Aspirin 81 MG Tab.EC PO SCH (20:48)
[2019-07-24] MEDS: diphenhydrAMINE 25 MG Cap PO PRN (20:48)
[2019-07-24] MEDS: Acetaminophen 325 MG Tab PO PRN (20:49)
[2019-07-24] MEDS: Loperamide 2 MG Cap PO PRN (20:49)
[2019-07-25] MEDS: Acetaminophen/HYDROcodone 325-5 MG Tab PO PRN ×2 (00:53→08:44)
[2019-07-25] MEDS: Multivitamins with Iron/Calcium/Folic Acid/Minerals Tab PO SCH (08:30)
[2019-07-25] MEDS: Magnesium Oxide 400 MG Tab PO SCH ×2 (08:30→20:10)
[2019-07-25] MEDS: Cholecalciferol (Vitamin D3) 2,000 Unit Cap PO SCH (08:30)
[2019-07-25] MEDS: Cyanocobalamin (Vitamin B12) 1,000 MCG Tab PO SCH (08:30)
[2019-07-25] MEDS: Gabapentin 300 MG Cap PO SCH ×3 (08:30→20:03)
[2019-07-25] MEDS: Ferrous Sulfate 325 MG Tab PO SCH (08:30)
[2019-07-25] MEDS: atorvaSTATin 10 MG Tab PO SCH (08:31)
[2019-07-25] MEDS: Lactobacillus Acidophilus/Lactobacillus Sporogenes (Probiotic) Tab PO SCH (08:31)
[2019-07-25] MEDS: metFORMIN 500 MG Tab PO SCH ×3 (08:31→17:46)
[2019-07-25] MEDS: FLUoxetine 10 MG Cap PO SCH (08:31)
[2019-07-25] MEDS: Furosemide 20 MG Tab PO SCH (08:31)
[2019-07-25] MEDS: Polyethylene Glycol 3350 Powder 17 GM Packet PO SCH (08:34)
[2019-07-25] MEDS: Calcium Carbonate 500 MG Tab.Chew PO SCH ×3 (08:46→20:09)
--- NOTE | 2019-07-25 09:41 | PCM.PN ---
- General Info Date of Service: 07/25/19 Subjective Update: Patient has slightly improved symptoms. She states she does feel slightly better but remains very weak. She has continued difficulty with getting up and getting to the bathroom in time. There have been multiple episodes where she has been late to the bathroom and has left stools in her briefs with once where she went all in the bed. Staff report an improved appetite. Functional Status: Reports: Tolerating Diet - Review of Systems General: Reports: Weakness, Fatigue HEENT: Reports: No Symptoms Pulmonary: Reports: No Symptoms Cardiovascular: Reports: Edema Gastrointestinal: Reports: Decreased Appetite Genitourinary: Reports: Frequency, Incontinence Musculoskeletal: Reports: No Symptoms Skin: Reports: No Symptoms Neurological: Reports: Weakness Psychiatric: Reports: Depression - Patient Data Vitals - Most Recent: Last Vital Signs Temp 36.2 C 07/24/19 20:00 Pulse 125 H 07/24/19 20:47 Resp 18 07/24/19 20:00 BP 111/65 07/24/19 20:47 Pulse Ox 98 07/24/19 20:00 Weight - Most Recent: 68.765 kg Lab Results Last 24 Hours: Laboratory Results - last 24 hr 07/24/19 07/24/19 07/24/19 Range/Units 10:41 16:48 20:06 POC Glucose 147 H 182 H 227 H (74-110) mg/dL 07/25/19 Range/Units 08:25 POC Glucose 103 (74-110) mg/dL Med Orders - Current: Current Medications Acetaminophen (Tylenol) 650 mg PO Q4H PRN PRN Reason: Pain/Fever Last Admin: 07/24/19 20:49 Dose: 650 mg Hydrocodone Bitart/Acetaminophen ([place] 325-5 Mg) 1 tab PO Q6H PRN PRN Reason: Pain Last Admin: 07/25/19 08:44 Dose: 1 tab Aspirin (Halfprin) 81 mg PO BEDTIME [facility] Last Admin: 07/24/19 20:48 Dose: 81 mg Atorvastatin Calcium (Lipitor) 10 mg PO DAILY [facility] Last Admin: 07/25/19 08:31 Dose: 10 mg Calcium Carbonate/Glycine (Tums) 500 mg PO TID [facility] Last Admin: 07/25/19 08:46 Dose: Not Given Cholecalciferol (Vitamin D3) 2,000 unit PO DAILY [facility] Last Admin: 07/25/19 08:30 Dose: 2,000 unit Cyanocobalamin (Vitamin B12) 1,000 mcg PO DAILY [facility] Last Admin: 07/25/19 08:30 Dose: 1,000 mcg Diphenhydramine HCl (Benadryl) 50 mg PO Q6H PRN PRN Reason: Allergies Last Admin: 07/24/19 20:48 Dose: 50 mg Ferrous Sulfate (Ferrous Sulfate) 325 mg PO DAILY [facility] Last Admin: 07/25/19 08:30 Dose: 325 mg Fluoxetine HCl (Prozac) 10 mg PO DAILY [facility] Last Admin: 07/25/19 08:31 Dose: 10 mg Furosemide (Lasix) 20 mg PO DAILY [facility] Last Admin: 07/25/19 08:31 Dose: 20 mg Gabapentin (Neurontin) 600 mg PO TID [facility] Last Admin: 07/25/19 08:30 Dose: 600 mg Lactobacillus Acidophilus (Acidolphilus Extra Strength) 1 tab PO DAILY [facility] Last Admin: 07/25/19 08:31 Dose: 1 tab Loperamide HCl (Imodium) 2 mg PO Q6H PRN PRN Reason: Diarrhea Last Admin: 07/24/19 20:49 Dose: 2 mg Magnesium Oxide (Magnesium Oxide) 400 mg PO BID [facility] Last Admin: 07/25/19 08:30 Dose: 400 mg Metformin HCl (Glucophage) 500 mg PO TIDMEALS [facility] Last Admin: 07/25/19 08:31 Dose: 500 mg Metoprolol Succinate (Toprol Xl) 12.5 mg PO BEDTIME [facility] Last Admin: 07/24/19 20:47 Dose: 12.5 mg Mirtazapine (Remeron) 45 mg PO BEDTIME [facility] Last Admin: 07/24/19 20:48 Dose: 45 mg Multivitamins/Minerals (Thera M Plus) 1 tab PO DAILY [facility] Last Admin: 07/25/19 08:30 Dose: 1 tab Nystatin (Nystatin Crm) 0 gm TOP BID PRN PRN Reason: Rash Ondansetron HCl (Zofran Odt) 4 mg PO Q6H PRN PRN Reason: Nausea Pantoprazole Sodium (Protonix) 40 mg PO BEDTIME [facility] Last Admin: 07/24/19 20:48 Dose: 40 mg Polyethylene Glycol (Miralax) 17 gm PO DAILY [facility] Last Admin: 07/25/19 08:34 Dose: Not Given Discontinued Medications Calcium Carbonate/Glycine (Tums) Confirm Administered Dose 500 mg .ROUTE .STK- MED ONE Stop: 07/24/19 07:48 Last Admin: 07/24/19 07:56 Dose: Not Given Ciprofloxacin (Ciprofloxacin Hcl) 500 mg PO ONETIME ONE Stop: 07/22/19 20:01 Last Admin: 07/22/19 20:05 Dose: 500 mg Diphenhydramine HCl (Benadryl) 50 mg PO ASDIRECTED PRN PRN Reason: Allergies Loperamide HCl (Imodium) 2 mg PO ASDIRECTED PRN PRN Reason: Diarrhea Metformin HCl (Glucophage) Confirm Administered Dose 500 mg .ROUTE .STK-MED ONE Stop: 07/24/19 14:58 Last Admin: 07/24/19 16:51 Dose: Not Given Polyethylene Glycol (Miralax) 238 gm PO DAILY [facility] Tuberculin PPD (Aplisol) 5 unit IDERM ONETIME ONE Stop: 07/22/19 11:17 - Exam General: Alert, Oriented, Cooperative HEENT: Pupils Equal, Pupils Reactive, EOMI Lungs: Clear to Auscultation, Normal Respiratory Effort Cardiovascular: Regular Rate, Regular Rhythm GI/Abdominal Exam: Normal Bowel Sounds, Soft, Non-Tender Back Exam: Normal Inspection, Full Range of Motion Extremities: Pedal Edema Peripheral Pulses: 2+: Dorsalis Pedis (L), Dorsalis Pedis (R) Skin: Warm, Dry, Intact Psy/Mental Status: Alert, Depressed - Problem List & Annotations (1) Failure to thrive SNOMED Code(s): 28933785 Code(s): [id number] - Status: Acute Priority: High Current Visit: Yes (2) Hypocalcemia SNOMED Code(s): 2461761 Code(s): E83.51 - HYPOCALCEMIA Status: Acute Priority: Medium Current Visit: Yes (3) Hypomagnesemia SNOMED Code(s): 302700652 Code(s): E83.42 - HYPOMAGNESEMIA Status: Acute Priority: Medium Current Visit: Yes (4) Loss of appetite SNOMED Code(s): 98552786 Code(s): R63.0 - ANOREXIA Status: Acute Current Visit: Yes (5) Major depressive disorder SNOMED Code(s): 713613841 Code(s): F32.9 - MAJOR DEPRESSIVE DISORDER, SINGLE EPISODE, UNSPECIFIED Status: Acute Current Visit: Yes Qualifiers: Major depression recurrence: unspecified whether recurrent Active/ Remission status: currently active Major depression episode severity: moderate Qualified Code(s): F32.1 - Major depressive disorder, single episode , moderate (6) Vitamin D deficiency SNOMED Code(s): 95075984 Code(s): E55.9 - VITAMIN D DEFICIENCY, UNSPECIFIED Status: Acute Priority : Medium Current Visit: Yes (7) Diabetes mellitus SNOMED Code(s): 31336209 Code(s): E11.9 - TYPE 2 DIABETES MELLITUS WITHOUT COMPLICATIONS Status: Chronic Current Visit: No (8) Nutritional deficiency SNOMED Code(s): 07496121 Code(s): E63.9 - NUTRITIONAL DEFICIENCY, UNSPECIFIED Status: Chronic Priority: High Current Visit: Yes Annotation/Comment:: 03/27/2014 Tolerating feeding tube better. Did discuss a G tube but patient feels she will eat better. She has been eating better. She did inform me she had a caspule endoscopy in [place] and it showed she had a tear in her small intestine leaking blood and she was supposed to go to the [facility] last month but she was in the hospital. We will look into this later. (9) Hypotension, Low blood pressure SNOMED Code(s): 99593246 Code(s): I95.9 - HYPOTENSION, UNSPECIFIED Status: Chronic Priority: Medium Current Visit: Yes - Problem List Review Problem List Initiated/Reviewed/Updated: Yes - My Orders Last 24 Hours: My Active Orders 07/24/19 Lunch Consistent Carbohydrate Diet [DIET] - Plan Plan:: Patient to be admitted to swing bed for rehabilitation of ambulation, ADLs and strength. PT/OT referral ordered. Patient to be monitored for diet and intake. Continue daily weights for CHF. ECHO to be ordered. F/u vitamin deficiencies. 07/25/19 Patient has improved strength and appetite. She will need further care and management with strengthening and ADLs for plan to go home. If this fails she will require long-term care.
[2019-07-25] MEDS: Acetaminophen 325 MG Tab PO PRN (14:57)
[2019-07-25] MEDS: Mirtazapine 15 MG Tab PO SCH (20:08)
[2019-07-25] MEDS: Pantoprazole 40 MG Tab.CR PO SCH (20:08)
[2019-07-25] MEDS: Metoprolol Succinate 25 MG Tab.ER PO SCH (20:09)
[2019-07-25] MEDS: Aspirin 81 MG Tab.EC PO SCH (20:10)
[2019-07-26] MEDS: Furosemide 20 MG Tab PO SCH (07:50)
[2019-07-26] MEDS: Lactobacillus Acidophilus/Lactobacillus Sporogenes (Probiotic) Tab PO SCH (07:50)
[2019-07-26] MEDS: Calcium Carbonate 500 MG Tab.Chew PO SCH ×3 (07:51→20:49)
[2019-07-26] MEDS: Gabapentin 300 MG Cap PO SCH ×3 (07:51→20:50)
[2019-07-26] MEDS: metFORMIN 500 MG Tab.ER PO SCH (07:51)
[2019-07-26] MEDS: Acetaminophen/HYDROcodone 325-5 MG Tab PO PRN ×2 (07:52→17:02)
[2019-07-26] MEDS: Cyanocobalamin (Vitamin B12) 1,000 MCG Tab PO SCH (07:52)
[2019-07-26] MEDS: Magnesium Oxide 400 MG Tab PO SCH ×2 (07:52→20:50)
[2019-07-26] MEDS: FLUoxetine 10 MG Cap PO SCH (07:52)
[2019-07-26] MEDS: Multivitamins with Iron/Calcium/Folic Acid/Minerals Tab PO SCH (07:52)
[2019-07-26] MEDS: Cholecalciferol (Vitamin D3) 2,000 Unit Cap PO SCH (07:53)
[2019-07-26] MEDS: Ferrous Sulfate 325 MG Tab PO SCH (07:53)
[2019-07-26] MEDS: atorvaSTATin 10 MG Tab PO SCH (07:53)
[2019-07-26] MEDS ORDERED: metFORMIN 500 MG Tab.ER ONE (07:54)
[2019-07-26] MEDS: Polyethylene Glycol 3350 Powder 17 GM Packet PO SCH (07:58)
[2019-07-26] MEDS: Acetaminophen 325 MG Tab PO PRN (15:06)
[2019-07-26] MEDS: Mirtazapine 15 MG Tab PO SCH (20:49)
[2019-07-26] MEDS: Pantoprazole 40 MG Tab.CR PO SCH (20:49)
[2019-07-26] MEDS: Aspirin 81 MG Tab.EC PO SCH (20:49)
[2019-07-26] MEDS: Metoprolol Succinate 25 MG Tab.ER PO SCH (20:51)
[2019-07-27] MEDS: Acetaminophen/HYDROcodone 325-5 MG Tab PO PRN ×2 (02:34→10:49)
[2019-07-27] MEDS: Lactobacillus Acidophilus/Lactobacillus Sporogenes (Probiotic) Tab PO SCH (08:16)
[2019-07-27] MEDS: Ferrous Sulfate 325 MG Tab PO SCH (08:16)
[2019-07-27] MEDS: Furosemide 20 MG Tab PO SCH (08:17)
[2019-07-27] MEDS: atorvaSTATin 10 MG Tab PO SCH (08:17)
[2019-07-27] MEDS: Magnesium Oxide 400 MG Tab PO SCH (08:17)
[2019-07-27] MEDS: Polyethylene Glycol 3350 Powder 17 GM Packet PO SCH (08:18)
[2019-07-27] MEDS: Gabapentin 300 MG Cap PO SCH (08:18)
[2019-07-27] MEDS: Multivitamins with Iron/Calcium/Folic Acid/Minerals Tab PO SCH (08:21)
[2019-07-27] MEDS: FLUoxetine 10 MG Cap PO SCH (08:21)
[2019-07-27] MEDS: Cholecalciferol (Vitamin D3) 2,000 Unit Cap PO SCH (08:22)
[2019-07-27] MEDS: Calcium Carbonate 500 MG Tab.Chew PO SCH (08:22)
[2019-07-27] MEDS: Cyanocobalamin (Vitamin B12) 1,000 MCG Tab PO SCH (08:22)
[2019-07-27] MEDS ORDERED: metFORMIN 500 MG Tab.ER ONE (08:29)
[2019-07-27] MEDS: metFORMIN 500 MG Tab.ER PO SCH (08:31)
[2019-07-27] MEDS: Loperamide 2 MG Cap PO PRN (08:34)
[2019-07-27] MEDS: Menthol/Zinc Oxide Ointment 113 GM Tube TOP ONE ×2 (08:40→10:45)
[2019-07-27 10:13] VITALS: BP 111/58; PULSE 94
[2019-07-27] MEDS: Acetaminophen 325 MG Tab PO PRN (10:50)
--- NOTE | 2019-07-27 12:02 | PCM.DCSUM1 ---
Discharge Summary - Discharge Data Discharge Date: 07/27/19 Discharge Disposition: DC/Tfer to Acute Hospital 02 Condition: Good - Referral to Home Health Primary Care Physician: PCP None - Discharge Diagnosis/Problem(s) (1) Failure to thrive SNOMED Code(s): 48473547 ICD Code: [id number] - Status: Acute Priority: High Current Visit: Yes (2) Hypocalcemia SNOMED Code(s): 9862601 ICD Code: E83.51 - HYPOCALCEMIA Status: Acute Priority: Medium Current Visit: Yes (3) Hypomagnesemia SNOMED Code(s): 205580752 ICD Code: E83.42 - HYPOMAGNESEMIA Status: Acute Priority: Medium Current Visit: Yes (4) Loss of appetite SNOMED Code(s): 02477629 ICD Code: R63.0 - ANOREXIA Status: Acute Current Visit: Yes (5) Major depressive disorder SNOMED Code(s): 755739232 ICD Code: F32.9 - MAJOR DEPRESSIVE DISORDER, SINGLE EPISODE, UNSPECIFIED Status: Acute Current Visit: Yes Qualifiers: Major depression recurrence: unspecified whether recurrent Active/ Remission status: currently active Major depression episode severity: moderate Qualified Code(s): F32.1 - Major depressive disorder, single episode , moderate (6) Vitamin D deficiency SNOMED Code(s): 84506456 ICD Code: E55.9 - VITAMIN D DEFICIENCY, UNSPECIFIED Status: Acute Priority: Medium Current Visit: Yes (7) Diabetes mellitus SNOMED Code(s): 40411720 ICD Code: E11.9 - TYPE 2 DIABETES MELLITUS WITHOUT COMPLICATIONS Status: Chronic Current Visit: No (8) Nutritional deficiency SNOMED Code(s): 16573440 ICD Code: E63.9 - NUTRITIONAL DEFICIENCY, UNSPECIFIED Status: Chronic Priority: High Current Visit: Yes Problem Details: 03/27/2014 Tolerating feeding tube better. Did discuss a G tube but patient feels she will eat better. She has been eating better. She did inform me she had a caspule endoscopy in [place] and it showed she had a tear in her small intestine leaking blood and she was supposed to go to the [facility] last month but she was in the hospital. We will look into this later. (9) Hypotension, Low blood pressure SNOMED Code(s): 60685113 ICD Code: I95.9 - HYPOTENSION, UNSPECIFIED Status: Chronic Priority: Medium Current Visit: Yes - Patient Summary/Data Consults: Consultations 07/22/19 11:16 Consult to Upholstery Technician [CONS] Routine Comment: Physician Instructions: Quantity: Consult to Home Health [CONS] Routine Comment: Physician Instructions: OT Evaluation and Treatment [CONS] Routine Please Evaluate and Treat. OT Reason for Consult: ADL's This query below is only for informational purposes and is not editable. Admission Diagnosis/Problem: Weakness PT Evaluation and Treatment [CONS] Routine Please Evaluate and Treat. PT Reason for Consult: Ambulation This query below is only for informational purposes and is not editable. Admission Diagnosis/Problem: Weakness - Patient Instructions Driving: Do Not Drive - Discharge Plan Home Medications: Home Meds Aspirin [Ecotrin] 81 mg PO BEDTIME 04/27/13 [History] Gabapentin [Neurontin] 600 mg PO TID 04/27/13 [History] Calcium Carbonate [Calcium Antacid] 500 mg PO TID 05/15/14 [History] Ferrous Sulfate 325 mg PO DAILY 05/15/14 [History] Mirtazapine [Remeron] 45 mg PO BEDTIME 05/30/14 [History] Cyanocobalamin (Vitamin B12) [Vitamin B12] 1,000 mcg PO DAILY #90 tab 06/15/14 [ Rx] diphenhydrAMINE HCl [Benadryl] 50 mg PO ASDIRECTED PRN 05/23/19 [History] Acetaminophen/HYDROcodone [[place] 325-5 MG] 1 tab PO Q6H PRN 06/08/19 [History] Cholecalciferol (Vitamin D3) [Vitamin D3] 2,000 unit PO DAILY 06/08/19 [History] Lactobacillus Acidophilus [Acidophilus] 1 each PO DAILY 06/08/19 [History] Multivit,Calc,Mins/Iron/Folic [Thera-M] 1 each PO DAILY 06/08/19 [History] Nystatin [Nystatin Crm] 15 gm TOP BID PRN 06/08/19 [History] atorvaSTATin [Lipitor] 10 mg PO DAILY 06/08/19 [History] metFORMIN [Glucophage] 500 mg PO TIDMEALS 06/08/19 [History] Acetaminophen [Tylenol] 650 mg PO Q4H PRN tablet 06/20/19 [Rx] Furosemide [Lasix] 20 mg PO DAILY #30 tablet 06/20/19 [Rx] Pantoprazole [ProTONIX] 40 mg PO BEDTIME #30 tab.cr 06/20/19 [Rx] Polyethylene Glycol 3350 [Powderlax] 238 gm PO DAILY #1 powder 06/20/19 [Rx] Metoprolol Succinate [Toprol XL] 12.5 mg PO BEDTIME #15 tab.er 07/11/19 [Rx] Ondansetron [Ondansetron ODT] 4 mg PO Q6H PRN #30 tab.rapdis 07/11/19 [Rx] Loperamide [Imodium] 2 mg PO ASDIRECTED PRN 07/22/19 [History] Magnesium Oxide 400 mg PO BID 07/22/19 [History] - Discharge Summary/Plan Comment DC Time >30 min.: Yes Discharge Summary/Plan Comment: Discussed with patient regarding poor improvement, worsening weakness and debility. Patient's nutrition has worsened and will likely need a GI consult for further workup and a feeding tube. Discussed the need for further workup for CHF and Cardiology evaluation and other imaging eg ECHO. We are unable to offer these services as well as Psychiatry and she will need to be transferred to a higher level of care to offer these services. Patient agrees with plan of care. - Patient Data Vitals - Most Recent: Last Vital Signs Temp 36.6 C 07/27/19 08:00 Pulse 94 07/27/19 08:00 Resp 16 07/27/19 08:00 BP 111/58 L 07/27/19 08:00 Pulse Ox 99 07/27/19 08:00 Weight - Most Recent: 68.402 kg I&O - Last 24 hours: Intake & Output 07/26/19 07/27/19 07/27/19 22:59 06:59 14:59 Intake Total 960 400 Balance 960 400 Lab Results - Last 24 hrs: Laboratory Results - last 24 hr 07/26/19 07/26/19 07/27/19 Range/Units 12:07 15:55 07:12 POC Glucose 170 H 210 H 179 H (74-110) mg/dL Med Orders - Current: Current Medications Acetaminophen (Tylenol) 650 mg PO Q4H PRN PRN Reason: Pain/Fever Last Admin: 07/27/19 10:50 Dose: 650 mg Hydrocodone Bitart/Acetaminophen ([place] 325-5 Mg) 1 tab PO Q6H PRN PRN Reason: Pain Last Admin: 07/27/19 10:49 Dose: 1 tab Aspirin (Halfprin) 81 mg PO BEDTIME [facility] Last Admin: 07/26/19 20:49 Dose: 81 mg Atorvastatin Calcium (Lipitor) 10 mg PO DAILY [facility] Last Admin: 07/27/19 08:17 Dose: 10 mg Calcium Carbonate/Glycine (Tums) 500 mg PO TID [facility] Last Admin: 07/27/19 08:22 Dose: 500 mg Cholecalciferol (Vitamin D3) 2,000 unit PO DAILY [facility] Last Admin: 07/27/19 08:22 Dose: 2,000 unit Cyanocobalamin (Vitamin B12) 1,000 mcg PO DAILY [facility] Last Admin: 07/27/19 08:22 Dose: 1,000 mcg Diphenhydramine HCl (Benadryl) 50 mg PO Q6H PRN PRN Reason: Allergies Last Admin: 07/24/19 20:48 Dose: 50 mg Ferrous Sulfate (Ferrous Sulfate) 325 mg PO DAILY [facility] Last Admin: 07/27/19 08:16 Dose: 325 mg Fluoxetine HCl (Prozac) 10 mg PO DAILY [facility] Last Admin: 07/27/19 08:21 Dose: 10 mg Furosemide (Lasix) 20 mg PO DAILY [facility] Last Admin: 07/27/19 08:17 Dose: 20 mg Gabapentin (Neurontin) 600 mg PO TID [facility] Last Admin: 07/27/19 08:18 Dose: 600 mg Lactobacillus Acidophilus (Acidolphilus Extra Strength) 1 tab PO DAILY [facility] Last Admin: 07/27/19 08:16 Dose: 1 tab Loperamide HCl (Imodium) 2 mg PO Q6H PRN PRN Reason: Diarrhea Last Admin: 07/27/19 08:34 Dose: 2 mg Magnesium Oxide (Magnesium Oxide) 400 mg PO BID [facility] Last Admin: 07/27/19 08:17 Dose: 400 mg Metformin HCl (Glucophage Xr) 1,000 mg PO DAILY [facility] Last Admin: 07/27/19 08:31 Dose: 1,000 mg Metoprolol Succinate (Toprol Xl) 12.5 mg PO BEDTIME [facility] Last Admin: 07/26/19 20:51 Dose: 12.5 mg Mirtazapine (Remeron) 45 mg PO BEDTIME [facility] Last Admin: 07/26/19 20:49 Dose: 45 mg Multivitamins/Minerals (Thera M Plus) 1 tab PO DAILY [facility] Last Admin: 07/27/19 08:21 Dose: 1 tab Nystatin (Nystatin Crm) 0 gm TOP BID PRN PRN Reason: Rash Ondansetron HCl (Zofran Odt) 4 mg PO Q6H PRN PRN Reason: Nausea Pantoprazole Sodium (Protonix) 40 mg PO BEDTIME [facility] Last Admin: 07/26/19 20:49 Dose: 40 mg Polyethylene Glycol (Miralax) 17 gm PO DAILY [facility] Last Admin: 07/27/19 08:18 Dose: Not Given Discontinued Medications Calamine/Phenol (Calmoseptine) Confirm Administered Dose 113 gm TOP .STK-MED ONE Stop: 07/27/19 08:31 Last Admin: 07/27/19 10:45 Dose: 1 applic Calcium Carbonate/Glycine (Tums) Confirm Administered Dose 500 mg .ROUTE .STK- MED ONE Stop: 07/24/19 07:48 Last Admin: 07/24/19 07:56 Dose: Not Given Ciprofloxacin (Ciprofloxacin Hcl) 500 mg PO ONETIME [facility] Stop: 07/22/19 20:01 Last Admin: 07/22/19 20:05 Dose: 500 mg Diphenhydramine HCl (Benadryl) 50 mg PO ASDIRECTED PRN PRN Reason: Allergies Loperamide HCl (Imodium) 2 mg PO ASDIRECTED PRN PRN Reason: Diarrhea Metformin HCl (Glucophage) 500 mg PO TIDMEALS [facility] Stop: 07/25/19 23:59 Last Admin: 07/25/19 17:46 Dose: 500 mg Metformin HCl (Glucophage) Confirm Administered Dose 500 mg .ROUTE .STK-MED ONE Stop: 07/24/19 14:58 Last Admin: 07/24/19 16:51 Dose: Not Given Metformin HCl (Glucophage Xr) Confirm Administered Dose 500 mg .ROUTE .STK-MED ONE Stop: 07/26/19 07:55 Last Admin: 07/26/19 07:59 Dose: Not Given Metformin HCl (Glucophage Xr) Confirm Administered Dose 500 mg .ROUTE .STK-MED ONE Stop: 07/27/19 08:30 Last Admin: 07/27/19 10:04 Dose: Not Given Polyethylene Glycol (Miralax) 238 gm PO DAILY [facility] Tuberculin PPD (Aplisol) 5 unit IDERM ONETIME ONE Stop: 07/22/19 11:17
== END 2019-07-27 11:55 | DRG 948 ==
LOC: LB.MS 10:33
PROVIDERS: ADMIT Family Medicine; ATTEND Family Medicine
DX: R53.1 Weakness (principal); F32.1 Major depressive disorder, single episode, moderate; Z68.44 Body mass index [BMI] 60.0-69.9, adult; E83.51 Hypocalcemia; E83.42 Hypomagnesemia; R63.0 Anorexia; E55.9 Vitamin D deficiency, unspecified; R62.7 Adult failure to thrive; E11.9 Type 2 diabetes mellitus without complications; I95.9 Hypotension, unspecified; E78.00 Pure hypercholesterolemia, unspecified; K21.9 Gastro-esophageal reflux disease without esophagitis; M81.0 Age-related osteoporosis without current pathological fracture; M19.90 Unspecified osteoarthritis, unspecified site; E11.42 Type 2 diabetes mellitus with diabetic polyneuropathy; E66.9 Obesity, unspecified; G43.909 Migraine, unspecified, not intractable, without status migrainosus; Z88.5 Allergy status to narcotic agent; Z88.0 Allergy status to penicillin; Z79.82 Long term (current) use of aspirin; Z79.84 Long term (current) use of oral hypoglycemic drugs; Z79.899 Other long term (current) drug therapy
CPT/HCPCS: 82962; 97110-GO; 97110-GP; 97530-GP; 97535-GO; A0425; A0429; A9270-GY